=== PATIENT | female | born 1955 | race Caucasian/White ===

== ENCOUNTER 2020-01-26 12:10 | Inpatient (IN) | payer OTHER, SELFPAY ==
--- NOTE | ~2020-01-26 | US_ITS ---
EXAMINATION: US venous doppler [facility] EXAM DATE: 01/27/2020 08:06 INDICATION: Left leg cellulitis. TECHNIQUE: Multiple grayscale, color flow and Doppler images of the left lower extremity deep venous system were obtained and reviewed. Comparison is made to prior examination from 05/07/2019. FINDINGS: The left common femoral, femoral and profunda veins demonstrate normal color flow, respirat ory variation, augmentation and compressibility. Compressibility, color flow confirmed within the le ft popliteal, posterior tibial, peroneal, and greater saphenous veins. IMPRESSION: No left lower extremity deep venous thrombosis. Reviewed, dictated and finalized at location B.
[2020-01-26 12:18] VITALS: BP 141/71; PULSE 63; RESP 18; TEMP 36.6; O2SAT 100
[2020-01-26 13:37] LABS: Basophils Absolute Auto 0.1 K/mm3 (0.0-0.1); Basophils Percent Auto 0.6 % (0.2-1.2); Eosinophils Absolute Auto 0.3 K/mm3 (0-0.3); Eosinophils Percent Auto 3.5 % (0-4.4); Hematocrit 40.8 % (37.0-47.0); Hemoglobin 13.8 g/dL (12.0-15.0); Immature Granulocyte Absolute 0.44 K/mm3 (0.00-0.031); Immature Granulocyte Percent A 5.6 % (0-0.5); Lymphocytes Absolute Auto 1.48 K/mm3 (0.9-3.2); Mean Corpuscular HGB Conc 33.8 g/dl (32-36); Mean Corpuscular Hemoglobin 31.4 pg (26-34); Mean Corpuscular Volume 92.7 fl (80-100); Mean Platelet Volume 8.4 fl (7.4-10.4); Monocytes Absolute Auto 0.7 K/mm3 (0.1-0.6); Monocytes Percent Auto 8.5 % (2.6-8.5); Neutrophils Absolute Auto 4.9 K/mm3 (1.3-6.7); Neutrophils Percent Auto 62.8 % (45.5-73.1); Platelet Count Result 231 k/mm3 (150-375); Red Cell Distribution Width 12.3 % (11.5-14.5); White Blood Count 7.8 K/mm3 (4.5-10.0)
[2020-01-26 13:54] LABS: Alanine Aminotransferase 16 U/L (4-35); Alkaline Phosphatase 83 U/L (38-126); Aspartate Amino Transferase 21 U/L (14-36); Bilirubin,Total 0.4 mg/dL (0.2-1.3); Blood Urea Nitrogen 17 mg/dL (7-17); Calcium 9.1 mg/dL (8.4-10.2); Carbon Dioxide 28 mmol/L (22-30); Chloride 104 mmol/L (98-107); Estimated CRCL calculation 90 ml/min; Estimated Glomerular Filt Rate > 60; Glucose 97 mg/dL (65-105); Potassium 4.4 mmol/L (3.4-5.0); Sodium 138 mmol/L (137-145)
--- NOTE | 2020-01-26 14:52 | ED.SKABFB ---
HPI - Skin/Abscess/Foreign Bdy General Chief complaint: Skin/Abscess/Foreign Body Stated complaint: CELLULITIS Time Seen by Provider: 01/26/20 14:06 Source: patient Mode of arrival: ambulatory Limitations: no limitations History of Present Illness HPI narrative: This is a 64 year old female that presents to the ER for left lower extremity erythema x 1 week. Reports she finished a week of oral antibiotics for this without improvement. Denies fever. Related Data Home Medications Medication Instructions Recorded Confirmed aspirin 01/26/20 01/26/20 atenolol 50 mg PO DAILY 01/26/20 dicloxacillin 01/26/20 01/26/20 nifedipine 30 mg PO DAILY 01/26/20 Allergies Allergy/AdvReac Type Severity Reaction Status Date / Time No Known Allergies Allergy Unknown Verified 01/26/20 12:11 Review of Systems Review of Systems: Narrative: CONSTITUTIONAL: Denies fever SKIN: Reports erythema and warmth All systems reviewed & are unremarkable except as noted in HPI and below PMFSH Past Medical History Medical History (Updated 01/26/20 @ 17:20 by Vanessa Goff PA-C) History of hypertension Surgical History Surgical History (Updated 01/26/20 @ 17:18 by Vanessa Goff PA-C) History of D&C History of lithotripsy Social History Social History Gender identity (if verbalized by the patient): Female Exam Narrative: Exam Narrative: GENERAL: Well-appearing, obese, and in no acute distress. HEAD: Normocephalic, atraumatic. EYES: EOMI. EXTREMITIES: Normal range of motion. Left lower extremity with circumferential erythema from below the knee to the ankle with chronic venous stasis changes. Normal DP pulses. Normal sensation SKIN: Warm, dry, no rash. NEURO: No focal deficits. Alert and oriented x3. PSYCH: Normal mood and affect Course Consultations Consultation #1: Spoke with hospitalist about patient work-up who accepts admission Date: 01/26/20 Time: 17:20 Vital Signs Vital signs: Vital Signs Temperature 97.9 F 01/26/20 12:18 Pulse Rate 63 01/26/20 12:18 Respiratory Rate 18 01/26/20 12:18 Blood Pressure 141/71 H 01/26/20 12:18 Pulse Oximetry 100 01/26/20 12:18 Temperature 97.9 F 01/26/20 12:18 Pulse Rate 62 01/26/20 14:56 Respiratory Rate 18 01/26/20 14:56 Blood Pressure 136/56 L 01/26/20 14:56 Pulse Oximetry 100 01/26/20 14:56 MDM - Skin/Abscess/Foreign Bdy MDM Narrative Medical decision making narrative: Patient presents the emergency department for left lower extremity erythema x1 week. Had finished a week of oral antibiotics by her PCP with little relief. CBC is without leukocytosis. CRP is elevated to 5. Patient given a dose of IV antibiotics in the ED. Due to failure of outpatient therapy will be admitted for further IV antibiotics. Spoke with hospitalist about patient work-up who accepts admission Lab Data Attestation: I reviewed the patient's lab results. Result diagrams: 01/26/20 13:28 01/26/20 13:28 Labs: Lab Results 01/26/20 01/26/20 Range/Units 13:28 13:28 WBC 7.8 (4.5-10.0) K/mm3 RBC 4.40 (4.2-5.4) M/mm3 Hgb 13.8 (12.0-15.0) g/dL Hct 40.8 (37.0-47.0) % MCV 92.7 (80-100) fl MCH 31.4 (26-34) pg MCHC 33.8 (32-36) g/dl RDW 12.3 (11.5-14.5) % Plt Count 231 (150-375) k/mm3 MPV 8.4 (7.4-10.4) fl Immature Gran % (Auto) 5.6 H (0-0.5) % Neut % (Auto) 62.8 (45.5-73.1) % Lymph % (Auto) 19.0 (18.3-44.2) % [place] % (Auto) 8.5 (2.6-8.5) % Eos % (Auto) 3.5 (0-4.4) % Baso % (Auto) 0.6 (0.2-1.2) % Lymph # (Auto) 1.48 (0.9-3.2) K/mm3 [place] # (Auto) 0.7 H (0.1-0.6) K/mm3 Eos # (Auto) 0.3 (0-0.3) K/mm3 Baso # (Auto) 0.1 (0.0-0.1) K/mm3 Abs Immat Gran (auto) 0.44 H (0.00-0.031) K/mm3 Absolute Neuts (auto) 4.9 (1.3-6.7) K/mm3 Absolute Nucleated RBC 0.0 (0.0-0.012) K/mm3 Nucleated RBC % 0.0 (0.0-0.2) % Sodium 138 (137-145) mmol/L Potass
[2020-01-26 14:56] VITALS: BP 136/56; PULSE 62; RESP 18; O2SAT 100
[2020-01-26] MEDS: ONDANSETRON INJ 4 MG/2 ML VIAL IV PUSH (15:10)
[2020-01-26 17:08] VITALS: BP 140/74; PULSE 86; RESP 18; O2SAT 98
[2020-01-26 17:43] LABS: Erythrocyte Sedimentation Rate 116 mm/hr (0-20)
--- NOTE | 2020-01-26 17:44 | ADMGEN ---
This patient, Savanna Arevalo, was admitted to 2 Medical Room 242-. Patient/family oriented to hospital policies and general routines including ID bracelet, bed and alarms, visiting hours, pain management, procedures, bathroom and other care routines, personal items, smoking policy, room service/diet, and visiting hours. Valuables list has been completed. Information on how to activate the Rapid Response Team has been discussed. Patient/Family are encouraged to report perceived risks to care and to ask questions if they do not understand what they are told or what they should do.
[2020-01-26 18:00] LABS: Hemoglobin A1C 5.5 % (<5.7)
--- NOTE | 2020-01-26 18:00 | PM.IMHP ---
H&P: HPI History of Present Illness Chief complaint: Left leg cellulitis. Narrative: Savanna Arevalo is a 64-year-old female with hypertension presented to the emergency department earlier this evening for evaluation of left leg cellulitis. Last Sunday she woke to a red and painful left lower leg and that evening began having chills. She saw Dr. Berumen the following day and was prescribed dicloxacillin. Unfortunately, she has not seen much change in the redness and she continues to have burning pain in that leg. She has been taking Tylenol for discomfort with benefit. She denies fever and further chills. Appetite has been good. No nausea or vomiting. She has no history of venous thromboembolism. No known history of MRSA. Review of Systems Review of Systems: Narrative: Twelve systems were reviewed with pertinent positives and negatives as per HPI. No recent travel. She denies cold and flu symptoms. No cough or shortness of breath. She has chronic, mild left-sided weakness from cerebral palsy. Except as documented, all other systems were reviewed and are negative. ON LICENSE OF [facility] Past Medical History Medical History (Updated 01/26/20 @ 21:23 by Catrina Bustamante PA-C) Cerebral palsy With mild left-sided weakness. Hypertension Hypertriglyceridemia Kidney stones (~03/2018) Legionella pneumonia (~04/2019) Osteoarthritis Venous insufficiency of lower extremity Surgical History Surgical History (Updated 01/26/20 @ 21:19 by Catrina Bustamante PA-C) History of ankle surgery (~195) Achilles tendon lengthening. History of cystoscopy (~03/2018) With ureteral stent and stone extraction. History of dilation and curettage With uterine polypectomy. Status post laser ablation of incompetent vein Family History Family History Mother Breast cancer Sibling Breast cancer Other Hodgkin disease Father Parkinson disease Lymph node cancer Grandparent Leukemia Social History Social History (Updated 01/26/20 @ 21:20 by Catrina Bustamante PA-C) Social History: The patient is and lives with her in [place]. They have no children. 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 She denies alcohol, tobacco, and illicit substance abuse. She designates her as her surrogate decision maker and she wishes to be full code. Gender identity (if verbalized by the patient): Female Spiritual care concerns: No Meds Home Medications and Allergies Home Medications Medication Instructions Recorded Confirmed Type aspirin 81 mg PO QAM 01/26/20 01/26/20 History atenolol 50 mg PO QAM 01/26/20 01/26/20 History nifedipine 30 mg PO QACDINNER 01/26/20 01/26/20 History Allergies Allergy/AdvReac Type Severity Reaction Status Date / Time No Known Allergies Allergy Unknown Verified 01/26/20 12:11 Vital Signs Vital Signs - 24 hr 01/26/20 12:18 01/26/20 14:56 01/26/20 17:08 Temperature 97.9 F Pulse Rate 63 62 86 Respiratory Rate 18 18 18 Blood Pressure 141/71 H 136/56 L 140/74 Pulse Oximetry 100 100 98 01/26/20 18:15 Temperature 97.6 F Pulse Rate 61 Respiratory Rate 18 Blood Pressure 142/62 H Pulse Oximetry 99 Exam Narrative: Exam Narrative: General: Well-developed female sitting up in bed in no distress. She is nontoxic in appearance. Slightly hard of hearing. HEENT: Wearing corrective lenses. Slight dysconjugate gaze. Oral mucosa moist. Neck: Supple. Respiratory: Lungs are clear to auscultation bilaterally. Cardiovascular: Regular rate and rhythm with S1-S2. Gastrointestinal: Abdomen is soft, nontender, and nondistended with positive bowel sounds. Skin: Warm and dry. Mild chronic skin changes of the right lower leg. There is circumferential erythema and thickening of the skin of the left lower leg from the ankle to just below the knee. There is warm and tender to touch. Extremities: No cyanosis or
[2020-01-26 18:15] VITALS: BP 142/62; PULSE 61; RESP 18; TEMP 36.4; O2SAT 99
[2020-01-26 18:54] VITALS: BMI 47.7
[2020-01-26] MEDS: ACETAMINOPHEN 325 MG TABLET 650 MG PO (21:30)
[2020-01-26 22:00] VITALS: BP 110/50; PULSE 64; RESP 20; TEMP 36.4; O2SAT 98
[2020-01-26] MEDS: NIFEdipine 30 MG TAB.ER.24 PO (23:05)
[2020-01-27 06:00] VITALS: BP 119/70; PULSE 60; RESP 20; TEMP 36.2; O2SAT 98
[2020-01-27] MEDS: ACETAMINOPHEN 325 MG TABLET 650 MG PO (06:12)
[2020-01-27 08:45] VITALS: PULSE 68
[2020-01-27] MEDS: ASPIRIN 81 MG CHEWABLE TABLET PO (08:45)
[2020-01-27] MEDS: atenoloL 50 MG TABLET PO (08:45)
[2020-01-27] MEDS: ENOXAPARIN 40 MG/0.4 ML SYRINGE SUB-Q ×2 (08:46→21:22)
[2020-01-27 14:00] VITALS: BP 124/58; PULSE 55; RESP 16; TEMP 36.1; O2SAT 94
--- NOTE | 2020-01-27 14:42 | PCCCNOTE ---
On 01/27/20, the student, Katie Gilmore, provided care and completed [facility] documentation on this patient. I have reviewed the student's documentation and agree with the findings.
--- NOTE | 2020-01-27 15:51 | PM.IMPN ---
Progress Note: A&P Assessment and Plan (1) Cellulitis of left leg: Code(s): L03.116 - Cellulitis of left lower limb Status: Acute Assessment and Plan: The patient presented with LLE edema x1 week and was treated with dicloxacillin with minimal improvement. Plan to continue IV cefazolin. She reports improvement. Blood cultures were obtained in the ED although she did not meet SIRS criteria, has no leuokcytosis, and is afebrile. Blood cultures are pending. Continue analgesics PRN. Continue to monitor. (2) Hypertension: Code(s): I10 - Essential (primary) hypertension Status: Chronic Assessment and Plan: Blood pressures were reviewed and are at target. Plan to continue nifedipine and atenolol. Continue to monitor. (3) Chronic venous insufficiency: Code(s): I87.2 - Venous insufficiency (chronic) (peripheral) Status: Chronic Assessment and Plan: She reports a hx of chronic venous insufficiency and has evidence of stasis dermatitis. Recommend gradient compression of at least 20-30mmHg, leg elevation, proper skin hygiene and hydration, and follow-up with vascular surgery outpatient for venous insufficiency US to r/o underlying venous reflux disease. Venous doppler US was negative for DVT bilaterally. (4) DVT prophylaxis: Code(s): Z29.9 - Encounter for prophylactic measures, unspecified Status: Acute Assessment and Plan: Continue lovenox SQ. Subjective Date/time seen: 01/27/20 15:51 Interval history: Mrs. Arevalo is seen in follow-up for LLE cellulitis. She reports that the swelling, heaviness, and pain are improving. She notes minimal improvement in the erythema so far. She denies subjective fever and chills. She is tolerating PO intake well. She denies nausea and vomiting. She denies chest pain and dyspnea. She reports a hx of chronic venous insufficiency and had a venous procedure in 2009 but cannot recall the details. She reports that she has family has a hx of venous insufficiency as well. She wears compression stockings occasionally but does not believe they are 20-30mmHg. Review of Systems Review of Systems: All systems reviewed & are unremarkable except as noted in HPI and below Exam Narrative: Exam Narrative: General: Very pleasant, morbidly obese, well-developed 64 y.o. female sitting in the chair at the bedside in no acute distress. HEENT: Normocephalic and atraumatic. Conjunctivae and lids normal. EOMI. Mucous membranes moist. Posterior pharynx without erythema or exudate. Neck: Supple without lymphadenopathy or masses. Cardiac: Regular rate and rhythm. S1 and S2 normal. Lungs: Effort normal. Lungs clear to auscultation bilaterally. Breath sounds diminished due to subcutaneous tissue. Abdomen: Obese. Normoactive bowel sounds. Soft, non-tender, and non-distended. Extremities: Trace lower extremity firm and pitting edema greater on the LLE. Chaya sign negative. 2+ DP and PT bilaterally. Neurological: Alert. No focal neurological deficits noted to casual conversation. Speech is clear. Skin: Warm and dry. Chronic venous stasis skin changes with lipodermatosclerosis/hyperpigmentation of the distal [id number] LLE. Varicose veins and venous congestion in the left foot. Circumferential erythema present which extends from the ankle to distal area below the knee. Lines were drawn for demarcation. There is calor to palpation of the area. Psychiatric: Judgment and insight intact. Mood and affect normal. Objective Data Vital Signs Vital Signs: Vital Signs - 24 hr 01/26/20 17:08 01/26/20 18:15 01/26/20 22:00 Temperature 97.6 F 97.6 F Pulse Rate 86 61 64 Respiratory Rate 18 18 20 Blood Pressure 140/74 142/62 H 110/50 L Pulse Oximetry 98 99 98 01/27/20 06:00 01/27/20 08:45 01/27/20 14:00 Temperature 97.2 F L 97.0 F L Pulse Rate 60 68 55 L Respiratory Rate 20 16 Blood Pressure 119/70 124/58 L Pulse Oximetry 98 94
[2020-01-27] MEDS: NIFEdipine 30 MG TAB.ER.24 PO (18:14)
[2020-01-27 22:00] VITALS: BP 144/65; PULSE 59; RESP 20; TEMP 36.1; O2SAT 98
[2020-01-28] MEDS: ACETAMINOPHEN 325 MG TABLET 650 MG PO (04:21)
[2020-01-28 05:34] LABS: Hematocrit 39.5 % (37.0-47.0); Hemoglobin 13.4 g/dL (12.0-15.0); Mean Corpuscular HGB Conc 33.9 g/dl (32-36); Mean Corpuscular Hemoglobin 31.4 pg (26-34); Mean Corpuscular Volume 92.5 fl (80-100); Mean Platelet Volume 8.8 fl (7.4-10.4); Platelet Count Result 218 k/mm3 (150-375); Red Blood Count 4.27 M/mm3 (4.2-5.4); Red Cell Distribution Width 12.2 % (11.5-14.5); White Blood Count 7.1 K/mm3 (4.5-10.0)
[2020-01-28 05:51] LABS: Blood Urea Nitrogen 13 mg/dL (7-17); CRP 3.3 mg/dL (<1.0); Calcium 8.6 mg/dL (8.4-10.2); Carbon Dioxide 27 mmol/L (22-30); Chloride 103 mmol/L (98-107); Estimated CRCL calculation 91 ml/min; Estimated Glomerular Filt Rate > 60; Glucose 104 mg/dL (65-105); Potassium 3.8 mmol/L (3.4-5.0); Sodium 137 mmol/L (137-145)
[2020-01-28 06:00] VITALS: BP 120/88; PULSE 69; RESP 20; TEMP 36.1; O2SAT 96
[2020-01-28] MEDS: ASPIRIN 81 MG CHEWABLE TABLET PO (08:46)
[2020-01-28] MEDS: ENOXAPARIN 40 MG/0.4 ML SYRINGE SUB-Q ×2 (08:47→21:45)
[2020-01-28] MEDS: atenoloL 50 MG TABLET PO (08:47)
--- NOTE | 2020-01-28 08:59 | PM.IMPN ---
Progress Note: A&P Assessment and Plan (1) Cellulitis of left leg: Code(s): L03.116 - Cellulitis of left lower limb Status: Acute Assessment and Plan: The patient presented with LLE edema x1 week and was treated with dicloxacillin with minimal improvement. She is improving with IV cefazolin. Blood cultures were obtained in the ED although she did not meet SIRS criteria, has no leuokcytosis, and is afebrile and reveal NGTD. Continue analgesics PRN. Continue to monitor. (2) Hypertension: Code(s): I10 - Essential (primary) hypertension Status: Chronic Assessment and Plan: Blood pressures were reviewed and are reasonably controlled. She had one reading of 144/65 last night but her blood pressure was 120/88 today. Plan to continue nifedipine and atenolol. Continue to monitor. (3) Chronic venous insufficiency: Code(s): I87.2 - Venous insufficiency (chronic) (peripheral) Status: Chronic Assessment and Plan: She reports a hx of chronic venous insufficiency and has evidence of stasis dermatitis. Recommend gradient compression of at least 20-30mmHg, leg elevation, proper skin hygiene and hydration, and follow-up with vascular surgery outpatient for venous insufficiency US to r/o underlying venous reflux disease. Venous doppler US was negative for DVT bilaterally. (4) DVT prophylaxis: Code(s): Z29.9 - Encounter for prophylactic measures, unspecified Status: Acute Assessment and Plan: Continue lovenox SQ. Subjective Date/time seen: 01/28/20 08:59 Interval history: Mrs. Arevalo is seen in follow-up for LLE cellulitis. She reports improvement in her swelling and erythema today. She requested tylenol for mild LLE discomfort and is not having any pain at this time. She denies subjective fever and chills. She is eating well and has no nausea or vomiting. Her plans to bring in her compression stockings today. She slept well. Review of Systems Review of Systems: All systems reviewed & are unremarkable except as noted in HPI and below Exam Narrative: Exam Narrative: General: Pleasant and cooperative, morbidly obese, and well-developed 64 y.o. female sitting in the chair at the bedside in no acute distress. HEENT: Normocephalic and atraumatic. Conjunctivae and lids normal. EOMI. Mucous membranes moist. Posterior pharynx without erythema or exudate. Neck: Supple without lymphadenopathy or masses. Cardiac: Regular rate and rhythm. S1 and S2 normal. Lungs: Effort normal. Lungs clear to auscultation bilaterally without rales, rhonchi, or wheezes. Abdomen: Obese. Normoactive bowel sounds. Abdomen is soft, non-tender, and non-distended. Extremities: Trace lower extremity edema bilaterally. No calf tenderness. 2+ DP and PT bilaterally. Neurological: Alert. Exam is non-focal. Speech is clear. Skin: Warm and dry. Erythema is improving from prior lines of demarcation at the distal LLE with mild calor to palpation. Chronic venous stasis skin changes with lipodermatosclerosis/hyperpigmentation of the distal [id number] LLE. Varicose veins and venous congestion in the left foot. Scar at site of achilles tendon repair on the medial left ankle. Psychiatric: Judgment and insight intact. Mood pleasant and affect normal. Objective Data Vital Signs Vital Signs: Vital Signs - 24 hr 01/27/20 14:00 01/27/20 22:00 01/28/20 06:00 Temperature 97.0 F L 97 F L 97.0 F L Pulse Rate 55 L 59 L 69 Respiratory Rate 16 20 20 Blood Pressure 124/58 L 144/65 H 120/88 Pulse Oximetry 94 98 96 Intake/Output Intake/Output: Intake & Output 01/25/20 01/26/20 01/27/20 01/28/20 23:59 23:59 23:59 23:59 Intake Total 100 1640 340 Balance 100 1640 340 Meds/Results Medications: Active Medications Generic Name Dose Route Start Last Admin Trade Name Freq PRN Reason Stop Dose Admin Acetaminophen 650 mg 01/26/20 21:09 01/28/20 04:21 Tylenol Tablet
[2020-01-28 14:00] VITALS: BP 124/64; PULSE 61; RESP 16; TEMP 35.9; O2SAT 97
[2020-01-28 16:53] VITALS: BP 119/56; PULSE 60
[2020-01-28] MEDS: NIFEdipine 30 MG TAB.ER.24 PO (16:53)
[2020-01-28 22:00] VITALS: BP 126/50; PULSE 59; RESP 20; TEMP 36.1; O2SAT 100
[2020-01-29 05:16] LABS: CRP 2.9 mg/dL (<1.0)
[2020-01-29 05:59] VITALS: BP 121/64; PULSE 61; RESP 20; TEMP 36.1; O2SAT 98
[2020-01-29] MEDS: ACETAMINOPHEN 325 MG TABLET 650 MG PO (06:28)
[2020-01-29] MEDS: ASPIRIN 81 MG CHEWABLE TABLET PO (07:59)
[2020-01-29] MEDS: ENOXAPARIN 40 MG/0.4 ML SYRINGE SUB-Q ×2 (08:00→20:41)
[2020-01-29] MEDS: atenoloL 50 MG TABLET PO (08:00)
--- NOTE | 2020-01-29 10:23 | PM.IMPN ---
Progress Note: A&P Assessment and Plan (1) Cellulitis of left leg: Code(s): L03.116 - Cellulitis of left lower limb Status: Acute Assessment and Plan: The patient presented with LLE edema x1 week and was treated with dicloxacillin with minimal improvement. She continues to improve with IV cefazolin. Blood cultures were obtained in the ED although she did not meet SIRS criteria, has no leuokcytosis, and is afebrile and reveal NGTD. Continue analgesics PRN. Continue to monitor. Hopeful discharge tomorrow on PO keflex. (2) Hypertension: Code(s): I10 - Essential (primary) hypertension Status: Chronic Assessment and Plan: Blood pressures were reviewed and are well-controlled. Continue nifedipine and atenolol. Continue to monitor. (3) Chronic venous insufficiency: Code(s): I87.2 - Venous insufficiency (chronic) (peripheral) Status: Chronic Assessment and Plan: She reports a hx of chronic venous insufficiency and has evidence of stasis dermatitis. Recommend gradient compression of at least 20-30mmHg, leg elevation, proper skin hygiene and hydration, and follow-up with vascular surgery outpatient for venous insufficiency US to r/o underlying venous reflux disease. Venous doppler US was negative for DVT bilaterally. Weight loss was encouraged. (4) DVT prophylaxis: Code(s): Z29.9 - Encounter for prophylactic measures, unspecified Status: Acute Assessment and Plan: Continue lovenox SQ. Additional Plan Recommend antifungal shampoo for seborrheic dermatitis on scalp. Time Spent With Patient Time with patient: 15 - 25 minutes Subjective Date/time seen: 01/29/20 10:23 Interval history: Mrs. Arevalo is seen in follow-up for LLE cellulitis with her at the bedside. She is doing well and continues to note improvement with less erythema and edema. She has no other complaints. She is wearing her gradient compression stockings from home and she is keeping the legs elevated. She has no complaints of constipation or diarrhea and is eating well. Review of Systems Review of Systems: All systems reviewed & are unremarkable except as noted in HPI and below Exam Narrative: Exam Narrative: General: Morbidly obese, pleasant and cooperative 64 y.o. female sitting in the chair at the bedside with her Matt in no acute distress. HEENT: Normocephalic and atraumatic. Conjunctivae and lids normal. EOMI. Moist mucous membranes. Neck: Supple without lymphadenopathy or masses. Cardiac: Regular rate and rhythm. S1 and S2 normal. Lungs: Effort normal. Lungs clear to auscultation bilaterally without rales, rhonchi, or wheezes. Abdomen: Obese. Normoactive bowel sounds. Abdomen is soft, non-tender, and non-distended. Extremities: Trace lower extremity edema bilaterally. No calf tenderness. 2+ DP and PT bilaterally. Neurological: Alert. Exam is non-focal. Speech is clear. Skin: Warm and dry. Erythema continues to improve from prior lines of demarcation at the distal LLE with mild calor to palpation. Chronic venous stasis skin changes with lipodermatosclerosis/hyperpigmentation of the distal [id number] LLE. Varicose veins and venous congestion in the left foot. Scar at site of achilles tendon repair on the medial left ankle. Erythematous plaques consistent with seborrheic dermatitis on the scalp. Psychiatric: Judgment and insight intact. Mood pleasant and affect normal. Objective Data Vital Signs Vital Signs: Vital Signs - 24 hr 01/28/20 14:00 01/28/20 16:53 01/28/20 22:00 Temperature 96.6 F L 97 F L Pulse Rate 61 60 59 L Respiratory Rate 16 20 Blood Pressure 124/64 119/56 L 126/50 L Pulse Oximetry 97 100 01/29/20 05:59 Temperature 97 F L Pulse Rate 61 Respiratory Rate 20 Blood Pressure 121/64 Pulse Oximetry 98 Intake/Output Intake/Output: Intake & Output 01/26/20 01/27/20 01/28/20 01/29/20 23:59 23:59 23:59 23:59
[2020-01-29 14:45] VITALS: BP 122/66; PULSE 60; RESP 16; TEMP 36.4; O2SAT 100
[2020-01-29] MEDS: NIFEdipine 30 MG TAB.ER.24 PO (16:44)
[2020-01-29 16:45] VITALS: BP 137/86
[2020-01-29 22:00] VITALS: BP 140/57; PULSE 62; RESP 16; TEMP 36.1; O2SAT 96
[2020-01-30 05:19] VITALS: BP 138/59; PULSE 67; RESP 16; TEMP 36; O2SAT 96
[2020-01-30] MEDS: ACETAMINOPHEN 325 MG TABLET 650 MG PO (06:28)
[2020-01-30 08:31] VITALS: PULSE 88
[2020-01-30] MEDS: atenoloL 50 MG TABLET PO (08:31)
[2020-01-30] MEDS: ASPIRIN 81 MG CHEWABLE TABLET PO (08:31)
[2020-01-30] MEDS: ENOXAPARIN 40 MG/0.4 ML SYRINGE SUB-Q (08:31)
[2020-01-30 09:01] LABS: Hematocrit 41.9 % (37.0-47.0); Hemoglobin 14.3 g/dL (12.0-15.0); Mean Corpuscular HGB Conc 34.1 g/dl (32-36); Mean Corpuscular Hemoglobin 31.5 pg (26-34); Mean Corpuscular Volume 92.3 fl (80-100); Mean Platelet Volume 8.4 fl (7.4-10.4); Platelet Count Result 218 k/mm3 (150-375); Red Blood Count 4.54 M/mm3 (4.2-5.4); Red Cell Distribution Width 12.2 % (11.5-14.5); White Blood Count 8.6 K/mm3 (4.5-10.0)
[2020-01-30 09:17] LABS: Blood Urea Nitrogen 14 mg/dL (7-17); Calcium 8.8 mg/dL (8.4-10.2); Carbon Dioxide 26 mmol/L (22-30); Chloride 103 mmol/L (98-107); Estimated CRCL calculation 91 ml/min; Estimated Glomerular Filt Rate > 60; Glucose 136 mg/dL (65-105); Sodium 138 mmol/L (137-145)
[2020-01-30 09:20] LABS: CRP 2.2 mg/dL (<1.0)
--- NOTE | 2020-01-30 11:35 | PM.DS ---
DS: Admitting Diagnosis Admitting Diagnosis Admitting Diagnosis: Cellulitis of left lower limb DS: Discharge Diagnosis Discharge Diagnosis (1) Cellulitis of left leg: Code(s): L03.116 - Cellulitis of left lower limb Status: Acute (2) Hypertension: Qualifiers: Hypertension type: essential hypertension Qualified Code(s): I10 - Essential (primary) hypertension Code(s): I10 - Essential (primary) hypertension Status: Chronic (3) Chronic venous insufficiency: Code(s): I87.2 - Venous insufficiency (chronic) (peripheral) Status: Chronic DS: Summary Hospital Course Reason for hospitalization: Cellulitis Hospital Course: Mrs. Arevalo is a 64 y.o. female with PMH significant for hypertension and venous insufficiency who presented to the emergency department for the evaluation of left lower extremity cellulitis. She reported erythema, swelling, and warmth of the LLE since Sunday01/26/20. She was prescribed dicloxacillin and she took this for 1 week without improvement. Initial workup in the ED revealed no evidence of leukocytosis although immature granulocytes were mildly elevated. ESR was elevated at 116 and CRP was elevated at 5. CMP was otherwise unremarkable. Blood cultures were obtained although the patient did not meet SIRS criteria and revealed NGTD. Venous doppler US was negative for DVT. Her erythema, warmth, pain, and swelling improved with IV cefazolin. She reported a hx of a LLE venous procedure which I suspect was radiofrequency ablation. I discussed that she is at risk for skin ulceration in the future due to her advanced venous stasis skin changes. I encouarged her to follow-up with her vascular surgeon to evaluate for recurrent venous reflux disease. She was advsied to wear 20-30mmHg+ compression stockings, exercise, and elevate the legs. Weight loss was encouraged. Her cellulitis improved significantly and she requested to go home. She was discharged on the morning of 01/30/20 on PO keflex. Status at Discharge Functional status at discharge: independent ambulation Overall status at discharge: patient is back to baseline Time Spent with Patient Time attestation: Total time spent providing and/or coordinating discharge services: 30 minutes Exam Narrative: Exam Narrative: Vitals at presentation: Temp Pulse Resp BP Pulse Ox 97.9 F 63 18 141/71 H 100 01/26/20 12:18 01/26/20 12:18 01/26/20 12:18 01/26/20 12:18 01/26/20 12:18 Vitals at discharge: Temp Pulse Resp BP Pulse Ox 96.8 F L 88 16 138/59 L 96 01/30/20 05:19 01/30/20 08:31 01/30/20 05:19 01/30/20 05:19 01/30/20 05:19 General: Morbidly obese, healthy appearing, pleasant and cooperative 64 y.o. female sitting in the chair at the bedside with her and in no acute distress. HEENT: Normocephalic and atraumatic. Conjunctivae and lids normal. EOMI. Moist mucous membranes. Neck: Supple without lymphadenopathy or masses. Cardiac: Regular rate and rhythm. S1 and S2 normal. Lungs: Effort normal. Lungs clear to auscultation bilaterally. Abdomen: Obese. Normoactive bowel sounds. Abdomen is soft, non-tender, and non-distended. Extremities: No significant lower extremity edema. Neurological: Alert. Exam is non-focal to casual conversation. Speech is clear. Skin: Warm and dry. Minimal erythema today, much improved. Chronic venous stasis skin changes with lipodermatosclerosis/hyperpigmentation of the distal [id number] LLE. Varicose veins and venous congestion in the left foot. Scar at site of achilles tendon repair on the medial left ankle. Erythematous plaques consistent with seborrheic dermatitis on the scalp. Psychiatric: Judgment and insight intact. Mood p
== END 2020-01-30 14:15 | disposition home or self-care (01) | DRG 603 ==
LOC: ANHED 17:00 → ANH2MED 17:12
PROVIDERS: Physician Assistant; Admitting Provider Hospitalist; Emergency Provider Emergency Medicine; PCP Family Medicine; Visit Provider Family Medicine
DX: L03.116 Cellulitis of left lower limb (principal); I87.2 Venous insufficiency (chronic) (peripheral); E78.1 Pure hyperglyceridemia; I10 Essential (primary) hypertension; G80.9 Cerebral palsy, unspecified; L21.9 Seborrheic dermatitis, unspecified; Z87.442 Personal history of urinary calculi
CPT/HCPCS: 36415; 80048; 80053; 83036; 85025; 85027; 85652; 86140; 87040; 93971; 96365; 96366; 96372; 96375; 99285; A9270; G0378; J0690; J1650; J2405

== ENCOUNTER 2020-12-31 12:07 | Outpatient (CLI) | payer OTHER, SELFPAY ==
--- NOTE | ~2020-12-31 | MR_ITS ---
EXAMINATION: MR lumbar spine wo con DATE: 12/31/2020 13:07 INDICATION: Dorsalgia, unspecified. TECHNIQUE: Magnetic resonance imaging (MRI) of the lumbar spine was performed without intravenous con trast. Sequences included sagittal T2-weighted FSE, sagittal T2-weighted FS FSE, sagittal T1-weighted FSE, and axial T2-weighted FSE. COMPARISON: Lumbar spine MRI 10/12/2011 FINDINGS: There is 8 degrees dextrocurvature of thoracolumbar spine. There is 4 mm anterolisthesis of L4 on L5. Vertebral body heights are normal. There is moderately decreased disc height at T11-T12 an d L3-L4 and mildly decreased disc height at L4-L5. The conus medullaris is at L1. The following disc levels are specifically discussed: L1-L2: There is a central protrusion. There is mild bilateral facet joint osteoarthritis. There is no neural foraminal stenosis. There is mild central canal stenosis. L2-L3: The disc is mildly bulging. There is moderate bilateral facet joint osteoarthritis. There is n o neural foraminal stenosis. There is mild central canal stenosis. L3-L4: The disc is bulging and has an annular fissure. There is severe bilateral facet joint osteoart hritis. There is moderate right and mild left neural foraminal stenosis. There is mild central canal stenosis. L4-L5: The disc is bulging. There is severe bilateral facet joint osteoarthritis. There is mild bilat eral neural foraminal stenosis. There is moderate central canal stenosis. L5-S1: The disc does not extend beyond the endplate margin. There is severe right and moderate left f acet joint osteoarthritis. There is mild bilateral neural foraminal stenosis. There is no central can al stenosis. IMPRESSION: 1. Moderate lumbar spondylosis. Reviewed, dictated and finalized at location A.
== END 2020-12-31 12:08 | disposition home or self-care (01) ==
PROVIDERS: PCP Internal Medicine; Visit Provider Nurse Practitioner
DX: M47.896 Other spondylosis, lumbar region (principal)
CPT/HCPCS: 72148

== ENCOUNTER 2021-02-17 10:30 | Outpatient (RCR) | payer OTHER, SELFPAY ==
--- NOTE | 2021-01-21 17:11 | PTOPEVAL ---
Thank you for referring Savanna Arevalo to [facility].? The patient is scheduled to be seen for therapy? 2 x/week for 6 weeks. Please review, sign, date and return this plan of care EVERETT. I agree with and certify that the following plan of care is medically necessary. Referring Physician Date Attending Provider: Phu Reyna, Diagnosis progression of leg weakness Onset chronic Additional Evaluation Detail History of cellulitis and lymphedema. She is being treated at [facility] for lymphedema. Compression pump she uses nightly. She has Dx of CP which she did not know until recently. She had heel cord lengthening as a child. 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 Subjective Information She has progression of Query Text:As Reported By Patient/ weakness with falls over the Family past year. She reports she shuffles her feet. Last fall 11/26/20. States 1 fall in the past 6 months. She is unable to get off the floor due to weakness. 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 She does not perform a walking program or fitness program. She has received multiple shots in her back for the pain . Diagnostic Tests MRI For This Problem Yes: Moderate lumbar spondylosis. Pain Assessment Self Report Pain Assessment Lower Back Reported Pain Level 0 Pain Description Aching Pain Frequency Chronic Greatest Pain Intensity 4 Pain Aggravating Factors Walking,Weight Bearing/ Standing Pain Behaviors Anxious Lower Extremity Range of Motion Ankle/Foot Range of Motion Left Ankle Dorsiflexion With Knee Flexed -18 Active Ankle Eversion Range of Motion - Passive 15 Ankle Inversion Range of Motion - 55 Passive Lower Extremity Muscle Strength Testing Hip Strength Right Hip Flexion Strength 4- Good - Hip Extension Strength 3+ Fair + Hip Abduction Strength 3+ Fair + Hip Strength Comments hip ext and abduction tested standing Left Hip Flexion Strength 3- Fair - Hip E
--- NOTE | 2021-02-17 11:19 | PTOPEVAL ---
Thank you for referring Savanna Arevalo to [facility].? See summary below for Savanna's progress with therapy. She has partially achieved her therapy goals at this time. She demonstrate indep with her home program. Will DC skilled therapy services at this time. Please review, sign, date and return this discharge summary [place]ERETT. I agree with and certify that the following plan of care is medically necessary. Referring Physician Date Attending Provider: Phu Reyna, DO Physical Therapy Discharge Summary Diagnosis progression of leg weakness Onset chronic Additional Evaluation Detail History of cellulitis and lymphedema. She is being treated at [facility] for lymphedema. Compression pump she uses nightly. She has Dx of CP which she did not know until recently. She had heel cord lengthening as a child. 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 Subjective Information She received an injection in Query Text:As Reported By Patient/ her back yesterday with Family improved pain today. She does feel therapy has improved her strength and function. Denies any recent falls. 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 She does performing HEP 1x/day. Pain Assessment Lower Back Reported Pain Level 0 Lower Extremity Muscle Strength Testing Hip Strength Right Hip Flexion Strength 4- Good - Hip Extension Strength 3+ Fair + Hip Abduction Strength 3+ Fair + Hip Strength Comments hip ext and abduction tested standing Left Hip Flexion Strength 3+ Fair + Hip Extension Strength 3+ Fair + Hip Abduction Strength 3 Fair Hip Strength Comments hip ext and abduction tested standing Knee Strength Right Knee Flexion Strength 4+ Good + Knee Extension Strength 5 Normal Knee Strength Comments hamstring tested in seated Left Knee Flexion Strength 4+ Good + Knee Extension Strength 4+ Good + Knee Strength Comments hamstring tested seated Transfer Assessment Floor Transfer Assessment Floor Transfer Destination Mat Sit to Floor Transfer Ability Standby Assistance Floor to Sit Transfer Ability Standby Assistance Floor Transfer Comments stand to kneeling on ground.
== END 2021-04-11 13:05 | disposition home or self-care (01) ==
LOC: ANHPT 10:30
PROVIDERS: PCP Internal Medicine; Visit Provider Internal Medicine
DX: R29.898 Other symptoms and signs involving the musculoskeletal system (principal)
CPT/HCPCS: 97110; 97112; 97163; 97530

== ENCOUNTER 2021-09-11 13:32 | Inpatient (IN) | payer OTHER, SELFPAY ==
--- NOTE | ~2021-09-11 | US_ITS ---
EXAMINATION: US venous doppler [facility] DATE: 09/11/2021 15:50 INDICATION: Left lower limb swelling TECHNIQUE: Monterroso scale images without and with compression and Doppler images of the left lower extrem ity veins were obtained. COMPARISON: 01/27/2020 FINDINGS: The left common femoral vein, profunda femoral vein, femoral vein, popliteal vein, peroneal trunk, posterior tibial veins, and greater saphenous vein are patent. IMPRESSION: 1. Patent left lower extremity veins. No evidence of deep venous thrombosis. Reviewed, dictated and finalized at location F. M [employer]OX [employer]ER
[2021-09-11 13:33] VITALS: BP 149/111; PULSE 72; RESP 20; TEMP 36.7; O2SAT 99
[2021-09-11 13:41] VITALS: PULSE 68; RESP 18; TEMP 37.1; O2SAT 98
[2021-09-11 14:28] LABS: Basophils Absolute Auto 0.1 K/mm3 (0.0-0.1); Basophils Percent Auto 0.7 % (0.2-1.2); Eosinophils Absolute Auto 0.2 K/mm3 (0-0.3); Eosinophils Percent Auto 2.4 % (0-4.4); Hematocrit 40.2 % (37.0-47.0); Hemoglobin 13.4 g/dL (12.0-15.0); Immature Granulocyte Absolute 0.14 K/mm3 (0.00-0.031); Immature Granulocyte Percent A 1.5 % (0-0.5); Lymphocytes Absolute Auto 1.47 K/mm3 (0.9-3.2); Lymphocytes Percent Auto 15.3 % (18.3-44.2); Mean Corpuscular HGB Conc 33.3 g/dl (32-36); Mean Corpuscular Hemoglobin 31.7 pg (26-34); Mean Platelet Volume 8.7 fl (7.4-10.4); Monocytes Absolute Auto 0.7 K/mm3 (0.1-0.6); Monocytes Percent Auto 7.1 % (2.6-8.5); Platelet Count Result 227 k/mm3 (150-375); Red Blood Count 4.23 M/mm3 (4.2-5.4); Red Cell Distribution Width 12.8 % (11.5-14.5); White Blood Count 9.6 K/mm3 (4.5-10.0)
[2021-09-11 14:43] LABS: Anion Gap 7 mmol/L (8-16); Blood Urea Nitrogen 24 mg/dL (7-17); Carbon Dioxide 26 mmol/L (22-30); Chloride 108 mmol/L (98-107); Estimated CRCL calculation 57 ml/min; Estimated Glomerular Filt Rate 55; Glucose 108 mg/dL (65-110); Potassium 3.8 mmol/L (3.4-5.0); Sodium 141 mmol/L (137-145)
[2021-09-11] MEDS: HYDROcodone/acetaminophen (*CRX) 5-325 MG TABLET 2 TAB PO (15:23)
--- NOTE | 2021-09-11 15:28 | PC.NURSE ---
Doppler at bedside for exam.
--- NOTE | 2021-09-11 16:07 | ED.GENADULT ---
HPI - General Adult General Chief complaint: Wound/Laceration Stated complaint: left lower leg cellulitis. Time Seen by Provider: 09/11/21 14:05 Source: patient Mode of arrival: ambulatory Limitations: no limitations History of Present Illness HPI narrative: Patient presents for evaluation of redness, swelling, pain to the left lower extremity for the last week. She indicates she has a history of recurrent cellulitis in that extremity. She states her current symptoms are consistent with those experienced in past with cellulitis. She has required admission for IV abx when she has had similar symptoms historically. No fever, chills, nausea, vomiting. She is not diabetic. She does not smoke. She saw her PCP four day ago and was given a script for keflex which she has been taking as directed. She has not had improvement in her symptoms on that medication. She currently rates her pain as 6/10 in severity without descriptive quality. No personal history of DVT or PE. No additional complaints or concerns. Related Data Home Medications Medication Instructions Recorded Confirmed aspirin 81 mg PO QAM 01/26/20 09/07/21 Allergies Allergy/AdvReac Type Severity Reaction Status Date / Time No Known Allergies Allergy Unknown Verified 09/07/21 07:06 Review of Systems Review of Systems: CONSTITUTIONAL: Denies fever, chills, or sweats. EYES: Denies visual changes, redness, or discharge. ENT: Denies rhinorrhea, congestion, sore throat, or otalgia. CARDIOVASCULAR: Denies chest pain, palpitations, or edema. RESPIRATORY: Denies cough or dyspnea. GASTROINTESTINAL: Denies abdominal pain, nausea, vomiting, or diarrhea. GENITOURINARY: Denies dysuria or hematuria. SKIN: Reports redness to LLE MUSCULOSKELETAL: Reports pain in left lower leg. Denies back pain NEUROLOGIC: Denies headache, numbness, dizziness, or weakness. PSYCHIATRIC: Denies anxiety or depression. [facility] Past Medical History Medical History Cerebral palsy With mild left-sided weakness. Hypertension Hypertriglyceridemia Kidney stones (~03/2018) Legionella pneumonia (~04/2019) Osteoarthritis Venous insufficiency of lower extremity Surgical History Surgical History History of ankle surgery (~1959) Achilles tendon lengthening. History of cystoscopy (~03/2018) With ureteral stent and stone extraction. History of dilation and curettage With uterine polypectomy. Status post laser ablation of incompetent vein Family History Family History Mother Breast cancer Sibling Breast cancer Other Hodgkin disease Father Parkinson disease Lymph node cancer Grandparent Leukemia Social History Social History Social History: The patient is and lives with her in [place]. They have no children. 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 She denies alcohol, tobacco, and illicit substance abuse. She designates her as her surrogate decision maker and she wishes to be full code. Smoking status: Never smoker Second hand tobacco smoke exposure: No Alcohol intake: current Alcohol use details: once in a while, not much Substance use: never Substance use type: does not use Gender identity (if verbalized by the patient): Female Spiritual care concerns: No Exam Narrative: GENERAL: Well-appearing, well-nourished, and in no acute distress. HEAD: Normocephalic, atraumatic. EYES: PERRLA and EOMI. ENT: Nares clear, no rhinorrhea or epistaxis. Mucous membranes moist. Oropharynx without tonsillar hypertrophy exudate or other lesions. Bilateral TMs pearly urrutia nonbulging NECK: Supple. No adenopathy or masses. No carotid bruits or JVD CHEST: Clear to auscultation. No respiratory dist
[2021-09-11 16:51] VITALS: BP 142/78; PULSE 78; RESP 18; O2SAT 98
[2021-09-11 16:52] LABS: SARS-CoV-2 RNA PCR Negative
[2021-09-11 17:26] LABS: Alanine Aminotransferase 20 U/L (4-35); Albumin Level 3.9 g/dL (3.5-5.1); Alkaline Phosphatase 86 U/L (38-126); Aspartate Amino Transferase 24 U/L (14-36); Bilirubin,Total 0.5 mg/dL (0.2-1.3)
[2021-09-11 17:31] VITALS: BP 132/78; PULSE 72; RESP 18; O2SAT 98
[2021-09-11 17:32] LABS: Prothrombin Time 12.8 Seconds (11.1-14.7)
[2021-09-11 17:33] LABS: Partial Thromboplastin Time 50.3 SECONDS (22.3-36.8)
[2021-09-11 17:55] VITALS: BP 131/48; PULSE 64; RESP 18; TEMP 36.7; O2SAT 96
[2021-09-11 18:02] VITALS: BMI 49.9
--- NOTE | 2021-09-11 18:07 | PC.NURSE ---
This patient, Savanna Arevalo, was admitted to 3 [facility] Surg Room 302-01. Patient/family oriented to hospital policies and general routines including ID bracelet, bed and alarms, visiting hours, pain management, procedures, bathroom and other care routines, personal items, smoking policy, room service/diet, and visiting hours.Report received from Emily BALBUENA. Information on how to activate the Rapid Response Team has been discussed. Patient/Family are encouraged to report perceived risks to care and to ask questions if they do not understand what they are told or what they should do.
[2021-09-11 21:44] VITALS: BP 107/48; PULSE 62; RESP 20; TEMP 36.8; O2SAT 96
--- NOTE | 2021-09-12 01:47 | PM.IMHP ---
H&P: HPI History of Present Illness Date/Time: 09/11/21 2300 this is a 66-year-old female patient who has a history of cerebral palsy. The patient tells me that she had Achilles tendon lengthening as a child due to cerebral palsy. The patient stated that she this is the 3rd time she has had cellulitis to her lower extremity. The patient stated that this past Sunday she went to see her primary care doctor and was prescribed Keflex. The patient has taken her Keflex since that last Sunday. She stated that the redness and tenderness is not getting any better. The patient did have a venous Doppler performed and it was read as a pain left lower extremity vein no evidence of deep vein thrombosis. Blood cultures were obtained. The patient was given [place] in the emergency room. She was started on Ancef. As per cellulitis antibiotic stewardship. The patient is admitted to observation status on the date of service of 09/11/2021. Chief Complaint: Redness to the left lower extremity Review of Systems Review of Systems: All systems reviewed & are unremarkable except as noted in HPI and below Constitutional: Constitutional: Reports as per HPI and Reports no additional constitutional complaints Eyes: Eyes: Reports as per HPI and Reports no additional eye complaints ENT: Reports system reviewed and no additional complaints, except as documented and Reports Normal hearing present Cardiovascular: Cardiovascular: Reports no additional cardiovascular complaints Respiratory: Respiratory: Reports no additional respiratory complaints and Reports no additional respiratory complaints Gastrointestinal: Gastrointestinal: Reports as per HPI and Reports no additional gastrointestinal complaints Musculoskeletal: Musculoskeletal: Reports no additional musculoskeletal complaints Integumentary/Breasts: Skin/Breast: Reports system reviewed and no additional complaints, except as docu and Reports as per HPI Neurologic: Reports system reviewed and no additional complaints, except as documented, Reports as per HPI and Reports Normal hearing present Psychiatric: Psychiatric: Reports no additional psychiatric complaints and Reports as per HPI Endocrine: Endocrine: Reports no additional endocrine complaints Hematologic/Lymphatic: Hematologic/Lymphatic: Reports no additional hematologic/lymphatic complaints Allergic/Immunologic: Allergic/Immunologic: Reports no additional allergic/immunologic complaints [facility] Past Medical History Medical History (Updated 09/12/21 @ 02:04 by Cheryle Moulton NP) Anxiety Cerebral palsy With mild left-sided weakness. Hypertension Hypertriglyceridemia Kidney stones (~03/2018) Legionella pneumonia (~04/2019) Osteoarthritis Venous insufficiency of lower extremity Surgical History Surgical History History of ankle surgery (~1959) Achilles tendon lengthening. History of cystoscopy (~03/2018) With ureteral stent and stone extraction. History of dilation and curettage With uterine polypectomy. Status post laser ablation of incompetent vein Family History Family History Mother Breast cancer Sibling Breast cancer Other Hodgkin disease Father Parkinson disease Lymph node cancer Grandparent Leukemia Social History Social History Social History: The patient is and lives with her in [place]. They have no children. 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 She denies alcohol, tobacco, and illicit substance abuse. She designates her as her surrogate decision maker and she wishes to be full code. Smoking status: Never smoker Second hand tobacco smoke exposure: No Alcohol intake: never Alcohol use details: once in a while, not much Substance use: never Substance use type: does not use Gender
[2021-09-12 05:41] VITALS: BP 110/47; PULSE 72; RESP 18; TEMP 36.6; O2SAT 96
[2021-09-12 06:20] LABS: Basophils Percent Auto 0.6 % (0.2-1.2); Eosinophils Absolute Auto 0.2 K/mm3 (0-0.3); Eosinophils Percent Auto 3.5 % (0-4.4); Hematocrit 36.4 % (37.0-47.0); Hemoglobin 12.4 g/dL (12.0-15.0); Immature Granulocyte Absolute 0.08 K/mm3 (0.00-0.031); Immature Granulocyte Percent A 1.2 % (0-0.5); Lymphocytes Absolute Auto 1.47 K/mm3 (0.9-3.2); Lymphocytes Percent Auto 21.4 % (18.3-44.2); Mean Corpuscular HGB Conc 34.1 g/dl (32-36); Mean Corpuscular Hemoglobin 31.9 pg (26-34); Mean Corpuscular Volume 93.6 fl (80-100); Mean Platelet Volume 8.8 fl (7.4-10.4); Monocytes Absolute Auto 0.6 K/mm3 (0.1-0.6); Monocytes Percent Auto 8.9 % (2.6-8.5); Neutrophils Absolute Auto 4.4 K/mm3 (1.3-6.7); Neutrophils Percent Auto 64.4 % (45.5-73.1); Platelet Count Result 197 k/mm3 (150-375); Red Blood Count 3.89 M/mm3 (4.2-5.4); Red Cell Distribution Width 12.7 % (11.5-14.5); White Blood Count 6.9 K/mm3 (4.5-10.0)
[2021-09-12 06:30] LABS: Anion Gap 6 mmol/L (8-16); Blood Urea Nitrogen 18 mg/dL (7-17); Carbon Dioxide 23 mmol/L (22-30); Chloride 109 mmol/L (98-107); Estimated CRCL calculation 88 ml/min; Estimated Glomerular Filt Rate > 60; Glucose 98 mg/dL (65-110); Potassium 3.9 mmol/L (3.4-5.0); Sodium 138 mmol/L (137-145)
[2021-09-12] MEDS: HYDROcodone/acetaminophen (*CRX) 5-325 MG TABLET 1 TAB PO (09:23)
[2021-09-12] MEDS: ASPIRIN 81 MG CHEWABLE TABLET PO (09:23)
[2021-09-12] MEDS: OXYBUTYNIN CHLORIDE 5 MG TABLET PO (09:23)
[2021-09-12] MEDS: ENOXAPARIN 40 MG/0.4 ML SYRINGE SUB-Q (09:24)
[2021-09-12 09:25] VITALS: PULSE 76
[2021-09-12] MEDS: atenoloL 50 MG TABLET PO (09:25)
[2021-09-12 14:00] VITALS: BP 105/42; PULSE 56; RESP 20; TEMP 36.8; O2SAT 98
--- NOTE | 2021-09-12 17:26 | PM.IMPN ---
Progress Note: A&P Assessment and Plan (1) Cellulitis of left leg: Code(s): L03.116 - Cellulitis of left lower limb Status: Acute Assessment and Plan: Blood cultures are pending. Continue with Ancef as per antibiotic stewardship. 09/12/2021 Interval history: Patient failed outpatient oral antibiotics treatment presented emergency depart with cellulitis of right lower extremity, patient is being treated with Ancef, will continue to monitor, will have a PT OT evaluate the patient and further recommendation to follow (2) Hypertension: Qualifiers: Hypertension type: essential hypertension Qualified Code(s): I10 - Essential (primary) hypertension Code(s): I10 - Essential (primary) hypertension Status: Chronic Assessment and Plan: Continue with nifedipine if she takes at home and atenolol. (3) Anxiety: Code(s): F41.9 - Anxiety disorder, unspecified Status: Chronic Assessment and Plan: Continue with p.r.n. Apresoline. Subjective Date/time seen: 09/12/21 17:26 this is a 66-year-old female patient who has a history of cerebral palsy. The patient tells me that she had Achilles tendon lengthening as a child due to cerebral palsy. The patient stated that she this is the 3rd time she has had cellulitis to her lower extremity. The patient stated that this past Sunday she went to see her primary care doctor and was prescribed Keflex. The patient has taken her Keflex since that last Sunday. She stated that the redness and tenderness is not getting any better. The patient did have a venous Doppler performed and it was read as a pain left lower extremity vein no evidence of deep vein thrombosis. Blood cultures were obtained. The patient was given [place] in the emergency room. She was started on Ancef. As per cellulitis antibiotic stewardship. The patient is admitted to observation status on the date of service of 09/11/2021. 09/12/2021 Interval history: Patient failed outpatient oral antibiotics treatment presented emergency depart with cellulitis of right lower extremity, patient is being treated with Ancef, will continue to monitor, will have a PT OT evaluate the patient and further recommendation to follow Review of Systems Review of Systems: All systems reviewed & are unremarkable except as noted in HPI and below Exam Narrative: Patient is comfortable, NAD HEENT: eyes are clear and none icteric LUNGS: normal respiratory effort ABD: distended Lower extremities: right lower extremity erythema and edema SKIN: nonjaundiced Neuro: grossly intact. Objective Data Vital Signs Vital Signs: Vital Signs - 24 hr 09/11/21 17:31 09/11/21 17:55 09/11/21 21:44 Temperature 98.0 F 98.3 F Pulse Rate 72 64 62 Respiratory Rate 18 18 20 Blood Pressure 132/78 131/48 L 107/48 L Pulse Oximetry 98 96 96 09/12/21 05:41 09/12/21 09:25 09/12/21 14:00 Temperature 97.9 F 98.3 F Pulse Rate 72 76 56 L Respiratory Rate 18 20 Blood Pressure 110/47 L 105/42 L Pulse Oximetry 96 98 Intake/Output Intake/Output: Intake & Output 09/09/21 09/10/21 09/11/21 09/12/21 23:59 23:59 23:59 23:59 Intake Total 50 1230 Balance 50 1230 Meds/Results Medications: Active Medications Generic Name Dose Route Start Last Admin Trade Name Freq PRN Reason Stop Dose Admin Hydrocodone Bitart/Acetaminophen 1 tab 09/11/21 16:05 09/12/21 09:23 Hydrocodone/Acetaminophen (*Crx) 5-325 Mg Tablet PO 1 tab Q4H PRN Administration Pain Rated 4-6 Hydrocodone Bitart/Acetaminophen 2 tab 09/11/21 16:05 Hydrocodone/Acetaminophen (*Crx) 5-325 Mg Tablet PO Q4H PRN Pain Rated 7-10 Alprazolam 0.25 mg 09/12/21 01:54 Alprazolam (*Crx) 0.25 Mg Tablet PO TID PRN anxiety Aspirin 81 mg 09/12/21 08:00 09/12/21 09:23 Aspirin 81 Mg Chewable Tablet PO 81 mg DAILY@0800 CORBY Administration Atenolol 50 mg 09/12/21 09:00 09/12/21 09:
[2021-09-12] MEDS: NIFEdipine 30 MG TAB.ER.24 PO (17:50)
[2021-09-12 21:38] VITALS: BP 115/66; PULSE 68; RESP 20; TEMP 36.7; O2SAT 94
[2021-09-13 05:47] VITALS: BP 130/52; PULSE 63; RESP 20; TEMP 36.6; O2SAT 95
[2021-09-13 08:23] VITALS: PULSE 68
[2021-09-13] MEDS: ASPIRIN 81 MG CHEWABLE TABLET PO (08:23)
[2021-09-13] MEDS: atenoloL 50 MG TABLET PO (08:23)
[2021-09-13] MEDS: OXYBUTYNIN CHLORIDE 5 MG TABLET PO (08:24)
[2021-09-13] MEDS: ENOXAPARIN 40 MG/0.4 ML SYRINGE SUB-Q (08:24)
--- NOTE | 2021-09-13 11:57 | PM.IMPN ---
Progress Note: A&P Assessment and Plan (1) Cellulitis of left leg: Code(s): L03.116 - Cellulitis of left lower limb Status: Acute Assessment and Plan: 09/12/2021 Interval history: Patient failed outpatient oral antibiotics treatment presented emergency depart with cellulitis of right lower extremity, patient is being treated with Ancef, will continue to monitor, will have a PT OT evaluate the patient and further recommendation to follow. 09/13/2021: Pt started on iv cefazolin doing better, wcc are better, BC positive in one bottle. OK to Dc tomorrow. (2) Hypertension: Qualifiers: Hypertension type: essential hypertension Qualified Code(s): I10 - Essential (primary) hypertension Code(s): I10 - Essential (primary) hypertension Status: Chronic Assessment and Plan: Continue with nifedipine if she takes at home and atenolol. (3) Anxiety: Code(s): F41.9 - Anxiety disorder, unspecified Status: Chronic Assessment and Plan: Continue with p.r.n. Apresoline. Subjective Date/time seen: 09/13/21 11:57 Interval history: 6-year-old female patient who has a history of cerebral palsy. The patient tells me that she had Achilles tendon lengthening as a child due to cerebral palsy. The patient stated that she this is the 3rd time she has had cellulitis to her lower extremity. The patient stated that this past Sunday she went to see her primary care doctor and was prescribed Keflex. Pt started on iv cefazolin doing better,Wcc are better, BC positive in one bottle. OK to Dc tomorrow. Review of Systems Review of Systems: All systems reviewed & are unremarkable except as noted in HPI and below Exam Narrative: Patient is comfortable HEENT: eyes are clear and none icteric LUNGS: normal respiratory effort ABDO; Soft non tender Lower extremities: left leg with erythema more localised and smaller patch Objective Data Vital Signs Vital Signs: Vital Signs - 24 hr 09/12/21 14:00 09/12/21 21:38 09/13/21 05:47 Temperature 36.8 C 36.7 C 36.6 C Pulse Rate 56 L 68 63 Respiratory Rate 20 20 20 Blood Pressure 105/42 L 115/66 130/52 L Pulse Oximetry 98 94 95 09/13/21 08:23 Temperature Pulse Rate 68 Respiratory Rate Blood Pressure Pulse Oximetry Intake/Output Intake/Output: Intake & Output 09/10/21 09/11/21 09/12/21 09/13/21 23:59 23:59 23:59 23:59 Intake Total 50 1520 700 Balance 50 1520 700 Meds/Results Medications: Active Medications Generic Name Dose Route Start Last Admin Trade Name Freq PRN Reason Stop Dose Admin Hydrocodone Bitart/Acetaminophen 1 tab 09/11/21 16:05 09/12/21 09:23 Hydrocodone/Acetaminophen (*Crx) 5-325 Mg Tablet PO 1 tab Q4H PRN Administration Pain Rated 4-6 Hydrocodone Bitart/Acetaminophen 2 tab 09/11/21 16:05 Hydrocodone/Acetaminophen (*Crx) 5-325 Mg Tablet PO Q4H PRN Pain Rated 7-10 Alprazolam 0.25 mg 09/12/21 01:54 Alprazolam (*Crx) 0.25 Mg Tablet PO TID PRN anxiety Aspirin 81 mg 09/12/21 08:00 09/13/21 08:23 Aspirin 81 Mg Chewable Tablet PO 81 mg DAILY@0800 CORBY Administration Atenolol 50 mg 09/12/21 09:00 09/13/21 08:23 Atenolol 50 Mg Tablet PO 50 mg QAM CORBY Administration Enoxaparin Sodium 40 mg 09/12/21 09:00 09/13/21 08:24 Enoxaparin 40 Mg/0.4 Ml Syringe SUB-Q 40 mg DAILY CORBY Administration Cefazolin Sodium 1 gm in 50 mls @ 100 mls/hr 09/11/21 19:00 09/13/21 11:01 Ancef 1 Gm/D5w 50 Ml Pm IVPB 100 mls/hr Q8H CORBY Administration Nifedipine 30 mg 09/12/21 17:00 09/12/21 17:50 Nifedipine 30 Mg Tab.Er.24 PO 30 mg 1700 CORBY Administration Ondansetron HCl 4 mg 09/11/21 16:05 Ondansetron Inj 4 Mg/2 Ml Vial IV PUSH Q4H PRN Nausea Oxybutynin Chloride 5 mg 09/12/21 09:00 09/13/21 08:24 Oxybutynin Chloride 5 Mg Tablet PO 5 mg DAILY CORBY Administration Radiology Results:
[2021-09-13 14:00] VITALS: PULSE 57; RESP 18; TEMP 36.2; O2SAT 97
[2021-09-13] MEDS: NIFEdipine 30 MG TAB.ER.24 PO (16:52)
[2021-09-13 22:00] VITALS: BP 131/57; PULSE 57; RESP 20; TEMP 36.1; O2SAT 94
[2021-09-13] MEDS: HYDROcodone/acetaminophen (*CRX) 5-325 MG TABLET 1 TAB PO (23:36)
[2021-09-14] VITALS: O2SAT 93
[2021-09-14 05:32] VITALS: BP 126/49; PULSE 58; RESP 18; TEMP 36.2; O2SAT 96
--- NOTE | 2021-09-14 08:29 | PM.DS ---
DS: Admitting Diagnosis Discharge Date 09/14/2021 Admitting Diagnosis Redness to the left lower extremity DS: Discharge Diagnosis Discharge Diagnosis (1) Cellulitis of left leg: Code(s): L03.116 - Cellulitis of left lower limb Status: Acute Assessment and Plan: 09/12/2021 Interval history: Patient failed outpatient oral antibiotics treatment presented emergency depart with cellulitis of right lower extremity, patient is being treated with Ancef, will continue to monitor, will have a PT OT evaluate the patient and further recommendation to follow. 09/13/2021: Pt started on iv cefazolin doing better, wcc are better, BC positive in one bottle possible contaminate. 09/14/21: ok to dc pt with oral abx and follow up with PCP (2) Hypertension: Qualifiers: Hypertension type: essential hypertension Qualified Code(s): I10 - Essential (primary) hypertension Code(s): I10 - Essential (primary) hypertension Status: Chronic Assessment and Plan: Continue with nifedipine if she takes at home and atenolol. (3) Anxiety: Code(s): F41.9 - Anxiety disorder, unspecified Status: Chronic Assessment and Plan: Continue with p.r.n. Apresoline. DS: Summary Hospital Course Hospital Course: 66-year-old female patient who has a history of cerebral palsy. The patient tells me that she had Achilles tendon lengthening as a child due to cerebral palsy. The patient stated that she this is the 3rd time she has had cellulitis to her lower extremity. The patient stated that this past Sunday she went to see her primary care doctor and was prescribed Keflex. Pt started on iv cefazolin doing better,Wcc are better, BC positive in one bottle. OK to Dc tomorrow. Time Spent with Patient Time attestation: Total time spent providing and/or coordinating discharge services:45 minutes on day of discharge Exam Narrative: Patient is comfortable HEENT: eyes are clear and none icteric LUNGS: normal respiratory effort ABDO; Soft non tender Lower extremities: left leg with erythema more localised and smaller patch DS: Data Data Completed and Pending Labs on day of discharge: Preliminary micro results at discharge 09/11/21 16:59 Blood Culture - Preliminary Blood 09/11/21 16:59 Blood Culture - Preliminary Blood Discharge Plan Discharge Attending physician on discharge: Lily Sparks Discharging Clinician: Lily Sparks Anticipated Discharge Date/Time: 09/14/21 08:28 Patient Disposition: Home, Self-Care Activity: as tolerated Diet: heart healthy Patient Instructions: Antibiotic Form, Cellulitis (GEN) Stand Alone Forms: General Discharge Information Follow-up/Referrals: Phu Reyna DO [Primary Care Provider] - (in 2 weeks time ) Discharge Medications: Continued alprazolam 0.25 mg tablet 0.25 mg PO DAILY PRN (Reason: anxiety) Qty: 30 RF: 0 atenolol 50 mg tablet 50 mg PO QAM Qty: 90 RF: 1 cephalexin 500 mg tablet 500 mg PO Q8H Qty: 30 RF: 0 ibuprofen [Motrin] 600 mg Tablet 600 mg PO DAILY RF: 0 nifedipine 30 mg tablet extended release 30 mg PO 1700 RF: 0 aspirin 81 mg Tablet,Chewable 81 mg PO QAM RF: 0 oxybutynin chloride 5 mg tablet 5 mg PO DAILY Qty: 90 RF: 1 Date of admission: 09/13/21 09:41 Primary Care Provider: Phu Reyna Admitting Provider: Baljinder Rojas M.A. Attending physician on admission: Baljinder Rojas M.A. Condition: Stable
[2021-09-14 08:39] VITALS: BP 125/57; PULSE 67; RESP 18; TEMP 36.7; O2SAT 98
[2021-09-14 08:46] VITALS: PULSE 67
[2021-09-14] MEDS: OXYBUTYNIN CHLORIDE 5 MG TABLET PO (08:46)
[2021-09-14] MEDS: atenoloL 50 MG TABLET PO (08:46)
[2021-09-14] MEDS: ENOXAPARIN 40 MG/0.4 ML SYRINGE SUB-Q (08:46)
[2021-09-14] MEDS: ASPIRIN 81 MG CHEWABLE TABLET PO (08:46)
[2021-09-14 13:43] VITALS: BP 118/60; PULSE 62; RESP 17; TEMP 36.1; O2SAT 94
--- NOTE | 2021-09-14 14:33 | PC.NURSE ---
On 09/14/21, the student, Erika Costello, provided care and completed [facility] documentation on this patient. I have reviewed the student's documentation and agree with the findings.
== END 2021-09-14 15:55 | disposition home or self-care (01) | DRG 603 ==
LOC: ANHED 16:21 → ANH3MEDSUR 17:27
PROVIDERS: Admitting Provider Internal Medicine; Emergency Provider Nurse Practitioner; PCP Internal Medicine; Visit Provider Family Medicine
DX: L03.116 Cellulitis of left lower limb (principal); G80.9 Cerebral palsy, unspecified; Z20.822 Contact with and (suspected) exposure to COVID-19; F41.9 Anxiety disorder, unspecified; I10 Essential (primary) hypertension; I87.2 Venous insufficiency (chronic) (peripheral); E78.1 Pure hyperglyceridemia; M19.90 Unspecified osteoarthritis, unspecified site; Z87.442 Personal history of urinary calculi; Z79.82 Long term (current) use of aspirin
CPT/HCPCS: 36415; 80048; 80076; 85025; 85610; 85730; 87040; 87077; 93971; 96365; 96366; 96372; 99285; A9270; C9803; G0378; J0690; J1650; U0003; U0005

== ENCOUNTER 2021-09-29 16:20 | Observation (INO) | payer OTHER, SELFPAY ==
[2021-09-29] VITALS (25 sets, daily range): BP systolic 111–142; BP diastolic 69–107; PULSE 61–68; RESP 16–18; TEMP 36–36.5; O2SAT 90–99; BMI 48.0
--- NOTE | ~2021-09-29 | CT_ITS ---
EXAMINATION: CT abdomen pelvis w con DATE: 09/29/2021 18:18 INDICATION: Upper abdominal pain. History of lithotripsy. TECHNIQUE: Computed tomography (CT) of the abdomen and pelvis was performed with 100 cc Omnipaque 350 intravenous contrast. The dose-length product was 1586.32 mGy-cm. Automated exposure control and ite rative reconstruction technique were employed. COMPARISON: CT dated 03/31/2018. FINDINGS: Bibasilar dependent atelectasis. Heart size normal. There are multiple liver cysts. Gallbla dder is present. The spleen, pancreas, adrenal glands and right kidney are unremarkable. There is pro ximal left ureteral stone measuring 6 mm with moderate hydronephrosis. There is nonobstructing left r enal stone measuring 3 mm in the lower pole of the left kidney. There is delayed left nephrogram, con sistent with obstruction. Nonobstructive bowel gas pattern. Small fat-containing umbilical hernia. No abnormal pelvic masses or fluid collections. No significant vascular abnormality. No lymphadenopathy . There is a punctate lower pole right renal stone which is nonobstructing. IMPRESSION: 1. Obstructing proximal left ureteral stone at the L2-3 level with moderate hydronephrosis. 2: Bilateral nephrolithiasis. Reviewed, dictated and finalized at location A. NE ENGINEERING CONSULTANT IMPRESSION: 1. Obstructing proximal left ureteral stone at the L2-3 level with moderate hyd ronephrosis. 2: Bilateral nephrolithiasis.
--- NOTE | ~2021-09-29 | XR_ITS ---
EXAMINATION: XR retrograde pyelo w/stent LT DATE: 09/30/2021 13:02 INDICATION: Left ureteral stone. TECHNIQUE: 4 intraoperative fluoroscopic views of the abdomen and pelvis were obtained. I was not pre sent. Fluoroscopy exposure time was 16 seconds. COMPARISON: CT abdomen and pelvis 09/29/2021 FINDINGS: The left-sided retrograde pyelogram demonstrates mild hydronephrosis. The final images demo nstrate a left internal ureteral stent in expected position. IMPRESSION: 1. Mild left hydronephrosis. 2. Left internal ureteral stent in expected position. Reviewed, dictated and finalized at location A. NEERING AIDE
--- NOTE | ~2021-09-29 | XR_ITS ---
XR abdomen/kub 1V 09/29/2021 20:49 Indication: Left ureteral stone Procedure: KUB Comparison: CT dated 09/29/2021 Findings: Bowel gas pattern is nonobstructive. There is left hydronephrosis with abrupt termination o f the ureter proximally, consistent with obstructing stone. There is nondilated right renal collectin g system and ureter partially visualized. Bladder is unremarkable. No acute osseous abnormality. Lung bases unremarkable. Impression: 1: Left hydronephrosis, consistent with known obstructing proximal left ureteral stone seen on CT exa mination. Reviewed, dictated and finalized at location A. PRODUCTION GENERAL MANAGER Impression: 1: Left hydronephrosis, consistent with known obstructing proximal left uretera l stone seen on CT examination.
--- NOTE | 2021-09-29 16:40 | ECG_ITS ---
Measurements Intervals [place] Rate: 56 P: 47 GA: 152 QRS: 27 QRSD: 93 T: 22 QT: 407 QTc: 395 Interpretive Statements SINUS BRADYCARDIA OTHERWISE NORMAL EKG NO PREVIOUS ECG AVAILABLE FOR COMPARISON Electronically Signed On 09-30-2021 10:22:05 [employer] by Devendra Ramos M.D.
--- NOTE | 2021-09-29 16:41 | ED.ABDPAIN ---
HPI - Abdominal Pain General Chief Complaint: Abdominal Pain Stated Complaint: Kidney stone ? Time Seen by Provider: 09/29/21 16:31 Source: patient and RN notes reviewed Mode of arrival: ambulatory Limitations: no limitations History of Present Illness HPI narrative: This is a 66 year old female with history of hypertension who presents for evaluation of upper abdominal pain. Patient developed pain on sunday and she had associated nausea and vomiting. She has continued to have intermittent pain with intermittent nausea. she denies any alleviating or exacerbating factors. She denies diarrhea but states she has not had a bowel movement since Sunday. She takes ibuprofen daily for her daily aches and pains . She rates her pain 9/10. She denies similar pain in the past. She was told by PCP to come to ER for evaluation. Location: epigastric, LUQ and RUQ Radiation: none Migration to: no migration Relieving factors: nothing Related Data Home Medications Medication Instructions Recorded Confirmed aspirin 81 mg PO QAM 01/26/20 09/19/21 ibuprofen 600 mg PO DAILY 09/11/21 09/19/21 nifedipine 30 mg PO 1700 09/11/21 09/19/21 Allergies Allergy/AdvReac Type Severity Reaction Status Date / Time No Known Allergies Allergy Unknown Verified 09/19/21 13:57 Review of Systems Review of Systems: All systems reviewed & are unremarkable except as noted in HPI and below PMFSH Past Medical History Medical History Abdominal wall cellulitis Anxiety Cerebral palsy With mild left-sided weakness. COVID-19 Hypertension Hypertriglyceridemia Kidney stones (~03/2018) Legionella pneumonia (~04/2019) Osteoarthritis Venous insufficiency of lower extremity Surgical History Surgical History History of ankle surgery (~195) Achilles tendon lengthening. History of cystoscopy (~03/2018) With ureteral stent and stone extraction. History of dilation and curettage With uterine polypectomy. Status post laser ablation of incompetent vein Family History Family History Mother Breast cancer Sibling Breast cancer Other Hodgkin disease Father Parkinson disease Lymph node cancer Grandparent Leukemia Social History Social History Social History: The patient is and lives with her in [place]. They have no children. 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 She denies alcohol, tobacco, and illicit substance abuse. She designates her as her surrogate decision maker and she wishes to be full code. Smoking status: Never smoker Second hand tobacco smoke exposure: No Alcohol intake: never Alcohol use details: once in a while, not much Substance use: never Substance use type: does not use Gender identity (if verbalized by the patient): Female Spiritual care concerns: No Exam Const: General: no acute distress and alert Orientation/consciousness: patient oriented x3 Eyes: EOM: EOMs intact bilaterally Chest: Chest palpation & inspection: normal inspection of the chest Resp: Effort & Inspection: normal respiratory effort and no retractions Auscultation: clear to auscultation bilaterally Cardio: Rate: regular rate Rhythm: regular rhythm Heart sounds: no murmurs GI: GI Palp: Yes Soft to palpation, Yes Tenderness to palpation present (GI) (RUQ, epigastric, LUQ), No Guarding due to palpation present (GI) and No Rigid due to palpation Auscultation: normal bowel sounds Skin: General skin exam: normal color Rashes: no rashes Neuro: General: patient oriented x3, moves all extremities and CN's II-XI intact bilaterally Psych: Mental Status: mental status grossly normal Affect: normal affect Course Reevaluation(s) Reevaluation #1: I discussed wi
[2021-09-29 17:18] LABS: Basophils Absolute Auto 0.1 K/mm3 (0.0-0.1); Basophils Percent Auto 0.4 % (0.2-1.2); Eosinophils Absolute Auto 0.2 K/mm3 (0-0.3); Eosinophils Percent Auto 1.8 % (0-4.4); Hematocrit 43.1 % (37.0-47.0); Hemoglobin 14.4 g/dL (12.0-15.0); Immature Granulocyte Absolute 0.04 K/mm3 (0.00-0.031); Immature Granulocyte Percent A 0.3 % (0-0.5); Lymphocytes Absolute Auto 1.51 K/mm3 (0.9-3.2); Lymphocytes Percent Auto 12.2 % (18.3-44.2); Mean Corpuscular HGB Conc 33.4 g/dl (32-36); Mean Corpuscular Hemoglobin 31.6 pg (26-34); Mean Corpuscular Volume 94.5 fl (80-100); Mean Platelet Volume 9.1 fl (7.4-10.4); Monocytes Absolute Auto 1.1 K/mm3 (0.1-0.6); Monocytes Percent Auto 8.6 % (2.6-8.5); Neutrophils Absolute Auto 9.5 K/mm3 (1.3-6.7); Neutrophils Percent Auto 76.7 % (45.5-73.1); Platelet Count Result 193 k/mm3 (150-375); Red Blood Count 4.56 M/mm3 (4.2-5.4); Red Cell Distribution Width 12.9 % (11.5-14.5); White Blood Count 12.4 K/mm3 (4.5-10.0)
[2021-09-29] MEDS: ONDANSETRON INJ 4 MG/2 ML VIAL IV PUSH ×2 (17:19→22:25)
[2021-09-29] MEDS: MORPHINE SULFATE (*CRX) 4 MG/ML INJ IV PUSH (17:19)
[2021-09-29] MEDS: PANTOPRAZOLE SODIUM IV 40 MG VIAL IV PUSH (17:19)
[2021-09-29 17:28] LABS: Alanine Aminotransferase 14 U/L (4-35); Albumin Level 4.3 g/dL (3.5-5.1); Alkaline Phosphatase 91 U/L (38-126); Anion Gap 8 mmol/L (8-16); Aspartate Amino Transferase 24 U/L (14-36); Bilirubin,Total 0.8 mg/dL (0.2-1.3); Blood Urea Nitrogen 21 mg/dL (7-17); Calcium 8.7 mg/dL (8.4-10.2); Carbon Dioxide 27 mmol/L (22-30); Chloride 106 mmol/L (98-107); Estimated CRCL calculation 49 ml/min; Estimated Glomerular Filt Rate 50; Glucose 110 mg/dL (65-110); Lipase 55 U/L (23-300); Potassium 4.3 mmol/L (3.4-5.0); Sodium 141 mmol/L (137-145)
[2021-09-29] MEDS: SODIUM CHLORIDE 0.9% IV 1,000 ML 999 ML IV CONT (17:48)
[2021-09-29] MEDS: HYDROmorphone HCL INJ (*CRX) 1 MG/ML SYR 0.5 MG IV PUSH ×2 (19:03→22:16)
[2021-09-29 19:22] LABS: Add Urine Microscopic? YES; Appearance Urine Clear (Clear); Bilirubin Urine Negative (Negative); Blood Urine 1+ (Negative); Color Urine Yellow (Yellow); Glucose Urine UA Negative (Negative); Ketones Urine Negative (Negative); Leukocyte Esterase Ur Trace LEU/UL (Negative); Nitrate Urine Negative (Negative); Protein Urine Negative (Negative); RBC Urine 0-2 /hpf (0-2); Squamous Epithelial Cell Urine Occasional /hpf (Few); Urobilinogen Urine Negative mg/dL (<2.0)
[2021-09-29 19:32] LABS: Specific Grav Ur 1.033 (1.001-1.035)
--- NOTE | 2021-09-29 20:30 | PM.IMHP ---
H&P: HPI History of Present Illness Date/Time: 09/29/21 20:30 Chief Complaint: Right flank pain. Narrative: This is a 66-year-old female with past medical history significant for obesity, hypertension, generalized anxiety, cerebral palsy, hypertriglyceridemia, kidney stones, osteoarthritis, peripheral venous insufficiency. Patient presents today to the emergency room due to nausea and vomiting of day duration with right-sided flank pain as well the head this has been ongoing for the last 3 days or so she finally decided to present to the emergency room because she continued to feel unwell, patient has not been able to eat either. Denies any fevers, any rigors, any chills, any pain or burning with urination. Preliminary workup was significant for CT of abdomen and pelvis which showed ureteral stone and hydronephrosis. Patient is been admitted for further evaluation, management and treatment. Review of Systems Review of Systems: Nausea, vomiting ,right flank pain. Constitutional: Constitutional: Denies chills, Denies fatigue, Denies fever(s), Denies malaise, Denies night sweats and Denies weakness Eyes: Eyes: Denies change in vision ENT: Denies dysphagia, Denies nasal congestion, Denies nasal discharge, Denies nasal obstruction and Denies odynophagia Cardiovascular: Cardiovascular: Denies pedal edema, Denies claudication, Denies leg edema, Denies lightheadedness, Denies radiating jaw, neck or arm pain, Denies palpitations, Denies dyspnea, Denies dyspnea on exertion and Denies orthopnea Respiratory: Respiratory: Denies cough, Denies excessive phlegm production and Denies dyspnea Gastrointestinal: Gastrointestinal: Denies dyspepsia, Denies heartburn, Reports nausea and Reports vomiting Genitourinary: Genitourinary: Denies dysuria and Reports flank pain Musculoskeletal: Musculoskeletal: Denies arthralgias and Denies joint swelling Integumentary/Breasts: Skin/Breast: Denies rash Neurologic: Denies focal weakness and Denies Sensory deficit (Neuro) Psychiatric: Psychiatric: Reports no additional psychiatric complaints and Reports as per HPI Endocrine: Endocrine: Denies cold intolerance, Denies heat intolerance, Denies polyphagia, Denies polydipsia, Denies polyuria and Denies palpitations Hematologic/Lymphatic: Hematologic/Lymphatic: Reports no additional hematologic/lymphatic complaints and Reports as per HPI Allergic/Immunologic: Allergic/Immunologic: Reports no additional allergic/immunologic complaints and Reports as per [facility] Past Medical History Medical History Abdominal wall cellulitis Anxiety Cerebral palsy With mild left-sided weakness. COVID-19 Hypertension Hypertriglyceridemia Kidney stones (~03/2018) Legionella pneumonia (~04/2019) Osteoarthritis Venous insufficiency of lower extremity Surgical History Surgical History History of ankle surgery (~195) Achilles tendon lengthening. History of cystoscopy (~03/2018) With ureteral stent and stone extraction. History of dilation and curettage With uterine polypectomy. Status post laser ablation of incompetent vein Family History Family History Mother Breast cancer Sibling Breast cancer Other Hodgkin disease Father Parkinson disease Lymph node cancer Grandparent Leukemia Social History Social History Social History: The patient is and lives with her in [place]. They have no children. 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 She denies alcohol, tobacco, and illicit substance abuse. She designates her as her surrogate decision maker and she wishes to be full code. Smoking status: Never smoker Second hand tobacco smoke exposure: No Alcohol intake: never Alcohol use details: once
--- NOTE | 2021-09-29 21:45 | ADMGEN ---
This patient, Savanna Arevalo, was admitted to 3 [facility] Surg Room 300-01. Patient/family oriented to hospital policies and general routines including ID bracelet, bed and alarms, visiting hours, pain management, procedures, bathroom and other care routines, personal items, smoking policy, room service/diet, and visiting hours. Information on how to activate the Rapid Response Team has been discussed. Patient/Family are encouraged to report perceived risks to care and to ask questions if they do not understand what they are told or what they should do.
[2021-09-29] MEDS: SODIUM CHLORIDE 0.9% IV 1,000 ML 125 ML IV CONT (22:09)
--- NOTE | 2021-09-29 23:38 | PC.NURSE ---
Dr sawyer paged at 1951 returned call at 2019 for consult EN
--- NOTE | 2021-09-29 23:39 | PC.NURSE ---
Dr ware paged for admission 2030
[2021-09-30] VITALS (18 sets, daily range): BP systolic 96–177; BP diastolic 47–105; PULSE 54–78; RESP 13–20; TEMP 36.1–36.5; O2SAT 92–100; BMI 48.0
[2021-09-30] MEDS: HYDROmorphone HCL INJ (*CRX) 1 MG/ML SYR 0.5 MG IV PUSH ×3 (01:30→09:08)
[2021-09-30] MEDS: ONDANSETRON INJ 4 MG/2 ML VIAL IV PUSH ×3 (01:30→09:07)
[2021-09-30 05:42] LABS: Basophils Percent Auto 0.4 % (0.2-1.2); Eosinophils Absolute Auto 0.2 K/mm3 (0-0.3); Eosinophils Percent Auto 1.7 % (0-4.4); Hematocrit 40.8 % (37.0-47.0); Hemoglobin 13.6 g/dL (12.0-15.0); Immature Granulocyte Absolute 0.06 K/mm3 (0.00-0.031); Immature Granulocyte Percent A 0.6 % (0-0.5); Lymphocytes Percent Auto 17.4 % (18.3-44.2); Mean Corpuscular HGB Conc 33.3 g/dl (32-36); Mean Corpuscular Hemoglobin 31.8 pg (26-34); Mean Corpuscular Volume 95.3 fl (80-100); Mean Platelet Volume 9.6 fl (7.4-10.4); Monocytes Absolute Auto 1.1 K/mm3 (0.1-0.6); Monocytes Percent Auto 11.3 % (2.6-8.5); Neutrophils Absolute Auto 6.7 K/mm3 (1.3-6.7); Neutrophils Percent Auto 68.6 % (45.5-73.1); Platelet Count Result 157 k/mm3 (150-375); Red Blood Count 4.28 M/mm3 (4.2-5.4); White Blood Count 9.8 K/mm3 (4.5-10.0)
[2021-09-30 06:02] LABS: Alanine Aminotransferase 12 U/L (4-35); Albumin Level 3.7 g/dL (3.5-5.1); Alkaline Phosphatase 79 U/L (38-126); Anion Gap 6 mmol/L (8-16); Aspartate Amino Transferase 17 U/L (14-36); Bilirubin,Total 0.5 mg/dL (0.2-1.3); Blood Urea Nitrogen 16 mg/dL (7-17); Calcium 8.1 mg/dL (8.4-10.2); Carbon Dioxide 27 mmol/L (22-30); Chloride 108 mmol/L (98-107); Estimated CRCL calculation 68 ml/min; Estimated Glomerular Filt Rate > 60; Glucose 103 mg/dL (65-110); Potassium 4.5 mmol/L (3.4-5.0); Sodium 141 mmol/L (137-145)
[2021-09-30] MEDS: SODIUM CHLORIDE 0.9% IV 1,000 ML 125 ML IV CONT (06:04)
--- NOTE | 2021-09-30 06:38 | WPDURCON ---
Assessment and Plan Assessment and plan (1) Calculus of proximal left ureter: Code(s): N20.1 - Calculus of ureter Status: Acute Assessment and Plan: 66-year-old female with obstructing left ureteral stone approximately 1cm in size. She is on aspirin and nonsteroidal anti-inflammatories. -plan cystoscopy and left ureteral stent insertion today. She understands the risks of procedure including but limited to infection, bleeding, pain, injury to surrounding structures. She understands the risk of anesthetic. She understands she will need definitive stone management at a later date. She understands, has time to ask questions and agrees to proceed with procedure today. Urology Consult Note HPI Date Seen: 09/30/21 Requesting Physician: Ashwini Lake PA-C Primary Care Provider: Phu Reyna DO Consult Narrative Narrative: Savanna Arevalo is a 66 year old female who presented the ER with 5 days of abdominal pain nausea and vomiting. She had worsening last night presented to the emergency room. She denies fevers or chills. Patient does states she has a history nephrolithiasis is having endoscopic management in 2018. Review of Systems Review of Systems: All systems reviewed & are unremarkable except as noted in HPI and below PMFSH Past Medical History Medical History Abdominal wall cellulitis Anxiety Cerebral palsy With mild left-sided weakness. COVID-19 Hypertension Hypertriglyceridemia Kidney stones (~03/2018) Legionella pneumonia (~04/2019) Osteoarthritis Venous insufficiency of lower extremity Surgical History Surgical History History of ankle surgery (~1959) Achilles tendon lengthening. History of cystoscopy (~03/2018) With ureteral stent and stone extraction. History of dilation and curettage With uterine polypectomy. Status post laser ablation of incompetent vein Family History Family History Mother Breast cancer Sibling Breast cancer Other Hodgkin disease Father Parkinson disease Lymph node cancer Grandparent Leukemia Social History Social History Social History: The patient is and lives with her in [place]. They have no children. 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 She denies alcohol, tobacco, and illicit substance abuse. She designates her as her surrogate decision maker and she wishes to be full code. Smoking status: Never smoker Second hand tobacco smoke exposure: No Alcohol intake: never Alcohol use details: once in a while, not much Substance use: never Substance use type: does not use Gender identity (if verbalized by the patient): Female Spiritual care concerns: No Meds Home Medications and Allergies Home Medications Medication Instructions Recorded Confirmed Type aspirin [[place] Aspirin] 81 mg PO QAM 01/26/20 09/29/21 History oxybutynin chloride 5 mg tablet 5 mg PO DAILY #90 tablet 07/14/21 09/29/21 Rx cephalexin 500 mg tablet 500 mg PO Q8H #30 tablet 09/07/21 09/29/21 Rx ibuprofen [IBU] 600 mg PO DAILY 09/11/21 09/29/21 History nifedipine [Adalat CC] 30 mg PO 1700 09/11/21 09/29/21 History atenolol [Tenormin] 50 mg PO QAM 09/29/21 09/29/21 History Allergies Allergy/AdvReac Type Severity Reaction Status Date / Time No Known Allergies Allergy Unknown Verified 09/19/21 13:57 Vital Signs Vital Signs - 24 hr 09/29/21 16:23 09/29/21 16:27 09/29/21 16:28 Temperature 36.5 C Pulse Rate 68 Respiratory Rate 16 Blood Pressure 111/96 H 111/96 H Pulse Oximetry 99 97 99 09/29/21 17:33 09/29/21 17:45 09/29/21 17:46 Temperature Pulse Rate Respiratory Rate Blood Pressure 138/78 Pulse Oximetry 91 96 92 09/29/21 18:17 09/29/21 1
--- NOTE | 2021-09-30 06:42 | WPDHPUPDATE1 ---
History and Physical Update Update Date/Time: 09/30/21 06:42 History and Physical has been reviewed, including an updated exam of the patient. There are NO changes in the patient's condition. Risks, benefits, and alternatives have been discussed and questions answered. Patient agrees to proceed with procedure.
--- NOTE | 2021-09-30 09:16 | PM.IMPN ---
Progress Note: A&P Assessment and Plan (1) Calculus of proximal left ureter: Code(s): N20.1 - Calculus of ureter Status: Acute Assessment and Plan: -1cm obstructing stone -urology consult -plan is for cystoscopy and left ureteral stent insertion today with Dr. Thomas -management per urology -continue IVF as she is still NPO for procedure today (2) Chronic venous insufficiency: Code(s): I87.2 - Venous insufficiency (chronic) (peripheral) Status: Chronic Assessment and Plan: -Encouraged use of compression stockings (3) Hypertriglyceridemia: Code(s): E78.1 - Pure hyperglyceridemia Status: Acute Assessment and Plan: -Follow-up in outpatient setting (4) Hypertension: Qualifiers: Hypertension type: essential hypertension Qualified Code(s): I10 - Essential (primary) hypertension Code(s): I10 - Essential (primary) hypertension Status: Chronic Assessment and Plan: -stable -will restart home meds when no longer NPO -continue monitoring (5) BMI 45.0-49.9, adult: Code(s): Z68.42 - Body mass index [BMI] 45.0-49.9, adult Status: Acute Assessment and Plan: -Lifestyle and diet modifications (6) Cerebral palsy: Qualifiers: Cerebral palsy type: unspecified type Qualified Code(s): G80.9 - Cerebral palsy, unspecified Code(s): G80.9 - Cerebral palsy, unspecified Status: Acute Assessment and Plan: -Unchanged Subjective Date/time seen: 09/30/21 09:16 Interval history: This is a 66-year-old female with past medical history significant for obesity, hypertension, generalized anxiety, cerebral palsy, hypertriglyceridemia, kidney stones, osteoarthritis, peripheral venous insufficiency, admitted for nephrolithiasis and hydronephrosis. Pt is going for cystoscopy with left ureteral stent insertion today with Dr. Thomas. Today she states she continues to have nausea and emesis which is mostly yellow phlegm. She continues to have left sided abdominal pain. No CP/sob. She denies back pain and reports her pain is localized to her abdomen. Review of Systems Review of Systems: All systems reviewed & are unremarkable except as noted in HPI and below Exam Narrative: General: mild distress, non toxic appearing Eyes: PERRL, no scleral icterus HEENT: NCAT, external ears normal, dry mucous membranes Respiratory: No respiratory distress, Lungs CTA bilaterally, no wheezing Cardiovascular: RRR, no murmur Abdominal: Soft, non distended, moderate LUQ and LLQ ttp Musculoskeletal: Moves all 4 extremities Neurological: A/Ox3, speech normal, no facial asymmetry Skin: Warm, dry Psychiatric: Normal affect, normal mood Objective Data Vital Signs Vital Signs: Vital Signs - 24 hr 09/29/21 16:23 09/29/21 16:27 09/29/21 16:28 Temperature 97.7 F Pulse Rate 68 Respiratory Rate 16 Blood Pressure 111/96 H 111/96 H Pulse Oximetry 99 97 99 09/29/21 17:33 09/29/21 17:45 09/29/21 17:46 Temperature Pulse Rate Respiratory Rate Blood Pressure 138/78 Pulse Oximetry 91 96 92 09/29/21 18:17 09/29/21 18:18 09/29/21 18:32 Temperature Pulse Rate Respiratory Rate Blood Pressure 141/107 H Pulse Oximetry 99 99 93 09/29/21 18:45 09/29/21 18:46 09/29/21 19:06 Temperature Pulse Rate Respiratory Rate Blood Pressure 133/72 Pulse Oximetry 96 96 98 09/29/21 19:15 09/29/21 19:16 09/29/21 19:30 Temperature Pulse Rate Respiratory Rate Blood Pressure 126/69 Pulse Oximetry 90 90 92 09/29/21 19:31 09/29/21 19:45 09/29/21 19:46 Temperature Pulse Rate Respiratory Rate Blood Pressure 131/83 141/80 H Pulse Oximetry 92 94 93 09/29/21 20:00 09/29/21 20:01 09/29/21 20:16 Temperature Pulse Rate Respiratory Rate Blood Pressure 142/76 H 139/79 Pulse Oximetry 95 99
--- NOTE | 2021-09-30 11:47 | WPDHPUPDATE1 ---
History and Physical Update Update Date/Time: 09/30/21 11:47 History and Physical has been reviewed, including an updated exam of the patient. There are NO changes in the patient's condition. Risks, benefits, and alternatives have been discussed and questions answered. Patient agrees to proceed with procedure. Proceed with cystoscopy, left retrograde pyelogram, left stent placement, possible ureteroscopy with laser.
--- NOTE | 2021-09-30 12:12 | WPDANESEPPF ---
Anes - Initial Pre Proc Eval Procedure: Operation Date: 09/30/21 12:00 Proposed Procedures p Cystoscopy,Left Stent - Adriana Thomas MD Date/Time: 09/30/21 12:12 Surgeon: Ashwini Lake PA-C Pre Op Diagnosis: Left Proximal Ureteral Stone,Obstructive Uropathy Patient Data Age: 66 Gender: F Height: 1.6 m Weight: 123 kg Last Vital Signs Temp 97 F L 09/30/21 06:00 Pulse 65 09/30/21 06:00 Resp 16 09/30/21 06:00 BP 124/62 09/30/21 06:00 Pulse Ox 93 09/30/21 08:00 Allergies Allergy/AdvReac Type Severity Reaction Status Date / Time No Known Allergies Allergy Unknown Verified 09/30/21 11:16 Home Medications Medication Instructions Recorded Confirmed Type aspirin [St Marco Aspirin] 81 mg PO QAM 01/26/20 09/29/21 History oxybutynin chloride 5 mg tablet 5 mg PO DAILY #90 tablet 07/14/21 09/29/21 Rx cephalexin 500 mg tablet 500 mg PO Q8H #30 tablet 09/07/21 09/29/21 Rx ibuprofen [IBU] 600 mg PO DAILY 09/11/21 09/29/21 History nifedipine [Adalat CC] 30 mg PO 1700 09/11/21 09/29/21 History atenolol [Tenormin] 50 mg PO QAM 09/29/21 09/29/21 History Laboratory Tests 09/29/21 09/29/21 09/29/21 17:13 17:13 19:06 WBC 12.4 K/mm3 H K/mm3 (4.5-10.0) RBC 4.56 M/mm3 M/mm3 (4.2-5.4) Hgb 14.4 g/dL g/dL (12.0-15.0) Hct 43.1 % % (37.0-47.0) MCV 94.5 fl fl (80-100) MCH 31.6 pg pg (26-34) MCHC 33.4 g/dl g/dl (32-36) RDW 12.9 % % (11.5-14.5) Plt Count 193 k/mm3 k/mm3 (150-375) MPV 9.1 fl fl (7.4-10.4) Immature Gran % (Auto) 0.3 % % (0-0.5) Neut % (Auto) 76.7 % H % (45.5-73.1) Lymph % (Auto) 12.2 % L % (18.3-44.2) [place] % (Auto) 8.6 % H % (2.6-8.5) Eos % (Auto) 1.8 % % (0-4.4) Baso % (Auto) 0.4 % % (0.2-1.2) Lymph # (Auto) 1.51 K/mm3 K/mm3 (0.9-3.2) [place] # (Auto) 1.1 K/mm3 H K/mm3 (0.1-0.6) Eos # (Auto) 0.2 K/mm3 K/mm3 (0-0.3) Baso # (Auto) 0.1 K/mm3 K/mm3 (0.0-0.1) Abs Immat Gran (auto) 0.04 K/mm3 H K/mm3 (0.00-0.031) Absolute Neuts (auto) 9.5 K/mm3 H K/mm3 (1.3-6.7) Absolute Nucleated RBC 0.0 K/mm3 K/mm3 (0.0-0.012) Nucleated RBC % 0.0 % % (0.0-0.2) Sodium 141 mmol/L mmol/L (137-145) Potassium 4.3 mmol/L mmol/L (3.4-5.0) Chloride 106 mmol/L mmol/L (98-107) Carbon Dioxide 27 mmol/L mmol/L (22-30) Anion Gap 8 mmol/L mmol/L (8-16) BUN 21 mg/dL H mg/dL (7-17) Creatinine 1.10 mg/dL H mg/dL (0.7-1.0) Estim Creat Clear Calc 49 ml/min ml/min Estimated GFR 50 L (59 - ) Glucose 110 mg/dL mg/dL (65-110) Calcium 8.7 mg/dL mg/dL (8.4-10.2) Total Bilirubin 0.8 mg/dL mg/dL (0.2-1.3) AST 24 U/L U/L (14-36) ALT 14 U/L U/L (4-35) Alkaline Phosphatase 91 U/L U/L (38-126) Total Protein 8.0 g/dL g/dL (6.3-8.2) Albumin 4.3 g/dL g/dL (3.5-5.1) Lipase 55 U/L U/L (23-300) Urine Color Yellow (Yellow) Urine Appearance Clear (Clear) Urine pH 6.0 (5.0-9.0) Ur Specific [place] 1.033 (1.001-1.035) Urine Protein Negative mg/dL mg/dL (Negative) Urine Glucose (UA) Negative mg/dL mg/dL (Negative) Urine Ketones Negative mg/dL mg/dL (Negative) Ur Blood (Man) 1+ H (Negative) Urine Nitrate Negative (Negative) Urine Bilirubin Negative (Negative) Urine Urobilinogen Negative mg/dL mg/dL (<2.0) Leukocyte Esterase Rfl Trace ARNAUD/UL H ARNAUD/UL (Negative) Urine RBC 0-2 /hpf /hpf (0-2) Urine WBC 4-6 /hpf H /hpf Ur Squamous Epith Cells Occasional /hpf /hpf (Few) 09/30/21
[2021-09-30] MEDS: ceFAZolin 3 GM/D5W 100 ML 100 ML IVPB (12:20)
--- NOTE | 2021-09-30 13:05 | W.PM.PROC2 ---
Procedure Note - Detailed Date of Procedure 09/30/21 Pre-op Diagnosis Left Proximal Ureteral Stone,Obstructive Uropathy Post-op Diagnosis Same Procedure Performed cystoscopy, left rpg, left ureteroscopy with holmium laser, stone extraction , stent placement. Surgeon Sebastian Canela MD Anesthesia General Description of Procedure Patient is taken to the operative suite and correctly identified. Once anesthesia was obtained she was placed in dorsal lithotomy position and prepped and draped usual sterile fashion. Twenty-two Georgian scope was inserted into the bladder. There is no tumors noted. Left orifice was scanned with a guidewire. A ureteral access sheath was then placed in a mini flexible scope was inserted. The stone was lodged. It would have been difficult to get a stent past the stone. At this point we used a 273 micron laser fiber to fragment the stone multiple pieces. Fragments were retrieved and sent for analysis. Reinspection revealed no residual stones. Pyelogram was then performed to confirm placement of the stent. 4.8 Georgian contour stent was then placed with the proximal end coiled in the renal pelvis and the distal in the bladder. Bladder was drained. 2% viscous lidocaine was inserted urethra patient is taken recovery stable condition. From urologic standpoint she can be discharged home with pain meds and antibiotic. She can follow up in 7-10 days for a office visit with stent room Urine Output 200 Drains Yes Packing No Pathology Yes Complications No immediate complications Condition Stable Disposition PACU
[2021-09-30] MEDS: LACTATED RINGERS 1,000 ML 30 ML IV CONT (13:07)
[2021-09-30] MEDS: fentaNYL CITRATE INJ (*CRX) 100 MCG/2 ML VIAL 25 MCG IV PUSH (14:57)
[2021-10-01 03:56] VITALS: BP 142/58; PULSE 59; RESP 20; TEMP 36.4; O2SAT 96
[2021-10-01 05:46] LABS: Basophils Percent Auto 0.3 % (0.2-1.2); Eosinophils Percent Auto 0.1 % (0-4.4); Hematocrit 39.1 % (37.0-47.0); Hemoglobin 12.9 g/dL (12.0-15.0); Immature Granulocyte Absolute 0.06 K/mm3 (0.00-0.031); Immature Granulocyte Percent A 0.7 % (0-0.5); Lymphocytes Percent Auto 13.1 % (18.3-44.2); Mean Corpuscular Hemoglobin 31.5 pg (26-34); Mean Corpuscular Volume 95.4 fl (80-100); Mean Platelet Volume 9.5 fl (7.4-10.4); Monocytes Absolute Auto 0.8 K/mm3 (0.1-0.6); Monocytes Percent Auto 8.4 % (2.6-8.5); Neutrophils Absolute Auto 7.1 K/mm3 (1.3-6.7); Neutrophils Percent Auto 77.4 % (45.5-73.1); Platelet Count Result 159 k/mm3 (150-375); Red Cell Distribution Width 12.6 % (11.5-14.5); White Blood Count 9.2 K/mm3 (4.5-10.0)
[2021-10-01 05:54] LABS: Anion Gap 6 mmol/L (8-16); Blood Urea Nitrogen 16 mg/dL (7-17); Carbon Dioxide 23 mmol/L (22-30); Chloride 108 mmol/L (98-107); Estimated CRCL calculation 68 ml/min; Estimated Glomerular Filt Rate > 60; Glucose 121 mg/dL (65-110); Potassium 4.1 mmol/L (3.4-5.0); Sodium 137 mmol/L (137-145)
[2021-10-01 08:00] VITALS: PULSE 59; RESP 20; O2SAT 96
[2021-10-01 09:44] VITALS: PULSE 69; O2SAT 96
--- NOTE | 2021-10-01 10:53 | PM.DS ---
DS: Admitting Diagnosis Discharge Date 10/01/21 Admitting Diagnosis nephrolithiasis DS: Discharge Diagnosis Discharge Diagnosis (1) Calculus of proximal left ureter: Code(s): N20.1 - Calculus of ureter Status: Acute Assessment and Plan: -1cm obstructing stone -urology consult placed -s/p cystoscopy and left ureteral stent insertion 09/30/21 -she is doing well, tolerating PO, pain and nausea resolved, vitals stable, labs unremarkable -per urology stable for discharge with pain medication, antibiotics. Will follow up in their office in 7-10 days for stent removal. (2) Chronic venous insufficiency: Code(s): I87.2 - Venous insufficiency (chronic) (peripheral) Status: Chronic Assessment and Plan: -Encouraged use of compression stockings (3) Hypertriglyceridemia: Code(s): E78.1 - Pure hyperglyceridemia Status: Acute Assessment and Plan: -Follow-up in outpatient setting (4) Hypertension: Qualifiers: Hypertension type: essential hypertension Qualified Code(s): I10 - Essential (primary) hypertension Code(s): I10 - Essential (primary) hypertension Status: Chronic Assessment and Plan: -stable -restart home meds on discharge now that she is not NPO (5) BMI 45.0-49.9, adult: Code(s): Z68.42 - Body mass index [BMI] 45.0-49.9, adult Status: Acute Assessment and Plan: -Lifestyle and diet modifications (6) Cerebral palsy: Qualifiers: Cerebral palsy type: unspecified type Qualified Code(s): G80.9 - Cerebral palsy, unspecified Code(s): G80.9 - Cerebral palsy, unspecified Status: Acute Assessment and Plan: -Unchanged DS: Summary Hospital Course Reason for hospitalization: This is a 66-year-old female with past medical history significant for obesity, hypertension, generalized anxiety, cerebral palsy, hypertriglyceridemia, kidney stones, osteoarthritis, peripheral venous insufficiency, admitted for nephrolithiasis and hydronephrosis. Please see HPI for further details. Hospital Course: Please see above for details of hospital course. Status at Discharge Cognitive/behavioral status at discharge: stable Functional status at discharge: independent ambulation Overall status at discharge: patient is progressing back to baseline Time Spent with Patient Time attestation: Total time spent providing and/or coordinating discharge services: 32 Time spent: Greater than 30 minutes Exam Narrative: General: NAD, non toxic appearing Eyes: PERRL, no scleral icterus HEENT: NCAT, external ears normal, moist mucous membranes Respiratory: No respiratory distress, Lungs CTA bilaterally, no wheezing Cardiovascular: RRR, no murmur Abdominal: Soft, non distended, non tender, no rebound or guarding Musculoskeletal: Moves all 4 extremities Neurological: A/Ox3, speech normal, no facial asymmetry Skin: Warm, dry Psychiatric: Normal affect, normal mood DS: Data Data Completed and Pending Completed studies during hospitalization: Pending at discharge 09/30/21 12:51 Surgical [PTH] Routine Labs on day of discharge: Labs from last 24 hours 10/01/21 10/01/21 05:12 05:12 WBC 9.2 RBC 4.10 L Hgb 12.9 Hct 39.1 MCV 95.4 MCH 31.5 MCHC 33.0 RDW 12.6 Plt Count 159 MPV 9.5 Immature Gran % (Auto) 0.7 H Neut % (Auto) 77.4 H Lymph % (Auto) 13.1 L [place] % (Auto) 8.4 Eos % (Auto) 0.1 Baso % (Auto) 0.3 Lymph # (Auto) 1.20 [place] # (Auto) 0.8 H Eos # (Auto) 0.0 Baso # (Auto) 0.0 Abs Immat Gran (auto) 0.06 H Absolute Neuts (auto) 7.1 H Absolute Nucleated RBC 0.0 Nucleated RBC % 0.0 Sodium 137 Potassium 4.1 Chloride 108 H Carbon Dioxide 23 Anion Gap 6 L BUN 16 Creatinine 0.90 Estim Creat Clear Calc 68 Estimated GFR > 60 Glucose 121 H Calcium 8.0 L Discharge Plan
--- NOTE | 2021-10-01 11:51 | PC.NURSE ---
Pt discharging awaiting ride from home, all questions and concerned answered prior to discharging all belongings given to pt prior to discharging.
--- NOTE | 2021-10-01 11:58 | WPDUROPN2 ---
Progress Note: A&P Assessment and Plan (1) Calculus of proximal left ureter: Code(s): N20.1 - Calculus of ureter Status: Acute (2) Left nephrolithiasis: Code(s): N20.0 - Calculus of kidney Status: Acute Assessment and Plan: POD#1 s/p URS -doing well, ok to dc home and f/u with [facility] in 7-10 days for stent removal I emphasized that the stent is temporary and can cause supervisor intermediates damage if she fails to followup Subjective Subjective Date/Time Seen: 10/01/21 11:58 Feels well, wants to go home. NAOE. No complaints Review of Systems Review of Systems: All systems reviewed & are unremarkable except as noted in HPI and below Constitutional: Constitutional: Denies chills and Denies fever(s) Cardiovascular: Cardiovascular: Denies dyspnea Respiratory: Respiratory: Denies pain on inspiration and Denies dyspnea on exertion Gastrointestinal: Gastrointestinal: Reports no additional gastrointestinal complaints Genitourinary: Genitourinary: Reports no additional female genitourinary complaints and Reports as per HPI Musculoskeletal: Musculoskeletal: Reports no additional musculoskeletal complaints Integumentary/Breasts: Skin/Breast: Denies change in pigmentation Hematologic/Lymphatic: Hematologic/Lymphatic: Reports no additional hematologic/lymphatic complaints Allergic/Immunologic: Allergic/Immunologic: Reports no additional allergic/immunologic complaints Exam Const: General: comfortable, no acute distress, well developed, alert, awake and Physically active HENMT: Head: normal to inspection, normocephalic and atraumatic Ears: hearing grossly normal bilaterally Mouth: Yes Normal oral and palatal mucosa present Eyes: Sclera: sclerae normal Neck: Neck: normal visual inspection Resp: Effort & Inspection: normal respiratory effort, able to speak in complete sentences, not labored and no respiratory distress GI: Inspection: normal to inspection : General: No CVA tenderness and Yes no CVA tenderness Extrem: General: normal to inspection Psych: Appearance: grossly normal Objective Data Vital Signs Vital Signs: Vital Signs - 24 hr 09/30/21 13:07 09/30/21 13:20 09/30/21 13:35 Temperature 36.2 C L Pulse Rate 59 L 57 L 58 L Respiratory Rate 13 13 13 Blood Pressure 96/47 L 106/57 L 151/67 H Pulse Oximetry 100 99 100 09/30/21 13:50 09/30/21 14:05 09/30/21 14:20 Temperature Pulse Rate 58 L 54 L 58 L Respiratory Rate 13 13 16 Blood Pressure 141/78 H 135/95 H 128/87 Pulse Oximetry 97 95 96 09/30/21 14:35 09/30/21 14:50 09/30/21 15:01 Temperature Pulse Rate 58 L 60 58 L Respiratory Rate 18 16 16 Blood Pressure 142/99 H 162/102 H 177/87 H Pulse Oximetry 99 95 97 09/30/21 15:15 09/30/21 15:30 09/30/21 16:00 Temperature 36.2 C L 36.2 C L 36.2 C L Pulse Rate 56 L 64 66 Respiratory Rate 20 18 20 Blood Pressure 138/82 152/70 H 154/82 H Pulse Oximetry 94 92 97 09/30/21 17:00 09/30/21 19:47 09/30/21 20:33 Temperature 36.4 C 36.5 C Pulse Rate 78 70 Respiratory Rate 18 20 Blood Pressure 149/105 H 137/59 L Pulse Oximetry 99 96 93 09/30/21 23:53 10/01/21 03:56 10/01/21 08:00 Temperature 36.3 C L 36.4 C L Pulse Rate 62 59 L 59 L Respiratory Rate 20 20 20 Blood Pressure 132/64 142/58 H Pulse Oximetry 96 96 96 10/01/21 09:44 Temperature Pulse Rate 69 Respiratory Rate Blood Pressure Pulse Oximetry 96 Intake/Output Intake/Output: Intake & Output 09/28/21 09/29/21 09/30/21 10/01/21 23:59 23:59 23:59 23:59 Intake Total 1000 1440 740 Output Total 400 1600 Balance 1000 1040 -860 Meds/Results Medications: Active Medications Generic Name Dose Route Start Last Admin Trade Name Freq PRN Reason Stop Dose Admin Hydromorphone HCl 0.5 mg 09/29/21 20:31 09/30/21 09:08 Hydromorphone Hcl Inj (*Crx) 1 Mg/Ml Syr IV PUSH 0.5 mg Q4H PRN Administration Pain Rated 7-10 Sodium Chloride 1,000 mls @ 125 mls/hr
[2021-10-01] MEDS: SODIUM CHLORIDE 0.9% IV 1,000 ML 125 ML IV CONT (12:06)
== END 2021-10-01 15:25 | disposition home or self-care (01) ==
LOC: ANHED 20:41 → ANH3MEDSUR 20:52
PROVIDERS: Physician Assistant; Urology; Admitting Provider Internal Medicine; Emergency Provider General Practice; PCP Internal Medicine; Visit Provider Internal Medicine
PROC: (CPT 52352; principal; 2021-09-30 12:00)
DX: N13.2 Hydronephrosis with renal and ureteral calculous obstruction (principal); R10.10 Upper abdominal pain, unspecified; G80.9 Cerebral palsy, unspecified; I10 Essential (primary) hypertension; E78.1 Pure hyperglyceridemia; I87.2 Venous insufficiency (chronic) (peripheral); F41.9 Anxiety disorder, unspecified; M19.90 Unspecified osteoarthritis, unspecified site
CPT/HCPCS: 52356; 36415; 74018; 74177; 74420; 80048; 80053; 81001; 82365; 83690; 85025; 87077; 87086; 87147; 87181; 87186; 88300; 93005; 96361; 96374; 96375; 96376; 99285; A9270; C1769; C1894; C2617; C9113; G0378; J0690; J1100; J1170; J2250; J2270; J2405; J2704; J3010; J7030; J7120; Q9966; Q9967

== ENCOUNTER 2022-02-25 10:12 | Observation (INO) | payer OTHER, SELFPAY ==
--- NOTE | ~2022-02-25 | US_ITS ---
EXAMINATION: US venous doppler [facility] DATE: 02/25/2022 12:47 INDICATION: Left lower limb swelling, pain, warmth and erythema TECHNIQUE: Grayscale ultrasound images without and with compression and Doppler ultrasound images of the left lower extremity veins were obtained. COMPARISON: 09/11/2021. FINDINGS: The visualized portions of left common femoral vein, profunda (deep) femoral vein, femoral vein, popl iteal vein, gastrocnemius vein and greater saphenous vein outflow are patent. The left posterior tibi al and peroneal veins at the proximal to mid calf are unable to be visualized. Venous flow identified on color Doppler at the left posterior tibial veins at the distal calf. IMPRESSION: 1. No deep venous thrombosis in the left lower limb. The posterior tibial and peroneal veins at the proximal to mid calf are unable to be visualized. Reviewed, dictated and finalized at location A.
[2022-02-25 10:21] VITALS: BP 113/56; PULSE 55; RESP 16; TEMP 36; O2SAT 99
[2022-02-25 10:28] VITALS: BP 109/55; PULSE 56; TEMP 36.4; O2SAT 97
[2022-02-25 11:03] LABS: Basophils Absolute Auto 0.1 K/mm3 (0.0-0.1); Basophils Percent Auto 0.5 % (0.2-1.2); Eosinophils Absolute Auto 0.2 K/mm3 (0-0.3); Eosinophils Percent Auto 1.8 % (0-4.4); Hematocrit 38.7 % (37.0-47.0); Hemoglobin 12.6 g/dL (12.0-15.0); Immature Granulocyte Absolute 0.11 K/mm3 (0.00-0.031); Lymphocytes Absolute Auto 1.89 K/mm3 (0.9-3.2); Lymphocytes Percent Auto 16.5 % (18.3-44.2); Mean Corpuscular HGB Conc 32.6 g/dl (32-36); Mean Corpuscular Hemoglobin 31.2 pg (26-34); Mean Corpuscular Volume 95.8 fl (80-100); Mean Platelet Volume 9.3 fl (7.4-10.4); Monocytes Absolute Auto 0.9 K/mm3 (0.1-0.6); Monocytes Percent Auto 7.6 % (2.6-8.5); Neutrophils Absolute Auto 8.3 K/mm3 (1.3-6.7); Neutrophils Percent Auto 72.6 % (45.5-73.1); Platelet Count Result 203 k/mm3 (150-375); Red Blood Count 4.04 M/mm3 (4.2-5.4); White Blood Count 11.5 K/mm3 (4.5-10.0)
[2022-02-25 11:10] LABS: Lactic Acid Reflex 1.5 mmol/L (0.7-2.0)
[2022-02-25 11:12] LABS: Alanine Aminotransferase 15 U/L (6-35); Albumin Level 3.8 g/dL (3.5-5.1); Alkaline Phosphatase 74 U/L (38-126); Anion Gap 9 mmol/L (8-16); Aspartate Amino Transferase 20 U/L (14-36); Bilirubin,Total 0.5 mg/dL (0.2-1.3); Blood Urea Nitrogen 24 mg/dL (7-17); Calcium 8.7 mg/dL (8.4-10.2); Carbon Dioxide 27 mmol/L (22-30); Chloride 104 mmol/L (98-107); Estimated CRCL calculation 62 ml/min; Estimated Glomerular Filt Rate 55; Glucose 127 mg/dL (65-110); INR 1.1; Prothrombin Time 13.6 Seconds (11.1-14.7); Sodium 140 mmol/L (137-145)
[2022-02-25 11:37] LABS: Atypical Lymphocytes Present; Platelet Estimate Adequate (Adequate)
--- NOTE | 2022-02-25 11:45 | ED.GENADULT ---
HPI - General Adult General Chief complaint: Skin/Abscess/Foreign Body Stated complaint: L LEG ?CELLULITIS Time Seen by Provider: 02/25/22 10:23 Source: RN notes reviewed History of Present Illness HPI narrative: Patient presents emergency room from home for left leg cellulitis. Patient states she began noticed redness of her leg 2 days ago. The left leg is been warm to the touch per the patient states she has a history of cellulitis in that leg and has had to be admitted before in the past she denies any fevers or chills chest pain shortness of breath or any other symptoms she denies any open wound she denies any known injury. Related Data Home Medications Medication Instructions Recorded Confirmed aspirin 81 mg chewable tablet (St 81 mg PO QAM 01/26/20 01/20/22 Marco Aspirin) ibuprofen 600 mg tablet (IBU) 600 mg PO DAILY 09/11/21 01/20/22 nifedipine 30 mg tablet,extended 30 mg PO 1700 09/11/21 09/29/21 release (Adalat CC) atenolol 50 mg tablet (Tenormin) 50 mg PO QAM 09/29/21 01/20/22 Allergies Allergy/AdvReac Type Severity Reaction Status Date / Time No Known Allergies Allergy Unknown Verified 01/20/22 09:08 Review of Systems Review of Systems: Gen.: Denies fevers or chills ENT: Denies congestion Respiratory: Denies shortness of breath or cough CV: Denies chest pain or palpitations GI: Denies abdominal pain nausea, emesis or diarrhea Musculoskeletal: Denies back pain or muscle pain Neuro: Denies numbness, tingling, weakness or focal weakness Skin: See HPI Except as documented, all other systems reviewed and negative [facility] Past Medical History Medical History Abdominal wall cellulitis Anxiety Cerebral palsy With mild left-sided weakness. COVID-19 Hypertension Hypertriglyceridemia Kidney stones (~03/2018) Legionella pneumonia (~04/2019) Osteoarthritis Venous insufficiency of lower extremity Surgical History Surgical History History of ankle surgery (~195) Achilles tendon lengthening. History of cystoscopy (~03/2018) With ureteral stent and stone extraction. History of dilation and curettage With uterine polypectomy. Status post laser ablation of incompetent vein Family History Family History Mother Breast cancer Sibling Breast cancer Other Hodgkin disease Father Parkinson disease Lymph node cancer Grandparent Leukemia Social History Social History Social History: The patient is and lives with her in [place]. They have no children. 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 She denies alcohol, tobacco, and illicit substance abuse. She designates her as her surrogate decision maker and she wishes to be full code. Smoking status: Never smoker Second hand tobacco smoke exposure: No Alcohol intake: never Alcohol use details: once in a while, not much Substance use: never Substance use type: does not use Gender identity (if verbalized by the patient): Female Spiritual care concerns: No Exam Narrative: APPEARANCE: No acute distress, nontoxic, resting in bed EYES: EOMI HEENT: Normocephalic, atraumatic, OMM RESPIRATORY: No respiratory distress Clear to auscultation bilaterally with no rhonchi wheezing or rales. CARDIOVASCULAR: Regular rate and rhythm without murmurs rubs or gallops. ABDOMINAL: Soft, nontender, nondistended, no rebound or guarding MUSCULOSKELETAl: Moves all extremities. No clubbing, cyanosis or edema. Bilateral dorsalis pedis pulse 2+ palp, bilateral lower extremities neuro vas intact no tenderness left knee or ankle full range of motion NEURO: Awake and alert. Following commands, speech normal, no focal deficits SKIN:: Warm, dry. Circumferential erythema from just proximal to the left ankle
--- NOTE | 2022-02-25 12:25 | PC.NURSE ---
Patient in ultrasound.
--- NOTE | 2022-02-25 14:02 | PC.NURSE ---
Patient care report called to ESHA Palmer. All questions answered at this time.
--- NOTE | 2022-02-25 14:15 | PM.IMHP ---
H&P: HPI History of Present Illness Date/Time: 02/25/22 14:15 <Catrina Bustamante PA-C - Last Filed: 02/25/22 20:37> Chief Complaint: Redness of the left lower leg. <Catrina Bustamante PA-C - Last Filed: 02/25/22 20:37> Narrative: This is a 66-year-old female with history of cellulitis, lymphedema, and hypertension who presented to the emergency department from home for evaluation of redness of her left lower leg. She first noticed redness on the left anterior brady a couple of days ago and it continues to spread in size and is also a bit tender to touch. The symptoms are similar to when she has had cellulitis in the past and she came in today for evaluation. She has been been on her feet a lot over the last several months as she has been cleaning out her house and her mother's house in anticipation of an upcoming move. She does not think that she sustained any bites or injury to the leg however she does have a shallow ulcer with serous drainage. She denies fever, chills, sweats, nausea, and vomiting. No history of MRSA. <Catrina Bustamante PA-C - Last Filed: 02/25/22 20:37> Review of Systems Review of Systems: Twelve systems were reviewed. No sinus congestion or sore throat. She has a mild, dry cough. No sick contacts or COVID exposure. She denies chest pain shortness of breath. She has a lymphedema machine at home that she supposed to do an hour night however she has been so busy recently that she admits that she does not always have time. Except as documented, all other systems were reviewed and are negative. <Catrina Bustamante PA-C - Last Filed: 02/25/22 20:37> [facility] Past Medical History Medical History: Medical History Anxiety Cellulitis Cerebral palsy With mild left-sided weakness. COVID-19 (08/2021) Hypertension Hypertriglyceridemia Kidney stones (03/2018) Legionella pneumonia (04/2019) Lymphedema Osteoarthritis Venous insufficiency of lower extremity <FRANDY Abbott Last Filed: 02/25/22 20:37> Surgical History Surgical History: Surgical History History of ankle surgery (1959) Achilles tendon lengthening. History of cystoscopy (03/2018) With ureteral stent and stone extraction. History of dilation and curettage With uterine polypectomy. Status post laser ablation of incompetent vein <Catrina Bustamante PA-C - Last Filed: 02/25/22 20:37> Family History Family History: Family History Mother Breast cancer Sibling Breast cancer Other Hodgkin disease Father Parkinson disease Lymph node cancer Grandparent Leukemia <Catrina Bustamante PA-C - Last Filed: 02/25/22 20:37> Social History Social History: Social History Social History: The patient is and lives with her in [place]. They have no children. 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 She denies alcohol, tobacco, and illicit substance abuse. She designates her , Jae Arevalo, as her surrogate decision maker and she wishes to be a full code. Smoking status: Never smoker Spiritual care concerns: No <Catrina Bustamante PA-C - Last Filed: 02/25/22 20:37> Meds Home Medications and Allergies Home medications: Home Medications Medication Instructions Recorded Confirmed Type aspirin 81 mg chewable tablet (St 81 mg PO QAM 01/26/20 03/02/22 History Marco Aspirin) nifedipine 30 mg tablet,extended 30 mg PO 1700 09/11/21 03/02/22 History release (Adalat CC) atenolol 50 mg tablet (Tenormin) 50 mg PO QAM 09/29/21 03/02/22 History oxybutynin chloride 5 mg tablet 5 mg PO DAILY #90 tabs 01/17/22 03/02/22 Rx cephalexin 500 mg capsule 500 mg PO Q8H #15 caps 03/02/22 03/02/22 Rx mupirocin 2 % topical ointment 1 applic t
[2022-02-25 14:23] VITALS: BP 122/74; PULSE 54; RESP 16; TEMP 36.1; O2SAT 99
[2022-02-25] MEDS: NIFEdipine 30 MG TAB.ER.24 PO (21:07)
[2022-02-25 22:00] VITALS: BP 133/50; PULSE 60; RESP 18; TEMP 36.5; O2SAT 97
[2022-02-26 06:00] VITALS: BP 134/82; PULSE 64; RESP 20; TEMP 36.6; O2SAT 97
[2022-02-26 06:17] LABS: Hematocrit 37.8 % (37.0-47.0); Hemoglobin 12.6 g/dL (12.0-15.0); Mean Corpuscular HGB Conc 33.3 g/dl (32-36); Mean Corpuscular Hemoglobin 31.7 pg (26-34); Mean Corpuscular Volume 95.2 fl (80-100); Mean Platelet Volume 9.1 fl (7.4-10.4); Platelet Count Result 195 k/mm3 (150-375); Red Blood Count 3.97 M/mm3 (4.2-5.4); Red Cell Distribution Width 12.8 % (11.5-14.5); White Blood Count 7.3 K/mm3 (4.5-10.0)
[2022-02-26 06:29] LABS: Chloride 106 mmol/L (98-107)
[2022-02-26 06:41] LABS: Anion Gap 7 mmol/L (8-16); Blood Urea Nitrogen 18 mg/dL (7-17); Calcium 8.1 mg/dL (8.4-10.2); Carbon Dioxide 29 mmol/L (22-30); Estimated CRCL calculation 87 ml/min; Estimated Glomerular Filt Rate > 60; Glucose 112 mg/dL (65-110); Magnesium 2.1 mg/dL (1.6-2.3); Potassium 3.9 mmol/L (3.4-5.0); Sodium 142 mmol/L (137-145)
[2022-02-26 08:48] VITALS: PULSE 67
[2022-02-26] MEDS: ENOXAPARIN 40 MG/0.4 ML SYRINGE SUB-Q (08:48)
[2022-02-26] MEDS: atenoloL 50 MG TABLET PO (08:48)
[2022-02-26] MEDS: OXYBUTYNIN CHLORIDE 5 MG TABLET PO (08:48)
[2022-02-26] MEDS: ASPIRIN 81 MG CHEWABLE TABLET PO (08:48)
[2022-02-26 08:59] VITALS: O2SAT 96
--- NOTE | 2022-02-26 13:16 | PM.IMPN ---
Progress Note: A&P Assessment and Plan (1) Cellulitis of left leg: Code(s): L03.116 - Cellulitis of left lower limb Status: Acute Assessment and Plan: Patient presents with left lower extremity erythema and edema consistent with cellulitis. No fevers. White count mildly elevated at 11 K. cefazolin started. Currently day 2. Left lower extremity venous Doppler was negative for DVT. Blood cultures no growth today. Repeat white count is normal now. Encourage patient to continue to elevate left lower extremity. IF Blood cultures remain negative tomorrow (Day 2), will plan discharge home with Keflex. (2) Hypertension: Qualifiers: Hypertension type: essential hypertension Qualified Code(s): I10 - Essential (primary) hypertension Code(s): I10 - Essential (primary) hypertension Status: Chronic Assessment and Plan: Patient's blood pressure was reviewed on 02/26 Blood pressure remains well controlled. Will continue current medications. Plan DVT prophylaxis: Lovenox Code status: Full Diet: Regular Subjective Date/time seen: 02/26/22 13:16 Interval history: 66yo female with HTN here for left leg erythema and found to have cellulitis. Assuming care. Chart reviewed. Edema and erythema improved today. Her pain is still 5/10 however. Exam Narrative: AF 97.8 134/82 67 20 96% ra Gen - NARD Chest - CTA bilaterally, nml RR CV - RRR S1/S2 Abd - Soft, NT/ND, Positive BS Ext -fading erythematous patch note the left lower extremity mostly involving the left brady. Skin is warm to touch. Two small abrasions noted left lower anterior brady. Neuro - Alert and oriented. Nonfocal exam. Psych - Nml mood and affect Skin - Warm and dry Objective Data Vital Signs Vital Signs: Vital Signs - 24 hr 02/25/22 14:20 02/25/22 14:23 02/25/22 22:00 Temperature 97.0 F L 97.7 F Pulse Rate 54 L 60 Respiratory Rate 16 18 Blood Pressure 122/74 133/50 L Pulse Oximetry 99 97 Oxygen Delivery Room Air 02/25/22 20:00 02/26/22 06:00 02/26/22 08:48 Temperature 97.8 F Pulse Rate 64 67 Respiratory Rate 20 Blood Pressure 134/82 Pulse Oximetry 97 Oxygen Delivery Room Air 02/26/22 08:59 02/26/22 08:00 Temperature Pulse Rate Respiratory Rate Blood Pressure Pulse Oximetry 96 Oxygen Delivery Room Air Room Air Intake/Output Intake/Output: Intake & Output 02/23/22 02/24/22 02/25/22 02/26/22 23:59 23:59 23:59 23:59 Intake Total 740 340 Output Total 200 Balance 540 340 Meds/Results Medications: Active Medications Generic Name Dose Route Start Last Admin Trade Name Hal PRN Reason Stop Dose Admin Aspirin 81 mg 02/26/22 09:00 02/26/22 08:48 Aspirin 81 Mg Chewable Tablet PO 81 mg QAM CORBY Administration Atenolol 50 mg 02/26/22 09:00 02/26/22 08:48 Atenolol 50 Mg Tablet PO 50 mg QAM CORBY Administration Enoxaparin Sodium 40 mg 02/26/22 09:00 02/26/22 08:48 Enoxaparin 40 Mg/0.4 Ml Syringe SUB-Q 40 mg DAILY CORBY Administration Cefazolin Sodium 1 gm in 50 mls @ 100 mls/hr 02/25/22 22:00 02/26/22 06:04 Ancef 1 Gm/D5w 50 Ml Pm IVPB Infused Q8H CORBY Infusion Nifedipine 30 mg 02/25/22 20:40 02/25/22 21:07 Nifedipine 30 Mg Tab.Er.24 PO 30 mg 1700 CORBY Administration Oxybutynin Chloride 5 mg 02/26/22 09:00 02/26/22 08:48 Oxybutynin Chloride 5 Mg Tablet PO 5 mg DAILY CORBY Administration Radiology Results: ITS Impressions Venous Doppler Study 02/25/22 13:00 IMPRESSION: 1. No deep venous thrombosis in the left lower limb. The posterior tibial and peroneal veins at the proximal to mid calf are unable to be visualized. Labs Labs: Laboratory Results - last 24 hr 02/26/22 02/26/22 05:57 05:58 WBC 7.3 RBC 3.97 L Hgb 12.6 Hct 37.8 MCV 95.2 MCH 31.7 MCHC 33.3 RDW 12.8 Plt Count 195 MPV 9.1 Sodium 142 Potas
[2022-02-26 14:00] VITALS: BP 118/62; PULSE 53; RESP 18; TEMP 36.6; O2SAT 94
[2022-02-26] MEDS: NIFEdipine 30 MG TAB.ER.24 PO (16:49)
[2022-02-26 22:00] VITALS: BP 122/62; PULSE 70; RESP 20; TEMP 36.8; O2SAT 98
[2022-02-27 06:00] VITALS: BP 128/78; PULSE 64; RESP 16; TEMP 36.9; O2SAT 98
[2022-02-27 08:38] VITALS: PULSE 64
[2022-02-27] MEDS: OXYBUTYNIN CHLORIDE 5 MG TABLET PO (08:38)
[2022-02-27] MEDS: ASPIRIN 81 MG CHEWABLE TABLET PO (08:38)
[2022-02-27] MEDS: ENOXAPARIN 40 MG/0.4 ML SYRINGE SUB-Q (08:38)
[2022-02-27] MEDS: atenoloL 50 MG TABLET PO (08:38)
[2022-02-27 14:00] VITALS: BP 136/67; PULSE 60; RESP 18; TEMP 36.1; O2SAT 96
--- NOTE | 2022-02-27 15:53 | PM.DS ---
DS: Admitting Diagnosis Discharge Date 02/27/22 Admitting Diagnosis Leg pain DS: Discharge Diagnosis Discharge Diagnosis (1) Cellulitis of left leg: Code(s): L03.116 - Cellulitis of left lower limb Status: Acute (2) Hypertension: Qualifiers: Hypertension type: essential hypertension Qualified Code(s): I10 - Essential (primary) hypertension Code(s): I10 - Essential (primary) hypertension Status: Chronic DS: Summary Hospital Course Reason for hospitalization: 66yo female with HTN here for left leg erythema and found to have cellulitis. Please see H&P for details Hospital Course: Patient presents with left lower extremity erythema and edema consistent with cellulitis.? No fevers.? White count mildly elevated at 11 K. Cefazolin started.? Left lower extremity venous Doppler was negative for DVT.? Blood cultures no growth today.? Repeat white count is normal now.? Encouraged patient to elevate left lower extremity.? Patient had clinical improvement. Blood pressure remained stable. She was able to be discharged home on 02/27/22 Status at Discharge Cognitive/behavioral status at discharge: Stable Time Spent with Patient Time attestation: Total time spent providing and/or coordinating discharge services: 32 minutes Time spent: Greater than 30 minutes Specific discharge activities: Education Exam Narrative: AF 97.0 136/67 60 18 96% ra Gen - NARD Chest - CTA bilaterally, nml RR CV - RRR S1/S2 Abd - Soft, NT/ND, Positive BS Ext -fading erythematous patch note the left lower extremity mostly involving the left brady. Two small dry abrasions noted left lower anterior brady Psych - Nml mood and affect Skin - As above. Warm and dry DS: Data Data Completed and Pending Labs on day of discharge: Preliminary micro results at discharge 02/25/22 10:53 Blood Culture - Preliminary Blood 02/25/22 10:53 Blood Culture - Preliminary Blood Discharge Plan Discharge Attending physician on discharge: Hermann Landeros Discharging Clinician: Hermann Landeros Anticipated Discharge Date/Time: 02/27/22 15:58 Patient Disposition: Home, Self-Care Activity: as tolerated Diet: heart healthy Discharge Instructions: Please avoid large gathering, wear face coverings in public and practice social distance. Please complete your antibiotic course even if you are starting to feel well. Take precautions to avoid falls. Rise slowly from a lying or sitting position. Pause before standing or walking. Please leave the left lower leg wounds ope to air. Okay to resume compression hose once the wounds are dry and crusted. Contact your doctor or call 911 and come to the Emergency Room if you have fevers or other worrisome symptoms. Follow-up with your doctor in 1-2 weeks. Please call for appointment. Thank you for using [facility] for your mihir care needs. Patient Instructions: Antibiotic Form, Aspirin (By mouth), Cellulitis (GEN) Stand Alone Forms: General Discharge Information Follow-up/Referrals: Phu Reyna DO [Primary Care Provider] - Call for Appointment Discharge Medications: New cephalexin 500 mg capsule 500 mg PO Q8H Qty: 14 0RF Continued nifedipine [Adalat CC] 30 mg tablet extended release 30 mg PO 1700 aspirin [[place] Aspirin] 81 mg Tablet,Chewable 81 mg PO QAM atenolol [Tenormin] 50 mg tablet 50 mg PO QAM oxybutynin chloride 5 mg tablet 5 mg PO DAILY Qty: 90 1RF Discontinued ibuprofen [IBU] 600 mg Tablet 600 mg PO DAILY Date of admission: 02/25/22 13:22 Primary Care Provider: Phu Reyna Admitting Provider: Marianne Steiner Attending physician on admission: Vipin Zafar Condition: Stable Quality VTE Prophylaxis VTE prophylaxis: pharmacologic ordered
[2022-02-27] MEDS: NIFEdipine 30 MG TAB.ER.24 PO (17:36)
== END 2022-02-27 18:03 | disposition home or self-care (01) ==
LOC: ANHED 13:25 → ANH3MEDSUR 13:30
PROVIDERS: Physician Assistant; Admitting Provider Family Medicine; Emergency Provider Emergency Medicine; PCP Internal Medicine; Visit Provider Internal Medicine
DX: L03.116 Cellulitis of left lower limb (principal); I10 Essential (primary) hypertension; F41.9 Anxiety disorder, unspecified; E78.1 Pure hyperglyceridemia; I87.2 Venous insufficiency (chronic) (peripheral); M79.662 Pain in left lower leg; Z98.890 Other specified postprocedural states; Z87.442 Personal history of urinary calculi; Z79.1 Long term (current) use of non-steroidal anti-inflammatories (NSAID); Z79.82 Long term (current) use of aspirin; Z79.899 Other long term (current) drug therapy
CPT/HCPCS: 36415; 80048; 80053; 83605; 83735; 85025; 85027; 85610; 85730; 87040; 93971; 96365; 96372; 99285; A9270; G0378; J0690; J1650

== ENCOUNTER 2023-01-14 12:01 | Emergency (ER) | payer OTHER, SELFPAY ==
--- NOTE | ~2023-01-14 | US_ITS ---
EXAMINATION:US venous doppler LE LT INDICATION:Leg redness and swelling TECHNIQUE: Multiple grayscale, color flow and Doppler images of the left lower extremity deep venous systems were obtained and reviewed. COMPARISON:02/25/2022 FINDINGS: The common femoral, superficial femoral and popliteal veins demonstrate normal respiratory variation, augmentation and compressibility. Color flow is also seen within the peroneal, greater sa phenous and profunda veins. The posterior tibial vein is not visualized due to edema. IMPRESSION: 1: No lower extremity deep venous thrombosis. Reviewed, dictated and finalized at location A.
[2023-01-14 12:15] VITALS: BP 139/50; PULSE 64; RESP 20; TEMP 36.6; O2SAT 98
[2023-01-14 12:29] LABS: Basophils Absolute Auto 0.1 K/mm3 (0.0-0.1); Basophils Percent Auto 0.9 % (0.2-1.2); Eosinophils Absolute Auto 0.8 K/mm3 (0-0.3); Eosinophils Percent Auto 9.2 % (0-4.4); Hematocrit 42.3 % (37.0-47.0); Hemoglobin 13.9 g/dL (12.0-15.0); Immature Granulocyte Absolute 0.06 K/mm3 (0.00-0.031); Immature Granulocyte Percent A 0.7 % (0-0.5); Lymphocytes Absolute Auto 1.67 K/mm3 (0.9-3.2); Lymphocytes Percent Auto 19.2 % (18.3-44.2); Mean Corpuscular HGB Conc 32.9 g/dl (32-36); Mean Corpuscular Hemoglobin 31.7 pg (26-34); Mean Corpuscular Volume 96.6 fl (80-100); Monocytes Absolute Auto 0.6 K/mm3 (0.1-0.6); Monocytes Percent Auto 6.4 % (2.6-8.5); Neutrophils Absolute Auto 5.6 K/mm3 (1.3-6.7); Neutrophils Percent Auto 63.6 % (45.5-73.1); Platelet Count Result 191 k/mm3 (150-375); Red Blood Count 4.38 M/mm3 (4.2-5.4); Red Cell Distribution Width 12.8 % (11.5-14.5); White Blood Count 8.7 K/mm3 (4.5-10.0)
[2023-01-14 12:52] LABS: Alanine Aminotransferase 21 U/L (6-35); Albumin Level 4.1 g/dL (3.5-5.1); Alkaline Phosphatase 80 U/L (38-126); Anion Gap 5 mmol/L (8-16); Aspartate Amino Transferase 22 U/L (14-36); Bilirubin,Total 0.4 mg/dL (0.2-1.3); Blood Urea Nitrogen 31 mg/dL (7-17); Calcium 8.6 mg/dL (8.4-10.2); Carbon Dioxide 26 mmol/L (22-30); Chloride 110 mmol/L (98-107); Estimated CRCL calculation 69 ml/min; Estimated Glomerular Filt Rate > 60; Glucose 106 mg/dL (65-110); Potassium 3.9 mmol/L (3.4-5.0); Sodium 141 mmol/L (137-145)
--- NOTE | 2023-01-14 14:54 | ED.EXTPRO ---
HPI - Extremity Problem General Chief complaint: Extremity Problem,Nontraumatic Stated complaint: Left leg cellulitis Time Seen by Provider: 01/14/23 14:44 History of Present Illness HPI Narrative: Patient is a 67-year-old female with a history of lymphadenopathy here for evaluation of left lower extremity erythema, swelling, and pain. She states that she has had some blistering sores develop over the past several days that have opened up and drained yellow clear material. She has had some redness and pain develop since then. She has a history of cellulitis in the limb and states it feels similar. She denies any shortness of breath, fevers or chills, nausea or vomiting. Related Data Home Medications Medication Instructions Recorded Confirmed aspirin 81 mg chewable tablet (St 81 mg PO QAM 01/26/20 07/26/22 Marco Aspirin) loratadine 10 mg tablet (Allergy 10 mg PO DAILY PRN 11/28/22 Relief (loratadine)) Allergies Allergy/AdvReac Type Severity Reaction Status Date / Time No Known Allergies Allergy Unknown Verified 11/28/22 09:46 Review of Systems Review of Systems: Gen: Denies fevers or chills Eyes: Denies eye pain or visual change ENT: Denies congestion Respiratory: Denies shortness of breath or cough CV: Denies chest pain or palpitations GI: Denies abdominal pain nausea, emesis or diarrhea : denies burning, urgency, frequency or hematuria Musculoskeletal: Reports redness and swelling of the left limb Neuro: Denies numbness, tingling, weakness or focal weakness Skin: Denies rash Except as documented, all other systems reviewed and negative [facility] Past Medical History Medical History Anxiety Cellulitis Cerebral palsy With mild left-sided weakness. COVID-19 (08/2021) H/O fall Hypertension Hypertriglyceridemia Kidney stones (03/2018) Legionella pneumonia (04/2019) Lymphedema Osteoarthritis Venous insufficiency of lower extremity Surgical History Surgical History History of ankle surgery (1959) Achilles tendon lengthening. History of cystoscopy (03/2018) With ureteral stent and stone extraction. History of dilation and curettage With uterine polypectomy. Status post laser ablation of incompetent vein Family History Family History Mother Breast cancer Sibling Breast cancer Other Hodgkin disease Father Parkinson disease Lymph node cancer Grandparent Leukemia Social History Social History Social History: The patient is and lives with her in [place]. They have no children. 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 She denies alcohol, tobacco, and illicit substance abuse. She designates her , Jae Arevalo, as her surrogate decision maker and she wishes to be a full code. Smoking status: Never smoker Lack of Transportation: No Lack of Food: Never True Current Housing: I Have Housing Concerned About Future Housing: No Difficulty Paying Gas/Electric Bills: No Difficulty Paying for Meds: No Currently Unemployed: Decline to Answer Education: Associate Degree Difficulty w/ Childcare or Family Care: No Spiritual care concerns: No Exam Narrative: APPEARANCE: Chronically ill-appearing Head: Normocephalic and atraumatic. EYES: PERRLA/EOMI, conjunctivae clear NOSE: No nasal drainage EARS: External ear normal in appearance THROAT: Oropharynx is clear. Mucous membranes are moist. NECK: Supple. No adenopathy, no masses. RESPIRATORY: Airway patent, respirations nonlabored. Clear to auscultation bilaterally, no rales, rhonchi, wheezing. CARDIOVASCULAR: 2+ DP and PT pulses bilaterally. Regular rate and rhythm without murmurs, rubs, or gallops. ABDOMINAL: Normoactive bowel sounds. Soft, no
[2023-01-14 15:16] LABS: Lactic Acid Reflex 1.8 mmol/L (0.7-2.0)
[2023-01-14 15:25] LABS: CRP 1.4 mg/dL (<1.0)
[2023-01-14 16:07] LABS: Erythrocyte Sedimentation Rate 16 mm/hr (0-20)
[2023-01-14] MEDS: ceFAZolin 1 GM/NS 50 ML 1 GM/50 ML BAG IVPB (16:14)
[2023-01-14 17:08] VITALS: BP 153/78; PULSE 76; RESP 19; O2SAT 95
== END 2023-01-14 17:09 | disposition home or self-care (01) ==
PROVIDERS: Emergency Medicine; Emergency Provider Physician Assistant; PCP Family Medicine
DX: L03.116 Cellulitis of left lower limb (principal); M79.89 Other specified soft tissue disorders; F41.9 Anxiety disorder, unspecified; I10 Essential (primary) hypertension; E78.5 Hyperlipidemia, unspecified; Z87.442 Personal history of urinary calculi; M19.90 Unspecified osteoarthritis, unspecified site
CPT/HCPCS: 36415; 80053; 83605; 85025; 85652; 86140; 93971; 96365; 99284; J0690

== ENCOUNTER 2023-01-20 09:24 | Outpatient (CLI) | payer OTHER, SELFPAY ==
--- NOTE | ~2023-01-20 | DEXA_ITS ---
Bone Density Report Name: CYNDI GRAYSON Age: 67 Sex: Female Ethnicity: White Date of : 1955 Indication: postmenopausal; screening for osteoporosis; height loss; Referring Provider: CHRISTINA OROURKE Study: Bone densitometry was performed. Exam Date: January 20, 2023 Accession number: [id number] Bone Density: Region BMD T-score Z-score Classification AP Spine(L1-L4) 1.280 2.1 4.1 Normal Femoral Neck (Left) 0.517 -3.0 -1.3 Osteoporosis Total Hip (Left) 0.791 -1.2 0.2 Osteopenia Femoral Neck (Right) 0.723 -1.1 0.6 Osteopenia Total Hip (Right) 0.809 -1.1 0.3 Osteopenia Total Hip Mean 0.800 -1.2 0.3 Osteopenia World Health Organization criteria for BMD impression classify patients as: Normal (T-score at or above -1.0), Osteopenia (T-score between -1.0 and -2.5), or Osteoporosis (T-score at or below -2.5). 10-year Fracture Risk: FRAX not reported because: Some T-score for Spine Total or Hip Total or Femoral Neck at or below -2.5 Clinical Information Provided by Patient: Patient maximum height was 65.5 Menopause Age: 49 No regular weight bearing exercise Onset of menses at age 11 Number of children 0 Impression: The patient has osteoporosis, based on the Left Femoral Neck T-score. Discussion: INCREASED RISK OF FRACTURE. BONE DENSITY IS UNDESIRABLY LOW AT ONE OR MORE SKELETAL SITES, CONSISTENT WITH POSTMENOPAUSAL OSTEOPOROSIS. This patient's lowest T-score meets the World Health Organization's (WHO) criteria for osteoporosis at one or more sites (T-score -2.5 or below). In untreated patients, the risk of osteoporotic fracture increases approximately two-fold for each 1.0 SD decrease in T-score. Low bone density is not the only risk factor for fracture; also consider factors such as patient's age, frailty or poor health, risk of falling, risk of injury, previous osteoporotic fracture, family history of osteoporosis, cigarette smoking, low body weight, etc. Not everyone with low bone mineral density has osteoporosis; osteomalacia and other metabolic bone disorders should also be considered. Patients who have osteoporosis should be evaluated for specific diseases and conditions (secondary causes) that may cause or contribute to bone loss. The [place] [employer] Clinical Endocrinologists (AACE) and National Osteoporosis Foundation (NOF) recommend pharmacologic intervention for all postmenopausal women whose T-score is in this range. The patient should follow a healthful lifestyle (good nutrition with adequate calcium and vitamin D, and appropriate weight-bearing exercise). Follow-Up: Consider a repeat BMD and Vertebral Fracture Assessment (VFA) exam in 2 years or sooner if medically necessary, to reassess this patient's status. Reported by: SABINA on 01/20/2023 10:03:00 AM.
== END 2023-01-20 09:25 | disposition home or self-care (01) ==
LOC: ANHIMG 09:25
PROVIDERS: PCP Family Medicine; Visit Provider Family Medicine
DX: Z78.0 Asymptomatic menopausal state (principal); M81.0 Age-related osteoporosis without current pathological fracture; M85.852 Other specified disorders of bone density and structure, left thigh; M85.851 Other specified disorders of bone density and structure, right thigh
CPT/HCPCS: 77080

== ENCOUNTER 2023-06-25 10:58 | Emergency (ER) | payer OTHER, SELFPAY ==
[2023-06-25] VITALS (22 sets, daily range): BP systolic 110–130; BP diastolic 52–74; PULSE 51–61; RESP 14–20; TEMP 36.4; O2SAT 95–100
--- NOTE | ~2023-06-25 | CT_ITS ---
EXAMINATION: CT brain wo con DATE: 06/25/2023 14:14 INDICATION: Head injury. TECHNIQUE: Computed tomography (CT) of the head was performed without intravenous contrast. The dose- length product was 605.33 mGy-cm. Automated exposure control and iterative reconstruction technique w ere employed. COMPARISON: None FINDINGS: There is chronic right parietal lobe and right lacunar infarctions with encephalomalacia. N o ventriculomegaly or midline shift. Basilar cisterns are patent. No acute infarction, hemorrhage, ma ss or mass effect. There is mucosal thickening of the left maxillary sinus. Mastoids are pneumatized. No depressed skull fractures. IMPRESSION: 1. No acute intracranial abnormality. 2: Chronic right parietal lobe and lacunar infarctions. Reviewed, dictated and finalized at location B. [employer]
--- NOTE | ~2023-06-25 | CT_ITS ---
EXAMINATION: CT facial & cervical spine wo DATE: 06/25/2023 14:14 INDICATION: Face and neck injury TECHNIQUE: Computed tomography (CT) of the maxillofacial region and cervical spine was performed with out intravenous contrast. The dose-length product was 628.30 mGy-cm. Automated exposure control and i terative reconstruction technique were employed. COMPARISON: None FINDINGS: MAXILLOFACIAL CT: There is soft tissue opacification of the left maxillary sinus with small air-fluid levels. No defini tive fracture is identified. There is bowing of the left maxillary sinus medial wall centrally, likel y chronic. No nasal fracture. Zygomatic arches are within normal limits. CERVICAL SPINE CT: Straightening of cervical lordosis. There is degenerative disc disease with endplate degenerative ranulfo nge at C3-4, C5-6 and C6-7. Craniovertebral junction is normal. Odontoid process is normal. Lung apic es are normal. No significant paraspinal soft tissue abnormality. IMPRESSION: 1. No acute abnormality of the facial bones or cervical spine. Reviewed, dictated and finalized at location B. 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
--- NOTE | 2023-06-25 13:56 | ED.GENADULT ---
HPI - General Adult General Chief complaint: Fall Stated complaint: fall on sunday Time Seen by Provider: 06/25/23 13:24 History of Present Illness HPI narrative: 68-year-old female history of lower extremity lymphedema and a weak left knee presents to the emergency department after having a ground level fall. Patient states that when her left knee gave out she fell and struck the cabinet with her face and left arm. Patient denies any loss of consciousness. Patient has been on Bactrim for lower extremity cellulitis. patient with cellulitis was improving but wanted to be re-evaluated Related Data Home Medications Medication Instructions Recorded Confirmed aspirin 81 mg chewable tablet (St 81 mg PO QAM 01/26/20 06/18/23 Marco Aspirin) ibuprofen 200 mg tablet 200 mg PO Q6H PRN 01/17/23 06/18/23 Allergies Allergy/AdvReac Type Severity Reaction Status Date / Time No Known Allergies Allergy Unknown Verified 06/25/23 11:17 Review of Systems Review of Systems: All systems reviewed & are unremarkable except as noted in HPI and below PMFSH Past Medical History Medical History Anxiety Cellulitis Cerebral palsy With mild left-sided weakness. COVID-19 (08/2021) H/O fall Hypertension Hypertriglyceridemia Kidney stones (03/2018) Legionella pneumonia (04/2019) Lymphedema Osteoarthritis Venous insufficiency of lower extremity Surgical History Surgical History History of ankle surgery (1959) Achilles tendon lengthening. History of cystoscopy (03/2018) With ureteral stent and stone extraction. History of dilation and curettage With uterine polypectomy. Status post laser ablation of incompetent vein Family History Family History Mother Breast cancer Sibling Breast cancer Other Hodgkin disease Father Parkinson disease Lymph node cancer Grandparent Leukemia Social History Social History Social History: The patient is and lives with her in [place]. They have no children. 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 She denies alcohol, tobacco, and illicit substance abuse. She designates her , Jae Arevalo, as her surrogate decision maker and she wishes to be a full code. Smoking status: Never smoker Alcohol intake: never Alcohol use details: social Substance use: never Lack of Transportation: No Lack of Food: Never True Current Housing: I Have Housing Concerned About Future Housing: No Difficulty Paying Gas/Electric Bills: No Difficulty Paying for Meds: No Education: Associate Degree Spiritual care concerns: No Exam Narrative: APPEARANCE: Well appearing, no pain, no distress, well-nourished. HEAD: normocephalic, atraumatic. EYES: PERRLA/EOMI, conjunctivae clear. NOSE: Normal no drainage EARS:TMS clear with good light reflex. THROAT: Pharynx clear, no exudate. NECK: Supple. No adenopathy, no masses. RESPIRATORY: Airway patent, respirations nonlabored. Clear to auscultation bilaterally, no rales, rhonchi, wheezing. CARDIOVASCULAR: Regular rate and rhythm without murmurs rubs or gallops. ABDOMINAL: Soft, nontender, nondistended, normal bowel sounds MUSCULOSKELETAL: Moves all extremities. Strength/ROM intact, No edema, No calf tenderness. NEURO: Alert. Cranial nerves II through XII intact. Good gait. Good coordination SKIN: chronic venous stasis changes with some underlying erythema concerning for cellulitis Course Course Emergency Course: 68-year-old female presents to the emergency department for evaluation after having a ground level fall. Patients head neck and facial CT were negative. Patient was afebrile with a leukocytosis of 10.1 with a normal hemoglobin. CMP similar to her baseline. Patient
[2023-06-25] MEDS: ceFAZolin 1 GM/NS 50 ML 1 GM/50 ML BAG IVPB (14:21)
[2023-06-25 14:35] LABS: Basophils Absolute Auto 0.1 K/mm3 (0.0-0.1); Basophils Percent Auto 0.8 % (0.2-1.2); Eosinophils Absolute Auto 0.6 K/mm3 (0-0.3); Eosinophils Percent Auto 6.1 % (0-4.4); Hematocrit 41.7 % (37.0-47.0); Hemoglobin 13.5 g/dL (12.0-15.0); Immature Granulocyte Absolute 0.05 K/mm3 (0.00-0.031); Immature Granulocyte Percent A 0.5 % (0-0.5); Lymphocytes Absolute Auto 2.04 K/mm3 (0.9-3.2); Lymphocytes Percent Auto 20.1 % (18.3-44.2); Mean Corpuscular HGB Conc 32.4 g/dl (32-36); Mean Corpuscular Hemoglobin 31.5 pg (26-34); Mean Corpuscular Volume 97.4 fl (80-100); Mean Platelet Volume 9.6 fl (7.4-10.4); Monocytes Absolute Auto 0.7 K/mm3 (0.1-0.6); Monocytes Percent Auto 7.2 % (2.6-8.5); Neutrophils Absolute Auto 6.6 K/mm3 (1.3-6.7); Neutrophils Percent Auto 65.3 % (45.5-73.1); Platelet Count Result 240 k/mm3 (150-375); Red Blood Count 4.28 M/mm3 (4.2-5.4); White Blood Count 10.1 K/mm3 (4.5-10.0)
[2023-06-25 14:46] LABS: Alanine Aminotransferase 22 U/L (6-35); Albumin Level 4.2 g/dL (3.5-5.1); Alkaline Phosphatase 94 U/L (38-126); Anion Gap 12 mmol/L (8-16); Aspartate Amino Transferase 23 U/L (14-36); Bilirubin,Total 0.5 mg/dL (0.2-1.3); Blood Urea Nitrogen 22 mg/dL (7-17); Carbon Dioxide 22 mmol/L (22-30); Chloride 105 mmol/L (98-107); Estimated CRCL calculation 63 ml/min; Estimated Glomerular Filt Rate 55; Glucose 97 mg/dL (65-110); Potassium 4.4 mmol/L (3.4-5.0); Sodium 139 mmol/L (137-145)
[2023-06-25 14:53] LABS: Prothrombin Time 14.1 Seconds (11.1-14.7)
[2023-06-25 14:54] LABS: Partial Thromboplastin Time 51.6 SECONDS (22.3-36.8)
== END 2023-06-25 16:32 | disposition home or self-care (01) ==
PROVIDERS: Emergency Provider Emergency Medicine; PCP Family Medicine
DX: S00.83XA Contusion of other part of head, initial encounter (principal); L03.116 Cellulitis of left lower limb; L03.115 Cellulitis of right lower limb; I89.0 Lymphedema, not elsewhere classified; G80.9 Cerebral palsy, unspecified; I10 Essential (primary) hypertension; I87.2 Venous insufficiency (chronic) (peripheral); E78.1 Pure hyperglyceridemia; Z87.01 Personal history of pneumonia (recurrent); Z87.442 Personal history of urinary calculi; Z86.16 Personal history of COVID-19; Z79.82 Long term (current) use of aspirin; W01.198A Fall on same level from slipping, tripping and stumbling with subsequent striking against other object, initial encounter
CPT/HCPCS: 36415; 70450; 70486; 72125; 80053; 85025; 85610; 85730; 96365; 99284; J0690

== ENCOUNTER 2023-07-16 13:28 | Inpatient (IN) | payer OTHER, SELFPAY ==
--- NOTE | ~2023-07-16 | XR_ITS ---
XR chest 1V portable 07/16/2023 18:04 Indication: Wheezing. Lower extremity edema. Procedure: AP portable chest Comparison: Comparison to multiple prior studies sequentially, with oldest reviewed study dated 04/30. Findings: Cardiomegaly with interstitial edema. No pleural effusion or pneumothorax. No acute osseous abnormality. Impression: 1: Cardiomegaly with interstitial edema. Reviewed, dictated and finalized at location A. E STACKER HAND Impression: 1: Cardiomegaly with interstitial edema.
--- NOTE | ~2023-07-16 | US_ITS ---
EXAMINATION:US venous doppler LE BI INDICATION:Leg swelling and erythema TECHNIQUE: Multiple grayscale, color flow and Doppler images of the right and left lower extremity de ep venous systems were obtained and reviewed. COMPARISON:No prior studies for comparison. FINDINGS: The common femoral, superficial femoral and popliteal veins demonstrate normal respiratory variation, augmentation and compressibility. Color flow is also seen within the posterior tibial, pe roneal, greater saphenous and profunda veins. IMPRESSION: 1: No lower extremity deep venous thrombosis. Reviewed, dictated and finalized at location A. TURBINE TECHNICIAN
[2023-07-16 13:53] VITALS: BP 148/85; PULSE 67; RESP 18; TEMP 36.9; O2SAT 98
[2023-07-16 14:11] LABS: Basophils Absolute Auto 0.1 K/mm3 (0.0-0.1); Basophils Percent Auto 0.8 % (0.2-1.2); Eosinophils Absolute Auto 1.3 K/mm3 (0-0.3); Hematocrit 40.9 % (37.0-47.0); Hemoglobin 13.1 g/dL (12.0-15.0); Immature Granulocyte Absolute 0.06 K/mm3 (0.00-0.031); Immature Granulocyte Percent A 0.6 % (0-0.5); Lymphocytes Absolute Auto 1.71 K/mm3 (0.9-3.2); Lymphocytes Percent Auto 16.8 % (18.3-44.2); Mean Corpuscular Hemoglobin 31.2 pg (26-34); Mean Corpuscular Volume 97.4 fl (80-100); Monocytes Absolute Auto 0.8 K/mm3 (0.1-0.6); Monocytes Percent Auto 7.4 % (2.6-8.5); Neutrophils Absolute Auto 6.3 K/mm3 (1.3-6.7); Neutrophils Percent Auto 61.4 % (45.5-73.1); Platelet Count Result 232 k/mm3 (150-375); Red Cell Distribution Width 13.1 % (11.5-14.5); White Blood Count 10.2 K/mm3 (4.5-10.0)
[2023-07-16 14:24] LABS: Alanine Aminotransferase 18 U/L (6-35); Albumin Level 4.1 g/dL (3.5-5.1); Alkaline Phosphatase 98 U/L (38-126); Anion Gap 8 mmol/L (8-16); Aspartate Amino Transferase 24 U/L (14-36); Bilirubin,Total 0.4 mg/dL (0.2-1.3); Blood Urea Nitrogen 23 mg/dL (7-17); CRP 1.9 mg/dL (<1.0); Calcium 8.9 mg/dL (8.4-10.2); Carbon Dioxide 24 mmol/L (22-30); Chloride 110 mmol/L (98-107); Estimated CRCL calculation 88 ml/min; Estimated Glomerular Filt Rate > 60; Glucose 106 mg/dL (65-110); Potassium 4.1 mmol/L (3.4-5.0); Sodium 142 mmol/L (137-145)
--- NOTE | 2023-07-16 15:43 | ED.EXTPRO ---
HPI - Extremity Problem General Chief complaint: Extremity Problem,Nontraumatic Stated complaint: bilateral leg pain Time Seen by Provider: 07/16/23 17:31 Source: patient and old records reviewed Mode of arrival: ambulatory Limitations: no limitations History of Present Illness HPI Narrative: Patient is a 68 y/o female who presents to the ED with c/o cellulitis to her lower extremities. Patient reports she has been dealing with cellulitis of her lower extremities intermittently since 2015. She has been on numerous antibiotics for this and intermittently admitted for IV abx. Patient reports the cellulitis returned late May. She was seen in the ED on 06/25 after a fall and Rx'd keflex at that time for her cellulitis. She denied improvement of cellulitis. States ongoing pain, itching, redness, drainage, weeping. She is supposed to wear compression stockings but has not been doing so. Patient is trying to get in to be seen at wound care clinic at [facility]. Denies fevers. Related Data Home Medications Medication Instructions Recorded Confirmed aspirin 81 mg chewable tablet 81 mg PO QAM 01/26/20 07/16/23 ibuprofen 200 mg tablet 800 mg PO DAILY Pain 01/17/23 07/17/23 hydroxyzine HCl 25 mg tablet See Rx Instructions .Route 07/16/23 07/16/23 .COMPLEX PRN Itching mupirocin 2 % topical ointment 1 applic topical TID PRN Itching 07/17/23 07/18/23 Allergies Allergy/AdvReac Type Severity Reaction Status Date / Time No Known Allergies Allergy Unknown Verified 07/17/23 09:20 [facility] Past Medical History Medical History (Updated 07/17/23 @ 17:36 by Loi Larson APRN) Anxiety Cellulitis Cerebral palsy With mild left-sided weakness. COVID-19 (08/2021) H/O fall Hypertension Hypertriglyceridemia Kidney stones (03/2018) Legionella pneumonia (04/2019) Lymphedema Lymphedema Osteoarthritis Venous insufficiency of lower extremity Surgical History Surgical History History of ankle surgery (1959) Achilles tendon lengthening. History of cystoscopy (03/2018) With ureteral stent and stone extraction. History of dilation and curettage With uterine polypectomy. Status post laser ablation of incompetent vein Family History Family History (Updated 07/17/23 @ 09:58 by Cecille Fleming RN) Mother Breast cancer Sibling Breast cancer Other Hodgkin disease Father Parkinson disease Lymph node cancer Grandparent Leukemia Sibling Brain cancer Social History Social History Social History: The patient is and lives with her in [place]. They have no children. 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 She denies alcohol, tobacco, and illicit substance abuse. She designates her , Jae Arevalo, as her surrogate decision maker and she wishes to be a full code. Smoking status: Never smoker Alcohol intake: never Alcohol use details: social Substance use: never Do You Feel Safe in your Home?: Yes Lack of Transportation: No Lack of Food: Never True Current Housing: I Have Housing Concerned About Future Housing: No Difficulty Paying Gas/Electric Bills: No Difficulty Paying for Meds: No Currently Unemployed: No Education: Associate Degree Difficulty w/ Childcare or Family Care: No Spiritual care concerns: No Course Vital Signs Vital signs: Vital Signs Temperature 98.4 F 07/16/23 13:53 Pulse Rate 67 07/16/23 13:53 Respiratory Rate 18 07/16/23 13:53 Blood Pressure 148/85 H 07/16/23 13:53 Pulse Oximetry 98 07/16/23 13:53 Oxygen Delivery Room Air 07/16/23 13:53 Temperature 97.7 F 07/19/23 05:24 Pulse Rate 72 07/19/23 08:40 Respiratory Rate 18 07/19/23 05:24 Blood Pressure 120/53 L 07/19/23 05:24 Pulse Oximetry 96 07/19/23 05:24 Oxygen Delivery Room Air 07/18/23 08:00 MDM - Extremity (Nontraumatic) MDM Narrative Medical decision making narrative: MSE by TAMMI in triage. Lab Data 07/19/23 04:24 07/19/23 04:24 Labs: Lab Results 07/16/23 07/16/23 07/16/23 Range/Units 14:04 19:59 20:11 WBC 10.2 H (4.5-10.0) K/mm3 RBC 4.20 (4.2-5.4) M/mm3 Hgb 13.1 (12.0-15.0) g/dL Hct 40.9 (37.0-47.0) % MCV 97.4 (80-100) fl MCH 31.2 (26-34) pg MCHC 32.0 (32-36) g/dl RDW 13.1 (11.5-14.5) % Plt Count 232 (150-375) k/mm3 MPV 9.0 (7.4-10.4) fl Immature Gran % (Auto) 0.6 H (0-0.5) % Neut % (Auto) 61.4 (45.5-73.1) % Lymph % (Auto) 16.8 L (18.3-44.2) % [place] % (Auto) 7.4 (2.6-8.5) % Eos % (Auto) 13.0 H (0-4.4) % Baso % (Auto) 0.8 (0.2-1.2) % Lymph # (Auto) 1.71 (0.9-3.2) K/mm3 [place] # (Auto) 0.8 H (0.1-0.6) K/mm3 Eos # (Auto) 1.3 H (0-0.3) K/mm3 Baso # (Auto) 0.1 (0.0-0.1) K/mm3 Abs Immat Gran (auto) 0.06 H (0.00-0.031) K/mm3 Absolute Neuts (auto) 6.3 (1.3-6.7) K/mm3 Absolute Nucleated RBC 0.0 (0.0-0.012) K/mm3 Nucleated RBC % 0.0 (0.0-0.2) % Sodium 142 (137-145) mmol/L Potassium 4.1 (3.4-5.0) mmol/L Chloride 110 H (98-107) mmol/L Carbon Dioxide 24 (22-30) mmol/L Anion Gap 8 (8-16) mmol/L BUN 23 H (7-17) mg/dL Creatinine 0.70 (0.7-1.0) mg/dL Estim Creat Clear Calc 88 ml/min Estimated GFR > 60 (59 - ) Glucose 106 (65-110) mg/dL Lactic Acid 0.8 (0.7-2.0) mmol/L Calcium 8.9 (8.4-10.2) mg/dL Phosphorus (2.5-4.5) mg/dL Magnesium (1.6-2.3) mg/dL Total Bilirubin 0.4 (0.2-1.3) mg/dL AST 24 (14-36) U/L ALT 18 (6-35) U/L Alkaline Phosphatase 98 (38-126) U/L Troponin I < 0.012 (0.000-0.034) ng/mL C-Reactive Protein 1.9 H (<1.0) mg/dL NT-Pro-B Natriuret Pep 512 H (19.9-100) pg/mL Total Protein 8.0 (6.3-8.2) g/dL Albumin 4.1 (3.5-5.1) g/dL Vancomycin Trough (10.0-20.0) ug/mL 07/17/23 07/18/23 Range/Units 07:35 06:46 WBC 8.4 (4.5-10.0) K/mm3 RBC 4.09 L (4.2-5.4) M/mm3 Hgb 12.8 (12.0-15.0) g/dL Hct 40.2 (37.0-47.0) % MCV 98.3 (80-100) fl MCH 31.3 (26-34) pg MCHC 31.8 L (32-36) g/dl RDW 13.1 (11.5-14.5) % Plt Count 205 (150-375) k/mm3 MPV 9.3 (7.4-10.4) fl Immature Gran % (Auto) 0.7 H (0-0.5) % Neut % (Auto) 59.4 (45.5-73.1) % Lymph % (Auto) 19.3 (18.3-44.2) % [place] % (Auto) 7.4 (2.6-8.5) % Eos % (Auto) 12.5 H (0-4.4) % Baso % (Auto) 0.7 (0.2-1.2) % Lymph # (Auto) 1.61 (0.9-3.2) K/mm3 [place] # (Auto) 0.6 (0.1-0.6) K/mm3 Eos # (Auto) 1.0 H (0-0.3) K/mm3 Baso # (Auto) 0.1 (0.0-0.1) K/mm3 Abs Immat Gran (auto) 0.06 H (0.00-0.031) K/mm3 Absolute Neuts (auto) 5.0 (1.3-6.7) K/mm3 Absolute Nucleated RBC 0.0 (0.0-0.012) K/mm3 Nucleated RBC % 0.0 (0.0-0.2) % Sodium 137 (137-145) mmol/L Potassium 4.0 (3.4-5.0) mmol/L Chloride 103 (98-107) mmol/L Carbon Dioxide 30 (22-30) mmol/L Anion Gap 4 L (8-16) mmol/L BUN 16 (7-17) mg/dL Creatinine 0.70 0.70 (0.7-1.0) mg/dL Estim Creat Clear Calc 88 88 ml/min Estimated GFR > 60 > 60 (59 - ) Glucose 103 (65-110) mg/dL Lactic Acid (0.7-2.0) mmol/L Calcium 8.5 (8.4-10.2) mg/dL Phosphorus 3.3 (2.5-4.5) mg/dL Magnesium 2.0 (1.6-2.3) mg/dL Total Bilirubin (0.2-1.3) mg/dL AST (14-36) U/L ALT (6-35) U/L Alkaline Phosphatase (38-126) U/L Troponin I (0.000-0.034) ng/mL C-Reactive Protein (<1.0) mg/dL NT-Pro-B Natriuret Pep (19.9-100) pg/mL Total Protein (6.3-8.2) g/dL Albumin 3.7 (3.5-5.1) g/dL Vancomycin Trough 15.1 (10.0-20.0) ug/mL Discharge Plan Discharge Clinical Impression: Bilateral lower leg cellulitis, Cardiomegaly Pulmonary edema Qualifiers: Chronicity: acute Qualified Code(s): J81.0 - Acute pulmonary edema Patient Disposition: Still a Patient Condition: Stable
[2023-07-16 15:46] VITALS: BP 156/89; PULSE 66; RESP 20; TEMP 36.5; O2SAT 99
[2023-07-16 17:08] LABS: NT Pro B Type Natriuretic Pept 512 pg/mL (19.9-100)
--- NOTE | 2023-07-16 17:56 | ED.EXTPRO ---
HPI - Extremity Problem General Chief complaint: Extremity Problem,Nontraumatic Stated complaint: bilateral leg pain Time Seen by Provider: 07/16/23 17:31 Source: patient and old records reviewed Mode of arrival: ambulatory Limitations: no limitations History of Present Illness HPI Narrative: 68-year-old female with history of lymphedema, dermatitis, lower extremity edema, chronic venous insufficiency reports for evaluation for cellulitis to bilateral lower extremities since May. Patient states she has been battling intermittent cellulitis of her lower extremity since 2015. She has been admitted on multiple occasions for IV antibiotics with reported improvement in her symptoms. The patient was started on Bactrim by her PCP in May when her cellulitis started to flare again and then was seen in our emergency department on 06/25/2023 for a ground level fall. She was started on Keflex at that time in addition to her Bactrim for the cellulitis. Patient states she had mild improvement of these antibiotics, however immediately after she stops it, the cellulitis worsened. She reports redness, warmth, pain and drainage to her legs, left greater than right. She denies fever, nausea, vomiting or diarrhea, cough or congestion, fever, abdominal pain, urinary complaints. She is requesting to be admitted for IV antibiotics. Related Data Home Medications Medication Instructions Recorded Confirmed aspirin 81 mg chewable tablet (St 81 mg PO QAM 01/26/20 07/16/23 Marco Aspirin) ibuprofen 200 mg tablet 600 mg PO Q6H PRN Pain 01/17/23 07/16/23 hydroxyzine HCl 25 mg tablet See Rx Instructions .Route 07/16/23 07/16/23 .COMPLEX PRN Itching Allergies Allergy/AdvReac Type Severity Reaction Status Date / Time No Known Allergies Allergy Unknown Verified 06/29/23 10:41 Review of Systems Review of Systems: CONSTITUTIONAL: Denies fever, chills, or sweats. EYES: Denies visual changes, redness, or discharge. ENT: Denies rhinorrhea, congestion, sore throat, or otalgia. CARDIOVASCULAR: Denies chest pain, palpitations, or edema. RESPIRATORY: Denies cough or dyspnea. GASTROINTESTINAL: Denies abdominal pain, nausea, vomiting, or diarrhea. GENITOURINARY: Denies dysuria or hematuria. SKIN: See HPI MUSCULOSKELETAL: Denies back pain, joint pain, or myalgia. NEUROLOGIC: Denies headache, numbness, or weakness. PSYCHIATRIC: Denies anxiety or depression. [facility] Past Medical History Medical History (Updated 07/16/23 @ 22:39 by Gertrude Coffman MD) Anxiety Cellulitis Cerebral palsy With mild left-sided weakness. COVID-19 (08/2021) H/O fall Hypertension Hypertriglyceridemia Kidney stones (03/2018) Legionella pneumonia (04/2019) Lymphedema Lymphedema Osteoarthritis Venous insufficiency of lower extremity Surgical History Surgical History History of ankle surgery (1959) Achilles tendon lengthening. History of cystoscopy (03/2018) With ureteral stent and stone extraction. History of dilation and curettage With uterine polypectomy. Status post laser ablation of incompetent vein Family History Family History Mother Breast cancer Sibling Breast cancer Other Hodgkin disease Father Parkinson disease Lymph node cancer Grandparent Leukemia Social History Social History Social History: The patient is and lives with her in [place]. They have no children. 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 She denies alcohol, tobacco, and illicit substance abuse. She designates her , Jae Arevalo, as her surrogate decision maker and she wishes to be a full code. Smoking status: Never smoker Alcohol intake: never Alcohol use details: social Substance use: never Lack of Transportation: No Lack of Food: Never True Current Housing: I Have Housing Concerned About Future Housing: No Difficulty Paying Gas/Electric Bills: No Difficulty Paying for Meds: No Education: Associate Degree Spiritual care concerns: No Exam Narrative: GENERAL: Well-appearing, well-nourished, and in no acute distress. HEAD: Normocephalic, atraumatic. EYES: PERRLA and EOMI. ENT: Nares clear, no rhinorrhea or epistaxis. Mucous membranes moist. NECK: Supple. CHEST: Wheezing throughout lung [place] (No reported history of asthma or COPD. She is not a smoker.) HEART: Regular rate and rhythm. No murmur heard. Normal peripheral pulses. ABDOMEN: Soft, nontender, nondistended, normal active bowel sounds. EXTREMITIES: Bilateral lower extremity edema with warmth and blanching erythema to bilateral lower extremities, L>R. There is weeping to the left lower extremity. No large open wounds, however there are superficial excoriations throughout lower extremities. No crepitus. DP pulses 2+. Patient moving both extremities spontaneously. SKIN: See extremity exam NEURO: No focal deficits. Alert and oriented x3 Course Vital Signs Vital signs: Vital Signs Temperature 98.4 F 07/16/23 13:53 Pulse Rate 67 07/16/23 13:53 Respiratory Rate 18 07/16/23 13:53 Blood Pressure 148/85 H 07/16/23 13:53 Pulse Oximetry 98 07/16/23 13:53 Oxygen Delivery Room Air 07/16/23 13:53 Temperature 97.7 F 07/16/23 15:46 Pulse Rate 59 L 07/17/23 01:36 Respiratory Rate 15 07/17/23 01:36 Blood Pressure 112/72 07/17/23 01:36 Pulse Oximetry 96 07/17/23 01:36 Oxygen Delivery Room Air 07/16/23 13:53 MDM - Extremity (Nontraumatic) MDM Narrative Medical decision making narrative: 68-year-old female with a history of recurrent cellulitis to lower extremities reports for evaluation for cellulitis and requesting admission for IV antibiotics. See HPI for further history. Vitals significant for elevated blood pressure of 148/85, otherwise unremarkable. She is afebrile. Exam is significant for the above. Lab significant for mild leukocytosis of 10.2. Chemistries are largely unremarkable. Her CRP is 1.9 and BNP is 512 which is normal when age adjusted. She denies history of heart failure and states her legs are normally this large in secondary to lymphedema. Bilateral lower extremity ultrasound shows no DVT. CXR obtained given edema and wheezing on exam which shows cardiomegaly with interstitial edema. Denies dyspnea, she is satting 98% on room air. EKG shows sinus bradycardia with a rate of 54 be p.m.. Original EKG showing concerns for ST depression, however I disagree. Repeat EKG obtained which again shows no ischemic changes. She is not having chest pain. Patient was trialed on Bactrim and Keflex a couple weeks ago a small amount of improvement, however cellulitis has since worsened again. I do think she would benefit from IV antibiotics and an echo for further evaluation of new onset heart failure. Vancomycin started in the ED and Tylenol provided for pain. A dose of Lasix was also provided. Case discussed with hospitalist, Dr. Coffman, who agrees with the plan for admission. Lab Data 07/16/23 14:04 07/16/23 14:04 Labs: Lab Results 07/16/23 07/16/23 07/16/23 Range/Units 14:04 19:59 20:11 WBC 10.2 H (4.5-10.0) K/mm3 RBC 4.20 (4.2-5.4) M/mm3 Hgb 13.1 (12.0-15.0) g/dL Hct 40.9 (37.0-47.0) % MCV 97.4 (80-100) fl MCH 31.2 (26-34) pg MCHC 32.0 (32-36) g/dl RDW 13.1 (11.5-14.5) % Plt Count 232 (150-375) k/mm3 MPV 9.0 (7.4-10.4) fl Immature Gran % (Auto) 0.6 H (0-0.5) % Neut % (Auto) 61.4 (45.5-73.1) % Lymph % (Auto) 16.8 L (18.3-44.2) % [place] % (Auto) 7.4 (2.6-8.5) % Eos % (Auto) 13.0 H (0-4.4) % Baso % (Auto) 0.8 (0.2-1.2) % Lymph # (Auto) 1.71 (0.9-3.2) K/mm3 [place] # (Auto) 0.8 H (0.1-0.6) K/mm3 Eos # (Auto) 1.3 H (0-0.3) K/mm3 Baso # (Auto) 0.1 (0.0-0.1) K/mm3 Abs Immat Gran (auto) 0.06 H (0.00-0.031) K/mm3 Absolute Neuts (auto) 6.3 (1.3-6.7) K/mm3 Absolute Nucleated RBC 0.0 (0.0-0.012) K/mm3 Nucleated RBC % 0.0 (0.0-0.2) % Sodium 142 (137-145) mmol/L Potassium 4.1 (3.4-5.0) mmol/L Chloride 110 H (98-107) mmol/L Carbon Dioxide 24 (22-30) mmol/L Anion Gap 8 (8-16) mmol/L BUN 23 H (7-17) mg/dL Creatinine 0.70 (0.7-1.0) mg/dL Estim Creat Clear Calc 88 ml/min Estimated GFR > 60 (59 - ) Glucose 106 (65-110) mg/dL Lactic Acid 0.8 (0.7-2.0) mmol/L Calcium 8.9 (8.4-10.2) mg/dL Total Bilirubin 0.4 (0.2-1.3) mg/dL AST 24 (14-36) U/L ALT 18 (6-35) U/L Alkaline Phosphatase 98 (38-126) U/L Troponin I < 0.012 (0.000-0.034) ng/mL C-Reactive Protein 1.9 H (<1.0) mg/dL NT-Pro-B Natriuret Pep 512 H (19.9-100) pg/mL Total Protein 8.0 (6.3-8.2) g/dL Albumin 4.1 (3.5-5.1) g/dL Discharge Plan Discharge Clinical Impression: Bilateral lower leg cellulitis, Cardiomegaly Pulmonary edema Qualifiers: Chronicity: acute Qualified Code(s): J81.0 - Acute pulmonary edema Patient Disposition: Still a Patient
[2023-07-16] MEDS: ACETAMINOPHEN 500 MG TABLET 1000 MG PO (18:03)
--- NOTE | 2023-07-16 18:31 | ECG_ITS ---
Measurements Intervals [place] Rate: 51 P: 38 [place]: 154 QRS: 19 QRSD: 90 T: 26 QT: 435 QTc: 404 Interpretive Statements SINUS BRADYCARDIA NONSPECIFIC T WAVE ABNORMALITY COMPARED TO ECG 09/29/2021 17:07:33 NO SIGNIFICANT CHANGES Electronically Signed On 07-17-2023 13:27:46 MOLD MECHANIC by Keaton Salgado M.D.
--- NOTE | 2023-07-16 20:03 | ECG_ITS ---
Measurements Intervals [place] Rate: 54 P: 65 [place]: 146 QRS: 30 QRSD: 94 T: 4 QT: 456 QTc: 435 Interpretive Statements SINUS BRADYCARDIA COMPARED TO ECG 07/16/2023 19:21:40 NO SIGNIFICANT CHANGES Electronically Signed On 07-17-2023 13:29:06 MAJOR ACCOUNT MANAGER by Keaton Salgado M.D.
[2023-07-16] MEDS: VANCOMYCIN 1,500 MG/NS 500 ML 1,500 MG/500 ML BAG 250 MG IVPB (20:04)
[2023-07-16 20:19] LABS: Lactic Acid Reflex 0.8 mmol/L (0.7-2.0)
[2023-07-16 20:26] VITALS: BP 137/68; PULSE 59; RESP 17; O2SAT 97
[2023-07-16 20:41] LABS: Troponin I < 0.012 ng/mL (0.000-0.034)
[2023-07-16] MEDS: FUROSEMIDE INJ 40 MG/4 ML VIAL IV PUSH (21:17)
--- NOTE | 2023-07-16 22:17 | PM.IMHP ---
H&P: HPI History of Present Illness Date/Time: 07/16/23 22:17 Chief Complaint: BILATERAL LOWER EXTREMITY REDNESS Narrative: THIS IS A 68-YEAR-OLD FEMALE WITH PAST MEDICAL HISTORY SIGNIFICANT FOR MORBID OBESITY, HYPERTENSION, CHRONIC BILATERAL LOWER EXTREMITY LYMPHEDEMA, HYPERTENSION. PATIENT PRESENTS TO THE EMERGENCY ROOM DUE TO BILATERAL LOWER EXTREMITY WORSENING SWELLING REDNESS AND TENDERNESS HAD BEEN SEEING AT THE EMERGENCY ROOM AND SENT HOME ON ANTIBIOTICS FOR PRESUMED CELLULITIS. HOWEVER PATIENT RETURNS TO EMERGENCY ROOM STATING THAT IS HAS PROGRESSIVELY GOTTEN WORSE. PATIENT DENIES ANY NAUSEA VOMITING DIARRHEA ABDOMINAL PAIN, NIGHT SWEATS, FEVERS, RIGORS, CHILLS EXAMINATION:US venous doppler LE BI INDICATION:Leg swelling and erythema TECHNIQUE: Multiple grayscale, color flow and Doppler images of the right and left lower extremity deep venous systems were obtained and reviewed. COMPARISON:No prior studies for comparison. FINDINGS: The common femoral, superficial femoral and popliteal veins demonstrate normal respiratory variation, augmentation and compressibility.? Color flow is also seen within the posterior tibial, peroneal, greater saphenous and profunda veins. IMPRESSION: 1:? No lower extremity deep venous thrombosis. XR chest 1V portable 07/16/2023 18:04 Indication: Wheezing. Lower extremity edema. Procedure: AP portable chest Comparison: Comparison to multiple prior studies sequentially, with oldest reviewed study dated? 05/20/2019. Findings: Cardiomegaly with interstitial edema. No pleural effusion or pneumothorax. No acute osseous abnormality. Impression: 1: Cardiomegaly with interstitial edema. Review of Systems Review of Systems: Bilateral lower extremity redness, swelling Constitutional: Constitutional: Denies chills, Denies fatigue, Denies fever(s) and Denies malaise Eyes: Eyes: Denies change in vision ENT: Denies dysphagia and Denies odynophagia Cardiovascular: Cardiovascular: Denies chest pain, Denies radiating jaw, neck or arm pain and Denies palpitations Respiratory: Respiratory: Denies cough and Denies dyspnea Gastrointestinal: Gastrointestinal: Denies abdominal pain, Denies dyspepsia, Denies heartburn, Denies diarrhea, Denies nausea and Denies vomiting Genitourinary: Genitourinary: Denies dysuria Musculoskeletal: Musculoskeletal: Reports other (Bilateral lower extremity redness, swelling, tenderness) Integumentary/Breasts: Skin/Breast: Reports swelling, Reports erythema, Reports skin pain, Reports skin swelling and Reports sores Neurologic: Denies focal weakness and Denies Sensory deficit (Neuro) Psychiatric: Psychiatric: Reports no additional psychiatric complaints and Reports as per HPI Endocrine: Endocrine: Denies cold intolerance, Denies fatigue, Denies flushing, Denies heat intolerance, Denies polyphagia, Denies polydipsia and Denies palpitations Hematologic/Lymphatic: Hematologic/Lymphatic: Reports no additional hematologic/lymphatic complaints and Reports as per HPI Allergic/Immunologic: Allergic/Immunologic: Reports no additional allergic/immunologic complaints and Reports as per HPI PMFSH Past Medical History Medical History (Updated 07/16/23 @ 22:39 by Gertrude Coffman MD) Anxiety Cellulitis Cerebral palsy With mild left-sided weakness. COVID-19 (08/2021) H/O fall Hypertension Hypertriglyceridemia Kidney stones (03/2018) Legionella pneumonia (04/2019) Lymphedema Lymphedema Osteoarthritis Venous insufficiency of lower extremity Surgical History Surgical History History of ankle surgery (1958) Achilles tendon lengthening. History of cystoscopy (03/2018) With ureteral stent and stone extraction. History of dilation and curettage With uterine polypectomy. Status post laser ablation of incompetent vein Family History Family History Mother Breast cancer Sibling Breast cancer Other Hodgkin disease Father Parkinson disease Lymph node cancer Grandparent Leukemia Social History Social History Social History: The patient is and lives with her in [place]. They have no children. 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 She denies alcohol, tobacco, and illicit substance abuse. She designates her , Jae Arevalo, as her surrogate decision maker and she wishes to be a full code. Smoking status: Never smoker Alcohol intake: never Alcohol use details: social Substance use: never Lack of Transportation: No Lack of Food: Never True Current Housing: I Have Housing Concerned About Future Housing: No Difficulty Paying Gas/Electric Bills: No Difficulty Paying for Meds: No Education: Associate Degree Spiritual care concerns: No Meds Home Medications and Allergies Home Medications Medication Instructions Recorded Confirmed Type aspirin 81 mg chewable tablet (St 81 mg PO QAM 01/26/20 07/16/23 History Marco Aspirin) ibuprofen 200 mg tablet 600 mg PO Q6H PRN Pain 01/17/23 07/16/23 History mupirocin 2 % topical ointment 1 applic topical TID #22 grams 01/18/23 06/29/23 Rx alendronate 70 mg tablet 70 mg PO WEEKLY #14 tabs 01/24/23 07/16/23 Rx ketoconazole 2 % shampoo 1 applic topical 3XW #120 mL 03/06/23 06/29/23 Rx atenolol 50 mg tablet (Tenormin) 50 mg PO QAM #90 tabs 03/23/23 07/16/23 Rx nifedipine 30 mg tablet,extended 30 mg PO 1700 #90 tabs 03/23/23 07/16/23 Rx release oxybutynin chloride 5 mg tablet 5 mg PO DAILY #90 tabs 07/12/23 07/16/23 Rx hydroxyzine HCl 25 mg tablet See Rx Instructions .Route 07/16/23 07/16/23 History .COMPLEX PRN Itching Allergies Allergy/AdvReac Type Severity Reaction Status Date / Time No Known Allergies Allergy Unknown Verified 06/29/23 10:41 Vital Signs Vital Signs - 24 hr 07/16/23 13:53 07/16/23 15:46 07/16/23 20:26 Temperature 98.4 F 97.7 F Pulse Rate 67 66 59 L Respiratory Rate 18 20 17 Blood Pressure 148/85 H 156/89 H 137/68 Pulse Oximetry 98 99 97 Oxygen Delivery Room Air Exam Narrative: Patient is laying in a stretcher Const: General: comfortable, no acute distress, well developed, alert, awake, ill appearing chronically and obese Nutritional Appearance: obese morbidly obese Orientation/consciousness: patient oriented x3 HENMT: Head: normal to inspection, normocephalic and atraumatic Ears: hearing grossly normal bilaterally Face/Nose/Sinus: normal facial exam Face and sinus: normal facial exam Eyes: General: appearance normal, both eyes and all related structures Pupils: Equal, round and reactive pupils present EOM: EOMs intact bilaterally Neck: Neck: full ROM, no lymphadenopathy and no JVD Thyroid: thyroid normal Lymphatic: no lymphadenopathy noted Resp: Effort & Inspection: normal respiratory effort and able to speak in complete sentences Auscultation: clear to auscultation bilaterally Cardio: Jugular venous distension: no JVD Rate: regular rate Rhythm: regular rhythm Heart sounds: S1 normal heart sound present and S2 normal heart sound present GI: Inspection: Pannus present and obesity GI Palp: Yes Soft to palpation and Yes No hepatosplenomegaly present : General: Yes deferred Skin: Rashes: rashes noted swelling bilateral anterior lower leg color other (Red) Neuro: General: patient oriented x3 and CN's II-XI intact bilaterally Cranial nerves: Yes CN's II-XII intact bilaterally and Yes Equal, round and reactive pupils present Cognition (Neuro): normal cognition Speech: normal speech Gait exam (Neuro): Normal gait present Motor exam (neuro): 5/5 motor strength present throughout Extrem: Other: Bilateral lower extremity redness, swelling, excoriations, blisters H&P: Results Labs Labs: Short CBC 07/16/23 Range/Units 14:04 WBC 10.2 H (4.5-10.0) K/mm3 Hgb 13.1 (12.0-15.0) g/dL Hct 40.9 (37.0-47.0) % Plt Count 232 (150-375) k/mm3 BMP 07/16/23 14:04 Sodium 142 Potassium 4.1 Chloride 110 H Carbon Dioxide 24 BUN 23 H Creatinine 0.70 Glucose 106 Calcium 8.9 Cardiac Enzymes 07/16/23 Range/Units 20:11 Troponin I < 0.012 (0.000-0.034) ng/mL Liver Function 07/16/23 Range/Units 14:04 Total Bilirubin 0.4 (0.2-1.3) mg/dL AST 24 (14-36) U/L ALT 18 (6-35) U/L Alkaline Phosphatase 98 (38-126) U/L Albumin 4.1 (3.5-5.1) g/dL Assessment and Plan Assessment and plan (1) Cellulitis, leg: Code(s): L03.119 - Cellulitis of unspecified part of limb Status: Acute Assessment and Plan: Admit to [facility] Started on antibiotics Cultures in progress (2) Morbid obesity: Code(s): E66.01 - Morbid (severe) obesity due to excess calories Status: Acute Assessment and Plan: Calorie restricted diet (3) Pulmonary edema: Qualifiers: Chronicity: acute Qualified Code(s): J81.0 - Acute pulmonary edema Code(s): J81.1 - Chronic pulmonary edema Status: Acute Assessment and Plan: Gentle diuresis (4) Lymphedema: Code(s): I89.0 - Lymphedema, not elsewhere classified Status: Acute Assessment and Plan: Wound care consult
[2023-07-16 22:56] VITALS: BP 135/58; PULSE 65; RESP 16; O2SAT 96
[2023-07-17] VITALS (17 sets, daily range): BP systolic 112–168; BP diastolic 62–119; PULSE 55–82; RESP 15–20; TEMP 36.3–36.8; O2SAT 96–100
--- NOTE | 2023-07-17 | ECHO_ITS ---
Patient Info Name: Savanna Arevalo Age: 68 years : 1955 Gender: Female Ht: 63 in Wt: 295 lbs BSA: 2.53 m2 HR: 81 bpm BP: 139 / 119 mmHg Technical Quality: Fair Exam Date: 07/17/2023 11:48 AM Exam Location: Echo Lab Patient Status: Emergency Admit Date: 07/16/2023 Staff Ordering Physician: Loi Larson APRN Attending Provider: Gertrude Coffman MD Referring Physician: Neo DOMINIQUE; Exam Type: CA echo dop color flow w con Study Info Indications J81.0 - Acute pulmonary edema I51.7 - Cardiomegaly Complete two-dimensional, color flow and Doppler transthoracic echocardiogram is performed with contrast to opacify the left ventricle and to improve the deliniation of the left ventricle endocardial borders. Contrast/Agitated Saline Contrast/Ag. Saline: Definity Amount: 1.00 ml Existing IV Access: Yes IV Access Condition: patent with no signs of infiltration Summary 1. Definity contrast administered improved wall motion interpretation. 2. Left ventricular chamber dimension is normal. 3. Left ventricular systolic function is normal, estimated at 60-65%. 4. The left ventricular diastolic function is grade I diastolic dysfunction. 5. E/e' 10 is mildly elevated. 6. Left atrial chamber dimension is mildly enlarged. 7. There is mild mitral valve regurgitation. Left Ventricle E/e' 10 is mildly elevated. Definity contrast administered improved wall motion interpretation. Left ventricular chamber dimension is normal. Left ventricular systolic function is normal, estimated at 60-65%. The left ventricular diastolic function is grade I diastolic dysfunction. Right Ventricle Right ventricular systolic function is normal and with normal TAPSE 1.9 cm.. Right ventricular chamber dimension is normal. Left Atria Left atrial chamber dimension is mildly enlarged. Right Atria Right atrial chamber dimension is normal. Aortic Valve The aortic valve is trileaflet. There is no aortic valve stenosis. There is no aortic valve regurgitation. Pulmonic Valve There is no pulmonic regurgitation. Mitral Valve There is no mitral valve stenosis. There is mild mitral valve regurgitation. Tricuspid Valve There is no tricuspid valve regurgitation. Pericardium/Pleural There is no pericardial effusion. Inferior Vena Cava Normal inferior vena cava with >50% collapse upon inspiration consistent with normal right atrial pressure, 5 mmHg. Aorta The aortic root size at the sinus of Valsalva is normal. Left Ventricular Outflow Tract Name Value Normal LVOT 2D LVOT Diameter 2.00 cm LVOT Doppler LVOT Peak Gradient 6 mmHg LVOT Mean Gradient 3 mmHg LVOT VTI 29.92 cm LVOT VTI/AV VTI Ratio 0.72 LVOT Stroke Volume 93.85 ml LVOT CO 5.48 l/min LVOT CI 2.17 L/min/m2 Pulmonic Valve Name Value Normal PV Doppler PV Peak Gradient 2 mmHg Mitral Valve Name Value Normal MV Doppler MV Peak Gradient 3 mmHg MV Mean Gradient 1 mmHg MV Decel [place] 413.40 cm/s2 MV PHT 0 s MV Area (PHT) 4.03 cm2 4.00-5.00 MV Area (Cont Eq VTI) 2.58 cm2 MV Diastolic Function MV E Peak Velocity 77.89 cm/s MV A Peak Velocity 90.78 cm/s MV E/A 0.86 MV Decel Time 0 s MV Annular TDI MV E/e' (Septal) 12.60 <=8.00 MV E/e' (Lateral) 9.73 <=8.00 MV E/e' (Average) 11.17 Tricuspid Valve Name Value Normal Estimated PAP/RSVP RA Pressure 5 mmHg <=5 Aortic Valve Name Value Normal AV Doppler AV Peak Velocity 163.81 cm/s AV Peak Gradient 11 mmHg AV Mean Gradient 5 mmHg AV VTI 41.51 cm AV Area (Cont Eq VTI) 2.26 cm2 >=3.00 AV Area (Cont Eq Giancarlo) 2.41 cm2 AV Regurgitation 2D LVOT Area 3.14 cm2 Ventricles Name Value Normal LV Dimensions 2D/MM IVS Diastolic Thickness (2D) 1.05 cm 0.60-1.00 LVID Diastole (2D) 5.62 cm 3.80-5.20 LVIW Diastolic Thickness (2D) 1.00 cm 0.60-0.90 LVID Systole (2D) 3.71 cm 2.20-3.50 LVOT Diameter 2.00 cm LV Mass (2D Cubed) 228.27 g 67.00-162.00 LV Mass Index (2D Cubed) 0.01 g/cm2 0.00-0.01 Relative Wall Thickness (2D) 0.36 LV Fractional Shortening/Ejection Fraction 2D/MM LV Fractional Shortening (2D) 34 % 27-45 LV EF (2D Teicholz) 62 % 54-74 LV Diastolic Volume (4C MOD) 95.89 ml LV EF (4C MOD) 65 % LV Diastolic Volume (2C MOD) 49.50 ml LV EF (2C MOD) 78 % LV Diastolic Volume (BP MOD) 70.98 ml 46.00-106.00 LV Diastolic Volume Index (BP MOD) 0.03 l/m2 0.03-0.06 LV Systolic Volume (BP MOD) 19.09 ml 14.00-42.00 LV Systolic Volume Index (BP MOD) 0.01 l/m2 0.01-0.02 LV EF (BP MOD) 73 % 54-74 LV Diastolic Length (4C) 8.53 cm LV Systolic Length (4C) 6.31 cm LV Stroke Volume (4C MOD) 62.67 ml Atria Name Value Normal LA Dimensions LA Volume (4C A-L) 84.76 ml LA Volume (BP A-L) 73.16 ml RA Dimensions RA Area (4C) 18.06 cm2 <=18.00 Report Signatures
[2023-07-17 07:55] LABS: Estimated CRCL calculation 88 ml/min; Estimated Glomerular Filt Rate > 60
[2023-07-17] MEDS: VANCOMYCIN 1,500 MG/NS 500 ML 1,500 MG/500 ML BAG 250 MG IVPB ×2 (08:03→20:27)
[2023-07-17] MEDS: ASPIRIN 81 MG CHEWABLE TABLET PO (09:51)
[2023-07-17] MEDS: atenoloL 50 MG TABLET PO (09:51)
[2023-07-17] MEDS: ENOXAPARIN 40 MG/0.4 ML SYRINGE SUB-Q ×2 (09:51→20:28)
[2023-07-17] MEDS: oxyBUTYnin CHLORIDE 5 MG TABLET PO (09:51)
[2023-07-17] MEDS: FUROSEMIDE INJ 40 MG/4 ML VIAL IV PUSH (09:52)
[2023-07-17] MEDS: PERFLUTREN LIPID MICROSPHERES 1.5 ML VIAL DILUTED TO 10 ML TOTAL VOLUME IV PUSH (12:15)
--- NOTE | 2023-07-17 12:45 | PM.IMPN ---
Progress Note: A&P Assessment and Plan (1) Cellulitis, leg: Qualifiers: Laterality: left Qualified Code(s): L03.116 - Cellulitis of left lower limb Code(s): L03.119 - Cellulitis of unspecified part of limb Status: Acute Assessment and Plan: Admit to med tele Started on antibiotics Cultures in progress (2) Morbid obesity: Code(s): E66.01 - Morbid (severe) obesity due to excess calories Status: Acute Assessment and Plan: Calorie restricted diet (3) Pulmonary edema: Qualifiers: Chronicity: acute Qualified Code(s): J81.0 - Acute pulmonary edema Code(s): J81.1 - Chronic pulmonary edema Status: Acute Assessment and Plan: Gentle diuresis (4) Lymphedema: Code(s): I89.0 - Lymphedema, not elsewhere classified Status: Acute Assessment and Plan: Wound care consult Plan Continue IV antibiotics for now, consider possibility of vasculitis as this is recurrent. If no response to IV antibiotics and a couple days will initiate steroid treatment. Time Spent With Patient Time with patient: 25 - 35 minutes Subjective Date/time seen: 07/17/23 12:45 Interval history: 07/16 H&P: THIS IS A 68-YEAR-OLD FEMALE WITH PAST MEDICAL HISTORY SIGNIFICANT FOR MORBID OBESITY, HYPERTENSION, CHRONIC BILATERAL LOWER EXTREMITY LYMPHEDEMA, HYPERTENSION.? PATIENT PRESENTS TO THE EMERGENCY ROOM DUE TO BILATERAL LOWER EXTREMITY WORSENING SWELLING REDNESS AND TENDERNESS HAD BEEN SEEING AT THE EMERGENCY ROOM AND SENT HOME ON ANTIBIOTICS FOR PRESUMED CELLULITIS.? HOWEVER PATIENT RETURNS TO EMERGENCY ROOM STATING THAT IS HAS PROGRESSIVELY GOTTEN WORSE.? PATIENT DENIES ANY NAUSEA VOMITING DIARRHEA ABDOMINAL PAIN, NIGHT SWEATS, FEVERS, RIGORS, CHILLS 07/17: Patient reports left leg more swollen and erythematous with weeping and serous drainage whereas right leg is mostly erythematous anterior aspect with satellite lesions reminiscent of folliculitis. Patient denies difficulty breathing. Chest x-ray in the emergency department showed cardiomegaly with some pulmonary edema. She has received IV Lasix. Echocardiogram completed showing grade 1 diastolic dysfunction but good EF. 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 She does have a history chronic hypertension but does not know of history heart failure. Venous Dopplers were negative for DVT. Patient is on vancomycin. Patient reports recurrent history of cellulitis since 2016 never had to be discharged on IV antibiotics before. Blood cultures are pending. Review of Systems Review of Systems: Bilateral lower extremity redness, swelling Exam Narrative: GENERAL: Well-appearing, well-nourished, and in no acute distress. Obese. HEAD: Normocephalic, atraumatic. ENT:? Mucous membranes moist. CHEST: Clear to auscultation.? No respiratory distress. HEART: Mildly bradycardic rate and regular rhythm. ? Normal peripheral pulses. ABDOMEN: Soft, nontender, nondistended. EXTREMITIES: Normal range of motion. Bilateral lower extremity swelling with erythema worse on the left. Left erythema is circumferential mostly blanchable mostly confluent was some central dark purple discoloration several areas with evidence of recent serous drainage and break in the skin. Right lower extremity erythema is mostly anterior with satellite lesions reminiscent of folliculitis. SKIN: Warm dry normal color. See extremities above NEURO: Alert and oriented x3. PSYCH: Normal mood and affect Objective Data Vital Signs Vital Signs: Vital Signs - 24 hr 07/16/23 13:53 07/16/23 15:46 07/16/23 20:26 Temperature 36.9 C 36.5 C Pulse Rate 67 66 59 L Respiratory Rate 18 20 17 Blood Pressure 148/85 H 156/89 H 137/68 Pulse Oximetry 98 99 97 Oxygen Delivery Room Air 07/16/23 22:56 07/17/23 01:36 07/17/23 05:28 Temperature Pulse Rate 65 59 L 63 Respiratory Rate 16 15 15 Blood Pressure 135/58 L 112/72 156/81 H Pulse Oximetry 96 96 96 Oxygen Delivery 07/17/23 06:39 07/17/23 07:18 07/17/23 09:51 Temperature 36.6 C Pulse Rate 70 81 70 Respiratory Rate 15 16 Blood Pressure 168/75 H 145/91 H Pulse Oximetry 96 100 Oxygen Delivery 07/17/23 08:30 07/17/23 10:43 07/17/23 09:30 Temperature 36.6 C Pulse Rate 68 82 69 Respiratory Rate 16 17 16 Blood Pressure 146/68 H 137/119 H 142/70 H Pulse Oximetry 100 100 98 Oxygen Delivery 07/17/23 10:30 Temperature Pulse Rate 70 Respiratory Rate 18 Blood Pressure 152/72 H Pulse Oximetry 98 Oxygen Delivery Intake/Output Intake/Output: Intake & Output 07/14/23 07/15/23 07/16/23 07/17/23 23:59 23:59 23:59 23:59 Intake Total 500 500 Balance 500 500 Meds/Results Medications: Active Medications Generic Name Dose Route Start Last Admin Trade Name Freq PRN Reason Stop Dose Admin Acetaminophen 650 mg 07/16/23 21:01 Acetaminophen 650 Mg Suppository RECTAL Q6H PRN Mild Pain (1-3) or Fever Aspirin 81 mg 07/17/23 09:00 07/17/23 09:51 Aspirin 81 Mg Chewable Tablet PO 81 mg QAM CORBY Administration Atenolol 50 mg 07/17/23 09:00 07/17/23 09:51 Atenolol 50 Mg Tablet PO 50 mg QAM CORBY Administration Enoxaparin Sodium 40 mg 07/17/23 09:00 07/17/23 09:51 Enoxaparin 40 Mg/0.4 Ml Syringe SUB-Q 40 mg Q12HR CORBY Administration Furosemide 40 mg 07/17/23 09:00 07/17/23 09:52 Furosemide Inj 40 Mg/4 Ml Vial IV PUSH 40 mg DAILY CORBY Administration Hydroxyzine HCl 25 mg 07/17/23 08:12 Hydroxyzine Hcl 25 Mg Tablet PO QID PRN Itching Vancomycin HCl 1,500 mg in 500 mls @ 250 mls/hr 07/17/23 08:00 07/17/23 10:39 Vancomycin 1,500 Mg/Ns 500 Ml IVPB Infused Q12H CORBY Infusion Ibuprofen 600 mg 07/17/23 08:12 Ibuprofen 600 Mg Tablet PO Q6H PRN Pain 1-3 Nifedipine 30 mg 07/17/23 17:00 Nifedipine 30 Mg Tab.Er.24 PO 1700 CORBY Oxybutynin Chloride 5 mg 07/17/23 09:00 07/17/23 09:51 Oxybutynin Chloride 5 Mg Tablet PO 5 mg DAILY CORBY Administration Perflutren Lipid Microsphere 0 ml 07/17/23 08:14 Perflutren Lipid Microspheres 1.5 Ml Vial Diluted To 10 Ml Total Volume IV PUSH 07/20/23 08:14 ONCE PRN adequate visualization Protocol Radiology Results: ITS Impressions Venous Doppler Study 07/16/23 17:09 IMPRESSION: 1: No lower extremity deep venous thrombosis. Chest X-Ray 07/16/23 18:13 Impression: 1: Cardiomegaly with interstitial edema. Labs Labs: Laboratory Results - last 24 hr 07/16/23 07/16/23 07/16/23 14:04 19:59 20:11 WBC 10.2 H RBC 4.20 Hgb 13.1 Hct 40.9 MCV 97.4 MCH 31.2 MCHC 32.0 RDW 13.1 Plt Count 232 MPV 9.0 Immature Gran % (Auto) 0.6 H Neut % (Auto) 61.4 Lymph % (Auto) 16.8 L Bulloch % (Auto) 7.4 Eos % (Auto) 13.0 H Baso % (Auto) 0.8 Lymph # (Auto) 1.71 [place] # (Auto) 0.8 H Eos # (Auto) 1.3 H Baso # (Auto) 0.1 Abs Immat Gran (auto) 0.06 H Absolute Neuts (auto) 6.3 Absolute Nucleated RBC 0.0 Nucleated RBC % 0.0 Sodium 142 Potassium 4.1 Chloride 110 H Carbon Dioxide 24 Anion Gap 8 BUN 23 H Creatinine 0.70 Estim Creat Clear Calc 88 Estimated GFR > 60 Glucose 106 Lactic Acid 0.8 Calcium 8.9 Total Bilirubin 0.4 AST 24 ALT 18 Alkaline Phosphatase 98 Troponin I < 0.012 C-Reactive Protein 1.9 H NT-Pro-B Natriuret Pep 512 H Total Protein 8.0 Albumin 4.1 07/17/23 07:35 WBC RBC Hgb Hct MCV MCH MCHC RDW Plt Count MPV Immature Gran % (Auto) Neut % (Auto) Lymph % (Auto) [place] % (Auto) Eos % (Auto) Baso % (Auto) Lymph # (Auto) [place] # (Auto) Eos # (Auto) Baso # (Auto) Abs Immat Gran (auto) Absolute Neuts (auto) Absolute Nucleated RBC Nucleated RBC % Sodium Potassium Chloride Carbon Dioxide Anion Gap BUN Creatinine 0.70 Estim Creat Clear Calc 88 Estimated GFR > 60 Glucose Lactic Acid Calcium Total Bilirubin AST ALT Alkaline Phosphatase Troponin I C-Reactive Protein NT-Pro-B Natriuret Pep Total Protein Albumin Pulse Oximetry SpO2 results: 96-100% on room air Attestation: I personally reviewed and interpreted this pulse oximetry as follows: Interpretation: No need for supplemental oxygenation at this time Quality VTE Prophylaxis VTE prophylaxis: pharmacologic ordered
--- NOTE | 2023-07-17 13:40 | ADMGEN ---
This patient, Savanna Arevalo, was admitted to Medical Room 248-. Patient/family oriented to hospital policies and general routines including ID bracelet, bed and alarms, visiting hours, pain management, procedures, bathroom and other care routines, personal items, smoking policy, room service/diet, and visiting hours. Information on how to activate the Rapid Response Team has been discussed. Patient/Family are encouraged to report perceived risks to care and to ask questions if they do not understand what they are told or what they should do.
[2023-07-17] MEDS: BETAMETHASONE/CLOTRIMAZOLE CR 15 GM TUBE 1 APPLIC TOPICAL ×2 (14:14→20:28)
[2023-07-17] MEDS: NIFEdipine 30 MG TAB.ER.24 PO (17:24)
[2023-07-18] VITALS (10 sets, daily range): BP systolic 117–152; BP diastolic 58–74; PULSE 51–69; RESP 18–19; TEMP 36.3–36.6; O2SAT 95–100
[2023-07-18 07:04] LABS: Albumin Level 3.7 g/dL (3.5-5.1); Anion Gap 4 mmol/L (8-16); Blood Urea Nitrogen 16 mg/dL (7-17); Calcium 8.5 mg/dL (8.4-10.2); Carbon Dioxide 30 mmol/L (22-30); Chloride 103 mmol/L (98-107); Estimated CRCL calculation 88 ml/min; Estimated Glomerular Filt Rate > 60; Glucose 103 mg/dL (65-110); Phosphorus 3.3 mg/dL (2.5-4.5); Sodium 137 mmol/L (137-145)
[2023-07-18 07:06] LABS: Basophils Absolute Auto 0.1 K/mm3 (0.0-0.1); Basophils Percent Auto 0.7 % (0.2-1.2); Eosinophils Percent Auto 12.5 % (0-4.4); Hematocrit 40.2 % (37.0-47.0); Hemoglobin 12.8 g/dL (12.0-15.0); Immature Granulocyte Absolute 0.06 K/mm3 (0.00-0.031); Immature Granulocyte Percent A 0.7 % (0-0.5); Lymphocytes Absolute Auto 1.61 K/mm3 (0.9-3.2); Lymphocytes Percent Auto 19.3 % (18.3-44.2); Mean Corpuscular HGB Conc 31.8 g/dl (32-36); Mean Corpuscular Hemoglobin 31.3 pg (26-34); Mean Corpuscular Volume 98.3 fl (80-100); Mean Platelet Volume 9.3 fl (7.4-10.4); Monocytes Absolute Auto 0.6 K/mm3 (0.1-0.6); Monocytes Percent Auto 7.4 % (2.6-8.5); Neutrophils Percent Auto 59.4 % (45.5-73.1); Platelet Count Result 205 k/mm3 (150-375); Red Blood Count 4.09 M/mm3 (4.2-5.4); Red Cell Distribution Width 13.1 % (11.5-14.5); White Blood Count 8.4 K/mm3 (4.5-10.0)
[2023-07-18 07:37] LABS: Vancomycin Trough 15.1 ug/mL (10.0-20.0)
--- NOTE | 2023-07-18 09:50 | PM.IMPN ---
Progress Note: A&P Assessment and Plan (1) Cellulitis, leg: Qualifiers: Laterality: left Qualified Code(s): L03.116 - Cellulitis of left lower limb Code(s): L03.119 - Cellulitis of unspecified part of limb Status: Acute Assessment and Plan: Admit to med tele Started on antibiotics Cultures in progress (2) Pulmonary edema: Qualifiers: Chronicity: acute Qualified Code(s): J81.0 - Acute pulmonary edema Code(s): J81.1 - Chronic pulmonary edema Status: Acute Assessment and Plan: Gentle diuresis (3) Lymphedema: Code(s): I89.0 - Lymphedema, not elsewhere classified Status: Acute Assessment and Plan: Wound care consult (4) Morbid obesity: Code(s): E66.01 - Morbid (severe) obesity due to excess calories Status: Acute Assessment and Plan: Heart healthy diet Plan Continue IV antibiotics for now, consider possibility of vasculitis as this is recurrent. Will add oral steroids and reassess. Time Spent With Patient Time with patient: 25 - 35 minutes Subjective Date/time seen: 07/18/23 09:50 Interval history: 07/16 H&P: THIS IS A 68-YEAR-OLD FEMALE WITH PAST MEDICAL HISTORY SIGNIFICANT FOR MORBID OBESITY, HYPERTENSION, CHRONIC BILATERAL LOWER EXTREMITY LYMPHEDEMA, HYPERTENSION.? PATIENT PRESENTS TO THE EMERGENCY ROOM DUE TO BILATERAL LOWER EXTREMITY WORSENING SWELLING REDNESS AND TENDERNESS HAD BEEN SEEING AT THE EMERGENCY ROOM AND SENT HOME ON ANTIBIOTICS FOR PRESUMED CELLULITIS.? HOWEVER PATIENT RETURNS TO EMERGENCY ROOM STATING THAT IS HAS PROGRESSIVELY GOTTEN WORSE.? PATIENT DENIES ANY NAUSEA VOMITING DIARRHEA ABDOMINAL PAIN, NIGHT SWEATS, FEVERS, RIGORS, CHILLS 07/17: Patient reports left leg more swollen and erythematous with weeping and serous drainage whereas right leg is mostly erythematous anterior aspect with satellite lesions reminiscent of folliculitis. Patient denies difficulty breathing. Chest x-ray in the emergency department showed cardiomegaly with some pulmonary edema. She has received IV Lasix. Echocardiogram completed showing grade 1 diastolic dysfunction but good EF. 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 She does have a history chronic hypertension but does not know of history heart failure. Venous Dopplers were negative for DVT. Patient is on vancomycin. Patient reports recurrent history of cellulitis since 2016 never had to be discharged on IV antibiotics before. Blood cultures are pending. 07/18: Patient reports she is feeling some improvement in her legs. She is using Pure Wick instead of ambulating to the restroom, I have encouraged her and informed nursing staff that she needs to ambulate more often. No fever or chills. Review of Systems Review of Systems: Bilateral lower extremity redness, swelling All systems reviewed & are unremarkable except as noted in HPI and below Exam Narrative: GENERAL: Well-appearing, well-nourished, and in no acute distress. Obese. HEAD: Normocephalic, atraumatic. ENT:? Mucous membranes moist. CHEST: Clear to auscultation.? No respiratory distress. HEART: Mildly bradycardic rate and regular rhythm. ? Normal peripheral pulses. ABDOMEN: Soft, nontender, nondistended. EXTREMITIES: Normal range of motion. Bilateral lower extremity swelling with erythema worse on the left. Left erythema is circumferential mostly blanchable mostly confluent was some central dark purple discoloration several areas with evidence of recent serous drainage and break in the skin. Right lower extremity erythema is mostly anterior with satellite lesions, less blanchable today. SKIN: Warm dry normal color. See extremities above NEURO: Alert and oriented x3. PSYCH: Normal mood and affect Objective Data Vital Signs Vital Signs: Vital Signs - 24 hr 07/17/23 09:51 07/17/23 10:43 07/17/23 10:30 Temperature Pulse Rate 70 82 70 Respiratory Rate 17 18 Blood Pressure 137/119 H 152/72 H Pulse Oximetry 100 98 Oxygen Delivery 07/17/23 11:30 07/17/23 12:30 07/17/23 13:30 Temperature 36.8 C 36.6 C 36.6 C Pulse Rate 70 78 68 Respiratory Rate 18 18 18 Blood Pressure 148/70 H 144/68 H 144/68 H Pulse Oximetry 98 97 97 Oxygen Delivery 07/17/23 14:00 07/17/23 13:52 07/17/23 16:00 Temperature 36.3 C L Pulse Rate 55 L 59 L 55 L Respiratory Rate 20 Blood Pressure 142/71 H Pulse Oximetry 100 Oxygen Delivery 07/17/23 19:54 07/17/23 20:34 07/18/23 00:00 Temperature 36.8 C Pulse Rate 55 L 56 L 64 Respiratory Rate 20 18 Blood Pressure 136/62 Pulse Oximetry 100 98 Oxygen Delivery Room Air 07/18/23 05:20 07/18/23 04:00 Temperature 36.3 C L Pulse Rate 66 64 Respiratory Rate 18 Blood Pressure 117/58 L Pulse Oximetry 95 Oxygen Delivery Intake/Output Intake/Output: Intake & Output 07/15/23 07/16/23 07/17/23 07/18/23 23:59 23:59 23:59 23:59 Intake Total 500 1440 440 Balance 500 1440 440 Meds/Results Medications: Active Medications Generic Name Dose Route Start Last Admin Trade Name Freq PRN Reason Stop Dose Admin Acetaminophen 650 mg 07/16/23 21:01 Acetaminophen 650 Mg Suppository RECTAL Q6H PRN Mild Pain (1-3) or Fever Aspirin 81 mg 07/17/23 09:00 07/17/23 09:51 Aspirin 81 Mg Chewable Tablet PO 81 mg QAM [facility] Administration Atenolol 50 mg 07/17/23 09:00 07/17/23 09:51 Atenolol 50 Mg Tablet PO 50 mg QAM [facility] Administration Clotrimazole 1 applic 07/17/23 14:00 07/17/23 20:28 Betamethasone/Clotrimazole Cr 15 Gm Tube TOPICAL 1 applic Q12HR [facility] Administration Enoxaparin Sodium 40 mg 07/17/23 09:00 07/17/23 20:28 Enoxaparin 40 Mg/0.4 Ml Syringe SUB-Q 40 mg Q12HR [facility] Administration Furosemide 40 mg 07/17/23 09:00 07/17/23 09:52 Furosemide Inj 40 Mg/4 Ml Vial IV PUSH 40 mg DAILY [facility] Administration Hydroxyzine HCl 25 mg 07/17/23 08:12 Hydroxyzine Hcl 25 Mg Tablet PO QID PRN Itching Vancomycin HCl 1,250 mg in 250 mls @ 166.667 mls/hr 07/18/23 09:00 Vancomycin 1,250 Mg/Ns 250 Ml IVPB Q12H [facility] Ibuprofen 600 mg 07/17/23 08:12 Ibuprofen 600 Mg Tablet PO Q6H PRN Pain 1-3 Nifedipine 30 mg 07/17/23 17:00 07/17/23 17:24 Nifedipine 30 Mg Tab.Er.24 PO 30 mg 1700 [facility] Administration Oxybutynin Chloride 5 mg 07/17/23 09:00 07/17/23 09:51 Oxybutynin Chloride 5 Mg Tablet PO 5 mg DAILY [facility] Administration Radiology Results: ITS Impressions Venous Doppler Study 07/16/23 17:09 IMPRESSION: 1: No lower extremity deep venous thrombosis. Chest X-Ray 07/16/23 18:13 Impression: 1: Cardiomegaly with interstitial edema. Labs Labs: Laboratory Results - last 24 hr 07/18/23 06:46 WBC 8.4 RBC 4.09 L Hgb 12.8 Hct 40.2 MCV 98.3 MCH 31.3 MCHC 31.8 L RDW 13.1 Plt Count 205 MPV 9.3 Immature Gran % (Auto) 0.7 H Neut % (Auto) 59.4 Lymph % (Auto) 19.3 [place] % (Auto) 7.4 Eos % (Auto) 12.5 H Baso % (Auto) 0.7 Lymph # (Auto) 1.61 [place] # (Auto) 0.6 Eos # (Auto) 1.0 H Baso # (Auto) 0.1 Abs Immat Gran (auto) 0.06 H Absolute Neuts (auto) 5.0 Absolute Nucleated RBC 0.0 Nucleated RBC % 0.0 Sodium 137 Potassium 4.0 Chloride 103 Carbon Dioxide 30 Anion Gap 4 L BUN 16 Creatinine 0.70 Estim Creat Clear Calc 88 Estimated GFR > 60 Glucose 103 Calcium 8.5 Phosphorus 3.3 Magnesium 2.0 Albumin 3.7 Vancomycin Trough 15.1 Pulse Oximetry SpO2 results: 95-98% on room air Attestation: I personally reviewed and interpreted this pulse oximetry as follows: Interpretation: No need for supplemental oxygenation at this time Quality VTE Prophylaxis VTE prophylaxis: pharmacologic ordered
[2023-07-18] MEDS: VANCOMYCIN 1,250 MG/NS 250 ML 1,250 MG/250 ML BAG 166.67 MG IVPB (09:59)
[2023-07-18] MEDS: oxyBUTYnin CHLORIDE 5 MG TABLET PO (09:59)
[2023-07-18] MEDS: FUROSEMIDE INJ 40 MG/4 ML VIAL IV PUSH (09:59)
[2023-07-18] MEDS: atenoloL 50 MG TABLET PO (09:59)
[2023-07-18] MEDS: BETAMETHASONE/CLOTRIMAZOLE CR 15 GM TUBE 1 APPLIC TOPICAL ×2 (10:00→20:52)
[2023-07-18] MEDS: ENOXAPARIN 40 MG/0.4 ML SYRINGE SUB-Q ×2 (10:00→20:53)
[2023-07-18] MEDS: ASPIRIN 81 MG CHEWABLE TABLET PO (10:00)
[2023-07-18] MEDS: predniSONE 20 MG TABLET 60 MG PO (12:51)
[2023-07-18] MEDS: NIFEdipine 30 MG TAB.ER.24 PO (17:52)
[2023-07-18] MEDS: VANCOMYCIN 1,250 MG/NS 250 ML 1,250 MG/250 ML BAG 166 MG IVPB (20:53)
[2023-07-19] VITALS (10 sets, daily range): BP systolic 120–144; BP diastolic 53–58; PULSE 55–78; RESP 17–20; TEMP 36.4–36.8; O2SAT 95–96; BMI 51.4
[2023-07-19 04:53] LABS: Basophils Percent Auto 0.4 % (0.2-1.2); Hematocrit 40.5 % (37.0-47.0); Hemoglobin 13.2 g/dL (12.0-15.0); Immature Granulocyte Absolute 0.11 K/mm3 (0.00-0.031); Immature Granulocyte Percent A 1.2 % (0-0.5); Lymphocytes Absolute Auto 1.12 K/mm3 (0.9-3.2); Lymphocytes Percent Auto 12.3 % (18.3-44.2); Mean Corpuscular HGB Conc 32.6 g/dl (32-36); Mean Corpuscular Volume 95.1 fl (80-100); Mean Platelet Volume 9.2 fl (7.4-10.4); Monocytes Absolute Auto 0.5 K/mm3 (0.1-0.6); Monocytes Percent Auto 5.5 % (2.6-8.5); Neutrophils Absolute Auto 7.3 K/mm3 (1.3-6.7); Neutrophils Percent Auto 80.6 % (45.5-73.1); Platelet Count Result 256 k/mm3 (150-375); Red Blood Count 4.26 M/mm3 (4.2-5.4); Red Cell Distribution Width 12.6 % (11.5-14.5); White Blood Count 9.1 K/mm3 (4.5-10.0)
[2023-07-19 05:09] LABS: Albumin Level 3.7 g/dL (3.5-5.1); Anion Gap 4 mmol/L (8-16); Blood Urea Nitrogen 20 mg/dL (7-17); Calcium 9.1 mg/dL (8.4-10.2); Carbon Dioxide 30 mmol/L (22-30); Chloride 101 mmol/L (98-107); Estimated CRCL calculation 78 ml/min; Estimated Glomerular Filt Rate > 60; Glucose 133 mg/dL (65-110); Magnesium 2.1 mg/dL (1.6-2.3); Phosphorus 4.2 mg/dL (2.5-4.5); Potassium 4.5 mmol/L (3.4-5.0); Sodium 135 mmol/L (137-145)
[2023-07-19] MEDS: ALENDRONATE SODIUM 70 MG TABLET PO (05:59)
[2023-07-19] MEDS: oxyBUTYnin CHLORIDE 5 MG TABLET PO (08:39)
[2023-07-19] MEDS: ASPIRIN 81 MG CHEWABLE TABLET PO (08:39)
[2023-07-19] MEDS: predniSONE 20 MG TABLET 60 MG PO (08:40)
[2023-07-19] MEDS: atenoloL 50 MG TABLET PO (08:40)
[2023-07-19] MEDS: ENOXAPARIN 40 MG/0.4 ML SYRINGE SUB-Q ×2 (08:41→21:49)
[2023-07-19] MEDS: FUROSEMIDE INJ 40 MG/4 ML VIAL IV PUSH (08:44)
[2023-07-19] MEDS: BETAMETHASONE/CLOTRIMAZOLE CR 15 GM TUBE 1 APPLIC TOPICAL ×2 (08:45→21:50)
[2023-07-19] MEDS: VANCOMYCIN 1,250 MG/NS 250 ML 1,250 MG/250 ML BAG 250 MG IVPB (08:46)
--- NOTE | 2023-07-19 12:12 | PM.IMPN ---
Progress Note: A&P Assessment and Plan (1) Cellulitis, leg: Qualifiers: Laterality: left Qualified Code(s): L03.116 - Cellulitis of left lower limb Code(s): L03.119 - Cellulitis of unspecified part of limb Status: Acute Assessment and Plan: Continue IV antibiotics with transition to orals tomorrow. Patient improving each day. (2) Pulmonary edema: Qualifiers: Chronicity: acute Qualified Code(s): J81.0 - Acute pulmonary edema Code(s): J81.1 - Chronic pulmonary edema Status: Acute Assessment and Plan: Stop Lasix (3) Lymphedema: Code(s): I89.0 - Lymphedema, not elsewhere classified Status: Acute Assessment and Plan: Wound care consult (4) Morbid obesity: Code(s): E66.01 - Morbid (severe) obesity due to excess calories Status: Acute Assessment and Plan: Heart healthy diet Plan Steroids and vanc helping, transition tomorrow to orals and discharge tomorrow. Time Spent With Patient Time with patient: 15 - 25 minutes Subjective Date/time seen: 07/19/23 12:12 Interval history: 07/16 H&P: THIS IS A 68-YEAR-OLD FEMALE WITH PAST MEDICAL HISTORY SIGNIFICANT FOR MORBID OBESITY, HYPERTENSION, CHRONIC BILATERAL LOWER EXTREMITY LYMPHEDEMA, HYPERTENSION.? PATIENT PRESENTS TO THE EMERGENCY ROOM DUE TO BILATERAL LOWER EXTREMITY WORSENING SWELLING REDNESS AND TENDERNESS HAD BEEN SEEING AT THE EMERGENCY ROOM AND SENT HOME ON ANTIBIOTICS FOR PRESUMED CELLULITIS.? HOWEVER PATIENT RETURNS TO EMERGENCY ROOM STATING THAT IS HAS PROGRESSIVELY GOTTEN WORSE.? PATIENT DENIES ANY NAUSEA VOMITING DIARRHEA ABDOMINAL PAIN, NIGHT SWEATS, FEVERS, RIGORS, CHILLS 07/17: Patient reports left leg more swollen and erythematous with weeping and serous drainage whereas right leg is mostly erythematous anterior aspect with satellite lesions reminiscent of folliculitis. Patient denies difficulty breathing. Chest x-ray in the emergency department showed cardiomegaly with some pulmonary edema. She has received IV Lasix. Echocardiogram completed showing grade 1 diastolic dysfunction but good EF. 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 She does have a history chronic hypertension but does not know of history heart failure. Venous Dopplers were negative for DVT. Patient is on vancomycin. Patient reports recurrent history of cellulitis since 2016 never had to be discharged on IV antibiotics before. Blood cultures are pending. 07/18: Patient reports she is feeling some improvement in her legs. She is using Pure Wick instead of ambulating to the restroom, I have encouraged her and informed nursing staff that she needs to ambulate more often. No fever or chills. 07/19: Patient states that swelling is improving in her legs and that she does not take furosemide at home. Echo was reassuring with only grade 1 diastolic dysfunction. Will stop furosemide. Continue vancomycin today and transition to oral antibiotics tomorrow with plan to discharge home tomorrow. Patient still attempting to get into [facility] for follow up. Review of Systems Review of Systems: All systems reviewed & are unremarkable except as noted in HPI and below Exam Narrative: GENERAL: Well-appearing, well-nourished, and in no acute distress. Obese. HEAD: Normocephalic, atraumatic. ENT:? Mucous membranes moist. CHEST: Clear to auscultation.? No respiratory distress. HEART: Mildly bradycardic rate and regular rhythm. ? Normal peripheral pulses. ABDOMEN: Soft, nontender, nondistended. EXTREMITIES: Normal range of motion. 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 Left leg has crusted scales present, no active drainage. Improved swelling and improved appearance of infection. SKIN: Warm dry normal color. See extremities above NEURO: Alert and oriented x3. PSYCH: Normal mood and affect Objective Data Vital Signs Vital Signs: Vital Signs - 24 hr 07/18/23 14:00 07/18/23 16:00 07/18/23 21:25 Temperature 36.6 C 36.6 C Pulse Rate 51 L 55 L 66 Respiratory Rate 18 19 Blood Pressure 131/60 152/74 H Pulse Oximetry 98 100 Oxygen Delivery 07/18/23 20:00 07/19/23 00:00 07/19/23 04:00 Temperature Pulse Rate 56 L 69 78 Respiratory Rate Blood Pressure Pulse Oximetry Oxygen Delivery 07/19/23 05:24 07/19/23 08:40 07/19/23 08:03 Temperature 36.5 C Pulse Rate 75 72 73 Respiratory Rate 18 Blood Pressure 120/53 L Pulse Oximetry 96 Oxygen Delivery 07/19/23 08:45 07/19/23 11:14 Temperature Pulse Rate 72 Respiratory Rate 18 Blood Pressure Pulse Oximetry 96 Oxygen Delivery Room Air Room Air Intake/Output Intake/Output: Intake & Output 07/16/23 07/17/23 07/18/23 07/19/23 23:59 23:59 23:59 23:59 Intake Total 500 1440 1720 640 Output Total 2600 500 Balance 500 1440 -880 140 Meds/Results Medications: Active Medications Generic Name Dose Route Start Last Admin Trade Name Freq PRN Reason Stop Dose Admin Acetaminophen 650 mg 07/16/23 21:01 Acetaminophen 650 Mg Suppository RECTAL Q6H PRN Mild Pain (1-3) or Fever Alendronate Sodium 70 mg 07/19/23 06:30 07/19/23 05:59 Alendronate Sodium 70 Mg Tablet PO 70 mg We@0630 [facility] Administration Aspirin 81 mg 07/17/23 09:00 07/19/23 08:39 Aspirin 81 Mg Chewable Tablet PO 81 mg QAM [facility] Administration Atenolol 50 mg 07/17/23 09:00 07/19/23 08:40 Atenolol 50 Mg Tablet PO 50 mg QAM [facility] Administration Clotrimazole 1 applic 07/17/23 14:00 07/19/23 08:45 Betamethasone/Clotrimazole Cr 15 Gm Tube TOPICAL 1 applic Q12HR [facility] Administration Enoxaparin Sodium 40 mg 07/17/23 09:00 07/19/23 08:41 Enoxaparin 40 Mg/0.4 Ml Syringe SUB-Q 40 mg Q12HR [facility] Administration Hydroxyzine HCl 25 mg 07/17/23 08:12 Hydroxyzine Hcl 25 Mg Tablet PO QID PRN Itching Vancomycin HCl 1,250 mg in 250 mls @ 166.667 mls/hr 07/18/23 09:00 07/19/23 09:45 Vancomycin 1,250 Mg/Ns 250 Ml IVPB Infused Q12H [facility] Infusion Ibuprofen 600 mg 07/17/23 08:12 Ibuprofen 600 Mg Tablet PO Q6H PRN Pain 1-3 Nifedipine 30 mg 07/17/23 17:00 07/18/23 17:52 Nifedipine 30 Mg Tab.Er.24 PO 30 mg 1700 [facility] Administration Oxybutynin Chloride 5 mg 07/17/23 09:00 07/19/23 08:39 Oxybutynin Chloride 5 Mg Tablet PO 5 mg DAILY [facility] Administration Prednisone 60 mg 07/19/23 08:00 07/19/23 08:40 Prednisone 20 Mg Tablet PO 60 mg DAILY@0800 [facility] Administration Radiology Results: ITS Impressions Venous Doppler Study 07/16/23 17:09 IMPRESSION: 1: No lower extremity deep venous thrombosis. Chest X-Ray 07/16/23 18:13 Impression: 1: Cardiomegaly with interstitial edema. Labs Labs: Laboratory Results - last 24 hr 07/19/23 04:24 WBC 9.1 RBC 4.26 Hgb 13.2 Hct 40.5 MCV 95.1 MCH 31.0 MCHC 32.6 RDW 12.6 Plt Count 256 MPV 9.2 Immature Gran % (Auto) 1.2 H Neut % (Auto) 80.6 H Lymph % (Auto) 12.3 L [place] % (Auto) 5.5 Eos % (Auto) 0.0 Baso % (Auto) 0.4 Lymph # (Auto) 1.12 [place] # (Auto) 0.5 Eos # (Auto) 0.0 Baso # (Auto) 0.0 Abs Immat Gran (auto) 0.11 H Absolute Neuts (auto) 7.3 H Absolute Nucleated RBC 0.0 Nucleated RBC % 0.0 Sodium 135 L Potassium 4.5 Chloride 101 Carbon Dioxide 30 Anion Gap 4 L BUN 20 H Creatinine 0.80 Estim Creat Clear Calc 78 Estimated GFR > 60 Glucose 133 H Calcium 9.1 Phosphorus 4.2 Magnesium 2.1 Albumin 3.7 Quality VTE Prophylaxis VTE prophylaxis: pharmacologic ordered
[2023-07-19] MEDS: NIFEdipine 30 MG TAB.ER.24 PO (16:35)
[2023-07-19] MEDS: VANCOMYCIN 1,250 MG/NS 250 ML 1,250 MG/250 ML BAG 166 MG IVPB (21:48)
[2023-07-20 03:04] VITALS: BP 128/57; PULSE 60; RESP 20; TEMP 35.9; O2SAT 96
[2023-07-20 06:05] LABS: Basophils Absolute Auto 0.1 K/mm3 (0.0-0.1); Basophils Percent Auto 0.5 % (0.2-1.2); Eosinophils Absolute Auto 0.1 K/mm3 (0-0.3); Hematocrit 41.8 % (37.0-47.0); Hemoglobin 13.4 g/dL (12.0-15.0); Immature Granulocyte Absolute 0.19 K/mm3 (0.00-0.031); Immature Granulocyte Percent A 1.5 % (0-0.5); Lymphocytes Absolute Auto 2.15 K/mm3 (0.9-3.2); Lymphocytes Percent Auto 17.3 % (18.3-44.2); Mean Corpuscular HGB Conc 32.1 g/dl (32-36); Mean Corpuscular Hemoglobin 30.9 pg (26-34); Mean Corpuscular Volume 96.5 fl (80-100); Mean Platelet Volume 9.2 fl (7.4-10.4); Monocytes Percent Auto 8.1 % (2.6-8.5); Neutrophils Absolute Auto 8.9 K/mm3 (1.3-6.7); Neutrophils Percent Auto 71.6 % (45.5-73.1); Platelet Count Result 243 k/mm3 (150-375); Red Blood Count 4.33 M/mm3 (4.2-5.4); Red Cell Distribution Width 12.7 % (11.5-14.5); White Blood Count 12.5 K/mm3 (4.5-10.0)
[2023-07-20 06:18] LABS: Albumin Level 3.8 g/dL (3.5-5.1); Anion Gap 3 mmol/L (8-16); Blood Urea Nitrogen 24 mg/dL (7-17); Calcium 8.9 mg/dL (8.4-10.2); Carbon Dioxide 32 mmol/L (22-30); Chloride 103 mmol/L (98-107); Estimated CRCL calculation 77 ml/min; Estimated Glomerular Filt Rate > 60; Glucose 101 mg/dL (65-110); Magnesium 2.1 mg/dL (1.6-2.3); Phosphorus 3.3 mg/dL (2.5-4.5); Potassium 3.9 mmol/L (3.4-5.0); Sodium 138 mmol/L (137-145)
--- NOTE | 2023-07-20 08:51 | P.DS_ITS ---
DS: Admitting Diagnosis Discharge Date 07/20/2023 Admitting Diagnosis cellulitis bilateral legs, morbid obesity, pulmonary edema, lymphedema DS: Discharge Diagnosis Discharge Diagnosis (1) Cellulitis, leg: Qualifiers: Laterality: left Qualified Code(s): L03.116 - Cellulitis of left lower limb Code(s): L03.119 - Cellulitis of unspecified part of limb Status: Acute Assessment and Plan: bilateral legs, worse on the left (2) Pulmonary edema: Qualifiers: Chronicity: acute Qualified Code(s): J81.0 - Acute pulmonary edema Code(s): J81.1 - Chronic pulmonary edema Status: Acute (3) Lymphedema: Code(s): I89.0 - Lymphedema, not elsewhere classified Status: Chronic (4) Morbid obesity: Code(s): E66.01 - Morbid (severe) obesity due to excess calories Status: Acute DS: Summary Hospital Course Reason for hospitalization: bilateral lower extremity cellulitis Hospital Course: 07/16 H&P:??THIS IS A 68-YEAR-OLD FEMALE WITH PAST MEDICAL HISTORY SIGNIFICANT FOR MORBID OBESITY, HYPERTENSION, CHRONIC BILATERAL LOWER EXTREMITY LYMPHEDEMA, HYPERTENSION.? PATIENT PRESENTS TO THE EMERGENCY ROOM DUE TO BILATERAL LOWER EXTREMITY WORSENING SWELLING REDNESS AND TENDERNESS HAD BEEN SEEING AT THE EMERGENCY ROOM AND SENT HOME ON ANTIBIOTICS FOR PRESUMED CELLULITIS.? HOWEVER PATIENT RETURNS TO EMERGENCY ROOM STATING THAT IS HAS PROGRESSIVELY GOTTEN WORSE.? PATIENT DENIES ANY NAUSEA VOMITING DIARRHEA ABDOMINAL PAIN, NIGHT SWEATS, FEVERS, RIGORS, CHILLS 07/17:? Patient reports left leg more swollen and erythematous with weeping and serous drainage whereas right leg is mostly erythematous anterior aspect with satellite lesions reminiscent of folliculitis.? Patient denies difficulty breathing.? Chest x-ray in the emergency department showed cardiomegaly with some pulmonary edema.? She has received IV Lasix.? Echocardiogram completed showing grade 1 diastolic dysfunction but good EF.? 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 She does have a history chronic hypertension but does not know of history heart failure.? Venous Dopplers were negative for DVT.? Patient is on vancomycin.? Patient reports recurrent history of cellulitis since 2016 never had to be discharged on IV antibiotics before.? Blood cultures are pending. 07/18:? Patient reports she is feeling some improvement in her legs.? She is using Pure Wick instead of ambulating to the restroom, I have encouraged her and informed nursing staff that she needs to ambulate more often.? No fever or chills. 07/19:? Patient states that swelling is improving in her legs and that she does not take furosemide at home.? Echo was reassuring with only grade 1 diastolic dysfunction.? Will stop furosemide.? Continue vancomycin today and transition to oral antibiotics tomorrow with plan to discharge home tomorrow.? Patient still attempting to get into [facility] for follow up. 07/20: swelling has greatly improved and erythema is nearly resolved. Patient has been on steroids for a couple days as there is high likelihood that there is an underlying vasculitis present given the bilateral involvement with satellite lesions. White blood cell count has been higher today but patient has no fever or other signs of worsening infection in fact appearance is that infection is vastly improved. Believe the Elevation of white blood cell count is possibly due to steroid. Status at Discharge Cognitive/behavioral status at discharge: awake alert oriented and pleasant Functional status at discharge: independent ambulation Overall status at discharge: patient is back to baseline Time Spent with Patient Time attestation: Total time spent providing and/or coordinating discharge services: 35 minutes Time spent: Greater than 30 minutes Exam Narrative: GENERAL: Well-appearing, well-nourished, and in no acute distress. Obese. HEAD: Normocephalic, atraumatic. ENT:? Mucous membranes moist. CHEST: Clear to auscultation.? No respiratory distress. HEART: Mildly bradycardic rate and regular rhythm. ? Normal peripheral pulses. ABDOMEN: Soft, nontender, nondistended. EXTREMITIES: Normal range of motion. 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 Left leg has crusted scales present, no active drainage. SKIN: Warm dry normal color. See extremities above NEURO: Alert and oriented x3. PSYCH: Normal mood and affect DS: Data Data Completed and Pending Completed studies during hospitalization: chest x-ray, venous Doppler lower extremity ultrasound Labs on day of discharge: Labs from last 24 hours 07/20/23 07/19/23 05:54 20:35 WBC 12.5 H RBC 4.33 Hgb 13.4 Hct 41.8 MCV 96.5 MCH 30.9 MCHC 32.1 RDW 12.7 Plt Count 243 MPV 9.2 Immature Gran % (Auto) 1.5 H Neut % (Auto) 71.6 Lymph % (Auto) 17.3 L [place] % (Auto) 8.1 Eos % (Auto) 1.0 Baso % (Auto) 0.5 Lymph # (Auto) 2.15 [place] # (Auto) 1.0 H Eos # (Auto) 0.1 Baso # (Auto) 0.1 Abs Immat Gran (auto) 0.19 H Absolute Neuts (auto) 8.9 H Absolute Nucleated RBC 0.0 Nucleated RBC % 0.0 Sodium 138 Potassium 3.9 Chloride 103 Carbon Dioxide 32 H Anion Gap 3 L BUN 24 H Creatinine 0.80 Estim Creat Clear Calc 77 Estimated GFR > 60 Glucose 101 Calcium 8.9 Phosphorus 3.3 Magnesium 2.1 Albumin 3.8 Vancomycin Trough 15.0 Preliminary micro results at discharge 07/16/23 20:11 Blood Culture - Preliminary Blood 07/16/23 20:11 Blood Culture - Preliminary Blood Discharge Plan Discharge Consulting providers: Gillian Sidhu Discharging Clinician: Loi Larson Anticipated Discharge Date/Time: 07/20/23 09:45 Patient Disposition: Home, Self-Care Activity: may shower and unlimited Diet: heart healthy Patient Instructions: Antibiotic Form, Heart Failure (DC), Cellulitis (GEN) Stand Alone Forms: General Discharge Information Follow-up/Referrals: Jordon Torres MD [Primary Care Provider] - Call for Appointment (Hospital follow up in 1-3 weeks if possible) Discharge Medications: New prednisone 20 mg Tablet 60 mg PO DAILY@0800 Qty: 6 0RF cefdinir 300 mg Capsule 300 mg PO Q12HR Qty: 12 0RF doxycycline hyclate 100 mg Tablet 100 mg PO Q12HR Qty: 12 0RF clotrimazole-betamethasone 1-0.05 % lotion 1 applic topical BID 28 Days Qty: 30 2RF Continued ketoconazole 2 % shampoo 1 applic topical 3XW Qty: 120 0RF Rx Instructions: apply to scalp/rash ibuprofen 200 mg tablet 800 mg PO DAILY hydroxyzine HCl 25 mg tablet See Rx Instructions .ROUTE .COMPLEX PRN (Reason: Itching) Rx Instructions: TAKE 1 TABLET BY MOUTH FOUR TIMES DAILY NEEDED FOR ITCHING mupirocin 2 % ointment 1 applic topical TID PRN (Reason: Itching) aspirin 81 mg Tablet,Chewable 81 mg PO QAM alendronate 70 mg tablet 70 mg PO WEEKLY Qty: 14 1RF atenolol [Tenormin] 50 mg tablet 50 mg PO QAM Qty: 90 1RF nifedipine 30 mg tablet extended release 30 mg PO 1700 Qty: 90 1RF oxybutynin chloride 5 mg tablet 5 mg PO DAILY Qty: 90 1RF Date of admission: 07/18/23 14:06 Primary Care Provider: Jordon Torres Admitting Provider: Gertrude Coffman V. Attending physician on admission: Gertrude Coffman V. Condition: Stable Quality VTE Prophylaxis VTE prophylaxis: pharmacologic ordered [facility] Dis[facility] Hospital Discharge: 90551 Hosp D/C >30 Min
[2023-07-20 08:58] VITALS: PULSE 65
[2023-07-20] MEDS: predniSONE 20 MG TABLET 60 MG PO (08:58)
[2023-07-20] MEDS: ASPIRIN 81 MG CHEWABLE TABLET PO (08:58)
[2023-07-20] MEDS: atenoloL 50 MG TABLET PO (08:58)
[2023-07-20] MEDS: ENOXAPARIN 40 MG/0.4 ML SYRINGE SUB-Q (08:58)
[2023-07-20] MEDS: DOXYCYCLINE HYCLATE 100 MG TABLET PO (08:58)
[2023-07-20] MEDS: CEFDINIR 300 MG CAPSULE PO (08:58)
[2023-07-20] MEDS: oxyBUTYnin CHLORIDE 5 MG TABLET PO (08:59)
--- NOTE | 2023-08-07 11:23 | IVDEFINITY ---
Prior to administration of IV Definity the patient was educated on the risks and benefits of the imaging enhancing agent including potential adverse side effects. The patient verbalized understanding. Allergies were verified. No exclusion criteria were identified and at least one of the following inclusion criteria were met: 1) physician request, 2) patient technically difficult to image (per the [place] [employer] guidelines of two or more segments not discernable within the apical view), or 3) questionable left ventricular function. ?
== END 2023-07-20 11:53 | disposition home or self-care (01) | DRG 603 ==
LOC: ANHED 20:59 → ANH3MEDSUR 21:50 → ANH2MED 07-17 13:18
PROVIDERS: Emergency Medicine; Physician Assistant; Admitting Provider Internal Medicine; Emergency Provider Physician Assistant; PCP Family Medicine; Visit Provider Nurse Practitioner
DX: L03.116 Cellulitis of left lower limb (principal); Z68.43 Body mass index [BMI] 50.0-59.9, adult; I50.30 Unspecified diastolic (congestive) heart failure; I11.0 Hypertensive heart disease with heart failure; L03.115 Cellulitis of right lower limb; I89.0 Lymphedema, not elsewhere classified; E66.01 Morbid (severe) obesity due to excess calories; G80.9 Cerebral palsy, unspecified; M19.90 Unspecified osteoarthritis, unspecified site; I87.2 Venous insufficiency (chronic) (peripheral); F41.9 Anxiety disorder, unspecified; Z86.16 Personal history of COVID-19; Z87.442 Personal history of urinary calculi; Z79.82 Long term (current) use of aspirin
CPT/HCPCS: 36415; 71045; 80053; 80069; 80202; 82565; 83605; 83735; 83880; 84484; 85025; 86140; 87040; 93005; 93970; 96365; 96366; 96372; 96375; 96376; 97110; 97161; 97165; 97530; 97535; 99285; A9270; C8929; G0378; J1650; J1940; J3370; J7512; Q9957

== ENCOUNTER 2023-12-12 17:00 | Inpatient (IN) | payer OTHER, SELFPAY ==
--- NOTE | ~2023-12-12 | XR_ITS ---
Portable chest x-ray Comparison: 07/16/2023 Clinical History: Cellulitis Findings: There is mild central congestive change. No consolidation or pleural effusion. Cardiomedi astinal silhouette is stable. Bones and soft tissues are unremarkable. Impression: Mild central congestive changes. Reviewed, dictated and finalized at [facility]. Impression: Mild central congestive changes.
[2023-12-12 17:12] VITALS: BP 148/89; PULSE 70; RESP 18; TEMP 36.4; O2SAT 99
--- NOTE | 2023-12-12 18:05 | ED.SKABFB ---
HPI - Skin/Abscess/Foreign Bdy General Chief complaint: Skin/Abscess/Foreign Body <FRANDY Almeida Last Filed: 12/12/23 20:54> Stated complaint: Celluitis Left Leg <FRANDY Almeida Last Filed: 12/12/23 20:54> Time Seen by Provider: 12/12/23 17:42 <FRANDY Almeida Last Filed: 12/12/23 20:54> Source: patient <FRANDY Almeida Last Filed: 12/12/23 20:54> Mode of arrival: ambulatory <FRANDY Almeida Filed: 12/12/23 20:54> Limitations: no limitations <FRANDY Almeida Filed: 12/12/23 20:54> History of Present Illness HPI narrative: Patient is a 68-year-old female, with PMH of lymphedema, chronic venous insufficiency, chronic L sided weakness, who presents the ED with report of cellulitis to her left lower leg. Patient reports history of chronic recurrent cellulitis to her lower extremities since 2016. States she typically requires IV antibiotics to fully treat the cellulitis. States her left leg began having increased pain, swelling, weeping/drainage from multiple small sites since Sunday. Was seen at a wound care clinic in [facility] today and was told she need to be on antibiotics. She refused oral antibiotics and came here. Denies fevers. Denies history of blood clots or diabetes. <FRANDY Almeida Last Filed: 12/12/23 20:54> Related Data Home medications: Home Medications Medication Instructions Recorded Confirmed aspirin 81 mg chewable tablet 81 mg PO QAM 01/26/20 07/16/23 hydroxyzine HCl 25 mg tablet See Rx Instructions .Route 07/16/23 07/16/23 .COMPLEX PRN Itching mupirocin 2 % topical ointment 1 applic topical TID PRN Itching 07/17/23 07/18/23 ibuprofen 200 mg tablet 800 mg PO TID Pain 10/16/23 <FRANDY Almeida Last Filed: 12/12/23 20:54> Allergies/Adverse reactions: Allergies Allergy/AdvReac Type Severity Reaction Status Date / Time No Known Allergies Allergy Unknown Verified 12/12/23 17:17 <Gillian Sidhu PA-C - Last Filed: 12/12/23 20:54> Review of Systems Review of Systems: CONSTITUTIONAL: Denies fever, chills, or sweats. CARDIOVASCULAR: Denies chest pain, palpitations, or edema. RESPIRATORY: Denies cough or dyspnea. MUSCULOSKELETAL: See HPI. <Gillian Sidhu PA-C - Last Filed: 12/12/23 20:54> All systems reviewed & are unremarkable except as noted in HPI and below <Gillian Sidhu PA-C - Last Filed: 12/12/23 20:54> PMFSH Past Medical History Medical History: Medical History Anxiety Cellulitis Cerebral palsy With mild left-sided weakness. COVID-19 (08/2021) H/O fall Hypertension Hypertriglyceridemia Kidney stones (03/2018) Legionella pneumonia (04/2019) Lymphedema Lymphedema Osteoarthritis Venous insufficiency of lower extremity <FRANDY Almeida Last Filed: 12/12/23 20:54> Surgical History Surgical History: Surgical History History of ankle surgery (1959) Achilles tendon lengthening. History of cystoscopy (03/2018) With ureteral stent and stone extraction. History of dilation and curettage With uterine polypectomy. Status post laser ablation of incompetent vein <Gillian Sidhu PA-C - Last Filed: 12/12/23 20:54> Family History Family History: Family History Mother Breast cancer Sibling Breast cancer Other Hodgkin disease Father Parkinson disease Lymph node cancer Grandparent Leukemia Sibling Brain cancer <FRANDY Almeida Last Filed: 12/12/23 20:54> Social History Social History: Social History Social History: The patient is and lives with her in [place]. They have no c
[2023-12-12 19:15] LABS: Basophils Absolute Auto 0.1 K/mm3 (0.0-0.1); Eosinophils Absolute Auto 1.3 K/mm3 (0-0.3); Eosinophils Percent Auto 12.2 % (0-4.4); Hematocrit 42.4 % (37.0-47.0); Immature Granulocyte Absolute 0.06 K/mm3 (0.00-0.031); Immature Granulocyte Percent A 0.6 % (0-0.5); Lymphocytes Absolute Auto 1.85 K/mm3 (0.9-3.2); Mean Corpuscular Hemoglobin 31.6 pg (26-34); Mean Corpuscular Volume 95.7 fl (80-100); Mean Platelet Volume 9.6 fl (7.4-10.4); Monocytes Absolute Auto 0.9 K/mm3 (0.1-0.6); Monocytes Percent Auto 8.8 % (2.6-8.5); Neutrophils Absolute Auto 6.1 K/mm3 (1.3-6.7); Neutrophils Percent Auto 59.4 % (45.5-73.1); Platelet Count Result 247 k/mm3 (150-375); Red Blood Count 4.43 M/mm3 (4.2-5.4); Red Cell Distribution Width 12.9 % (11.5-14.5); White Blood Count 10.3 K/mm3 (4.5-10.0)
[2023-12-12 19:29] LABS: Lactic Acid Reflex 1.2 mmol/L (0.7-2.0)
[2023-12-12 19:31] LABS: Alanine Aminotransferase 19 U/L (6-35); Albumin Level 4.2 g/dL (3.5-5.1); Alkaline Phosphatase 100 U/L (38-126); Anion Gap 7 mmol/L (4-12); Aspartate Amino Transferase 21 U/L (14-36); Bilirubin,Total 0.5 mg/dL (0.2-1.3); Blood Urea Nitrogen 29 mg/dL (7-17); CRP 3.8 mg/dL (<1.0); Calcium 8.9 mg/dL (8.4-10.2); Carbon Dioxide 25 mmol/L (22-30); Chloride 107 mmol/L (98-107); Estimated CRCL calculation 68 ml/min; Estimated Glomerular Filt Rate > 60; Glucose 112 mg/dL (65-110); Potassium 4.4 mmol/L (3.4-5.0); Sodium 139 mmol/L (137-145)
[2023-12-12 19:37] LABS: NT Pro B Type Natriuretic Pept 137 pg/mL (19.9-100)
[2023-12-12 19:49] LABS: Erythrocyte Sedimentation Rate 24 mm/hr (0-20)
[2023-12-12 20:45] VITALS: BP 139/62; PULSE 78; RESP 15; O2SAT 97
[2023-12-12 21:15] LABS: Hemoglobin A1C 5.3 % (<5.7)
[2023-12-12 21:20] VITALS: BP 148/66; PULSE 74; RESP 20; TEMP 36.4; O2SAT 98
--- NOTE | 2023-12-12 21:26 | ADMGEN ---
This patient, Savanna Arevalo, was admitted to Medical Room 340-01. Patient/family oriented to hospital policies and general routines including ID bracelet, bed and alarms, visiting hours, pain management, procedures, bathroom and other care routines, personal items, smoking policy, room service/diet, and visiting hours. Information on how to activate the Rapid Response Team has been discussed. Patient/Family are encouraged to report perceived risks to care and to ask questions if they do not understand what they are told or what they should do.
[2023-12-12] MEDS: VANCOMYCIN 1,500 MG/NS 500 ML 1,500 MG/500 ML BAG 250 MG IVPB (22:08)
--- NOTE | 2023-12-12 23:55 | PM.IMHP ---
H&P: HPI History of Present Illness Date/Time: 12/12/23 23:55 Chief Complaint: RIGHT LOWER EXTREMITY CELLULITIS Narrative: THIS IS A 68-YEAR-OLD FEMALE WITH PAST MEDICAL HISTORY SIGNIFICANT FOR MORBID OBESITY, OSTEOPOROSIS, HYPERTENSION, RECURRENT RIGHT LOWER EXTREMITY CELLULITIS, CEREBRAL PALSY, CHRONIC LYMPHEDEMA, VENOUS IS SUFFICIENT. PATIENT PRESENTS TODAY TO THE EMERGENCY ROOM DUE TO RIGHT LOWER EXTREMITY REDNESS, TENDERNESS, SWELLING, DRAINAGE. PATIENT DENIES ANY FEVERS, RIGORS, CHILLS, NAUSEA, VOMITING. PRELIMINARY WORKUP HAS BEEN ESSENTIALLY NONREVEALING. PATIENT HAS BEEN ADMITTED FOR FURTHER EVALUATION MANAGEMENT AND TREATMENT. Review of Systems Review of Systems: RIGHT LOWER EXTREMITY REDNESS SWELLING TENDERNESS DRAINAGE Constitutional: Constitutional: Denies chills, Denies fever(s), Denies malaise, Denies night sweats, Denies poor appetite and Denies weakness Eyes: Eyes: Denies change in vision ENT: Denies dysphagia, Denies vertigo, Denies dizziness and Denies odynophagia Cardiovascular: Cardiovascular: Denies chest pain, Denies radiating jaw, neck or arm pain and Denies palpitations Respiratory: Respiratory: Denies cough and Denies dyspnea Gastrointestinal: Gastrointestinal: Denies abdominal pain, Denies diarrhea, Denies nausea and Denies vomiting Genitourinary: Genitourinary: Denies dysuria Musculoskeletal: Musculoskeletal: Reports other ( RIGHT LOWER EXTREMITY SWELLING TENDERNESS) Integumentary/Breasts: Skin/Breast: Reports swelling, Reports erythema ( LEFT LOWER EXTREMITY), Reports skin pain and Reports skin swelling Neurologic: Denies focal weakness and Denies Sensory deficit (Neuro) Psychiatric: Psychiatric: Reports no additional psychiatric complaints and Reports as per HPI Endocrine: Endocrine: Denies cold intolerance, Denies heat intolerance, Denies polyphagia, Denies polydipsia, Denies polyuria and Denies palpitations Hematologic/Lymphatic: Hematologic/Lymphatic: Reports no additional hematologic/lymphatic complaints and Reports as per HPI Allergic/Immunologic: Allergic/Immunologic: Reports no additional allergic/immunologic complaints and Reports as per HPI [facility] Past Medical History Medical History Anxiety Cellulitis Cerebral palsy With mild left-sided weakness. COVID-19 (08/2021) H/O fall Hypertension Hypertriglyceridemia Kidney stones (03/2018) Legionella pneumonia (04/2019) Lymphedema Lymphedema Osteoarthritis Venous insufficiency of lower extremity Surgical History Surgical History History of ankle surgery (1959) Achilles tendon lengthening. History of cystoscopy (03/2018) With ureteral stent and stone extraction. History of dilation and curettage With uterine polypectomy. Status post laser ablation of incompetent vein Family History Family History Mother Breast cancer Sibling Breast cancer Other Hodgkin disease Father Parkinson disease Lymph node cancer Grandparent Leukemia Sibling Brain cancer Social History Social History Social History: The patient is and lives with her in [place]. They have no children. 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 She denies alcohol, tobacco, and illicit substance abuse. She designates her , Jae Arevalo, as her surrogate decision maker and she wishes to be a full code. Smoking status: Never smoker Alcohol intake: current Alcohol use details: social Substance use: never Substance use type: does not use Do You Feel Safe in your Home?: Yes Lack of Transportation: No Lack of Food: Never True Current Housing: I Have Housing Concerned About Future Housing: No Difficulty Paying Gas/Electric Bills: No Difficulty P
[2023-12-13 04:39] VITALS: BP 136/57; PULSE 72; RESP 20; TEMP 36.1; O2SAT 99
[2023-12-13 06:28] LABS: Estimated CRCL calculation 87 ml/min; Estimated Glomerular Filt Rate > 60
--- NOTE | 2023-12-13 08:01 | PM.IMPN ---
Progress Note: A&P Assessment and Plan (1) Cellulitis of left lower extremity: Code(s): L03.116 - Cellulitis of left lower limb Status: Acute (2) Hypertension: Qualifiers: Hypertension type: essential hypertension Qualified Code(s): I10 - Essential (primary) hypertension Code(s): I10 - Essential (primary) hypertension Status: Chronic (3) Cerebral palsy: Qualifiers: Cerebral palsy type: unspecified type Qualified Code(s): G80.9 - Cerebral palsy, unspecified Code(s): G80.9 - Cerebral palsy, unspecified Status: Acute (4) Chronic venous insufficiency: Code(s): I87.2 - Venous insufficiency (chronic) (peripheral) Status: Chronic (5) Lymphedema: Code(s): I89.0 - Lymphedema, not elsewhere classified Status: Chronic (6) Morbid obesity: Code(s): E66.01 - Morbid (severe) obesity due to excess calories Status: Acute Plan Cellulitis of RLE Acute on chronic Follows O/P at the wound clinic Blood cultures pending Wound culture pending IV Vancomycin transition to PO monitor renal function WBC 10.3 Monitor IV hydration. Monitor vital signs and oxygen saturation. Monitor for sepsis Recommended duration of antibiotic therapy for 7-10 days. Obesity encourage increased on physical activity and lifestyle modifications Stress monitoring and eating disorder evaluation. encourage outpatient weight loss clinic BMI . Diet exercise counseling done. consult to dietitian HTN Resumed home medications BP per unit protocol HX Anxiety: Resumed home medications HX Cerebral Palsy HX OA: home medication Code status: Full code per patient DVT prophylaxis: Lovenox Stress ulcer prophylaxis: Protonix 40 daily PT/OT notes: Disposition: patient admitted to the medical unit with RLE cellulitis her IV antibiotics patient reports failure to p.o. antibiotic but does follow at the outpatient wound clinic. Cultures are pending continue with IV antibiotic and deescalate pending cultures. PT/OT for any further discharge recommendations pending. Time Spent With Patient Time with patient: 15 - 25 minutes Subjective Date/time seen: 12/13/23 08:01 Interval history: Admission: Medical Record THIS IS A 68-YEAR-OLD FEMALE WITH PAST MEDICAL HISTORY SIGNIFICANT FOR MORBID OBESITY, OSTEOPOROSIS, HYPERTENSION, RECURRENT RIGHT LOWER EXTREMITY CELLULITIS, CEREBRAL PALSY, CHRONIC LYMPHEDEMA, VENOUS IS SUFFICIENT.? PATIENT PRESENTS TODAY TO THE EMERGENCY ROOM DUE TO RIGHT LOWER EXTREMITY REDNESS, TENDERNESS, SWELLING, DRAINAGE.? PATIENT DENIES ANY FEVERS, RIGORS, CHILLS, NAUSEA, VOMITING.? PRELIMINARY WORKUP HAS BEEN ESSENTIALLY NONREVEALING.? PATIENT HAS BEEN ADMITTED FOR FURTHER EVALUATION MANAGEMENT AND TREATMENT. 12/12: Patient up in chair continues with erythema, tenderness, and mild drainage to LLE. Normal WBC, afebrile, blood cultures NGTD and wound culture pending Review of Systems Review of Systems: RIGHT LOWER EXTREMITY REDNESS SWELLING TENDERNESS DRAINAGE All systems reviewed & are unremarkable except as noted in HPI and below Exam Narrative: PATIENT IS LAYING IN BED Const: General: comfortable, no acute distress, well developed, alert, awake and obese Nutritional Appearance: obese morbidly obese Orientation/consciousness: patient oriented x3 HENMT: Head: normal to inspection, normocephalic and atraumatic Ears: hearing grossly normal bilaterally Face/Nose/Sinus: normal facial exam Face and sinus: normal facial exam Eyes: General: appearance normal, both eyes and all related structures Pupils: Equal, round and reactive pupils present EOM: EOMs intact bilaterally Neck: Neck: full ROM, no lymphadenopathy and no JVD Thyroid: thyroid normal Lymphatic: no lymphadenopathy noted Resp: Effort & Inspection: normal respiratory effort and able to speak in complete senten
[2023-12-13 08:31] LABS: Hematocrit 39.6 % (37.0-47.0); Hemoglobin 12.8 g/dL (12.0-15.0); Mean Corpuscular HGB Conc 32.3 g/dl (32-36); Mean Corpuscular Hemoglobin 31.1 pg (26-34); Mean Corpuscular Volume 96.4 fl (80-100); Mean Platelet Volume 9.9 fl (7.4-10.4); Platelet Count Result 236 k/mm3 (150-375); Red Blood Count 4.11 M/mm3 (4.2-5.4); White Blood Count 9.7 K/mm3 (4.5-10.0)
[2023-12-13 08:47] LABS: Alanine Aminotransferase 17 U/L (6-35); Albumin Level 3.4 g/dL (3.5-5.1); Alkaline Phosphatase 75 U/L (38-126); Anion Gap 4 mmol/L (4-12); Aspartate Amino Transferase 35 U/L (14-36); Bilirubin,Total 0.6 mg/dL (0.2-1.3); Blood Urea Nitrogen 22 mg/dL (7-17); Calcium 8.7 mg/dL (8.4-10.2); Carbon Dioxide 25 mmol/L (22-30); Chloride 110 mmol/L (98-107); Estimated CRCL calculation 87 ml/min; Estimated Glomerular Filt Rate > 60; Glucose 95 mg/dL (65-110); Potassium 4.1 mmol/L (3.4-5.0); Sodium 139 mmol/L (137-145)
[2023-12-13] MEDS: PANTOPRAZOLE 40 MG TABLET PO (08:50)
[2023-12-13] MEDS: ENOXAPARIN 40 MG/0.4 ML SYRINGE SUB-Q (08:51)
[2023-12-13 08:52] VITALS: PULSE 66
[2023-12-13] MEDS: atenoloL 25 MG TABLET PO (08:52)
[2023-12-13] MEDS: oxyBUTYnin CHLORIDE 5 MG TABLET PO (08:52)
[2023-12-13] MEDS: ASPIRIN 81 MG CHEWABLE TABLET PO (08:52)
[2023-12-13 14:00] VITALS: BP 126/50; PULSE 62; RESP 16; TEMP 36.4; O2SAT 100
[2023-12-13] MEDS: VANCOMYCIN 1,500 MG/NS 500 ML 1,500 MG/500 ML BAG 250 MG IVPB (16:22)
[2023-12-13] MEDS: NIFEdipine 30 MG TAB.ER.24 PO (17:18)
[2023-12-13 20:21] VITALS: BP 145/71; PULSE 61; RESP 18; TEMP 36.2; O2SAT 98
[2023-12-14 05:09] VITALS: BP 155/74; PULSE 69; RESP 18; TEMP 36.3; O2SAT 98
[2023-12-14 06:13] LABS: Hematocrit 39.2 % (37.0-47.0); Hemoglobin 12.9 g/dL (12.0-15.0); Mean Corpuscular HGB Conc 32.9 g/dl (32-36); Mean Corpuscular Hemoglobin 30.9 pg (26-34); Mean Platelet Volume 9.3 fl (7.4-10.4); Platelet Count Result 225 k/mm3 (150-375); Red Blood Count 4.17 M/mm3 (4.2-5.4); Red Cell Distribution Width 12.8 % (11.5-14.5); White Blood Count 7.8 K/mm3 (4.5-10.0)
[2023-12-14 06:30] LABS: Alanine Aminotransferase 14 U/L (6-35); Albumin Level 3.6 g/dL (3.5-5.1); Alkaline Phosphatase 69 U/L (38-126); Anion Gap 3 mmol/L (4-12); Aspartate Amino Transferase 16 U/L (14-36); Bilirubin,Total 0.6 mg/dL (0.2-1.3); Blood Urea Nitrogen 16 mg/dL (7-17); Calcium 8.7 mg/dL (8.4-10.2); Carbon Dioxide 28 mmol/L (22-30); Chloride 108 mmol/L (98-107); Estimated CRCL calculation 77 ml/min; Estimated Glomerular Filt Rate > 60; Glucose 95 mg/dL (65-110); Potassium 3.8 mmol/L (3.4-5.0); Sodium 139 mmol/L (137-145)
[2023-12-14 08:04] VITALS: PULSE 70
[2023-12-14] MEDS: PANTOPRAZOLE 40 MG TABLET PO (08:04)
[2023-12-14] MEDS: atenoloL 25 MG TABLET PO (08:04)
[2023-12-14] MEDS: ENOXAPARIN 40 MG/0.4 ML SYRINGE SUB-Q (08:04)
[2023-12-14] MEDS: ASPIRIN 81 MG CHEWABLE TABLET PO (08:04)
[2023-12-14] MEDS: oxyBUTYnin CHLORIDE 5 MG TABLET PO (08:04)
[2023-12-14] MEDS: VANCOMYCIN 1,500 MG/NS 500 ML 1,500 MG/500 ML BAG 250 MG IVPB (09:09)
--- NOTE | 2023-12-14 09:09 | PM.IMPN ---
Progress Note: A&P Assessment and Plan (1) Cellulitis of left lower extremity: Code(s): L03.116 - Cellulitis of left lower limb Status: Acute (2) Hypertension: Qualifiers: Hypertension type: essential hypertension Qualified Code(s): I10 - Essential (primary) hypertension Code(s): I10 - Essential (primary) hypertension Status: Chronic (3) Cerebral palsy: Qualifiers: Cerebral palsy type: unspecified type Qualified Code(s): G80.9 - Cerebral palsy, unspecified Code(s): G80.9 - Cerebral palsy, unspecified Status: Acute (4) Chronic venous insufficiency: Code(s): I87.2 - Venous insufficiency (chronic) (peripheral) Status: Chronic (5) Lymphedema: Code(s): I89.0 - Lymphedema, not elsewhere classified Status: Chronic (6) Morbid obesity: Code(s): E66.01 - Morbid (severe) obesity due to excess calories Status: Acute Plan Cellulitis of RLE Acute on chronic Follows O/P at the wound clinic Blood cultures NGTD Wound culture Staph Aureus IV Vancomycin transition to PO monitor renal function WBC 10.3 Monitor IV hydration. Monitor vital signs and oxygen saturation. Monitor for sepsis Recommended duration of antibiotic therapy for 7-10 days. Obesity encourage increased on physical activity and lifestyle modifications Stress monitoring and eating disorder evaluation. encourage outpatient weight loss clinic BMI . Diet exercise counseling done. consult to dietitian HTN Resumed home medications BP per unit protocol HX Anxiety: Resumed home medications HX Cerebral Palsy HX OA: home medication Code status: Full code per patient DVT prophylaxis: Lovenox Stress ulcer prophylaxis: Protonix 40 daily PT/OT notes: Disposition: patient admitted to the medical unit with RLE cellulitis her IV antibiotics patient reports failure to p.o. antibiotic but does follow at the outpatient wound clinic. Cultures are pending continue with IV antibiotic and deescalate pending cultures. PT/OT for any further discharge recommendations pending. Time Spent With Patient Time with patient: 15 - 25 minutes Subjective Date/time seen: 12/14/23 09:09 Interval history: Admission: Medical Record THIS IS A 68-YEAR-OLD FEMALE WITH PAST MEDICAL HISTORY SIGNIFICANT FOR MORBID OBESITY, OSTEOPOROSIS, HYPERTENSION, RECURRENT RIGHT LOWER EXTREMITY CELLULITIS, CEREBRAL PALSY, CHRONIC LYMPHEDEMA, VENOUS IS SUFFICIENT.? PATIENT PRESENTS TODAY TO THE EMERGENCY ROOM DUE TO RIGHT LOWER EXTREMITY REDNESS, TENDERNESS, SWELLING, DRAINAGE.? PATIENT DENIES ANY FEVERS, RIGORS, CHILLS, NAUSEA, VOMITING.? PRELIMINARY WORKUP HAS BEEN ESSENTIALLY NONREVEALING.? PATIENT HAS BEEN ADMITTED FOR FURTHER EVALUATION MANAGEMENT AND TREATMENT. 12/12: Patient up in chair continues with erythema, tenderness, and mild drainage to LLE. Normal WBC, afebrile, blood cultures NGTD and wound culture pending. 12/13: Patient wound culture with preliminary staph aureus, blood cultures with NGTD, normal wbc and afebrile. Stall with scant drainage and mild erythema wth mild pain to LLE. Review of Systems Review of Systems: All systems reviewed & are unremarkable except as noted in HPI and below Exam Narrative: PATIENT IS LAYING IN BED Const: General: comfortable, no acute distress, well developed, alert, awake and obese Nutritional Appearance: obese morbidly obese Orientation/consciousness: patient oriented x3 HENMT: Head: normal to inspection, normocephalic and atraumatic Ears: hearing grossly normal bilaterally Face/Nose/Sinus: normal facial exam Face and sinus: normal facial exam Eyes: General: appearance normal, both eyes and all related structures Pupils: Equal, round and reactive pupils present EOM: EOMs intact bilaterally Neck: Neck: full ROM, no lymphadenopathy and no JVD Thyroid: thyroid normal Lymphati
[2023-12-14 14:00] VITALS: BP 118/58; PULSE 51; RESP 24; TEMP 36.1; O2SAT 97
[2023-12-14] MEDS: NIFEdipine 30 MG TAB.ER.24 PO (16:25)
[2023-12-14 20:00] VITALS: PULSE 51; RESP 24; O2SAT 97
[2023-12-14 22:17] VITALS: BP 141/75; PULSE 54; RESP 20; TEMP 35.9; O2SAT 98
[2023-12-15 03:22] LABS: Mean Corpuscular HGB Conc 33.3 g/dl (32-36); Mean Corpuscular Volume 93.1 fl (80-100); Mean Platelet Volume 8.8 fl (7.4-10.4); Platelet Count Result 199 k/mm3 (150-375); Red Blood Count 4.19 M/mm3 (4.2-5.4); Red Cell Distribution Width 12.6 % (11.5-14.5); White Blood Count 8.8 K/mm3 (4.5-10.0)
[2023-12-15 03:32] LABS: Alanine Aminotransferase 14 U/L (6-35); Albumin Level 3.6 g/dL (3.5-5.1); Alkaline Phosphatase 74 U/L (38-126); Anion Gap 1 mmol/L (4-12); Aspartate Amino Transferase 16 U/L (14-36); Bilirubin,Total 0.5 mg/dL (0.2-1.3); Blood Urea Nitrogen 18 mg/dL (7-17); Calcium 8.8 mg/dL (8.4-10.2); Carbon Dioxide 29 mmol/L (22-30); Chloride 107 mmol/L (98-107); Estimated CRCL calculation 87 ml/min; Estimated Glomerular Filt Rate > 60; Glucose 96 mg/dL (65-110); Sodium 137 mmol/L (137-145)
[2023-12-15 03:43] LABS: Vancomycin Trough 10.8 ug/mL (10.0-20.0)
[2023-12-15] MEDS: VANCOMYCIN 1,500 MG/NS 500 ML 1,500 MG/500 ML BAG 125 MG IVPB ×2 (04:31→21:05)
[2023-12-15 06:00] VITALS: BP 125/60; PULSE 64; RESP 20; TEMP 36.1; O2SAT 98
[2023-12-15 09:10] VITALS: PULSE 68; O2SAT 68
[2023-12-15] MEDS: atenoloL 25 MG TABLET PO (09:10)
[2023-12-15] MEDS: ENOXAPARIN 40 MG/0.4 ML SYRINGE SUB-Q (09:10)
[2023-12-15] MEDS: ASPIRIN 81 MG CHEWABLE TABLET PO (09:10)
[2023-12-15] MEDS: PANTOPRAZOLE 40 MG TABLET PO (09:10)
[2023-12-15] MEDS: oxyBUTYnin CHLORIDE 5 MG TABLET PO (09:11)
--- NOTE | 2023-12-15 09:40 | PM.IMPN ---
Progress Note: A&P Assessment and Plan (1) Cellulitis of left lower extremity: Code(s): L03.116 - Cellulitis of left lower limb Status: Acute (2) Hypertension: Qualifiers: Hypertension type: essential hypertension Qualified Code(s): I10 - Essential (primary) hypertension Code(s): I10 - Essential (primary) hypertension Status: Chronic (3) Cerebral palsy: Qualifiers: Cerebral palsy type: unspecified type Qualified Code(s): G80.9 - Cerebral palsy, unspecified Code(s): G80.9 - Cerebral palsy, unspecified Status: Acute (4) Chronic venous insufficiency: Code(s): I87.2 - Venous insufficiency (chronic) (peripheral) Status: Chronic (5) Lymphedema: Code(s): I89.0 - Lymphedema, not elsewhere classified Status: Chronic (6) Morbid obesity: Code(s): E66.01 - Morbid (severe) obesity due to excess calories Status: Acute Plan Cellulitis of RLE Acute on chronic Follows O/P at the wound clinic Blood cultures NGTD Wound culture Staph Aureus pending sensitivities IV Vancomycin transition to PO monitor renal function WBC 10.3 Monitor IV hydration. Monitor vital signs and oxygen saturation. Monitor for sepsis Recommended duration of antibiotic therapy for 7-10 days. Obesity encourage increased on physical activity and lifestyle modifications Stress monitoring and eating disorder evaluation. encourage outpatient weight loss clinic BMI . Diet exercise counseling done. consult to dietitian HTN Resumed home medications BP per unit protocol HX Anxiety: Resumed home medications HX Cerebral Palsy HX OA: home medication Code status: Full code per patient DVT prophylaxis: Lovenox Stress ulcer prophylaxis: Protonix 40 daily PT/OT notes: Disposition: patient admitted to the medical unit with RLE cellulitis her IV antibiotics patient reports failure to p.o. antibiotic but does follow at the outpatient wound clinic. With staff midwife/apprenticeship director with pending sensitivities will continue with IV vancomycin until I can deescalate to p.o. antibiotics. Time Spent With Patient Time with patient: 15 - 25 minutes Subjective Date/time seen: 12/15/23 09:40 Interval history: Admission: Medical Record THIS IS A 68-YEAR-OLD FEMALE WITH PAST MEDICAL HISTORY SIGNIFICANT FOR MORBID OBESITY, OSTEOPOROSIS, HYPERTENSION, RECURRENT RIGHT LOWER EXTREMITY CELLULITIS, CEREBRAL PALSY, CHRONIC LYMPHEDEMA, VENOUS IS SUFFICIENT.? PATIENT PRESENTS TODAY TO THE EMERGENCY ROOM DUE TO RIGHT LOWER EXTREMITY REDNESS, TENDERNESS, SWELLING, DRAINAGE.? PATIENT DENIES ANY FEVERS, RIGORS, CHILLS, NAUSEA, VOMITING.? PRELIMINARY WORKUP HAS BEEN ESSENTIALLY NONREVEALING.? PATIENT HAS BEEN ADMITTED FOR FURTHER EVALUATION MANAGEMENT AND TREATMENT. 12/12: Patient up in chair continues with erythema, tenderness, and mild drainage to LLE. Normal WBC, afebrile, blood cultures NGTD and wound culture pending. 12/13: Patient wound culture with preliminary staph aureus, blood cultures with NGTD, normal wbc and afebrile. Stall with scant drainage and mild erythema wth mild pain to LLE. 12/14: Patient with no complaints is mild pain to left lower extremity re-dressed today still with erythema and scant drainage. Will continue with IV vancomycin pending sensitivity report for Staph aureus. Blood cultures NGTD, remained afebrile and normal WBC. Review of Systems Review of Systems: RIGHT LOWER EXTREMITY REDNESS SWELLING TENDERNESS DRAINAGE All systems reviewed & are unremarkable except as noted in HPI and below Exam Narrative: PATIENT IS LAYING IN BED Objective Data Vital Signs Vital Signs: Vital Signs - 24 hr 12/14/23 14:00 12/14/23 20:00 12/14/23 22:17 Temperature 96.9 F L 96.6 F L Pulse Rate 51 L 51 L 54 L Respiratory Rate 24 H 24 H 20 Blood Pressure 118/58 L 141/75 H Pulse Oximetry 97 97
[2023-12-15 14:00] VITALS: BP 116/55; PULSE 53; RESP 18; TEMP 36.2; O2SAT 100
[2023-12-15] MEDS: NIFEdipine 30 MG TAB.ER.24 PO (18:05)
[2023-12-15 20:00] VITALS: PULSE 52; RESP 20; O2SAT 100
[2023-12-15 20:02] VITALS: BP 139/63; PULSE 52; RESP 20; TEMP 36.4; O2SAT 100
[2023-12-16 04:19] VITALS: BP 124/52; PULSE 76; RESP 18; TEMP 36.8; O2SAT 96
[2023-12-16 06:05] LABS: Hematocrit 38.3 % (37.0-47.0); Hemoglobin 12.6 g/dL (12.0-15.0); Mean Corpuscular HGB Conc 32.9 g/dl (32-36); Mean Corpuscular Hemoglobin 30.9 pg (26-34); Mean Corpuscular Volume 93.9 fl (80-100); Mean Platelet Volume 9.3 fl (7.4-10.4); Platelet Count Result 220 k/mm3 (150-375); Red Blood Count 4.08 M/mm3 (4.2-5.4); Red Cell Distribution Width 12.4 % (11.5-14.5); White Blood Count 8.8 K/mm3 (4.5-10.0)
[2023-12-16 06:33] LABS: Alanine Aminotransferase 15 U/L (6-35); Albumin Level 3.6 g/dL (3.5-5.1); Alkaline Phosphatase 76 U/L (38-126); Anion Gap 4 mmol/L (4-12); Aspartate Amino Transferase 18 U/L (14-36); Bilirubin,Total 0.6 mg/dL (0.2-1.3); Blood Urea Nitrogen 16 mg/dL (7-17); Calcium 8.5 mg/dL (8.4-10.2); Carbon Dioxide 24 mmol/L (22-30); Chloride 109 mmol/L (98-107); Estimated CRCL calculation 87 ml/min; Estimated Glomerular Filt Rate > 60; Glucose 91 mg/dL (65-110); Potassium 3.7 mmol/L (3.4-5.0); Sodium 137 mmol/L (137-145)
[2023-12-16] MEDS: ENOXAPARIN 40 MG/0.4 ML SYRINGE SUB-Q (09:23)
[2023-12-16] MEDS: ASPIRIN 81 MG CHEWABLE TABLET PO (09:23)
[2023-12-16 09:24] VITALS: PULSE 71
[2023-12-16] MEDS: PANTOPRAZOLE 40 MG TABLET PO (09:24)
[2023-12-16] MEDS: oxyBUTYnin CHLORIDE 5 MG TABLET PO (09:24)
[2023-12-16] MEDS: atenoloL 25 MG TABLET PO (09:24)
[2023-12-16 09:25] VITALS: PULSE 71
--- NOTE | 2023-12-16 11:17 | PM.DS ---
DS: Admitting Diagnosis Discharge Date 12/16/2023 Admitting Diagnosis Cellulitis LLE DS: Discharge Diagnosis Discharge Diagnosis (1) Cellulitis of left lower extremity: Code(s): L03.116 - Cellulitis of left lower limb Status: Acute (2) Hypertension: Qualifiers: Hypertension type: essential hypertension Qualified Code(s): I10 - Essential (primary) hypertension Code(s): I10 - Essential (primary) hypertension Status: Chronic (3) Cerebral palsy: Qualifiers: Cerebral palsy type: unspecified type Qualified Code(s): G80.9 - Cerebral palsy, unspecified Code(s): G80.9 - Cerebral palsy, unspecified Status: Acute (4) Chronic venous insufficiency: Code(s): I87.2 - Venous insufficiency (chronic) (peripheral) Status: Chronic (5) Lymphedema: Code(s): I89.0 - Lymphedema, not elsewhere classified Status: Chronic (6) Morbid obesity: Code(s): E66.01 - Morbid (severe) obesity due to excess calories Status: Acute Plan Cellulitis of LLE Acute on chronic Follows O/P at the wound clinic Blood cultures NGTD Wound culture Staph Aureus pending sensitivities IV Vancomycin transition to PO monitor renal function WBC 10.3 Monitor IV hydration. Monitor vital signs and oxygen saturation. Monitor for sepsis Recommended duration of antibiotic therapy for 7-10 days. Obesity encourage increased on physical activity and lifestyle modifications Stress monitoring and eating disorder evaluation. encourage outpatient weight loss clinic BMI . Diet exercise counseling done. consult to dietitian HTN Resumed home medications BP per unit protocol HX Anxiety: Resumed home medications HX Cerebral Palsy HX OA: home medication Disposition: Patient discharged home with oral antibiotic therapy has scheduled follow-up at the wound clinic DS: Summary Hospital Course Reason for hospitalization: Cellulitis LLE Hospital Course: Admission: Medical Record THIS IS A 68-YEAR-OLD FEMALE WITH PAST MEDICAL HISTORY SIGNIFICANT FOR MORBID OBESITY, OSTEOPOROSIS, HYPERTENSION, RECURRENT RIGHT LOWER EXTREMITY CELLULITIS, CEREBRAL PALSY, CHRONIC LYMPHEDEMA, VENOUS IS SUFFICIENT.? PATIENT PRESENTS TODAY TO THE EMERGENCY ROOM DUE TO RIGHT LOWER EXTREMITY REDNESS, TENDERNESS, SWELLING, DRAINAGE.? PATIENT DENIES ANY FEVERS, RIGORS, CHILLS, NAUSEA, VOMITING.? PRELIMINARY WORKUP HAS BEEN ESSENTIALLY NONREVEALING.? PATIENT HAS BEEN ADMITTED FOR FURTHER EVALUATION MANAGEMENT AND TREATMENT. 12/12: Patient up in chair continues with erythema, tenderness, and mild drainage to LLE.? Normal WBC, afebrile, blood cultures NGTD and wound culture pending. 12/13: Patient wound culture with preliminary staph aureus, blood cultures with NGTD, normal wbc and afebrile.? Stall with scant drainage and mild erythema wth mild pain to LLE. 12/14: Patient with no complaints is mild pain to left lower extremity re-dressed today still with erythema and scant drainage.? Will continue with IV vancomycin pending sensitivity report for Staph aureus.? Blood cultures NGTD, remained afebrile and normal WBC. 12/15: Discharged Patient doing well today, labs unremarkable, vitals stable, wound culture with Staph aureus with sensitivity to clindamycin was discharged home on p.o. clindamycin and is scheduled to follow-up in the Wound Clinic in December. Patient discharged home Status at Discharge Functional status at discharge: independent ambulation Time Spent with Patient Time attestation: Total time spent providing and/or coordinating discharge services: Time spent: Less than 30 minutes Exam Narrative: PATIENT IS LAYING IN BED Const: General: comfortable, no acute distress, well developed, alert, awake and obese Nutritional Appearance: obese morbidly obese Orientation/consciousness: patient oriented x3 HENMT: Head: normal to inspection, normoc
== END 2023-12-16 12:18 | disposition home or self-care (01) | DRG 603 ==
LOC: ANHED 20:54 → ANH3MED 21:06
PROVIDERS: Admitting Provider Internal Medicine; Emergency Provider Physician Assistant; PCP Family Medicine; Visit Provider Nurse Practitioner Family
DX: L03.116 Cellulitis of left lower limb (principal); Z68.43 Body mass index [BMI] 50.0-59.9, adult; B95.61 Methicillin susceptible Staphylococcus aureus infection as the cause of diseases classified elsewhere; I10 Essential (primary) hypertension; G80.9 Cerebral palsy, unspecified; I87.2 Venous insufficiency (chronic) (peripheral); E66.01 Morbid (severe) obesity due to excess calories; I89.0 Lymphedema, not elsewhere classified; M81.0 Age-related osteoporosis without current pathological fracture; Z79.82 Long term (current) use of aspirin; Z86.16 Personal history of COVID-19; Z87.442 Personal history of urinary calculi
CPT/HCPCS: 36415; 71045; 80053; 80202; 82565; 83036; 83605; 83880; 85025; 85027; 85652; 86140; 87040; 87070; 87147; 87181; 87205; 97161; 97165; 99285; A9270; G0378; J1650; J3370

== ENCOUNTER 2024-01-02 13:49 | Emergency (ER) | payer OTHER, SELFPAY ==
--- NOTE | ~2024-01-02 | XR_ITS ---
EXAMINATION: 1. XR foot LT min 3V 2. XR toe 5th LT min 2V DATE: 01/02/2024 14:29 INDICATION: Left foot fifth digit pain. TECHNIQUE: 4 views of left foot and 4 views of left fifth toe were obtained. COMPARISON: None. FINDINGS: LEFT FIFTH TOE: There is a nondisplaced transverse fracture of base of fifth proximal phalanx with ca llus formation. Joint spaces are normal. LEFT FOOT: Again seen is a healing fracture of base of fifth proximal phalanx. There is mild osteoart hritis of first metatarsophalangeal joint. There are enthesophytes at the posterior and plantar aspec ts of calcaneal tuberosity. There is heterotopic ossification in the area of the Achilles tendon. IMPRESSION: 1. Healing fracture of fifth proximal phalanx. Reviewed, dictated and finalized at location A. IMPRESSION: 1. Healing fracture of fifth proximal phalanx.
[2024-01-02 13:58] VITALS: BP 152/78; PULSE 76; RESP 16; TEMP 36.6; O2SAT 100
--- NOTE | 2024-01-02 15:28 | ED.GENADULT ---
HPI - General Adult General Chief complaint: Extremity Problem,Nontraumatic Stated complaint: LLE problem Time Seen by Provider: 01/02/24 13:51 History of Present Illness HPI narrative: Patient is a 68-year-old female who presents ER with left 5th digit pain. It hurts whenever she puts on her compression stockings and her shoes. Worse with bearing weight. No numbness or tingling. No known trauma. Related Data Home Medications Medication Instructions Recorded Confirmed aspirin 81 mg chewable tablet 81 mg PO QAM 01/26/20 12/18/23 hydroxyzine HCl 25 mg tablet 25 mg PO PRN PRN Itching 07/16/23 12/18/23 ibuprofen 200 mg tablet 600 mg PO DAILY Pain 10/16/23 12/18/23 triamcinolone acetonide 0.1 % topical 12/18/23 12/18/23 topical ointment Allergies Allergy/AdvReac Type Severity Reaction Status Date / Time No Known Allergies Allergy Unknown Verified 01/02/24 14:03 Review of Systems Constitutional: Constitutional: Reports no additional constitutional complaints Cardiovascular: Cardiovascular: Reports no additional cardiovascular complaints Respiratory: Respiratory: Reports no additional respiratory complaints Musculoskeletal: Musculoskeletal: Denies back pain, Reports arthralgias and Denies joint swelling Integumentary/Breasts: Skin/Breast: Reports system reviewed and no additional complaints, except as docu PMFSH Past Medical History Medical History Anxiety Cellulitis Cerebral palsy With mild left-sided weakness. COVID-19 (08/2021) H/O fall Hypertension Hypertriglyceridemia Kidney stones (03/2018) Legionella pneumonia (04/2019) Lymphedema Lymphedema Osteoarthritis Venous insufficiency of lower extremity Surgical History Surgical History History of ankle surgery (1959) Achilles tendon lengthening. History of cystoscopy (03/2018) With ureteral stent and stone extraction. History of dilation and curettage With uterine polypectomy. Status post laser ablation of incompetent vein Family History Family History Mother Breast cancer Sibling Breast cancer Other Hodgkin disease Father Parkinson disease Lymph node cancer Grandparent Leukemia Sibling Brain cancer Social History Social History Social History: The patient is and lives with her in [place]. They have no children. 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 She denies alcohol, tobacco, and illicit substance abuse. She designates her , Jae Arevalo, as her surrogate decision maker and she wishes to be a full code. Smoking status: Never smoker Alcohol intake: current Alcohol use details: social Substance use: never Substance use type: does not use Do You Feel Safe in your Home?: Yes Lack of Transportation: No Lack of Food: Never True Current Housing: I Have Housing Concerned About Future Housing: No Difficulty Paying Gas/Electric Bills: No Difficulty Paying for Meds: No Currently Unemployed: No Education: Associate Degree Difficulty w/ Childcare or Family Care: No Spiritual care concerns: No Exam Narrative: GENERAL: Well-appearing, well-nourished, and in no acute distress. HEAD: Normocephalic, atraumatic. ENT: Mucous membranes moist. EXTREMITIES: Normal range of motion. No edema. Tender palpation base left 5th digit of the foot. No deformity SKIN: Warm, dry, no rash. NEURO: Alert and oriented x3. PSYCH: Normal mood and affect. Course Course Emergency Course: toe fracture. Educated on treatment plan. Discharged with postop shoe. Patient ambulated without issue in the ER. Vital Signs Vital signs: Vital Signs Temperature 97.8 F 01/02/24 13:58 Pulse Rate 76 01/02/24 13:58 Respirator
== END 2024-01-02 15:53 | disposition home or self-care (01) ==
PROVIDERS: Emergency Provider Emergency Medicine; PCP Family Medicine
DX: S92.512A Displaced fracture of proximal phalanx of left lesser toe(s), initial encounter for closed fracture (principal); T14.90XA Injury, unspecified, initial encounter; J45.909 Unspecified asthma, uncomplicated; I10 Essential (primary) hypertension
CPT/HCPCS: 73630; 73660; 99284

== ENCOUNTER 2024-01-19 11:40 | Emergency (ER) | payer OTHER, SELFPAY ==
[2024-01-19 12:06] VITALS: BP 113/60; PULSE 68; RESP 18; TEMP 36.6; O2SAT 99
--- NOTE | 2024-01-19 12:19 | ED.FEMALEGU ---
HPI - Female Genitourinary General Chief complaint: Urogenital-Female Stated complaint: possible UTI Time Seen by Provider: 01/19/24 12:04 Source: patient Mode of arrival: ambulatory Limitations: no limitations History of Present Illness HPI Narrative: Patient presents with concern for a possible urinary tract infection. She has had urinary tract infections previously but denies any issues/ complications/ antibiotic resistant organisms to her knowledge. She denies any dysuria or hematuria but she has been having urgency and was incontinent of urine this morning when she stood up out of bed. No nausea, vomiting, back pain, flank pain. she does have a subjective fever. She has previously had a see a urologist before for kidney stones. She denies any abdominal pain. Related Data Home Medications Medication Instructions Recorded Confirmed aspirin 81 mg chewable tablet 81 mg PO QAM 01/26/20 12/18/23 hydroxyzine HCl 25 mg tablet 25 mg PO PRN PRN Itching 07/16/23 12/18/23 ibuprofen 200 mg tablet 600 mg PO DAILY Pain 10/16/23 12/18/23 triamcinolone acetonide 0.1 % topical 12/18/23 12/18/23 topical ointment Allergies Allergy/AdvReac Type Severity Reaction Status Date / Time No Known Allergies Allergy Unknown Verified 01/02/24 14:03 [facility] Past Medical History Medical History (Updated 01/20/24 @ 20:40 by Layla Fam MD) Anxiety Cellulitis Cerebral palsy With mild left-sided weakness. COVID-19 (08/2021) H/O fall History of UTI Hypertension Hypertriglyceridemia Kidney stones (03/2018) Legionella pneumonia (04/2019) Lymphedema Lymphedema Osteoarthritis Venous insufficiency of lower extremity Surgical History Surgical History History of ankle surgery (1959) Achilles tendon lengthening. History of cystoscopy (03/2018) With ureteral stent and stone extraction. History of dilation and curettage With uterine polypectomy. Status post laser ablation of incompetent vein Family History Family History Mother Breast cancer Sibling Breast cancer Other Hodgkin disease Father Parkinson disease Lymph node cancer Grandparent Leukemia Sibling Brain cancer Social History Social History Social History: The patient is and lives with her in [place]. They have no children. 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 She denies alcohol, tobacco, and illicit substance abuse. She designates her , Jae Arevalo, as her surrogate decision maker and she wishes to be a full code. Smoking status: Never smoker Alcohol intake: current Alcohol use details: social Substance use: never Substance use type: does not use Do You Feel Safe in your Home?: Yes Lack of Transportation: No Lack of Food: Never True Current Housing: I Have Housing Concerned About Future Housing: No Difficulty Paying Gas/Electric Bills: No Difficulty Paying for Meds: No Currently Unemployed: No Education: Associate Degree Difficulty w/ Childcare or Family Care: No Spiritual care concerns: No Exam Narrative: GENERAL: Well-appearing, well-nourished, and in no acute distress. Cheeks flushed. HEAD: Normocephalic, atraumatic. EYES: Non injected, non icteric ENT: Nares clear, no rhinorrhea or epistaxis. NECK: Supple. CHEST: Speaking in full sentences. No respiratory distress. HEART: Regular rate and rhythm. ABDOMEN: Soft, nondistended. no tenderness palpation including no suprapubic tenderness. : No CVA tenderness bilaterally EXTREMITIES: Normal range of motion. Venous stasis bilateral lower extremities SKIN: Warm, dry, no rash. NEURO: No focal deficits. Alert and oriented x3. PSYCH: Normal mood and affect. Course Vital Signs Vital signs: Vital Signs Tempera
[2024-01-19 14:06] LABS: Appearance Urine Turbid (Clear); Bacteria Urine 3+ /hpf; Bilirubin Urine 1+ (Negative); Blood Urine 3+ (Negative); Color Urine Dark Yellow (Yellow); Glucose Urine UA Negative (Negative); Ketones Urine Trace mg/dL (Negative); Leukocyte Esterase Ur 3+ LEU/UL (Negative); Need Manual Microscopic Reviewed; Nitrate Urine Negative (Negative); Non Pathogenic Casts >20; Protein Urine 2+ mg/dL (Negative); RBC Urine >100 /hpf (0-2); Specific Grav Ur 1.017 (1.001-1.035); Squamous Epithelial Cell Urine Occasional /hpf (Few); WBC Urine >100 /hpf (0-3)
[2024-01-19 14:07] LABS: Add Urine Microscopic? YES
[2024-01-19 14:16] VITALS: BP 119/73; PULSE 66; RESP 18; O2SAT 100
[2024-01-19] MEDS: NITROFURANTOIN MONOHYD MACROCR 100 MG CAP PO (14:26)
[2024-01-19 14:47] VITALS: BP 130/75; PULSE 78; RESP 19; TEMP 36.6; O2SAT 97
== END 2024-01-19 14:48 | disposition home or self-care (01) ==
PROVIDERS: Emergency Provider Student in an Organized Health Care Education/Training Program; PCP Family Medicine
DX: N39.0 Urinary tract infection, site not specified (principal); R32 Unspecified urinary incontinence; G80.9 Cerebral palsy, unspecified; I10 Essential (primary) hypertension; I87.2 Venous insufficiency (chronic) (peripheral); E78.1 Pure hyperglyceridemia; M19.90 Unspecified osteoarthritis, unspecified site; Z87.442 Personal history of urinary calculi; Z87.01 Personal history of pneumonia (recurrent); Z86.16 Personal history of COVID-19; Z79.82 Long term (current) use of aspirin
CPT/HCPCS: 81001; 87077; 87086; 87088; 87186; 99283; A9270

== ENCOUNTER 2024-03-09 13:06 | Observation (INO) | payer OTHER, SELFPAY ==
--- NOTE | ~2024-03-09 | XR_ITS ---
EXAMINATION: XR foot LT min 3V DATE: 03/09/2024 16:47 INDICATION: Left fifth toe pain. TECHNIQUE: 4 views of left foot were obtained. COMPARISON: Left foot radiographs 01/02/2024 FINDINGS: Bone alignment is normal. Again seen is a healing transverse fracture of base of fifth prox imal phalanx with callus formation. There is mild osteoarthritis of some of the interphalangeal joint s. There are enthesophytes at the posterior and plantar aspects of calcaneal tuberosity. There is het erotopic ossification of Achilles tendon. IMPRESSION: 1. Healing transverse fracture of base of fifth proximal phalanx again seen. 2. Mild polyarticular osteoarthritis. Reviewed, dictated and finalized at location E.
[2024-03-09 13:10] VITALS: BP 143/93; PULSE 72; RESP 16; TEMP 36.7; O2SAT 97
--- NOTE | 2024-03-09 16:04 | ED.SKABFB ---
HPI - Skin/Abscess/Foreign Bdy General Chief complaint: Skin/Abscess/Foreign Body <Aileen Thomason PA-C - Last Filed: 03/10/24 01:58> Stated complaint: cellulitis, night time incontinence <Aileen Thomason PA-C - Last Filed: 03/10/24 01:58> Time Seen by Provider: 03/09/24 16:06 <Aileen Thomason PA-C - Last Filed: 03/10/24 01:58> Focused HPI: 68 y/o F with a history of lymphedema presents to the emergency department with concerns for cellulitis to her left lower extremity for 1 week. Patient reports redness, tenderness and warmth as well as weeping. She is admitted the hospital in November for cellulitis to this extremity and is concerned is recurring again. She is also reporting pain to her left 5th digit. Denies injury trauma. She states she was told november that she had fractured her left toe and has been hurting since. She has been having difficulty wearing compression stockings secondary to the toe pain. She is also reporting nocturnal urinary incontinence since November of 2023. She denies dysuria or hematuria, abdominal pain, shortness of breath or fever. GENERAL: Well-appearing, well-nourished, and in no acute distress. HEAD: Normocephalic, atraumatic. CHEST: Clear to auscultation. ?No respiratory distress. EXTREMITY: LLE With lymphedema, erythema, mild warmth, weeping. Tenderness to the left toe. HEART: Regular rate and rhythm.? NEURO: ?Alert and oriented x3. Patient screened in triage and initial orders placed.? ?Additional care and disposition to be based upon?diagnostic testing and treatment. <Aileen Thomason PA-C - Last Filed: 03/10/24 01:58> History of Present Illness HPI narrative: 68 y/o F with a history of lymphedema presents to the emergency department with concerns for cellulitis to her left lower extremity for 1 week. Patient reports redness, tenderness and warmth as well as weeping. She is admitted the hospital in November for cellulitis to this extremity and is concerned is recurring again. She is also reporting pain to her left 5th digit. Denies injury trauma. She states she was told november that she had fractured her left toe and has been hurting since. She has been having difficulty wearing compression stockings secondary to the toe pain. She is also reporting nocturnal urinary incontinence since November of 2023. She denies dysuria or hematuria, abdominal pain, dyspnea, fever. <Aileen Thomason PA-C - Last Filed: 03/10/24 01:58> Related Data Home medications: Home Medications Medication Instructions Recorded Confirmed aspirin 81 mg chewable tablet 81 mg PO QAM 01/26/20 03/09/24 hydroxyzine HCl 25 mg tablet 25 mg PO PRN PRN Itching 07/16/23 03/09/24 ibuprofen 200 mg tablet 600 mg PO DAILY Pain 10/16/23 03/09/24 triamcinolone acetonide 0.1 % 0.1 applic topical PRN PRN itchy 12/18/23 03/09/24 topical ointment clotrimazole-betamethasone 1 1 applic topical BID PRN Itching 03/09/24 03/09/24 %-0.05 % topical cream <Aileen Thomason PA-C - Last Filed: 03/10/24 01:58> Allergies/Adverse reactions: Allergies Allergy/AdvReac Type Severity Reaction Status Date / Time No Known Allergies Allergy Unknown Verified 01/23/24 07:18 <Aileen Thomason PA-C - Last Filed: 03/10/24 01:58> Review of Systems Review of Systems: All systems reviewed & are unremarkable except as noted in HPI and below <Aileen Thomason PA-C - Last Filed: 03/10/24 01:58> [facility] Past Medical History Medical History: Medical History Anxiety Cellulitis Cerebral palsy With mild left-sided weakness. COVID-19 (08/2021) H/O fall History of UTI Hypertension Hypertriglyceridemia Kidney stones (03/2018) Legionella pneumonia (04/2019) Lymphedema Lymphedema Osteoarthritis Venous insufficiency of lower extremity <Aileen Thomason PA-C - Last Filed: 03/10/24 01:58> Surgical History Surgical History: Surgical History (Review
[2024-03-09 17:38] VITALS: BP 125/71; PULSE 71; RESP 21; TEMP 37.1; O2SAT 97
[2024-03-09 17:45] VITALS: BP 132/69; PULSE 78; RESP 19; O2SAT 97
[2024-03-09 17:45] LABS: Basophils Absolute Auto 0.1 K/mm3 (0.0-0.1); Basophils Percent Auto 0.6 % (0.2-1.2); Eosinophils Absolute Auto 1.1 K/mm3 (0-0.3); Eosinophils Percent Auto 11.4 % (0-4.4); Hematocrit 36.8 % (37.0-47.0); Hemoglobin 12.2 g/dL (12.0-15.0); Immature Granulocyte Absolute 0.09 K/mm3 (0.00-0.031); Immature Granulocyte Percent A 0.9 % (0-0.5); Lymphocytes Absolute Auto 2.07 K/mm3 (0.9-3.2); Mean Corpuscular HGB Conc 33.2 g/dl (32-36); Mean Corpuscular Hemoglobin 31.6 pg (26-34); Mean Corpuscular Volume 95.3 fl (80-100); Mean Platelet Volume 9.2 fl (7.4-10.4); Monocytes Absolute Auto 0.8 K/mm3 (0.1-0.6); Monocytes Percent Auto 8.1 % (2.6-8.5); Neutrophils Absolute Auto 5.7 K/mm3 (1.3-6.7); Platelet Count Result 243 k/mm3 (150-375); Red Blood Count 3.86 M/mm3 (4.2-5.4); Red Cell Distribution Width 13.5 % (11.5-14.5); White Blood Count 9.9 K/mm3 (4.5-10.0)
--- NOTE | 2024-03-09 17:45 | PC.NURSE ---
patient states they are unable to urinate at this time. educated patient about using call light with any urge
[2024-03-09 17:58] LABS: Alanine Aminotransferase 16 U/L (6-35); Albumin Level 3.8 g/dL (3.5-5.1); Alkaline Phosphatase 91 U/L (38-126); Anion Gap 7 mmol/L (4-12); Aspartate Amino Transferase 19 U/L (14-36); Bilirubin,Total 0.4 mg/dL (0.2-1.3); Blood Urea Nitrogen 32 mg/dL (7-17); Calcium 8.7 mg/dL (8.4-10.2); Carbon Dioxide 28 mmol/L (22-30); Chloride 105 mmol/L (98-107); Estimated Glomerular Filt Rate 41; Glucose 98 mg/dL (65-110); Potassium 4.2 mmol/L (3.4-5.0); Sodium 140 mmol/L (137-145)
[2024-03-09 18:00] LABS: CRP 3.8 mg/dL (<1.0)
[2024-03-09 18:04] LABS: D Dimer 0.74 ug/mL (<0.48)
[2024-03-09 18:11] LABS: Erythrocyte Sedimentation Rate 63 mm/hr (0-20)
[2024-03-09 18:14] LABS: Add Urine Microscopic? YES; Appearance Urine Clear (Clear); Bacteria Urine 4+ /hpf; Bilirubin Urine Negative (Negative); Blood Urine Negative (Negative); Color Urine Yellow (Yellow); Glucose Urine UA Negative (Negative); Ketones Urine Negative (Negative); Leukocyte Esterase Ur 2+ LEU/UL (Negative); Nitrate Urine Positive (Negative); Non Pathogenic Casts 0-2; Protein Urine Trace mg/dL (Negative); RBC Urine 0-2 /hpf (0-2); Specific Grav Ur 1.016 (1.001-1.035); Squamous Epithelial Cell Urine None Seen /hpf (Few); Urobilinogen Urine 0.2 mg/dL (<2.0); WBC Urine >100 /hpf (0-3); pH Urine 5.5 (5.0-9.0)
--- NOTE | 2024-03-09 20:28 | PM.IMHP ---
H&P: HPI History of Present Illness Date/Time: 03/09/24 20:28 Chief Complaint: LLE cellulitis Narrative: EXAMINATION: XR foot LT min 3V DATE: 03/09/2024 16:47 INDICATION: Left fifth toe pain. TECHNIQUE: 4 views of left foot were obtained. COMPARISON: Left foot radiographs 01/02/2024 FINDINGS: Bone alignment is normal. Again seen is a healing transverse fracture of base of fifth proximal phalanx with callus formation. There is mild osteoarthritis of some of the interphalangeal joints. There are enthesophytes at the posterior and plantar aspects of calcaneal tuberosity. There is heterotopic ossification of Achilles tendon. IMPRESSION: 1. Healing transverse fracture of base of fifth proximal phalanx again seen. 2. Mild polyarticular osteoarthritis. Review of Systems Review of Systems: left lower extremity increased drainage PMFSH Past Medical History Medical History Anxiety Cellulitis Cerebral palsy With mild left-sided weakness. COVID-19 (08/2021) H/O fall History of UTI Hypertension Hypertriglyceridemia Kidney stones (03/2018) Legionella pneumonia (04/2019) Lymphedema Lymphedema Osteoarthritis Venous insufficiency of lower extremity Surgical History Surgical History History of ankle surgery (1958) Achilles tendon lengthening. History of cystoscopy (03/2018) With ureteral stent and stone extraction. History of dilation and curettage With uterine polypectomy. Status post laser ablation of incompetent vein Family History Family History Mother Breast cancer Sibling Breast cancer Other Hodgkin disease Father Parkinson disease Lymph node cancer Grandparent Leukemia Sibling Brain cancer Social History Social History Social History: The patient is and lives with her in [place]. They have no children. 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 She denies alcohol, tobacco, and illicit substance abuse. She designates her , Jae Arevalo, as her surrogate decision maker and she wishes to be a full code. Smoking status: Never smoker Second hand tobacco smoke exposure: No Alcohol intake: current Alcohol use details: social Substance use: never Substance use type: does not use Do You Feel Safe in your Home?: Yes Lack of Transportation: No Lack of Food: Never True Current Housing: I Have Housing Concerned About Future Housing: No Difficulty Paying Gas/Electric Bills: No Difficulty Paying for Meds: No Currently Unemployed: No Education: Associate Degree Difficulty w/ Childcare or Family Care: No Spiritual care concerns: No Meds Home Medications and Allergies Home Medications Medication Instructions Recorded Confirmed Type aspirin 81 mg chewable tablet 81 mg PO QAM 01/26/20 03/09/24 History hydroxyzine HCl 25 mg tablet 25 mg PO PRN PRN Itching 07/16/23 03/09/24 History nifedipine 30 mg tablet,extended 30 mg PO 1700 #90 tabs 09/24/23 03/09/24 Rx release ibuprofen 200 mg tablet 600 mg PO DAILY Pain 10/16/23 03/09/24 History atenolol 25 mg tablet 25 mg PO DAILY #90 tabs 12/17/23 03/09/24 Rx oxybutynin chloride 5 mg tablet 5 mg PO DAILY #90 tabs 12/17/23 03/09/24 Rx triamcinolone acetonide 0.1 % 0.1 applic topical PRN PRN itchy 12/18/23 03/09/24 History topical ointment alendronate 70 mg tablet See Rx Instructions .Route 02/11/24 03/09/24 Rx .COMPLEX #12 tabs clotrimazole-betamethasone 1 1 applic topical BID PRN Itching 03/09/24 03/09/24 History %-0.05 % topical cream Allergies Allergy/AdvReac Type Severity Reaction Status Date / Time No Known Allergies Allergy Unknown Verified 01/23/24 07:18 Vital Signs Vital Signs - 24 hr 03/09/24 13:10 03/09/24 17:
[2024-03-09 21:25] VITALS: BP 129/57; PULSE 67; RESP 19; O2SAT 98
--- NOTE | 2024-03-09 21:27 | PC.NURSE ---
myself and ESHA Masters attempted IV insertion multiple times. JUJU Lin attempted ultrasounds IV with no successful attempts. called in house counsel Kaycee who stated to bring them upstairs and they will attempt to get the IV.
[2024-03-09 21:51] LABS: NT Pro B Type Natriuretic Pept 234 pg/mL (19.9-100)
[2024-03-09 22:00] VITALS: BP 129/88; PULSE 65; RESP 18; TEMP 36.3; O2SAT 98; BMI 52.8
--- NOTE | 2024-03-09 22:27 | ADMGEN ---
This patient, Savanna Arevalo, was admitted to [facility] Surg Room 305-02. Patient/family oriented to hospital policies and general routines including ID bracelet, bed and alarms, visiting hours, pain management, procedures, bathroom and other care routines, personal items, smoking policy, room service/diet, and visiting hours. Information on how to activate the Rapid Response Team has been discussed. Patient/Family are encouraged to report perceived risks to care and to ask questions if they do not understand what they are told or what they should do.
[2024-03-10] MEDS: VANCOMYCIN 1,500 MG/NS 500 ML 1,500 MG/500 ML BAG 250 MG IVPB (00:54)
[2024-03-10 05:09] VITALS: BP 154/72; PULSE 77; RESP 20; TEMP 36.4; O2SAT 96
--- NOTE | 2024-03-10 07:41 | PM.IMPN ---
Progress Note: A&P Assessment and Plan (1) UTI (urinary tract infection): Qualifiers: Hematuria presence: without hematuria Urinary tract infection type: acute cystitis Qualified Code(s): N30.00 - Acute cystitis without hematuria Code(s): N39.0 - Urinary tract infection, site not specified Status: Acute Assessment and Plan: Reports urinary frequency and urinary incontinence. During the day she is able to make it to the restroom but at night she has recurrent incontinence particularly upon standing. She wears a depends and this is likely contributing to her frequent UTIs. I discussed with her following up with Urology as an outpatient as well as [facility] to workup her urinary incontinence. She was started on Rocephin Urinary culture pending, blood culture pending (2) Cellulitis of left lower extremity: Code(s): L03.116 - Cellulitis of left lower limb Status: Acute Assessment and Plan: Admit to regular medical floor Patient is started on Rocephin and vancomycin. Stopping vancomycin as her wound does appear acutely infected. There is some warmth appreciated but the drainage is clear. Wound care consulted and recs appreciated---they agree this does not appear infected. (3) Chronic venous insufficiency: Code(s): I87.2 - Venous insufficiency (chronic) (peripheral) Status: Chronic Assessment and Plan: encourage the use of compression stocking vs MEAGAN wraps for venous return. Plan DVT prophylaxis: Lovenox GI prophylaxis: na Glycemic control: na Code Status: full code Disposition: 68 year old female who presents from home with complaints of increased drainage to her left lower leg cellulitis and increased pain. She also reports urinary frequency and incontinence. U/A was concerning for UTI. She was started on antibiotics for UTI and possible cellulitis. Antibiotics have since been tailored to treat UTI. Anticipate discharge tomorrow back to home. Medication reconciliation obtained via the following: Nurse completed on admission The file time of this note does not necessarily represent the time the patient was seen. Subjective Date/time seen: 03/10/24 07:41 Interval history: This is a 66-year-old female with history of cellulitis, lymphedema, and hypertension who presented to the emergency department from home for evaluation of left lower extremity cellulitis for 1 week. Review of the chart shows this is a chronic wound secondary to her chronic lymphedema. She has not been able to wear compression stockings as of late as she has a fractured 5th toe and the stockings cause pain. UA was concerning for infection. She was admitted for IV antibiotics. 03/10: No acute events overnight. Her is present during my exam. They report increased erythema and serous drainage to her left lower leg. The leg does not appear infected to me. There is definitely inflammation and some edema but she has chronic lower extremity swelling from lymphedema. Will continue with antibiotics today for UTI as she has frequency and urinary incontinence. Review of Systems Review of Systems: left lower extremity increased drainage Exam Narrative: General: well appearing, appears stated age. HEENT: normocephalic, atraumatic. Mucous membranes moist. EOMI, PERRLA, bilateral sclera anicteric, no conjunctival injection. Neck supple without JVD, lymphadenopathy, or bruit. Respiratory: clear to auscultation bilaterally. No rales/rhonic/slight expiratory wheezes in upper lobes. Cardiovascular: Regular rate and rhythm, normal S1-S2 upon auscultation. No murmurs, rubs, or clicks. PMI is nondisplaced, capillary refill less than 3 second. Abdomen: Soft, round, no pulsatile masses, nondistended and nontender. No rebound, no guarding. No CVA tenderness, no hepatosplenomegaly. Bowel sounds presen
[2024-03-10 08:27] VITALS: PULSE 76
[2024-03-10] MEDS: oxyBUTYnin CHLORIDE 5 MG TABLET PO (08:27)
[2024-03-10] MEDS: ASPIRIN 81 MG CHEWABLE TABLET PO (08:27)
[2024-03-10] MEDS: atenoloL 25 MG TABLET PO (08:27)
[2024-03-10] MEDS: BETAMETHASONE/CLOTRIMAZOLE CREAM 15 GM TUBE 1 APPLIC TOPICAL (08:29)
[2024-03-10 08:30] LABS: Estimated CRCL calculation 63 ml/min; Estimated Glomerular Filt Rate 55
[2024-03-10 09:25] VITALS: O2SAT 97
[2024-03-10 14:00] VITALS: BP 130/72; PULSE 59; RESP 20; TEMP 35.9; O2SAT 97
[2024-03-10] MEDS: NIFEdipine 30 MG TAB.ER.24 PO (16:47)
[2024-03-10] MEDS: ENOXAPARIN 40 MG/0.4 ML SYRINGE SUB-Q (16:47)
[2024-03-10 21:01] VITALS: BP 130/68; PULSE 59; RESP 16; TEMP 36.4; O2SAT 95
[2024-03-11 06:00] VITALS: BP 145/56; PULSE 68; RESP 21; TEMP 36.1; O2SAT 96
[2024-03-11 07:10] LABS: Basophils Absolute Auto 0.1 K/mm3 (0.0-0.1); Basophils Percent Auto 0.9 % (0.2-1.2); Eosinophils Absolute Auto 0.9 K/mm3 (0-0.3); Eosinophils Percent Auto 10.1 % (0-4.4); Hematocrit 36.6 % (37.0-47.0); Immature Granulocyte Absolute 0.08 K/mm3 (0.00-0.031); Immature Granulocyte Percent A 0.9 % (0-0.5); Lymphocytes Absolute Auto 1.68 K/mm3 (0.9-3.2); Lymphocytes Percent Auto 18.7 % (18.3-44.2); Mean Corpuscular HGB Conc 32.8 g/dl (32-36); Mean Corpuscular Hemoglobin 31.2 pg (26-34); Mean Corpuscular Volume 95.1 fl (80-100); Mean Platelet Volume 9.1 fl (7.4-10.4); Monocytes Absolute Auto 0.8 K/mm3 (0.1-0.6); Monocytes Percent Auto 8.4 % (2.6-8.5); Neutrophils Absolute Auto 5.5 K/mm3 (1.3-6.7); Platelet Count Result 212 k/mm3 (150-375); Red Blood Count 3.85 M/mm3 (4.2-5.4); Red Cell Distribution Width 13.5 % (11.5-14.5)
[2024-03-11 07:28] LABS: Alanine Aminotransferase 14 U/L (6-35); Albumin Level 3.7 g/dL (3.5-5.1); Alkaline Phosphatase 83 U/L (38-126); Anion Gap 8 mmol/L (4-12); Aspartate Amino Transferase 17 U/L (14-36); Bilirubin,Total 0.5 mg/dL (0.2-1.3); Blood Urea Nitrogen 20 mg/dL (7-17); Calcium 8.7 mg/dL (8.4-10.2); Carbon Dioxide 26 mmol/L (22-30); Chloride 106 mmol/L (98-107); Estimated CRCL calculation 70 ml/min; Estimated Glomerular Filt Rate > 60; Glucose 97 mg/dL (65-110); Magnesium 1.9 mg/dL (1.6-2.3); Potassium 3.8 mmol/L (3.4-5.0); Sodium 140 mmol/L (137-145)
[2024-03-11 08:55] VITALS: PULSE 68
[2024-03-11] MEDS: ASPIRIN 81 MG CHEWABLE TABLET PO (08:55)
[2024-03-11] MEDS: ENOXAPARIN 40 MG/0.4 ML SYRINGE SUB-Q (08:55)
[2024-03-11] MEDS: oxyBUTYnin CHLORIDE 5 MG TABLET PO (08:55)
[2024-03-11] MEDS: atenoloL 25 MG TABLET PO (08:55)
--- NOTE | 2024-03-11 13:14 | PM.DS ---
DS: Admitting Diagnosis Discharge Date 03/11 Admitting Diagnosis lower leg swelling DS: Discharge Diagnosis Discharge Diagnosis (1) UTI (urinary tract infection): Qualifiers: Hematuria presence: without hematuria Urinary tract infection type: acute cystitis Qualified Code(s): N30.00 - Acute cystitis without hematuria Code(s): N39.0 - Urinary tract infection, site not specified Status: Acute Assessment and Plan: Reports urinary frequency and urinary incontinence. During the day she is able to make it to the restroom but at night she has recurrent incontinence particularly upon standing. She wears a depends and this is likely contributing to her frequent UTIs. I discussed with her following up with Urology as an outpatient as well as DIRECTOR OF VOCATIONAL GUIDANCE to workup her urinary incontinence. She was started on Rocephin Urinary culture pending, blood culture pending (2) Cellulitis of left lower extremity: Code(s): L03.116 - Cellulitis of left lower limb Status: Acute Assessment and Plan: Admit to regular medical floor Patient is started on Rocephin and vancomycin. Stopping vancomycin as her wound does appear acutely infected. There is some warmth appreciated but the drainage is clear. Wound care consulted and recs appreciated---they agree this does not appear infected. (3) Chronic venous insufficiency: Code(s): I87.2 - Venous insufficiency (chronic) (peripheral) Status: Chronic Assessment and Plan: encourage the use of compression stocking vs MEAGAN wraps for venous return. Plan DVT prophylaxis: Lovenox GI prophylaxis: na Glycemic control: na Code Status: full code Disposition: 68 year old female who presents from home with complaints of increased drainage to her left lower leg cellulitis and increased pain. She also reports urinary frequency and incontinence. U/A was concerning for UTI. She was started on antibiotics for UTI and possible cellulitis. Antibiotics have since been tailored to treat UTI. Anticipate discharge tomorrow back to home. Medication reconciliation obtained via the following: Nurse completed on admission The file time of this note does not necessarily represent the time the patient was seen. DS: Summary Hospital Course Reason for hospitalization: UTI Hospital Course: This is a 66-year-old female with history of cellulitis, lymphedema, and hypertension who presented to the emergency department from home for evaluation of left lower extremity cellulitis for 1 week. Review of the chart shows this is a chronic wound secondary to her chronic lymphedema. She has not been able to wear compression stockings as of late as she has a fractured 5th toe and the stockings cause pain. UA was concerning for infection. She was admitted for IV antibiotics. Wound care saw her in consult and did not feel like her lower extremity wound was infected. I was inclined to agree as the drainage was serous and minimal warmth noted. The patient did also complain of urinary frequency and incontinence. She had a concern for UTI on UA and urine culture grew E coli. I discharged her on Augmentin for a total course of 3 days for simple cystitis. She was instructed to perform her lymphedema treatments and elevate her legs as this is what increased the drainage to her wounds. Overall she did well was stable on discharge. Time Spent with Patient Time attestation: Total time spent providing and/or coordinating discharge services: 65 Exam Narrative: General: well appearing, appears stated age. HEENT: normocephalic, atraumatic. Mucous membranes moist. EOMI, PERRLA, bilateral sclera anicteric, no conjunctival injection. Neck supple without JVD, lymphadenopathy, or bruit. Respiratory: clear to auscultation bilaterally. No rales/rhonic/slight expiratory wheezes in upper lobes. Car
== END 2024-03-11 13:40 | disposition home or self-care (01) ==
LOC: ANHED 19:54 → ANH3MEDSUR 03-10 06:55
PROVIDERS: Admitting Provider Internal Medicine; Emergency Provider Physician Assistant; PCP Family Medicine; Visit Provider Nurse Practitioner Acute Care
DX: L03.116 Cellulitis of left lower limb (principal); N30.00 Acute cystitis without hematuria; I87.2 Venous insufficiency (chronic) (peripheral); F41.9 Anxiety disorder, unspecified; I10 Essential (primary) hypertension; I89.0 Lymphedema, not elsewhere classified; Z68.42 Body mass index [BMI] 45.0-49.9, adult
CPT/HCPCS: 36415; 73630; 80053; 81001; 82565; 83735; 83880; 85025; 85380; 85652; 86140; 87040; 87077; 87086; 87088; 87186; 96365; 96366; 96372; 96376; 99285; A9270; G0378; J0696; J1650; J3370

== ENCOUNTER 2025-01-19 12:45 | Emergency (ER) | payer OTHER, SELFPAY ==
[2025-01-19] VITALS (13 sets, daily range): BP systolic 119–165; BP diastolic 59–88; PULSE 60–88; RESP 16–20; TEMP 36.4–36.8; O2SAT 95–100
--- NOTE | ~2025-01-19 | US_ITS ---
EXAMINATION: US venous doppler [facility] DATE: 01/19/2025 18:27 INDICATION: Pain and swelling and erythema TECHNIQUE: Grayscale ultrasound images without and with compression and Doppler ultrasound images of the bilateral lower extremity veins were obtained. COMPARISON: 07/16/2023. FINDINGS: The visualized portions of right common femoral vein, profunda (deep) femoral vein, femoral vein, pop liteal vein, peroneal veins, posterior tibial veins, and greater saphenous vein outflow are patent. The visualized portions of left common femoral vein, profunda femoral vein, femoral vein, popliteal v ein, peroneal veins, posterior tibial veins, and greater saphenous vein outflow are patent. IMPRESSION: 1. No deep venous thrombosis. Reviewed, dictated and finalized at location A.
--- NOTE | 2025-01-19 15:17 | ED.EXTPRO ---
HPI - Extremity Problem General Chief complaint: Extremity Problem,Nontraumatic <Aileen Thomason PA-C - Last Filed: 01/19/25 15:22> Stated complaint: cellulitis in both legs <Aileen Thomason PA-C - Last Filed: 01/19/25 15:22> Time Seen by Provider: 01/19/25 16:50 <Aileen Thomason PA-C - Last Filed: 01/19/25 15:22> Focused HPI: 69 y/o F with reported recurrent lower extremetity cellulitis an lymphedema presents to the ED for rash or lower extremities for the past 3 weeks. Patient states the rash is itchy and red. Denies any pain in the rash, fever She has been using several topical creams on at home without improvement. She notes an extensive history of recurring cellulitis and states she always needs IV antibiotics for successful treatment. She follows with a wound clinic at [facility], however has not seen them in about a year. She denies any new lotions or creams, denies new detergents. GENERAL: Well-appearing, well-nourished, and in no acute distress. HEAD: Normocephalic, atraumatic. CHEST: Clear to auscultation. ?No respiratory distress. EXT: Bilateral lower extremity beefy erythematous rash with overlying excoriation, blanching erythema, raised borders. Weeping to the left lower extremity, no weeping to the right lower extremity. Significant open wounds. HEART: Regular rate and rhythm.? NEURO: ?Alert and oriented x3. Patient screened in triage and initial orders placed.? ?Additional care and disposition to be based upon?diagnostic testing and treatment. <Aileen Thomason PA-C - Last Filed: 01/19/25 15:22> History of Present Illness HPI Narrative: Agree with the above with the following additions/corrections: Patient currently on Zepbound and has lost 28 lb. She previously seen vascular surgeon Joseph Rene at [facility] but when he was out (permanently verses on leave, unclear) she then changed to Dr Gonzalez. Had previously been going to wound clinic through [facility] but released. No allergies to antibiotics. Her sister please/was a pharmacist who at 1 point had recommended that she had been day fitted for IV antibiotics although this was several years ago when she was having issues with her legs. She has been diagnosed with lymphedema and uses a machine for this. The Velcro had worn out and her helped fix this/trouble shoot it. The last time she required IV antibiotics was July 21 and February 2024. She reports her legs have been red and swollen and draining for 3 weeks. No fevers. Had been on oral antibiotics at home (possibly clinda 300) and reports that symptoms have not been improving. Not on anticoagulation although he is on 81 mg aspirin. No history of MRSA. <Layla Fam MD - Last Filed: 01/21/25 11:54> Related Data Home medications: Home Medications ?Medication ?Instructions ?Recorded ?Confirmed ?Last Taken ?Type aspirin 81 mg chewable tablet 81 mg PO QAM 01/26/20 03/13/24 03/08/24 History ibuprofen 200 mg tablet 600 mg PO DAILY Pain 10/16/23 03/13/24 03/08/24 History triamcinolone acetonide 0.1 % 0.1 applic topical PRN PRN itchy 12/18/23 03/13/24 03/08/24 History topical ointment clotrimazole-betamethasone 1 1 applic topical BID PRN Itching 03/09/24 03/13/24 03/08/24 History %-0.05 % topical cream <Aileen Thomason PA-C - Last Filed: 01/19/25 15:22> Allergies/Adverse reactions: Allergies Allergy/AdvReac Type Severity Reaction Status Date / Time No Known Allergies Allergy Unknown Verified 01/19/25 12:59 <Aileen Thomason PA-C - Last Filed: 01/19/25 15:22> [facility] Past Medical History Medical History: Medical History History of UTI Cellulitis of left lower extremity H/O fall Lymphedema Cellulitis COVID-19 (08/2021) Anxiety Lymphedema Hypertriglyceridemia Venous insufficiency of lower extremity Osteoarthritis Cerebral palsy With mild left-sided weakness. Legionella pneumonia (04/2019) Kidney stones (03/2018) Hypertension Cellulitis <Aileen Thomason PA-C - Last Filed: 01/19/25 15:22> Surgical History Surgical History: Surgical History Status post laser ablation of incompetent vein History of cystoscopy (03/2018) With ureteral stent and stone extraction. History of ankle surgery (1959) Achilles tendon lengthening. History of dilation and curettage With uterine polypectomy. <Aileen Thomason PA-C - Last Filed: 01/19/25 15:22> Family History Family History: Family History Mother Breast cancer Sibling Breast cancer Other Hodgkin disease Father Parkinson disease Lymph node cancer Grandparent Leukemia Sibling Brain cancer <Aileen Thomason PA-C - Last Filed: 01/19/25 15:22> Social History Social History: Social History Social History: The patient is and lives with her in [place]. They have no children. 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 She denies alcohol, tobacco, and illicit substance abuse. She designates her , Jae Arevalo, as her surrogate decision maker and she wishes to be a full code. Smoking status: Never smoker Second hand tobacco smoke exposure: No Alcohol intake: current Alcohol use details: social Substance use: never Substance use type: does not use Do You Feel Safe in your Home?: Yes Lack of Transportation: No Lack of Food: Never True Current Housing: I Have Housing Concerned About Future Housing: No Difficulty Paying Gas/Electric Bills: No Difficulty Paying for Meds: No Currently Unemployed: No Education: Associate Degree Difficulty w/ Childcare or Family Care: No Spiritual care concerns: No <Aileen Thomason PA-C - Last Filed: 01/19/25 15:22> Exam Narrative: GENERAL: Well-appearing, well-nourished, and in no acute distress. HEAD: Normocephalic, atraumatic. EYES: Non injected, non icteric ENT: Nares clear, no rhinorrhea or epistaxis. Gross auditory acuity intact. NECK: Supple. No meningismus. CHEST: Speaking in full sentences. No respiratory distress. HEART: Regular rate and rhythm. . ABDOMEN: Morbid obesity but Soft, nondistended. EXTREMITIES.SKIN: Warm. Edema bilaterally though non pitting. Excoriation. Well-demarcated erythematous regions along bilateral lower extremities particularly along the anterior surface. Very thickened woody skin with nodules particularly appreciated along the left medial aspect of leg although both legs with significant venous stasis and classic medial aspect findings. Erythematous areas are mildly warm though not significantly more so than the surrounding areas. Areas of weeping have seemingly improved between initial examination and current examination. Do not concur with assessment of significant open wounds as indicated in triage assessment as appear stable at this time. NEURO: No focal deficits. Alert and oriented. Answering questions. Following commands. Normal speech without aphasia or dysarthria. PSYCH: Normal mood and affect. <Layla Fam MD - Last Filed: 01/21/25 11:54> Course Vital Signs Vital signs: Vital Signs Temperature 97.5 F L 01/19/25 12:57 Pulse Rate 60 01/19/25 12:57 Respiratory Rate 20 01/19/25 12:57 Blood Pressure 119/84 01/19/25 12:57 Pulse Oximetry 98 01/19/25 12:57 Oxygen Delivery Room Air 01/19/25 12:57 Temperature 97.9 F 01/19/25 16:33 Pulse Rate 86 01/19/25 18:40 Respiratory Rate 16 01/19/25 18:40 Blood Pressure 142/88 H 01/19/25 18:40 Pulse Oximetry 99 01/19/25 18:40 Oxygen Delivery Room Air 01/19/25 12:57 <Aileen Thomason PA-C - Last Filed: 01/19/25 15:22> Vital Signs Temperature 97.5 F L 01/19/25 12:57 Pulse Rate 60 01/19/25 12:57 Respiratory Rate 20 01/19/25 12:57 Blood Pressure 119/84 01/19/25 12:57 Pulse Oximetry 98 01/19/25 12:57 Oxygen Delivery Room Air 01/19/25 12:57 Temperature 97.9 F 01/19/25 16:33 Pulse Rate 86 01/19/25 18:40 Respiratory Rate 16 01/19/25 18:40 Blood Pressure 142/88 H 01/19/25 18:40 Pulse Oximetry 99 01/19/25 18:40 Oxygen Delivery Room Air 01/19/25 12:57 <Layla Fam MD - Last Filed: 01/21/25 11:54> MDM - Extremity (Nontraumatic) MDM Narrative Medical decision making narrative: Patient presents with concern for bilateral lower extremity cellulitis. Her legs are swollen have draining. Currently on clindamycin. In the emergency department they are afebrile with vital signs within normal limits. Patient has no leukocytosis. Mildly elevated ESR and CRP. BNP only mildly elevated but not to a degree to suggest acute heart failure. Patient has some tenderness to palpation and there is some evidence of cobblestoning on the right more so than the left consistent with edema however the areas of erythema are not particularly warm and in general have a very distinct discrete border thus less consistent with a diagnosis of cellulitis. Point of care ultrasound performed which does show some nonspecific cobblestoning reflecting edema in the RLE but not present on the left. This is nonspecific. In general, this appears more to be consistent with venous stasis and in particular venous stasis dermatitis more so than padmini infection. I do not believe patient requires admission for IV antibiotics I believe she would benefit more from we establishing with vascular surgeon. Noted that she could do so through [facility] where she had previously been or 2 contact her primary care physician for referral if she needs a new 1. In addition advise that she reestablish with [facility] wound clinic and/or provided [facility] contact information is the may have additional thoughts and recommendations. She and agree with the plan and verifies understanding. Otherwise stable for discharge. <Layla Fam MD - Last Filed: 01/21/25 11:54> Differential Diagnosis Differential diagnosis: Likely superficial thrombophlebitis, deep vein thrombosis of lower extremity and other (Cellulitis, abscess, venous stasis, lymphedema) <Layla Fam MD - Last Filed: 01/21/25 11:54> Lab Data Attestation: I reviewed the patient's lab results. <Layla Fam MD - Last Filed: 01/21/25 11:54> Result diagrams: 01/19/25 15:49 01/19/25 15:49 <Aileen Thomason PA-C - Last Filed: 01/19/25 15:22> Labs: Lab Results 01/19/25 01/19/25 Range/Units 15:49 18:00 WBC 8.8 (4.5-10.0) K/mm3 RBC 4.35 (4.2-5.4) M/mm3 Hgb 13.2 (12.0-15.0) g/dL Hct 40.2 (37.0-47.0) % MCV 92.4 (80-100) fl MCH 30.3 (26-34) pg MCHC 32.8 (32-36) g/dl RDW 13.1 (11.5-14.5) % Plt Count 217 (150-375) k/mm3 MPV 8.9 (7.4-10.4) fl Immature Gran % (Auto) 0.9 H (0-0.5) % Neut % (Auto) 65.2 (45.5-73.1) % Lymph % (Auto) 19.5 (18.3-44.2) % Randolph % (Auto) 7.4 (2.6-8.5) % Eos % (Auto) 6.4 H (0-4.4) % Baso % (Auto) 0.6 (0.2-1.2) % Lymph # (Auto) 1.71 (0.9-3.2) K/mm3 Randolph # (Auto) 0.7 H (0.1-0.6) K/mm3 Eos # (Auto) 0.6 H (0-0.3) K/mm3 Baso # (Auto) 0.1 (0.0-0.1) K/mm3 Abs Immat Gran (auto) 0.08 H (0.00-0.031) K/mm3 Absolute Neuts (auto) 5.7 (1.3-6.7) K/mm3 Absolute Nucleated RBC 0.000 (0.0-0.012) K/mm3 Nucleated RBC % 0.0 (0.0-0.2) % ESR 22 H (0-20) mm/hr Sodium 141 (137-145) mmol/L Potassium 4.2 (3.4-5.0) mmol/L Chloride 108 H (98-107) mmol/L Carbon Dioxide 25 (22-30) mmol/L Anion Gap 8 (4-12) mmol/L BUN 22 H (7-17) mg/dL Creatinine 0.94 (0.7-1.0) mg/dL Estim Creat Clear Calc 62 ml/min Estimated GFR 59 (59 - ) Glucose 96 (65-110) mg/dL Lactic Acid 0.8 (0.7-2.0) mmol/L Calcium 9.3 (8.4-10.2) mg/dL Total Bilirubin 0.5 (0.2-1.3) mg/dL AST 25 (14-36) U/L ALT 17 (6-35) U/L Alkaline Phosphatase 63 (38-126) U/L C-Reactive Protein 1.8 H (<1.0) mg/dL NT-Pro-B Natriuret Pep 188 H (19.9-100) pg/mL Total Protein 7.4 (6.3-8.2) g/dL Albumin 4.0 (3.5-5.1) g/dL <Aileen Thomason PA-C - Last Filed: 01/19/25 15:22> Lab Results 01/19/25 01/19/25 Range/Units 15:49 18:00 WBC 8.8 (4.5-10.0) K/mm3 RBC 4.35 (4.2-5.4) M/mm3 Hgb 13.2 (12.0-15.0) g/dL Hct 40.2 (37.0-47.0) % MCV 92.4 (80-100) fl MCH 30.3 (26-34) pg MCHC 32.8 (32-36) g/dl RDW 13.1 (11.5-14.5) % Plt Count 217 (150-375) k/mm3 MPV 8.9 (7.4-10.4) fl Immature Gran % (Auto) 0.9 H (0-0.5) % Neut % (Auto) 65.2 (45.5-73.1) % Lymph % (Auto) 19.5 (18.3-44.2) % Randolph % (Auto) 7.4 (2.6-8.5) % Eos % (Auto) 6.4 H (0-4.4) % Baso % (Auto) 0.6 (0.2-1.2) % Lymph # (Auto) 1.71 (0.9-3.2) K/mm3 Randolph # (Auto) 0.7 H (0.1-0.6) K/mm3 Eos # (Auto) 0.6 H (0-0.3) K/mm3 Baso # (Auto) 0.1 (0.0-0.1) K/mm3 Abs Immat Gran (auto) 0.08 H (0.00-0.031) K/mm3 Absolute Neuts (auto) 5.7 (1.3-6.7) K/mm3 Absolute Nucleated RBC 0.000 (0.0-0.012) K/mm3 Nucleated RBC % 0.0 (0.0-0.2) % ESR 22 H (0-20) mm/hr Sodium 141 (137-145) mmol/L Potassium 4.2 (3.4-5.0) mmol/L Chloride 108 H (98-107) mmol/L Carbon Dioxide 25 (22-30) mmol/L Anion Gap 8 (4-12) mmol/L BUN 22 H (7-17) mg/dL Creatinine 0.94 (0.7-1.0) mg/dL Estim Creat Clear Calc 62 ml/min Estimated GFR 59 (59 - ) Glucose 96 (65-110) mg/dL Lactic Acid 0.8 (0.7-2.0) mmol/L Calcium 9.3 (8.4-10.2) mg/dL Total Bilirubin 0.5 (0.2-1.3) mg/dL AST 25 (14-36) U/L ALT 17 (6-35) U/L Alkaline Phosphatase 63 (38-126) U/L C-Reactive Protein 1.8 H (<1.0) mg/dL NT-Pro-B Natriuret Pep 188 H (19.9-100) pg/mL Total Protein 7.4 (6.3-8.2) g/dL Albumin 4.0 (3.5-5.1) g/dL <Layla Fam MD - Last Filed: 01/21/25 11:54> Imaging Data Radiologist's impression: IMPRESSION: 1. No deep venous thrombosis. <Layla Fam MD - Last Filed: 01/21/25 11:54> Discharge Plan Discharge Clinical Impression: Elevated erythrocyte sedimentation rate, CRP elevated, Venous stasis dermatitis of both lower extremities <Aileen Thomason PA-C - Last Filed: 01/19/25 15:22> Patient Disposition: Home <FRANDY Leal Last Filed: 01/19/25 15:22> Condition: Stable <FRANDY Leal Last Filed: 01/19/25 15:22> Instructions: Antibiotic Form, Stasis Dermatitis (DC) <FRANDY Leal Last Filed: 01/19/25 15:22> Additional Instructions: As we discussed, your legs appear to have venous stasis / venous stasis dermatitis. Follow-up with your primary care physician. Recommend seeing vascular surgery and if you can reestablish with either of the vascular surgeons you would previously seen, call to do so verses get a referral from her primary care physician. Also recommend seeing wound care and you can either do through [facility] as you had before or [facility] (below). Acetaminophen/Tylenol (maximum 4000 mg per day) is safe to take with NSAIDs (ibuprofen/Motrin) for pain relief. Return to the emergency department any new, worsening, or unmanaged symptoms. <FRANDY Leal Last Filed: 01/19/25 15:22> Patient Language: Rwandan <Aileen Thomason PA-C - Last Filed: 01/19/25 15:22> Prescriptions: New ibuprofen 600 mg tablet 600 mg PO TID PRN (Reason: pain) Qty: 30 0RF acetaminophen 500 mg capsule 1,000 mg PO Q6H PRN (Reason: pain) Qty: 30 0RF No Action ibuprofen 200 mg tablet 600 mg PO DAILY triamcinolone acetonide 0.1 % ointment 0.1 applic topical PRN PRN (Reason: itchy) (DME) non-adherent bandage 8 X 10 bandage See Rx Instructions .Route Qty: 216 0RF Rx Instructions: change bandage daily furosemide 40 mg tablet 40 mg PO QAM Qty: 30 1RF potassium chloride 20 mEq/15 mL liquid 20 meq PO DAILY Qty: 1200 1RF aspirin 81 mg Tablet,Chewable 81 mg PO QAM clotrimazole-betamethasone 1-0.05 % cream 1 applic topical BID PRN (Reason: Itching) nifedipine 30 mg tablet extended release 24hr See Rx Instructions .ROUTE .COMPLEX Qty: 90 11RF Dose Instruction: TAKE ONE TABLET BY MOUTH EVERY DAY AT 5PM Rx Instructions: TAKE ONE TABLET BY MOUTH EVERY DAY AT 5PM Zepbound 7.5 mg/0.5 mL pen injector 7.5 mg subcut WEEKLY Qty: 2 0RF atenolol 25 mg tablet 25 mg PO DAILY Qty: 90 1RF Zepbound 5 mg/0.5 mL solution 5 mg subcut WEEKLY Qty: 2 2RF oxybutynin chloride 5 mg tablet 5 mg PO BID Qty: 180 1RF hydroxyzine HCl 25 mg tablet See Rx Instructions .ROUTE .COMPLEX Qty: 30 0RF Dose Instruction: TAKE 1 TABLET BY MOUTH FOUR TIMES DAILY NEEDED FOR ITCHING Rx Instructions: TAKE 1 TABLET BY MOUTH FOUR TIMES DAILY NEEDED FOR ITCHING clindamycin HCl 300 mg capsule See Rx Instructions .ROUTE .COMPLEX Qty: 40 1RF Dose Instruction: TAKE 1 CAPSULE BY MOUTH FOUR TIMES DAILY Rx Instructions: TAKE 1 CAPSULE BY MOUTH FOUR TIMES DAILY alendronate 70 mg tablet See Rx Instructions .ROUTE .COMPLEX Qty: 12 0RF Dose Instruction: TAKE 1 TABLET BY MOUTH 1 TIME A WEEK DIRECTED Rx Instructions: TAKE 1 TABLET BY MOUTH 1 TIME A WEEK DIRECTED <Aileen Thomason PA-C - Last Filed: 01/19/25 15:22> Follow-up/Referrals: [facility] [Other] Jordon Torres MD [Primary Care Provider] - <Aileen Thomason PA-C - Last Filed: 01/19/25 15:22> Stand Alone Forms: Work/School Release IP <Aileen Thomason PA-C - Last Filed: 01/19/25 15:22> Time of Disposition: 19:27 <Aileen Thomason PA-C - Last Filed: 01/19/25 15:22> 19:27 <Layla Fam MD - Last Filed: 01/21/25 11:54>
--- NOTE | 2025-01-19 15:23 | PC.NURSE ---
pt called for VS, no answer .
[2025-01-19 15:57] LABS: Basophils Absolute Auto 0.1 K/mm3 (0.0-0.1); Basophils Percent Auto 0.6 % (0.2-1.2); Eosinophils Absolute Auto 0.6 K/mm3 (0-0.3); Eosinophils Percent Auto 6.4 % (0-4.4); Hematocrit 40.2 % (37.0-47.0); Hemoglobin 13.2 g/dL (12.0-15.0); Immature Granulocyte Absolute 0.08 K/mm3 (0.00-0.031); Immature Granulocyte Percent A 0.9 % (0-0.5); Lymphocytes Absolute Auto 1.71 K/mm3 (0.9-3.2); Lymphocytes Percent Auto 19.5 % (18.3-44.2); Mean Corpuscular HGB Conc 32.8 g/dl (32-36); Mean Corpuscular Hemoglobin 30.3 pg (26-34); Mean Corpuscular Volume 92.4 fl (80-100); Mean Platelet Volume 8.9 fl (7.4-10.4); Monocytes Absolute Auto 0.7 K/mm3 (0.1-0.6); Monocytes Percent Auto 7.4 % (2.6-8.5); Neutrophils Absolute Auto 5.7 K/mm3 (1.3-6.7); Neutrophils Percent Auto 65.2 % (45.5-73.1); Platelet Count Result 217 k/mm3 (150-375); Red Blood Count 4.35 M/mm3 (4.2-5.4); Red Cell Distribution Width 13.1 % (11.5-14.5); White Blood Count 8.8 K/mm3 (4.5-10.0)
[2025-01-19 16:19] LABS: Alanine Aminotransferase 17 U/L (6-35); Alkaline Phosphatase 63 U/L (38-126); Anion Gap 8 mmol/L (4-12); Aspartate Amino Transferase 25 U/L (14-36); Bilirubin,Total 0.5 mg/dL (0.2-1.3); Blood Urea Nitrogen 22 mg/dL (7-17); CRP 1.8 mg/dL (<1.0); Calcium 9.3 mg/dL (8.4-10.2); Carbon Dioxide 25 mmol/L (22-30); Chloride 108 mmol/L (98-107); Estimated CRCL calculation 62 ml/min; Estimated Glomerular Filt Rate 59; Glucose 96 mg/dL (65-110); Potassium 4.2 mmol/L (3.4-5.0); Sodium 141 mmol/L (137-145); Total Protein 7.4 g/dL (6.3-8.2)
[2025-01-19 16:34] LABS: Erythrocyte Sedimentation Rate 22 mm/hr (0-20)
[2025-01-19 18:21] LABS: Lactic Acid Reflex 0.8 mmol/L (0.7-2.0)
[2025-01-19 18:31] LABS: NT Pro B Type Natriuretic Pept 188 pg/mL (19.9-100)
[2025-01-19] MEDS: KETOROLAC 15 MG/ML VIAL (*BKC) IV PUSH (20:08)
[2025-01-19] MEDS: HYDROcodone/acetaminophen (*CRX) 5-325 MG TABLET 1 TAB PO (20:08)
== END 2025-01-19 20:19 | disposition home or self-care (01) ==
PROVIDERS: Physician Assistant; Emergency Provider Student in an Organized Health Care Education/Training Program; PCP Family Medicine
DX: I87.8 Other specified disorders of veins (principal); R79.82 Elevated C-reactive protein (CRP); R70.0 Elevated erythrocyte sedimentation rate; I89.0 Lymphedema, not elsewhere classified; M79.89 Other specified soft tissue disorders
CPT/HCPCS: 36415; 80053; 83605; 83880; 85025; 85652; 86140; 87040; 93970; 96374; 99284; A9270; J1885

== ENCOUNTER 2025-02-06 12:34 | Outpatient (CLI) | payer OTHER, SELFPAY ==
--- NOTE | ~2025-02-06 | DEXA_ITS ---
Bone Density Report Name: CYNDI GRAYSON Age: 69 Sex: Female Ethnicity: White Date of : 1955 Indication: osteopenia; monitoring treatment; height loss; Referring Provider: CHRISTINA OROURKE Study: Bone densitometry was performed. Exam Date: February 06, 2025 Accession number: [id number] Bone Density: Region BMD T-score Z-score Classification AP Spine(L1-L4) 1.365 2.9 5.0 Normal Femoral Neck (Left) 0.547 -2.7 -0.9 Osteoporosis Total Hip (Left) 0.859 -0.7 0.9 Normal Femoral Neck (Right) 0.603 -2.2 -0.4 Osteopenia Total Hip (Right) 0.800 -1.2 0.4 Osteopenia Total Hip Mean 0.829 -1.0 0.7 Normal World Health Organization criteria for BMD impression classify patients as: Normal (T-score at or above -1.0), Osteopenia (T-score between -1.0 and -2.5), or Osteoporosis (T-score at or below -2.5). 10-year Fracture Risk: FRAX not reported because: Some T-score for Spine Total or Hip Total or Femoral Neck at or below -2.5 Treated for osteoporosis Previous Exams: Region Exam Age BMD T-score BMD Change BMD Change Date g/cm2 vs Baseline vs Previous AP Spine (L1-L4) 02/06/2025 69 1.365 2.9 0.085 (6.6%)* 0.085 (6.6%)* 01/20/2023 67 1.280 2.1 Total Hip(Left) 02/06/2025 69 0.859 -0.7 0.068 (8.6%)# 0.068 (8.6%)# 01/20/2023 67 0.791 -1.2 Total Hip(Right) 02/06/2025 69 0.800 -1.2 -0.009 (-1.1%) -0.009 (-1.1%) 01/20/2023 67 0.809 -1.1 *Denotes significance at 95% confidence level, LSC for AP Spine = 0.022 g/cm2, LSC for Total Hip = 0.027 g/cm2 # Denotes dissimilar scan types or analysis methods Clinical Information Provided by Patient: Is being treated for osteoporosis Has used the following medications: Fosamax (i.e. alendronate) Patient maximum height was 65.5 Menopause Age: 49 No regular weight bearing exercise Onset of menses at age 11 Number of children 0 Impression: The patient has osteoporosis, based on the Left Femoral Neck T-score. No significant bone loss was observed. Discussion: PATIENT UNDER TREATMENT WITH NO SIGNIFICANT BMD LOSS SINCE LAST EXAM. In an untreated patient, BMD typically declines with age. A lack of decline or gain is usually a sign that treatment is efficacious and fracture risk is reduced. It is important to ask patients whether they are taking their medications and to encourage continued and appropriate compliance with their osteoporosis therapies to reduce fracture risk. It is also important to review their risk factors and encourage appropriate calcium and vitamin D intakes, exercise, fall prevention and other lifestyle measures. Follow-Up: Consider a repeat BMD and Vertebral Fracture Assessment (VFA) exam in 2 years or sooner if medically necessary, to reassess this patient's status. Reported by: MARCLEINO on 02/06/2025 1:19:00 PM. Reviewed, dictated and finalized at location A.
--- OUTSIDE RECORDS SUMMARY | 2025-02-06 12:38 | XMS_ITS | Clinical Summary ---
Author Organization [facility] Address [address] [place] [address] Care Team Providers Care Emergency Room Tech Name Role Phone Cori Smith OT Unavailable [phone] Jordon Torres MD Primary Care Provider [phone] Allergies No known active allergies Medications NIFEdipine (NIFEdipine XL) 30 mg 24 hr tablet Take 1 tablet (30 mg total) by mouth daily Active aspirin 81 mg enteric coated tablet Take 1 tablet (81 mg total) by mouth daily Active ibuprofen 200 mg tab/cap Take by mouth every 6 (six) hours as needed for pain Active alendronate (FOSAMAX) 70 mg tablet Take 1 tablet (70 mg total) by mouth every 7 days 4 Active oxyBUTYnin (DITROPAN) 5 mg tablet Take 1 tablet (5 mg total) by mouth daily Take 2 tabs daily 4 Active atenoloL (TENORMIN) 25 mg tablet Take 1 tablet (25 mg total) by mouth daily 4 Active triamcinolone (KENALOG) 0.1 % ointment Apply topically daily Apply topically daily to areas of itching/dermat itis 454 g 2 4 Active furosemide (LASIX) 40 mg tablet Take 1 tablet (40 mg total) by mouth every morning 4 Active potassium chloride (KAYCIEL) solution 20 mEq/15 mL TAKE 15ML BY MOUTH DAILY 4 Active tirzepatide (ZEPBOUND SUBQ) Inject under the skin Active Active Problems Problem Noted Date Diagnosed Date Lymphedema 06/16/2024 Disorder of vein 01/28/2010 Encounters Date Type Department Care Team Description 01/22/2025 Telephone [facility] [address] [facility] 3rd Floor [address] [place] [address] Mary Hernández MA Insurance Referrals 01/22/2025 Telephone [facility] Vascular Surgery [address] [facility] Medical Office Building [address] [place] [address] Joseph Rene MD from Last 3 Months Medical History Medical History Date Comments History of cerebral palsy History of hypertension Family History Medical History Relation Name Comments Breast cancer Mother Breast cancer Sister Katelyn Relation Name Status Comments Cousin Alive Maternal cousin Alive Mother Nephew Alive Niece Alive Paternal cousin Alive Sister Katelyn Social History Tobacco Use Types Packs/Day Years Used Date Smoking Tobacco: Never Passive Smoke Exposure: Never Smokeless Tobacco: Never Tobacco Cessation:Counseling Given: Not Answered AUDIT-C Answer Date Recorded Q1: How often do you have a drink containing alc ohol? Monthly or less 12/12/2023 Q2: How many drinks containi ng alcohol do you have on a typical day when you are drinking? 1 or 2 12/12/2023 Q3: How often do you have si x or more drinks on one occasion? Never 12/12/2023 Hunger Vital Sign Answer Date Recorded Within the past 12 months, y ou worried that your food would run out before you got the money to buy more. Never true 01/18/20 24 Within the past 12 months, t he food you bought just didn't last and you didn't have money to get more. 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 Gender Identity Not on file Sexual Orientation Not on file Obstetrics History Para Term AB IAB SAB Ectopic Multiple Livin g Live Births 0 0 0 0 0 0 0 0 0 0 0 Last Filed Vital Signs Vital Sign Reading Time Taken Comments Blood Pressure 140/76 06/16/2024 2:47 PM DRUM DYEING MACHINE OPERATOR Pulse 60 06/16/2024 2:47 PM DRUM DYEING MACHINE OPERATOR Temperature 36.4 C (97.6 F) 06/16/2024 2:47 PM DRUM DYEING MACHINE OPERATOR Respiratory Rate - - Oxygen Saturation 95% 06/16/2024 2:47 PM DRUM DYEING MACHINE OPERATOR Inhaled Oxygen Concentration - - Weight 130.3 kg (287 lb 3.2 oz) 06/16/2024 2:47 PM DRUM DYEING MACHINE OPERATOR Height 160 cm (5' 3) 06/16/2024 2:47 PM DRUM DYEING MACHINE OPERATOR Body Mass Index 50.88 06/16/2024 2:47 PM DRUM DYEING MACHINE OPERATOR Plan of Treatment Health Maintenance Due Date Last Done Comments Colon Cancer Screening-Colonoscopy 1955 Depression Screening 1955 Fall Risk Assessment 1955 Hepatitis C Screening 1955 Osteoporosis Screening-Bone Density Scan 1955 DTaP/Tdap/Td Vaccine (1 - Tdap) 1965 Hepatitis B Screening 1972 Zoster Vaccine (1 of 2) 2004 Well Visit 65+ 2019 Pneumococcal vaccine 65+ (2 of 2 - PCV) 05/21/2021 05/21/2020 Influenza Vaccine (#1) 2025 05/11/2020 Breast Cancer Screening-Mammogram 10/01/2025 10/01/2024, 10/01/2023, 09/27/2022, Additional history exists Procedures Procedure Name Priority Date/Time Associated Diagnosis Comments SCREENING MAMMOGRAM BILATERAL W LEIGHTON Schedule Routine, Read Routine (OP Routine) 10/01/2024 8:05 AM DRUM DYEING MACHINE OPERATOR Screening mammogram, encounter for from Last 3 Months or Most Recently Relevant to Health Maintenance Results * Screening Mammogram Bilateral W Leighton (10/01/2024 8:05 AM DRUM DYEING MACHINE OPERATOR) Anatomical Region Laterality Modality Breast Bilateral Mammography Impressions 10/01/2024 9:39 AM DRUM DYEING MACHINE OPERATOR BI-RADS ATLAS category (overall): 1 - Negative There is no mammographic evidence of malignancy. A 1 year screening mammogram is recommended. The patient has been or will be contacted. We recommend annual screening mammography for women at average risk of breast cancer beginning at age 40, based on guidelines of the [place] [employer] (ACR Practice Parameter for the Performance of Screening and Diagnostic Mammography) and [place] [employer]. For women with and elevated risk of breast cancer, please refer to the ACR Practice Parameter for specific screening recommendations. The patient will be entered into a reminder system with a target due date of 1 year for her next screening exam. Narrative 10/01/2024 9:39 AM DRUM DYEING MACHINE OPERATOR Screening Mammogram Bilateral W Leighton: 10/01/24 The study was acquired using full field digital technology and interpreted from soft copy. 2D digital mammographic views, as well as 3D digital tomosynthesis were performed in the CC and MLO projections. This study was resulted using Computer-Aided Detection (CAD). CLINICAL: Screening mammogram, encounter for. No relevant medical history has been documented for this patient. History of breast cancer in Mother, Sister. COMPARISONS: 10/01/2023 Screening Mammogram Bilateral W Leighton 09/27/2022 Screening Mammogram Bilateral W Leighton 09/20/2021 Screening Mammogram Bilateral W Leighton BREAST TISSUE: There are scattered areas of fibroglandular density. FINDINGS: No suspicious masses, suspicious calcifications, or other suspicious findings are seen within either breast. There has been no suspicious change. us Jordon Torres MD IMG MAMMO PROCEDURES Karrie l Result from Last 3 Months or Most Recently Relevant to Health Maintenance Insurance [facility] Member Subscriber Plan / Payer (Ef fective 2018-Present) Name:Savanna Arevalo Relation to Subscriber:Self Name:Savanna Arevalo Payer ID:[id number] (NAIC) Type:MEDICARE RISK OTHER Address: [place] [id number] Care Teams Emergency Room Tech Relationship Specialty Start Date End Date Jordon Torres MD PCP - General Family Practice 08/13/23 Cori Smith OT Occupational Therapist Occupational Therapy 03/14/20
--- OUTSIDE RECORDS SUMMARY | 2025-02-06 12:38 | XMS_ITS | Referral Summary ---
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 Conductor Symphonic Orchestra Name Role Phone Cori Smith OT Unavailable [phone] Jordon Torres MD Primary Care Provider [phone] Encounters Date Type Department Care Team Description 01/22/2025 Telephone [facility] [address] [facility] 3rd Floor [address] [place] [address] Mary Hernández [place] Insurance Referrals 01/22/2025 Telephone [facility] Vascular Surgery [address] [facility] Medical Office Building [address] [place] [address] Joseph Rene MD from Last 3 Months Allergies No known active allergies Medications NIFEdipine [...] Date Lymphedema 06/16/2024 Disorder of vein 01/28/2010 Social History Tobacco Use Types Packs/Day Years [...] on file 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 Gender Identity Not on file Sexual Orientation Not on file Last Filed Vital Signs Vital Sign Reading Time Taken Comments Blood Pressure 140/76 06/16/2024 2:47 PM RADAR REPAIRER Pulse 60 06/16/2024 2:47 PM RADAR REPAIRER Temperature 36.4 C (97.6 F) 06/16/2024 2:47 PM RADAR REPAIRER Respiratory Rate - - Oxygen Saturation 95% 06/16/2024 2:47 PM RADAR REPAIRER Inhaled Oxygen Concentration - - Weight 130.3 kg (287 lb 3.2 oz) 06/16/2024 2:47 PM RADAR REPAIRER Height 160 cm (5' 3) 06/16/2024 2:47 PM RADAR REPAIRER Body Mass Index 50.88 06/16/2024 2:47 PM RADAR REPAIRER Plan of Treatment Not on file Procedures Procedure Name Priority Date/Time Associated Diagnosis Comments SCREENING MAMMOGRAM BILATERAL W LEIGHTON Schedule Routine, Read Routine (OP Routine) 10/01/2024 8:05 AM RADAR REPAIRER Screening mammogram, encounter for from Last 3 Months or Most Recently Relevant to Health Maintenance Results * Screening Mammogram Bilateral W Leighton (10/01/2024 8:05 AM RADAR REPAIRER) Anatomical Region Laterality Modality Breast Bilateral Mammography Impressions 10/01/2024 9:39 AM RADAR REPAIRER BI-RADS ATLAS category (overall): 1 - Negative There is no mammographic evidence of malignancy. A 1 year screening mammogram is recommended. The patient has been or will be contacted. We recommend annual screening mammography for women at average risk of breast cancer beginning at age 40, based on guidelines of the [place] [employer] (ACR Practice Parameter for the Performance of Screening and Diagnostic Mammography) and [place] [employer]. For women with and elevated risk of breast cancer, please refer to the ACR Practice Parameter for specific screening recommendations. The patient will be entered into a reminder system with a target due date of 1 year for her next screening exam. 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
== END 2025-02-06 12:35 | disposition home or self-care (01) ==
LOC: ANHIMG 12:35
PROVIDERS: PCP Family Medicine; Visit Provider Family Medicine
DX: Z78.0 Asymptomatic menopausal state (principal); M81.0 Age-related osteoporosis without current pathological fracture; M85.851 Other specified disorders of bone density and structure, right thigh
CPT/HCPCS: 77080

== ENCOUNTER 2025-04-10 12:00 | Emergency (ER) | payer OTHER, SELFPAY ==
--- NOTE | ~2025-04-10 | XR_ITS ---
XR hip RT 2V w AP pelvis 04/10/2025 13:43 Indication: Right hip pain after fall Procedure: AP pelvis and 2 views right hip Comparison: No prior studies for comparison. Findings: Pelvic rings intact. There is moderate osteoarthritis of the hips. No acute fracture, subluxation or dislocation. No significant soft tissue abnormality. No foreign bodies. Impression: 1: Moderate osteoarthritis of the hips. Reviewed, dictated and finalized at location O. Impression: 1: Moderate osteoarthritis of the hips.
--- NOTE | ~2025-04-10 | XR_ITS ---
XR hand RT min 3V 04/10/2025 14:44 INDICATION: Right hand pain PROCEDURE: 3 views right hand COMPARISON: No prior studies for comparison. FINDINGS: Fracture, dislocation or subluxation is not identified. The soft tissues appear within normal limits. No foreign bodies are identified. IMPRESSION: 1: NO ACUTE BONE OR JOINT ABNORMALITY IDENTIFIED. Reviewed, dictated and finalized at location O.
--- NOTE | ~2025-04-10 | CT_ITS ---
EXAMINATION: CT brain wo con DATE: 04/10/2025 13:26 INDICATION: Head injury TECHNIQUE: Computed tomography (CT) of the head was performed without intravenous contrast. The dose-length product was 605.33 mGy-cm. Automated exposure control and iterative reconstruction technique were employed. 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 No significant mass effect or midline shift. No ventriculomegaly or midline shift. Basilar cisterns are patent. No acute infarction, hemorrhage or mass. There is a right posterior parietal scalp hematoma near the vertex. There is a large mucus retention cyst of the left maxillary sinus. Mastoids are pneumatized. No depressed skull fractures. IMPRESSION: 1. No acute intracranial abnormality. Reviewed, dictated and finalized at location O.
[2025-04-10 12:00] VITALS: BP 158/88; PULSE 63; RESP 18; TEMP 37.2; O2SAT 100
[2025-04-10] MEDS: HYDROcodone/acetaminophen (*CRX) 5-325 MG TABLET 1 TAB PO (13:43)
[2025-04-10 13:44] VITALS: BP 145/68; PULSE 65; RESP 14; O2SAT 100
--- NOTE | 2025-04-10 14:12 | ED.FALL ---
HPI - Fall General Chief Complaint: Fall Stated Complaint: fall Time Seen by Provider: 04/10/25 12:43 History of Present Illness HPI Narrative: Patient is a 6-year-old female who presents ER after a fall. She is going down stairs while holding some goldman when her left leg gave out and she fell. She caught herself with her right hand and landed on her right hip. She has pain in both areas. She also struck the back of her head. She is on a baby aspirin but no other blood thinning agents. No change in vision or hearing. No nausea vomiting. Has pain in the hip with movement on the right side. No shortening of the leg. No numbness or tingling. Related Data Home Medications ?Medication ?Instructions ?Recorded ?Confirmed ?Last Taken ?Type aspirin 81 mg chewable tablet 81 mg PO QAM 01/26/20 01/28/25 03/08/24 History Allergies Allergy/AdvReac Type Severity Reaction Status Date / Time No Known Allergies Allergy Unknown Verified 04/10/25 12:10 Review of Systems Review of Systems: All systems reviewed & are unremarkable except as noted in HPI and below Constitutional: Constitutional: Reports no additional constitutional complaints ENT: Reports system reviewed and no additional complaints, except as documented Cardiovascular: Cardiovascular: Reports no additional cardiovascular complaints Respiratory: Respiratory: Reports no additional respiratory complaints Musculoskeletal: Musculoskeletal: Reports no additional musculoskeletal complaints [facility] Past Medical History Medical History History of UTI Cellulitis of left lower extremity H/O fall Lymphedema Cellulitis COVID-19 (08/2021) Anxiety Lymphedema Hypertriglyceridemia Venous insufficiency of lower extremity Osteoarthritis Cerebral palsy With mild left-sided weakness. Legionella pneumonia (04/2019) Kidney stones (03/2018) Hypertension Cellulitis Surgical History Surgical History Status post laser ablation of incompetent vein History of cystoscopy (03/2018) With ureteral stent and stone extraction. History of ankle surgery (1958) Achilles tendon lengthening. History of dilation and curettage With uterine polypectomy. Family History Family History Mother Breast cancer Sibling Breast cancer Other Hodgkin disease Father Parkinson disease Lymph node cancer Grandparent Leukemia Sibling Brain cancer Social History Social History Social History: The patient is and lives with her in [place]. They have no children. 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 She denies alcohol, tobacco, and illicit substance abuse. She designates her , Jae Arevalo, as her surrogate decision maker and she wishes to be a full code. Smoking status: Never smoker Second hand tobacco smoke exposure: No Alcohol intake: current Alcohol use details: social Substance use: never Substance use type: does not use Do You Feel Safe in your Home?: Yes Lack of Transportation: No Lack of Food: Never True Current Housing: I Have Housing Concerned About Future Housing: No Difficulty Paying Gas/Electric Bills: No Difficulty Paying for Meds: No Currently Unemployed: No Education: Associate Degree Difficulty w/ Childcare or Family Care: No Spiritual care concerns: No Exam Narrative: GENERAL: Well-appearing, well-nourished, and in no acute distress. HEAD: Normocephalic, area of swelling right posterior scalp. ENT: Mucous membranes moist. CHEST: Clear to auscultation. No respiratory distress. HEART: Regular rate and rhythm. Normal peripheral pulses. ABDOMEN: Soft, nontender, nondistended. EXTREMITIES: Normal range of motion. SKIN: Warm, dry, no rash. NEURO: Alert and oriented x3. PSYCH: Normal mood and affect. Course Course Emergency Course: Patient resting comfortably. Informed of results. No acute fracture or bleed. Appropriate for discharge home. Vital Signs Vital signs: Vital Signs Temperature 98.9 F 04/10/25 12:00 Pulse Rate 63 04/10/25 12:00 Respiratory Rate 18 04/10/25 12:00 Blood Pressure 158/88 H 04/10/25 12:00 Pulse Oximetry 100 04/10/25 12:00 Oxygen Delivery Room Air 04/10/25 12:00 Temperature 98.9 F 04/10/25 12:00 Pulse Rate 65 04/10/25 13:44 Respiratory Rate 14 04/10/25 13:44 Blood Pressure 145/68 H 04/10/25 13:44 Pulse Oximetry 100 04/10/25 13:44 Oxygen Delivery Room Air 04/10/25 12:00 MDM - Fall Imaging Data Radiologist's impression: ITS Impressions Head CT 04/10/25 13:40 IMPRESSION: 1. No acute intracranial abnormality. Hip/Pelvis X-Ray 04/10/25 13:44 Impression: 1: Moderate osteoarthritis of the hips. Hand X-Ray 04/10/25 14:46 IMPRESSION: 1: NO ACUTE BONE OR JOINT ABNORMALITY IDENTIFIED. Discharge Plan Discharge Clinical Impression: Acute hip pain, Contusion of hand, Contusion of scalp Patient Disposition: Home Condition: Stable Instructions: Contusion in Adults (ED), Hip Pain (ED) Additional Instructions: Take Tylenol or ibuprofen as needed for pain. Return to the ER if you have fever over 100.4? F, he developed chest pain shortness of breath, you cannot keep down food or water, or you have additional concerns. Patient Language: Surinamese Prescriptions: No Action (DME) non-adherent bandage 8 X 10 bandage See Rx Instructions .Route Qty: 216 0RF Rx Instructions: change bandage daily furosemide 40 mg tablet 40 mg PO QAM Qty: 30 1RF potassium chloride 20 mEq/15 mL liquid 20 meq PO DAILY Qty: 1200 1RF triamcinolone acetonide 0.5 % cream 1 applic topical .COMPLEX Qty: 15 5RF Rx Instructions: apply 1-2 times daily for up to 2 weeks, then apply as needed aspirin 81 mg Tablet,Chewable 81 mg PO QAM nifedipine 30 mg tablet extended release 24hr See Rx Instructions .ROUTE .COMPLEX Qty: 90 11RF Dose Instruction: TAKE ONE TABLET BY MOUTH EVERY DAY AT 5PM Rx Instructions: TAKE ONE TABLET BY MOUTH EVERY DAY AT 5PM oxybutynin chloride 5 mg tablet 5 mg PO BID Qty: 180 1RF hydroxyzine HCl 25 mg tablet See Rx Instructions .ROUTE .COMPLEX Qty: 30 0RF Dose Instruction: TAKE 1 TABLET BY MOUTH FOUR TIMES DAILY NEEDED FOR ITCHING Rx Instructions: TAKE 1 TABLET BY MOUTH FOUR TIMES DAILY NEEDED FOR ITCHING clindamycin HCl 300 mg capsule See Rx Instructions .ROUTE .COMPLEX Qty: 40 1RF Dose Instruction: TAKE 1 CAPSULE BY MOUTH FOUR TIMES DAILY Rx Instructions: TAKE 1 CAPSULE BY MOUTH FOUR TIMES DAILY atenolol 25 mg tablet 25 mg PO DAILY Qty: 90 1RF alendronate 70 mg tablet 70 mg PO WEEKLY Qty: 12 1RF Zepbound 5 mg/0.5 mL solution 5 mg subcut WEEKLY Qty: 2 2RF Follow-up/Referrals: Jordon Torres MD [Primary Care Provider, Family Practice] - 1 Week
== END 2025-04-10 16:02 | disposition home or self-care (01) ==
PROVIDERS: Emergency Provider Emergency Medicine; PCP Family Medicine
DX: S60.221A Contusion of right hand, initial encounter (principal); S00.03XA Contusion of scalp, initial encounter; I10 Essential (primary) hypertension; Z79.82 Long term (current) use of aspirin; W18.30XA Fall on same level, unspecified, initial encounter
CPT/HCPCS: 70450; 73130; 73502; 99284; A9270

== ENCOUNTER 2025-05-24 06:13 | Emergency (ER) | payer OTHER, SELFPAY ==
[2025-05-24 06:17] VITALS: BP 149/69; PULSE 77; RESP 18; TEMP 36.3; O2SAT 99
--- NOTE | 2025-05-24 06:22 | ED_ITS ---
HPI - Wound/Laceration General Chief Complaint: Wound/Laceration Stated Complaint: Fall yesterday, wound to L forearm Time Seen by Provider: 05/24/25 06:21 Source: patient and family Mode of arrival: ambulatory Limitations: no limitations History of Present Illness HPI narrative: This is a 70-year-old female with history of lymphedema, chronic venous insufficiency, hyperlipidemia, cerebral palsy who presents to the ED for a fall. Patient states that she was at [employer] yesterday when she was looking up to grab something she lost her balance on her bad left leg causing her to fall onto her left side. She fell on her left elbow. She did not have not noticed any specific injury at the time but this morning she noticed that she was bleeding from her left elbow prompting her to come to the ED. Denies any pain with range of motion at this time. Denies numbness, tingling. Denies hitting her head. She is not on any blood thinners. Related Data Home Medications ?Medication ?Instructions ?Recorded ?Confirmed ?Last Taken ?Type aspirin 81 mg chewable tablet 81 mg PO QAM 01/26/2003/08/24 History Allergies Allergy/AdvReac Type Severity Reaction Status Date / Time No Known Allergies Allergy Unknown Verified 04/27/25 08:04 Review of Systems Review of Systems: Gen.: Denies fevers or chills Eyes: Denies eye pain or visual change ENT: Denies congestion Respiratory: Denies shortness of breath or cough CV: Denies chest pain or palpitations GI: Denies abdominal pain nausea, emesis or diarrhea denies burning, urgency, frequency or hematuria Musculoskeletal: Denies back pain or muscle pain Neuro: Denies numbness, tingling, weakness or focal weakness Skin: As per HPI Except as documented, all other systems reviewed and negative PMF Past Medical History Medical History History of UTI Cellulitis of left lower extremity H/O fall Lymphedema Cellulitis COVID-19 (08/2021) Anxiety Lymphedema Hypertriglyceridemia Venous insufficiency of lower extremity Osteoarthritis Cerebral palsy With mild left-sided weakness. Legionella pneumonia (04/2019) Kidney stones (03/2018) Hypertension Cellulitis Surgical History Surgical History Status post laser ablation of incompetent vein History of cystoscopy (03/2018) With ureteral stent and stone extraction. History of ankle surgery (1959) Achilles tendon lengthening. History of dilation and curettage With uterine polypectomy. Family History Family History Mother Breast cancer Sibling Breast cancer Other Hodgkin disease Father Parkinson disease Lymph node cancer Grandparent Leukemia Sibling Brain cancer Social History Social History Social History: The patient is and lives with her in [place]. They have no children. 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 She denies alcohol, tobacco, and illicit substance abuse. She designates her , Jae Arevalo, as her surrogate decision maker and she wishes to be a full code. Smoking status: Never smoker Second hand tobacco smoke exposure: No Alcohol intake: current Alcohol use details: social Substance use: never Substance use type: does not use Do You Feel Safe in your Home?: Yes Lack of Transportation: No Lack of Food: Never True Current Housing: I Have Housing Concerned About Future Housing: No Difficulty Paying Gas/Electric Bills: No Difficulty Paying for Meds: No Currently Unemployed: No Education: Associate Degree Difficulty w/ Childcare or Family Care: No Spiritual care concerns: No Exam Narrative: APPEARANCE: No acute distress, nontoxic, resting in bed HEENT: Normocephalic, atraumatic, OMM RESPIRATORY: No respiratory distress CARDIOVASCULAR: Appears well perfused ABDOMINAL: Nondistended MUSCULOSKELETAl: Moves all extremities. No obvious deformities. No tenderness over the left olecranon. No pain with range of motion of the left elbow. NEURO: Awake and alert. SKIN:: Warm, dry. 1.5 cm laceration to the left elbow, bleeding controlled. PSYCHIATRIC: Normal affect/mood, Course Vital Signs Vital signs: Vital Signs Temperature 97.4 F L 05/24/25 06:17 Pulse Rate 77 05/24/25 06:17 Respiratory Rate 18 05/24/25 06:17 Blood Pressure 149/69 H 05/24/25 06:17 Pulse Oximetry 99 05/24/25 06:17 Oxygen Delivery Room Air 05/24/25 06:17 Temperature 97.4 F L 05/24/25 06:17 Pulse Rate 77 10/26/25 06:17 Respiratory Rate 18 05/24/25 06:17 Blood Pressure 149/69 H 05/24/25 06:17 Pulse Oximetry 99 05/24/25 06:17 Oxygen Delivery Room Air 05/24/25 06:17 Procedures Laceration Laceration 1: Date: 05/24/25 Time: 06:35 Site: upper extremity Side (If applicable): left Size (cm): 1.5 Description: linear Depth: simple, single layer Local Anesthetic: lidocaine 1% and with epi Amount of anesthesia used (mL): 4 Pre-repair: wound explored and irrigated ====== Skin Level ====== Skin layer closed with: nylon Size (cm): 4-0 Number of sutures: 6 Technique: simple, interrupted ====== Subcutaneous Layer ====== ====== Muscle Layer ====== ====== Tendon Layer ====== MDM - Wound/Laceration MDM Narrative Medical decision making narrative: 70-year-old female Presenting for fall and laceration. On initial evaluation patient was in no acute distress afebrile, hemodynamic stable. Notable exam findings: 1.5 cm laceration of the left elbow, no bony tenderness, no pain with range of motion. No exposed joint capsule. Laceration was repaired as above. Patient tolerated procedure well. Patient was deemed appropriate for discharge at this time. Patient was advised follow-up with their PCP in the next week for re-evaluation and possible suture removal. Patient was agreeable to this plan. Given strict return precautions. Differential Diagnosis Differential diagnosis: Likely laceration, abrasion and avulsion of skin Medical Records Attestation: I reviewed the patient's medical records. Discharge Plan Discharge Clinical Impression: Laceration Fall Qualifiers: Encounter type: initial encounter Qualified Code(s): W19.XXXA - Unspecified fall, initial encounter Patient Disposition: Home Condition: Stable Instructions: Antibiotic Form, Care For Your Stitches (ED), Laceration (ED) Additional Instructions: Stitches may come in in 7-10 days. Follow up with the PCP or in any ER or urgent care at that time for re-evaluation and possible suture removal. Return to the ED for any new or worsening symptoms. Patient Language: [place] Prescriptions: No Action Zepbound 7.5 mg/0.5 mL solution 7.5 mg subcut WEEKLY Qty: 2 0RF aspirin 81 mg Tablet,Chewable 81 mg PO QAM nifedipine 30 mg tablet extended release 24hr See Rx Instructions .ROUTE .COMPLEX Qty: 90 11RF Dose Instruction: TAKE ONE TABLET BY MOUTH EVERY DAY AT 5PM Rx Instructions: TAKE ONE TABLET BY MOUTH EVERY DAY AT 5PM atenolol 25 mg tablet 25 mg PO DAILY Qty: 90 1RF alendronate 70 mg tablet 70 mg PO WEEKLY Qty: 12 1RF Zepbound 5 mg/0.5 mL solution 5 mg subcut WEEKLY Qty: 2 2RF oxybutynin chloride 5 mg tablet 5 mg PO BID Qty: 180 1RF Gemtesa 75 mg tablet 75 mg PO DAILY Qty: 90 1RF Follow-up/Referrals: Jordon Torres MD [Primary Care Provider, Family Practice]
[2025-05-24] MEDS: TETANUS,DIPHTHERIA,AC PERTUSSIS ADULT (0.5 ML) BOOSTRIX IM (06:30)
== END 2025-05-24 07:07 | disposition home or self-care (01) ==
LOC: ANHED 06:43
PROVIDERS: Emergency Provider Student in an Organized Health Care Education/Training Program; PCP Family Medicine
DX: S51.012A Laceration without foreign body of left elbow, initial encounter (principal); Z87.440 Personal history of urinary (tract) infections; F41.9 Anxiety disorder, unspecified; Z87.442 Personal history of urinary calculi; I10 Essential (primary) hypertension; G80.9 Cerebral palsy, unspecified; M19.90 Unspecified osteoarthritis, unspecified site; W01.0XXA Fall on same level from slipping, tripping and stumbling without subsequent striking against object, initial encounter; Z23 Encounter for immunization
CPT/HCPCS: 12001; 90471; 90715; 99282

== ENCOUNTER 2025-06-04 20:07 | Inpatient (IN) | payer OTHER, SELFPAY ==
[2025-06-04] VITALS (11 sets, daily range): BP systolic 154–166; BP diastolic 70–81; PULSE 68–92; RESP 13–22; TEMP 36.9; O2SAT 94–100
--- NOTE | ~2025-06-04 | CT_ITS ---
CT HEAD NON-CONTRAST Clinical History: ams Comparison: 04/10/2025 Technique: Unenhanced axial images skull base to vertex Coronal, sagittal reformats CT images acquired with automatic exposure control for dose reduction DLP: 984 mGy-cm Findings: Right frontoparietal cystic encephalomalacia. Sulci, ventricles: Unremarkable. No intracerebral hemorrhage. No evidence acute territorial infarct. No mass effect, midline shift. Bony calvarium intact. Visualized paranasal sinuses: Left maxillary retention cyst. Mastoid air cells: Clear. IMPRESSION: 1. No acute intracranial findings. Reviewed, dictated and finalized at location R. MAN
--- NOTE | ~2025-06-04 | XR_ITS ---
EXAMINATION: XR chest 1V portable DATE: 06/05/2025 01:04 INDICATION: Sepsis TECHNIQUE: A single frontal view of the chest was obtained. COMPARISON: December 13, 2023 FINDINGS: Heart size is upper limits normal. No padmini pulmonary edema or large effusion. No pneumothorax or subphrenic free air seen. The bones appear intact. IMPRESSION: 1. No focal acute process. Reviewed, dictated and finalized at location A. CTOR OF EXHIBITS IMPRESSION: 1. No focal acute process.
--- NOTE | ~2025-06-04 | XR_ITS ---
EXAMINATION: XR retrograde pyelo w/stent LT DATE: 06/05/2025 10:33 INDICATION: Cystoscopy and left internal ureteral stent placement. TECHNIQUE: 3 fluoroscopic images of the abdomen and pelvis were obtained procedure performed by Dr. Barahona. Radiologist was not present for the imaging or procedure. The amount of fluoroscopy time used during this procedure was 0.1 minutes. The dose area product was 0.166 mGym^2. COMPARISON: None. FINDINGS: Clothing Consultant images unremarkable. Subsequent image demonstrates cannulation and retrograde contrast injection into the normal-appearing left renal collecting system. Final image demonstrates a left intraureteral stent with distal tip extending into an upper pole calyx of the left kidney. IMPRESSION: 1. Fluoroscopy utilized during left retrograde pyelogram and left internal ureteral stent placement. See procedure note for further detail. Reviewed, dictated and finalized at location A. LY CHAIN PLANNER IMPRESSION: 1. Fluoroscopy utilized during left retrograde pyelogram and left internal uret eral stent placement. See procedure note for further detail.
--- NOTE | ~2025-06-04 | CT_ITS ---
EXAMINATION: CT abdomen pelvis w con DATE: 06/05/2025 01:33 INDICATION: Abdominal pain. Sepsis. TECHNIQUE: Computed tomography (CT) of the abdomen and pelvis was performed with 100 mL Omnipaque 350 intravenous contrast. Automated exposure control and iterative reconstruction technique were employed. The dose-length product was 1679.06 mGy-cm. COMPARISON: CT abdomen pelvis 09/29/2021 FINDINGS: The visualized portions of lung bases demonstrate mild atelectasis. No pleural effusion. The heart size is normal. No pericardial effusion. There are cysts in the liver measuring up to 16 mm. The gallbladder, spleen, pancreas, and adrenal glands are normal. There is cortical thinning of the kidneys. There are cysts in the kidneys measuring up to 8 mm on the left. There is a 6 mm hyperdense mass in right kidney, probably a hemorrhagic cyst that is too small for additional evaluation. There is a 6 mm stone in right kidney. There are 2 mm and 3 mm stones in left kidney. There is a 6 mm stone in proximal left ureter. There is diverticulosis of the colon without evidence of diverticulitis. There are no dilated loops of bowel. The appendix is normal. There are no pathologically enlarged lymph nodes. There is no free intraperitoneal fluid. There is severe thoracic spondylosis and lumbar spondylosis. IMPRESSION: 1. 6 mm stone in proximal left ureter. No hydronephrosis. 2. Nonobstructing bilateral kidney stones. Reviewed, dictated and finalized at location E. MECHANIC
--- NOTE | 2025-06-04 20:11 | ECG_ITS ---
Test Date: 2025-06-04 20:21:37 Measurements Intervals Hughes Rate: 61 P: 73 HI: 143 QRS: 30 QRSD: 118 T: 15 QT: 390 QTc: 394 Interpretive Statements SINUS RHYTHM WITH OCCASIONAL SUPRAVENTRICULAR PREMATURE COMPLEXES MODERATE INTRAVENTRICULAR CONDUCTION DELAY [110+ ms QRS DURATION] NONSPECIFIC T-WAVE ABNORMALITY No previous ECG available for comparison Electronically Signed On 06-04-2025 21:27:21 ELECTRICAL TEST TECHNICIAN by Amanda Esposito M.D.
[2025-06-04 20:50] LABS: Hematocrit 42.3 % (37.0-47.0); Hemoglobin 14.1 g/dL (12.0-15.0); Immature Granulocyte Percent A 1.6 % (0-0.5); Lymphocytes Absolute Auto 1.79 K/mm3 (0.9-3.2); Mean Corpuscular HGB Conc 33.3 g/dl (32-36); Mean Corpuscular Hemoglobin 31.1 pg (26-34); Mean Corpuscular Volume 93.4 fl (80-100); Nucleated Red Blood Cells Absolute Auto 0.000 K/mm3 (0.0-0.012); Nucleated Red Blood Cells Perc 0.0 % (0.0-0.2); Platelet Count Result 233 k/mm3 (150-375); Red Blood Count 4.53 M/mm3 (4.2-5.4); White Blood Count 17.2 K/mm3 (4.5-10.0)
[2025-06-04 21:01] LABS: Alanine Aminotransferase 101 U/L (6-35); Albumin Level 4.1 g/dL (3.5-5.1); Alkaline Phosphatase 118 U/L (38-126); Anion Gap 9 mmol/L (4-12); Aspartate Amino Transferase 168 U/L (14-36); Bilirubin,Total 0.9 mg/dL (0.2-1.3); Blood Urea Nitrogen 34 mg/dL (7-17); Calcium 9.6 mg/dL (8.4-10.2); Carbon Dioxide 23 mmol/L (22-30); Chloride 105 mmol/L (98-107); Estimated CRCL calculation 62 ml/min; Estimated Glomerular Filt Rate > 60; Glucose 103 mg/dL (65-110); INR 2.0; Potassium 4.9 mmol/L (3.4-5.0); Prothrombin Time 22.2 Seconds (11.1-14.7); Sodium 137 mmol/L (137-145); Total Protein 7.0 g/dL (6.3-8.2)
[2025-06-04 21:30] LABS: Add Urine Microscopic? YES; Appearance Urine Cloudy (Clear); Glucose Urine UA Negative (Negative); Leukocyte Esterase Ur 2+ LEU/UL (Negative); Nitrate Urine Positive (Negative); Non Pathogenic Casts 0-2; Specific Grav Ur 1.020 (1.001-1.035)
[2025-06-04 21:34] LABS: Partial Thromboplastin Time > 200.0 Seconds (22.3-36.8)
[2025-06-04 22:35] LABS: INR 1.0; Prothrombin Time 13.0 Seconds (11.1-14.7)
[2025-06-04 22:36] LABS: Partial Thromboplastin Time 36.3 Seconds (22.3-36.8)
[2025-06-05] VITALS (22 sets, daily range): BP systolic 119–155; BP diastolic 51–85; PULSE 52–88; RESP 13–20; TEMP 36.1–36.9; O2SAT 92–100; BMI 46.0
--- OUTSIDE RECORDS SUMMARY | 2025-06-05 00:40 | XMS_ITS | Clinical Summary ---
Author Organization [facility] Address [address] [place] [address] Care Team Providers Care Refined Syrup Operator Name Role Phone Cori Smith OT Unavailable [phone] Jordon Torres MD Primary Care Provider [phone] Allergies No known active allergies Medications NIFEdipine [...] mg total) by mouth daily 4 Active furosemide (LASIX) 40 mg tablet Take 1 tablet (40 mg total) by mouth every morning 4 Active potassium chloride (KAYCIEL) solution 20 mEq/15 mL TAKE 15ML BY MOUTH DAILY 4 Active tirzepatide (ZEPBOUND SUBQ) Inject under the skin Active triamcinolone (KENALOG) 0.1 % creamIndication s:skin rash Apply topically to itching/dermat itis areas on right and left legs 454 g 2 5 Active Active Problems Problem Noted Date Diagnosed Date Lymphedema 06/16/2024 Disorder of vein 01/28/2010 Medical History Medical History Date Comments History [...] the money to buy more. Never true 02/10/20 25 Within the past 12 months, t he food you bought just didn't last and you didn't have money to get more. 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 Gender Identity Not on file Sexual Orientation Not on file Obstetrics History Para Term AB IAB SAB Ectopic Multiple Livin g Live Births 0 0 0 0 0 0 0 0 0 0 0 Last Filed Vital Signs Vital Sign Reading Time Taken Comments Blood Pressure 141/76 02/09/2025 7:45 AM CDT Pulse 53 02/09/2025 7:45 AM CDT Temperature 36.4 C (97.5 F) 02/09/2025 7:45 AM CDT Respiratory Rate - - Oxygen Saturation 97% 02/09/2025 7:45 AM CDT Inhaled Oxygen Concentration - - Weight 130.3 kg (287 lb 3.2 oz) 06/16/2024 2:47 PM SANDSTONE INSPECTOR REPAIRER Height 160 cm (5' 3) 06/16/2024 2:47 PM SANDSTONE INSPECTOR REPAIRER Body Mass Index 50.88 06/16/2024 2:47 PM SANDSTONE INSPECTOR REPAIRER Plan of Treatment Health Maintenance Due Date [...] Read Routine (OP Routine) 10/01/2024 8:05 AM SANDSTONE INSPECTOR REPAIRER Screening mammogram, encounter for from Last 3 Months or Most Recently Relevant to Health Maintenance Results * Screening Mammogram Bilateral W [facility] (10/01/2024 8:05 AM SANDSTONE INSPECTOR REPAIRER) Anatomical Region Laterality Modality Breast Bilateral Mammography Impressions 10/01/2024 9:39 AM SANDSTONE INSPECTOR REPAIRER BI-RADS ATLAS category (overall): 1 - Negative There is no mammographic evidence of malignancy. A 1 year screening mammogram is recommended. The patient has been or will be contacted. We recommend annual screening mammography for women at average risk of breast cancer beginning at age 40, based on guidelines of the [employer] [place] [employer] (ACR Practice Parameter for the Performance of Screening and Diagnostic Mammography) and [place] [employer]. For women with and elevated risk of breast cancer, please refer to the ACR Practice Parameter for specific screening recommendations. The patient will be entered into a reminder system with a target due date of 1 year for her next screening exam. Narrative 10/01/2024 9:39 AM SANDSTONE INSPECTOR REPAIRER Screening Mammogram Bilateral W Leighton: 10/01/24 [...] Relevant to Health Maintenance Insurance [facility] Care Teams Refined Syrup Operator Relationship Specialty Start Date End Date Jordon Torres MD PCP - General Family Practice 08/13/23 Cori Smith OT Occupational Therapist Occupational Therapy 03/14/20
[2025-06-05] MEDS: cefTRIAXone 1 GM in SODIUM CHLORIDE 0.9% IV 50 ML 100 ML IVPB (01:39)
[2025-06-05] MEDS: STAT BOLUS COMMUNICATION ORDER 2500 ML IV CONT (01:40)
[2025-06-05 01:56] LABS: Influenza A QL RT-PCR Negative (Negative); Influenza B QL RT-PCR Negative (Negative); RSV RNA, RT-PCR Negative (Negative); SARS-CoV-2 RNA PCR Negative (Negative)
--- NOTE | 2025-06-05 02:54 | ED.GENADULT ---
HPI - General Adult General Chief complaint: Altered Mental Status Stated complaint: AMS, EMESIS X 1 Time Seen by Provider: 06/05/25 00:20 History of Present Illness HPI narrative: This is a 70-year-old female presenting for altered mental status. Patient was on the toilet trying to have a bowel movement when she became altered. She was repeating the same thing over and over again. She was then brought to the hospital for evaluation. On arrival she was A&O x1. She is complaining of abdominal pain. She denies fevers chills nausea vomiting diarrhea chest pain or difficulty breathing. Related Data Home Medications ?Medication ?Instructions ?Recorded ?Confirmed ?Last Taken ?Type aspirin 81 mg chewable tablet 81 mg PO QAM 01/26/20 06/05/25 03/08/24 History alendronate 70 mg tablet 70 mg PO WEEKLY 06/05/25 06/05/25 Unknown History ibuprofen 600 mg tablet 600 mg PO Q8H PRN pain 06/05/25 06/05/25 Unknown History tirzepatide (weight loss) 7.5 7.5 mg subcut WEEKLY 06/05/25 06/05/25 Unknown History mg/0.5 mL subcutaneous solution (Zepbound) Allergies Allergy/AdvReac Type Severity Reaction Status Date / Time No Known Allergies Allergy Unknown Verified 06/05/25 09:31 ON LICENSE OF [facility] Past Medical History Medical History History of UTI Cellulitis of left lower extremity H/O fall Lymphedema Cellulitis COVID-19 (08/2021) Anxiety Lymphedema Hypertriglyceridemia Venous insufficiency of lower extremity Osteoarthritis Cerebral palsy With mild left-sided weakness. Legionella pneumonia (04/2019) Kidney stones (03/2018) Hypertension Cellulitis Surgical History Surgical History Status post laser ablation of incompetent vein History of cystoscopy (03/2018) With ureteral stent and stone extraction. History of ankle surgery (1958) Achilles tendon lengthening. History of dilation and curettage With uterine polypectomy. Family History Family History Mother Breast cancer Sibling Breast cancer Other Hodgkin disease Father Parkinson disease Lymph node cancer Grandparent Leukemia Sibling Brain cancer Social History Social History Social History: The patient is and lives with her in [place]. They have no children. 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 She denies alcohol, tobacco, and illicit substance abuse. She designates her , Jae Arevalo, as her surrogate decision maker and she wishes to be a full code. Smoking status: Never smoker Second hand tobacco smoke exposure: No Alcohol intake: never Alcohol use details: social Substance use: never Substance use type: does not use Do You Feel Safe in your Home?: Yes Lack of Transportation: No Lack of Food: Never True Current Housing: I Have Housing Concerned About Future Housing: No Difficulty Paying Gas/Electric Bills: No Difficulty Paying for Meds: No Currently Unemployed: No Education: Associate Degree Difficulty w/ Childcare or Family Care: No Spiritual care concerns: No Exam Narrative: APPEARANCE: No apparent distress. A&O x1 Head: atraumatic. EYES: EOMI, NOSE: Atraumatic NECK: Trachea midline RESPIRATORY: No increased rate of breathing clear to auscultation CARDIOVASCULAR: RRR, no peripheral edema ABDOMINAL: Non-distended soft nontender MUSCULOSKELETAl: No obvious deformities NEURO: Alert. Moving 4/4 extremities SKIN:: Chronic appearing venous stasis changes on the left lower extremity without evidence of active infection PSYCHIATRIC: Normal affect Course Vital Signs Vital signs: Vital Signs Temperature 98.4 F 06/04/25 20:12 Pulse Rate 71 06/04/25 20:12 Respiratory Rate 22 H 06/04/25 20:12 Blood Pressure 166/70 H 06/04/25 20:12 Pulse Oximetry 100 06/04/25 20:12 Oxygen Delivery Room Air 06/04/25 20:12 Temperature 97.4 F L 06/06/25 04:00 Pulse Rate 66 06/06/25 04:00 Respiratory Rate 20 06/06/25 04:00 Blood Pressure 111/68 06/06/25 04:00 Pulse Oximetry 97 06/06/25 04:00 Oxygen Delivery Room Air 06/05/25 11:52 Oxygen Flow Rate 8 06/05/25 10:50 Medical Decision Making MDM Narrative Medical decision making narrative: -Course: 70-year-old female presenting with abdominal pain and altered mental status. On arrival she was confused. After fluid resuscitation her mental status improved and she is now A&O x4. Workup was significant for a urinary tract infection. CT abdomen pelvis showed a 6 mm stone in the left proximal ureter with mild hydronephrosis. Urology was consulted for infected/septic stone. -DDX includes but is not limited to: Sepsis dehydration UTI pneumonia intra-abdominal pathology, infected stone Vital Signs Vital Signs: Vital Signs Temperature 98.4 F 06/04/25 20:12 Pulse Rate 71 06/04/25 20:12 Respiratory Rate 22 H 06/04/25 20:12 Blood Pressure 166/70 H 06/04/25 20:12 Pulse Oximetry 100 06/04/25 20:12 Oxygen Delivery Room Air 06/04/25 20:12 Temperature 97.4 F L 06/06/25 04:00 Pulse Rate 66 06/06/25 04:00 Respiratory Rate 20 06/06/25 04:00 Blood Pressure 111/68 06/06/25 04:00 Pulse Oximetry 97 06/06/25 04:00 Oxygen Delivery Room Air 06/05/25 11:52 Oxygen Flow Rate 8 06/05/25 10:50 Lab Data 06/06/25 05:04 06/06/25 05:04 Labs: Lab Results 06/04/25 06/04/25 06/04/25 Range/Units 20:45 21:19 22:14 WBC 17.2 H (4.5-10.0) K/mm3 RBC 4.53 (4.2-5.4) M/mm3 Hgb 14.1 (12.0-15.0) g/dL Hct 42.3 (37.0-47.0) % MCV 93.4 (80-100) fl MCH 31.1 (26-34) pg MCHC 33.3 (32-36) g/dl RDW 13.0 (11.5-14.5) % Plt Count 233 (150-375) k/mm3 MPV 9.2 (7.4-10.4) fl Immature Gran % (Auto) 1.6 H (0-0.5) % Neut % (Auto) 80.1 H (45.5-73.1) % Lymph % (Auto) 10.4 L (18.3-44.2) % [place] % (Auto) 5.7 (2.6-8.5) % Eos % (Auto) 1.7 (0-4.4) % Baso % (Auto) 0.5 (0.2-1.2) % Lymph # (Auto) 1.79 (0.9-3.2) K/mm3 [place] # (Auto) 1.0 H (0.1-0.6) K/mm3 Eos # (Auto) 0.3 (0-0.3) K/mm3 Baso # (Auto) 0.1 (0.0-0.1) K/mm3 Abs Immat Gran (auto) 0.27 H (0.00-0.031) K/mm3 Absolute Neuts (auto) 13.8 H (1.3-6.7) K/mm3 Absolute Nucleated RBC 0.000 (0.0-0.012) K/mm3 Nucleated RBC % 0.0 (0.0-0.2) % PT 22.2 H 13.0 D (11.1-14.7) Seconds INR 2.0 1.0 APTT > 200.0 H* 36.3 (22.3-36.8) Seconds Sodium 137 (137-145) mmol/L Potassium 4.9 (3.4-5.0) mmol/L Chloride 105 (98-107) mmol/L Carbon Dioxide 23 (22-30) mmol/L Anion Gap 9 (4-12) mmol/L BUN 34 H D (7-17) mg/dL Creatinine 0.89 (0.7-1.0) mg/dL Estim Creat Clear Calc 62 ml/min Estimated GFR > 60 (59 - ) Glucose 103 (65-110) mg/dL Lactic Acid (0.7-2.0) mmol/L Calcium 9.6 (8.4-10.2) mg/dL Total Bilirubin 0.9 (0.2-1.3) mg/dL AST 168 H (14-36) U/L ALT 101 H (6-35) U/L Alkaline Phosphatase 118 (38-126) U/L Total Protein 7.0 (6.3-8.2) g/dL Albumin 4.1 (3.5-5.1) g/dL Urine Color Yellow (Yellow) Urine Appearance Cloudy H (Clear) Urine pH 5.5 (5.0-9.0) Ur Specific [place] 1.020 (1.001-1.035) Urine Protein Negative (Negative) mg/dL Urine Glucose (UA) Negative (Negative) mg/dL Urine Ketones 1+ H (Negative) mg/dL Ur Blood (Man) Negative (Negative) Urine Nitrate Positive H (Negative) Urine Bilirubin Negative (Negative) Urine Urobilinogen 0.2 (<2.0) mg/dL Leukocyte Esterase Rfl 2+ H (Negative) ARNAUD/UL Urine RBC 0-2 (0-2) /hpf Urine WBC >100 H (0-3) /hpf Ur Squamous Epith Cells None seen (Few) /hpf Urine Bacteria 4+ H /hpf Urine Casts 0-2 Influenza A (RT-PCR) (Negative) Influenza B (RT-PCR) (Negative) RSV (RT-PCR) (Negative) SARS-CoV-2 RNA (RT-PCR) (Negative) 06/05/25 Range/Units 01:10 WBC (4.5-10.0) K/mm3 RBC (4.2-5.4) M/mm3 Hgb (12.0-15.0) g/dL Hct (37.0-47.0) % MCV (80-100) fl MCH (26-34) pg MCHC (32-36) g/dl RDW (11.5-14.5) % Plt Count (150-375) k/mm3 MPV (7.4-10.4) fl Immature Gran % (Auto) (0-0.5) % Neut % (Auto) (45.5-73.1) % Lymph % (Auto) (18.3-44.2) % [place] % (Auto) (2.6-8.5) % Eos % (Auto) (0-4.4) % Baso % (Auto) (0.2-1.2) % Lymph # (Auto) (0.9-3.2) K/mm3 [place] # (Auto) (0.1-0.6) K/mm3 Eos # (Auto) (0-0.3) K/mm3 Baso # (Auto) (0.0-0.1) K/mm3 Abs Immat Gran (auto) (0.00-0.031) K/mm3 Absolute Neuts (auto) (1.3-6.7) K/mm3 Absolute Nucleated RBC (0.0-0.012) K/mm3 Nucleated RBC % (0.0-0.2) % PT (11.1-14.7) Seconds INR APTT (22.3-36.8) Seconds Sodium (137-145) mmol/L Potassium (3.4-5.0) mmol/L Chloride (98-107) mmol/L Carbon Dioxide (22-30) mmol/L Anion Gap (4-12) mmol/L BUN (7-17) mg/dL Creatinine (0.7-1.0) mg/dL Estim Creat Clear Calc ml/min Estimated GFR (59 - ) Glucose (65-110) mg/dL Lactic Acid 0.8 (0.7-2.0) mmol/L Calcium (8.4-10.2) mg/dL Total Bilirubin (0.2-1.3) mg/dL AST (14-36) U/L ALT (6-35) U/L Alkaline Phosphatase (38-126) U/L Total Protein (6.3-8.2) g/dL Albumin (3.5-5.1) g/dL Urine Color (Yellow) Urine Appearance (Clear) Urine pH (5.0-9.0) Ur Specific [place] (1.001-1.035) Urine Protein (Negative) mg/dL Urine Glucose (UA) (Negative) mg/dL Urine Ketones (Negative) mg/dL Ur Blood (Man) (Negative) Urine Nitrate (Negative) Urine Bilirubin (Negative) Urine Urobilinogen (<2.0) mg/dL Leukocyte Esterase Rfl (Negative) ARNAUD/UL Urine RBC (0-2) /hpf Urine WBC (0-3) /hpf Ur Squamous Epith Cells (Few) /hpf Urine Bacteria /hpf Urine Casts Influenza A (RT-PCR) Negative (Negative) Influenza B (RT-PCR) Negative (Negative) RSV (RT-PCR) Negative (Negative) SARS-CoV-2 RNA (RT-PCR) Negative (Negative) Discharge Plan Discharge Clinical Impression: Altered mental status, Acute UTI, Kidney stone Patient Disposition: Still a Patient Condition: Guarded Prognosis
--- NOTE | 2025-06-05 04:50 | ADMGEN ---
This patient, Savanna Arevalo, was admitted to 2 Medical Room 257-01. Patient/family oriented to hospital policies and general routines including ID bracelet, bed and alarms, visiting hours, pain management, procedures, bathroom and other care routines, personal items, smoking policy, room service/diet, and visiting hours. Information on how to activate the Rapid Response Team has been discussed. Patient/Family are encouraged to report perceived risks to care and to ask questions if they do not understand what they are told or what they should do.
--- NOTE | 2025-06-05 06:18 | WPDURCON ---
Assessment and Plan Assessment and plan (1) Calculus of proximal left ureter: Code(s): N20.1 - Calculus of ureter Status: Acute (2) UTI (urinary tract infection): Qualifiers: Hematuria presence: without hematuria Urinary tract infection type: acute cystitis Qualified Code(s): N30.00 - Acute cystitis without hematuria Code(s): N39.0 - Urinary tract infection, site not specified Status: Acute Assessment and Plan: Cystoscopy with left ureteral stent placement today. Definitive stone management [id number], after adequate treatment for her urinary tract infection Urology Consult Note HPI Date Seen: 06/05/25 Requesting Physician: Álvaro Strong MD Primary Care Provider: Jordon Torres MD Consult Narrative Narrative: Savanna Arevalo is a 70 year old female with a history of recurrent urolithiasis generally managed by Dr. Canela in past. Yesterday she acute mental status changes without significant flank pain, fever or hematuria. Evaluation in the emergency department suggested urinary tract infection imaging shows an obstructing 7 mm left proximal ureteral stone. She has not been febrile since presentation mental status is improved with initiation of broad-spectrum antibiotics. Review of Systems Review of Systems: All systems reviewed & are unremarkable except as noted in HPI and below PMFSH Past Medical History Medical History History of UTI Cellulitis of left lower extremity H/O fall Lymphedema Cellulitis COVID-19 (08/2021) Anxiety Lymphedema Hypertriglyceridemia Venous insufficiency of lower extremity Osteoarthritis Cerebral palsy With mild left-sided weakness. Legionella pneumonia (04/2019) Kidney stones (03/2018) Hypertension Cellulitis Surgical History Surgical History Status post laser ablation of incompetent vein History of cystoscopy (03/2018) With ureteral stent and stone extraction. History of ankle surgery (1959) Achilles tendon lengthening. History of dilation and curettage With uterine polypectomy. Family History Family History Mother Breast cancer Sibling Breast cancer Other Hodgkin disease Father Parkinson disease Lymph node cancer Grandparent Leukemia Sibling Brain cancer Social History Social History Social History: The patient is and lives with her in [place]. They have no children. 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 She denies alcohol, tobacco, and illicit substance abuse. She designates her , Jae Arevalo, as her surrogate decision maker and she wishes to be a full code. Smoking status: Never smoker Second hand tobacco smoke exposure: No Alcohol intake: never Alcohol use details: social Substance use: never Substance use type: does not use Do You Feel Safe in your Home?: Yes Lack of Transportation: No Lack of Food: Never True Current Housing: I Have Housing Concerned About Future Housing: No Difficulty Paying Gas/Electric Bills: No Difficulty Paying for Meds: No Currently Unemployed: No Education: Associate Degree Difficulty w/ Childcare or Family Care: No Spiritual care concerns: No Meds Home Medications and Allergies Home Medications ?Medication ?Instructions ?Recorded ?Confirmed ?Type aspirin 81 mg chewable tablet 81 mg PO QAM 01/26/20 06/05/25 History nifedipine 30 mg tablet,extended See Rx Instructions .Route 03/24/24 06/05/25 Rx release 24 hr .COMPLEX #90 tabs atenolol 25 mg tablet 25 mg PO DAILY #90 tabs 03/02/25 06/05/25 Rx vibegron 75 mg tablet (Gemtesa) 75 mg PO DAILY #90 tabs 05/12/25 06/05/25 Rx methocarbamol 500 mg tablet 500 mg PO QHS PRN muscle spasm #10 05/27/25 06/05/25 Rx tabs alendronate 70 mg tablet 70 mg PO WEEKLY 06/05/25 06/05/25 History ibuprofen 600 mg tablet 600 mg PO Q8H PRN pain 06/05/25 06/05/25 History tirzepatide (weight loss) 7.5 7.5 mg subcut WEEKLY 06/05/25 06/05/25 History mg/0.5 mL subcutaneous solution (Zepbound) Allergies Allergy/AdvReac Type Severity Reaction Status Date / Time No Known Allergies Allergy Unknown Verified 06/05/25 05:04 Vital Signs Vital Signs - 24 hr 06/04/25 20:12 06/04/25 20:24 06/04/25 20:30 Temperature 98.4 F Pulse Rate 71 68 76 Respiratory Rate 22 H 20 16 Blood Pressure 166/70 H Pulse Oximetry 100 100 94 Oxygen Delivery Room Air 06/04/25 20:31 06/04/25 21:21 06/04/25 21:30 Temperature Pulse Rate 76 75 81 Respiratory Rate 13 13 16 Blood Pressure 157/81 H Pulse Oximetry 100 99 Oxygen Delivery 06/04/25 21:31 06/04/25 21:56 06/04/25 23:09 Temperature Pulse Rate 84 76 79 Respiratory Rate 20 15 15 Blood Pressure 160/76 H Pulse Oximetry 94 99 95 Oxygen Delivery 06/04/25 23:15 06/04/25 23:58 06/05/25 03:15 Temperature Pulse Rate 92 77 87 Respiratory Rate 13 16 17 Blood Pressure 154/81 H 148/80 H Pulse Oximetry 97 98 95 Oxygen Delivery 06/05/25 03:44 06/05/25 04:00 06/05/25 05:00 Temperature 97.6 F Pulse Rate 88 88 Respiratory Rate 18 18 Blood Pressure 124/81 147/82 H Pulse Oximetry 99 99 Oxygen Delivery Room Air 06/05/25 05:21 Temperature Pulse Rate 78 Respiratory Rate Blood Pressure Pulse Oximetry Oxygen Delivery Exam Const: General: no acute distress Resp: Effort & Inspection: normal respiratory effort GI: Inspection: non-distended GI Palp: No abdominal tenderness and No Guarding due to palpation present (GI) Auscultation: normal bowel sounds Results Labs 06/04/25 20:45 06/04/25 20:45 Labs: Short CBC 06/04/25 Range/Units 20:45 WBC 17.2 H (4.5-10.0) K/mm3 Hgb 14.1 (12.0-15.0) g/dL Hct 42.3 (37.0-47.0) % Plt Count 233 (150-375) k/mm3 [facility] 06/04/25 20:45 Sodium 137 Potassium 4.9 Chloride 105 Carbon Dioxide 23 BUN 34 H D Creatinine 0.89 Glucose 103 Calcium 9.6 Liver Function 06/04/25 Range/Units 20:45 Total Bilirubin 0.9 (0.2-1.3) mg/dL AST 168 H (14-36) U/L ALT 101 H (6-35) U/L Alkaline Phosphatase 118 (38-126) U/L Albumin 4.1 (3.5-5.1) g/dL Urine 11/06/25 Range/Units 21:19 Urine Color Yellow (Yellow) Urine Appearance Cloudy H (Clear) Urine pH 5.5 (5.0-9.0) Ur Specific [place] 1.020 (1.001-1.035) Urine Protein Negative (Negative) mg/dL Urine Glucose (UA) Negative (Negative) mg/dL
--- NOTE | 2025-06-05 07:19 | PM.IMHP ---
H&P: HPI History of Present Illness Date/Time: 06/05/25 07:19 Chief Complaint: Altered mental status Narrative: 70-year-old female hx urolithiasis,cerebral palsy with left sided weakness, who presented for altered mental status, admitted for treatment of a UTI and obstructing renal stone. Per discussion with patient and her , she had been feeling well the rest of the week. Denied any urinary symptoms, fevers, back pain or other complaints. She had diarrhea yesterday morning, several episodes, but she reports this is not uncommon side she has been taking zepbound. She ate a taco and after that had vomiting. Patient became acutely altered in the bathroom. Repeating the same phrase per notes. In the ER, she was afebrile, VSS WBC 17.2. UA positive. She was found to have an obstructing kidney stone, and was taken to the OR by urology. A left ureteral stent was placed. Planning definitive stone management at a later date 06/[address] no acute findings 06/05 CT Abd/pelvis 1. 6 mm stone in proximal left ureter. No hydronephrosis. 2. Nonobstructing bilateral kidney stones. Review of Systems Review of Systems: Review of systems negative except as noted in HPI Specifically denies fevers or chills, urinary symptoms except as noted. No dysuria PMFSH Past Medical History Medical History History of UTI Cellulitis of left lower extremity H/O fall Lymphedema Cellulitis COVID-19 (08/2021) Anxiety Lymphedema Hypertriglyceridemia Venous insufficiency of lower extremity Osteoarthritis Cerebral palsy With mild left-sided weakness. Legionella pneumonia (04/2019) Kidney stones (03/2018) Hypertension Cellulitis Surgical History Surgical History Status post laser ablation of incompetent vein History of cystoscopy (03/2018) With ureteral stent and stone extraction. History of ankle surgery (1958) Achilles tendon lengthening. History of dilation and curettage With uterine polypectomy. Family History Family History Mother Breast cancer Sibling Breast cancer Other Hodgkin disease Father Parkinson disease Lymph node cancer Grandparent Leukemia Sibling Brain cancer Social History Social History Social History: The patient is and lives with her in [place]. They have no children. 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 She denies alcohol, tobacco, and illicit substance abuse. She designates her , Jae Arevalo, as her surrogate decision maker and she wishes to be a full code. Smoking status: Never smoker Second hand tobacco smoke exposure: No Alcohol intake: never Alcohol use details: social Substance use: never Substance use type: does not use Do You Feel Safe in your Home?: Yes Lack of Transportation: No Lack of Food: Never True Current Housing: I Have Housing Concerned About Future Housing: No Difficulty Paying Gas/Electric Bills: No Difficulty Paying for Meds: No Currently Unemployed: No Education: Associate Degree Difficulty w/ Childcare or Family Care: No Spiritual care concerns: No Meds Home Medications and Allergies Home Medications ?Medication ?Instructions ?Recorded ?Confirmed ?Type aspirin 81 mg chewable tablet 81 mg PO QAM 01/26/20 06/05/25 History nifedipine 30 mg tablet,extended See Rx Instructions .Route 03/24/24 06/05/25 Rx release 24 hr .COMPLEX #90 tabs atenolol 25 mg tablet 25 mg PO DAILY #90 tabs 03/02/25 06/05/25 Rx vibegron 75 mg tablet (Gemtesa) 75 mg PO DAILY #90 tabs 05/12/25 06/05/25 Rx methocarbamol 500 mg tablet 500 mg PO QHS PRN muscle spasm #10 05/27/25 06/05/25 Rx tabs alendronate 70 mg tablet 70 mg PO WEEKLY 06/05/25 06/05/25 History ibuprofen 600 mg tablet 600 mg PO Q8H PRN pain 06/05/25 06/05/25 History tirzepatide (weight loss) 7.5 7.5 mg subcut WEEKLY 06/05/25 06/05/25 History mg/0.5 mL subcutaneous solution (Zepbound) Allergies Allergy/AdvReac Type Severity Reaction Status Date / Time No Known Allergies Allergy Unknown Verified 06/05/25 09:31 Vital Signs Vital Signs - 24 hr 06/04/25 20:12 06/04/25 20:24 06/04/25 20:30 Temperature 98.4 F Pulse Rate 71 68 76 Respiratory Rate 22 H 20 16 Blood Pressure 166/70 H Pulse Oximetry 100 100 94 Oxygen Delivery Room Air 06/04/25 20:31 06/04/25 21:21 06/04/25 21:30 Temperature Pulse Rate 76 75 81 Respiratory Rate 13 13 16 Blood Pressure 157/81 H Pulse Oximetry 100 99 Oxygen Delivery 06/04/25 21:31 06/04/25 21:56 06/04/25 23:09 Temperature Pulse Rate 84 76 79 Respiratory Rate 20 15 15 Blood Pressure 160/76 H Pulse Oximetry 94 99 95 Oxygen Delivery 06/04/25 23:15 06/04/25 23:58 06/05/25 03:15 Temperature Pulse Rate 92 77 87 Respiratory Rate 13 16 17 Blood Pressure 154/81 H 148/80 H Pulse Oximetry 97 98 95 Oxygen Delivery 06/05/25 03:44 06/05/25 04:00 06/05/25 05:00 Temperature 97.6 F Pulse Rate 88 88 Respiratory Rate 18 18 Blood Pressure 124/81 147/82 H Pulse Oximetry 99 99 Oxygen Delivery Room Air 06/05/25 05:21 Temperature Pulse Rate 78 Respiratory Rate Blood Pressure Pulse Oximetry Oxygen Delivery Exam Narrative: General - Awake and alert. No acute distress Eyes - PERRLA, EOM intact ENT - No thrush, No erythema Neck - No noticeable or palpable swelling Lymph Nodes - No lymphadenopathy Cardiovascular - RRR no m/r/g, no JVD Lungs: Clear to auscultation, No wheezing, use of accessory muscles, no crackles or wheezes. Skin - Skin warm and dry, no wounds or rashes Abdomen - Normal bowel sounds, abdomen soft and nontender Extremities - No edema, cyanosis or clubbing Musculoskeletal - 5/5 strength, normal range of motion, no swollen or erythematous joints. Neurological ? Alert and oriented x 3, CN 2-12 grossly intact, except minimal left sided weakness Psych: Normal mood and affect H&P: Results Labs Labs: Short CBC 06/04/25 Range/Units 20:45 WBC 17.2 H (4.5-10.0) K/mm3 Hgb 14.1 (12.0-15.0) g/dL Hct 42.3 (37.0-47.0) % Plt Count 233 (150-375) k/mm3 BMP 06/04/25 20:45 Sodium 137 Potassium 4.9 Chloride 105 Carbon Dioxide 23 BUN 34 H D Creatinine 0.89 Glucose 103 Calcium 9.6 Liver Function 06/04/25 Range/Units 20:45 Total Bilirubin 0.9 (0.2-1.3) mg/dL AST 168 H (14-36) U/L ALT 101 H (6-35) U/L Alkaline Phosphatase 118 (38-126) U/L Albumin 4.1 (3.5-5.1) g/dL Urine 06/04/25 Range/Units 21:19 Urine Color Yellow (Yellow) Urine Appearance Cloudy H (Clear) Urine pH 5.5 (5.0-9.0) Ur Specific [place] 1.020 (1.001-1.035) Urine Protein Negative (Negative) mg/dL Urine Glucose (UA) Negative (Negative) mg/dL Assessment and Plan Assessment and plan (1) UTI (urinary tract infection): Qualifiers: Hematuria presence: without hematuria Urinary tract infection type: acute cystitis Qualified Code(s): N30.00 - Acute cystitis without hematuria Code(s): N39.0 - Urinary tract infection, site not specified Status: Acute Assessment and Plan: Prior cultures 02/2024 with e coli resistant to Zosyn, Bactrim, Augmentin, and Cefazolin. Was sensitive to Ceftriaxone/Cefepime, and quinolones Patient denies urinary symptoms. Has urinary incontinence at baseline --Culture pending --Continuing Ceftriaxone (2) Left ureteral calculus: Code(s): N20.1 - Calculus of ureter Status: Acute Assessment and Plan: Urology consult in the ER, status post cystoscopy with left ureteral stent placement today --follow-up with Urology for definitive management of stone --treatment of UTI (3) Diarrhea: Code(s): R19.7 - Diarrhea, unspecified Status: Acute Assessment and Plan: May be related to zepbound vs other --Hold zepbound for now and monitor (4) Elevated LFTs: Code(s): R79.89 - Other specified abnormal findings of blood chemistry Status: Acute Assessment and Plan: Bilirubin normal, but elevated ALT 101<215, AST 168<191, Alk phos 118<134 No abdominal pain --Repeat LFT's in AM in AM Quality VTE Prophylaxis VTE prophylaxis: pharmacologic ordered Hospitalist MIPS Advance Care Plan I have confirmed that the patient's Advanced Care Plan is present, code status is documented, or surrogate decision maker is listed in patient medical record.: Yes Medication Reconciliation I have utilized all available resources to obtain, update and review the patients current medications (includes all prescriptions, OTC, herbals, cannabis, and nutritional supplements).: Yes
--- NOTE | 2025-06-05 07:54 | PC.NURSE ---
Report call to Perla BALBUENA preop.
[2025-06-05 07:56] LABS: Hematocrit 39.0 % (37.0-47.0); Hemoglobin 13.1 g/dL (12.0-15.0); Immature Granulocyte Percent A 1.2 % (0-0.5); Lymphocytes Absolute Auto 1.75 K/mm3 (0.9-3.2); Mean Corpuscular HGB Conc 33.6 g/dl (32-36); Mean Corpuscular Hemoglobin 31.1 pg (26-34); Mean Corpuscular Volume 92.6 fl (80-100); Nucleated Red Blood Cells Absolute Auto 0.000 K/mm3 (0.0-0.012); Nucleated Red Blood Cells Perc 0.0 % (0.0-0.2); Platelet Count Result 204 k/mm3 (150-375); Red Blood Count 4.21 M/mm3 (4.2-5.4); White Blood Count 10.5 K/mm3 (4.5-10.0)
[2025-06-05 08:22] LABS: Alanine Aminotransferase 215 U/L (6-35); Albumin Level 3.4 g/dL (3.5-5.1); Alkaline Phosphatase 134 U/L (38-126); Anion Gap 5 mmol/L (4-12); Aspartate Amino Transferase 191 U/L (14-36); Bilirubin,Total 0.7 mg/dL (0.2-1.3); Blood Urea Nitrogen 23 mg/dL (7-17); CRP 2.3 mg/dL (<1.0); Calcium 8.6 mg/dL (8.4-10.2); Carbon Dioxide 26 mmol/L (22-30); Chloride 104 mmol/L (98-107); Estimated CRCL calculation 73 ml/min; Estimated Glomerular Filt Rate > 60; Glucose 87 mg/dL (65-110); Magnesium 1.9 mg/dL (1.6-2.3); Potassium 3.8 mmol/L (3.4-5.0); Sodium 135 mmol/L (137-145); Total Protein 6.1 g/dL (6.3-8.2)
[2025-06-05 08:29] LABS: INR 1.0; Prothrombin Time 13.1 Seconds (11.1-14.7)
[2025-06-05 08:30] LABS: Partial Thromboplastin Time 37.6 Seconds (22.3-36.8)
--- NOTE | 2025-06-05 09:01 | PC.NURSE ---
To OR via stretcher.
--- NOTE | 2025-06-05 09:46 | WPDHPUPDATE1 ---
History and Physical Update Update Date/Time: 06/05/25 09:46 History and Physical has been reviewed, including an updated exam of the patient. There are NO changes in the patient's condition. Risks, benefits, and alternatives have been discussed and questions answered. Patient agrees to proceed with procedure.
--- NOTE | 2025-06-05 09:48 | PM.IMHP ---
H&P: HPI History of Present Illness Date/Time: 06/05/25 09:48 Chief Complaint: Left ureteral stone Review of Systems Review of Systems: All systems reviewed & are unremarkable except as noted in HPI and below (HPI) [facility]LY [facility] Past Medical History Medical History History of UTI Cellulitis of left lower extremity H/O fall Lymphedema Cellulitis COVID-19 (08/2021) Anxiety Lymphedema Hypertriglyceridemia Venous insufficiency of lower extremity Osteoarthritis Cerebral palsy With mild left-sided weakness. Legionella pneumonia (04/2019) Kidney stones (03/2018) Hypertension Cellulitis Surgical History Surgical History Status post laser ablation of incompetent vein History of cystoscopy (03/2018) With ureteral stent and stone extraction. History of ankle surgery (1958) Achilles tendon lengthening. History of dilation and curettage With uterine polypectomy. Family History Family History Mother Breast cancer Sibling Breast cancer Other Hodgkin disease Father Parkinson disease Lymph node cancer Grandparent Leukemia Sibling Brain cancer Social History Social History Social History: The patient is and lives with her in [place]. They have no children. 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 She denies alcohol, tobacco, and illicit substance abuse. She designates her , Jae Arevalo, as her surrogate decision maker and she wishes to be a full code. Smoking status: Never smoker Second hand tobacco smoke exposure: No Alcohol intake: never Alcohol use details: social Substance use: never Substance use type: does not use Do You Feel Safe in your Home?: Yes Lack of Transportation: No Lack of Food: Never True Current Housing: I Have Housing Concerned About Future Housing: No Difficulty Paying Gas/Electric Bills: No Difficulty Paying for Meds: No Currently Unemployed: No Education: Associate Degree Difficulty w/ Childcare or Family Care: No Spiritual care concerns: No Meds Home Medications and Allergies Home Medications ?Medication ?Instructions ?Recorded ?Confirmed ?Type aspirin 81 mg chewable tablet 81 mg PO QAM 01/26/20 06/05/25 History nifedipine 30 mg tablet,extended See Rx Instructions .Route 03/24/24 06/05/25 Rx release 24 hr .COMPLEX #90 tabs atenolol 25 mg tablet 25 mg PO DAILY #90 tabs 03/02/25 06/05/25 Rx vibegron 75 mg tablet (Gemtesa) 75 mg PO DAILY #90 tabs 05/12/25 06/05/25 Rx methocarbamol 500 mg tablet 500 mg PO QHS PRN muscle spasm #10 05/27/25 06/05/25 Rx tabs alendronate 70 mg tablet 70 mg PO WEEKLY 06/05/25 06/05/25 History ibuprofen 600 mg tablet 600 mg PO Q8H PRN pain 06/05/25 06/05/25 History tirzepatide (weight loss) 7.5 7.5 mg subcut WEEKLY 06/05/25 06/05/25 History mg/0.5 mL subcutaneous solution (Zepbound) Allergies Allergy/AdvReac Type Severity Reaction Status Date / Time No Known Allergies Allergy Unknown Verified 06/05/25 09:31 Vital Signs Vital Signs - 24 hr 06/04/25 20:12 06/04/25 20:24 06/04/25 20:30 Temperature 36.9 C Pulse Rate 71 68 76 Respiratory Rate 22 H 20 16 Blood Pressure 166/70 H Pulse Oximetry 100 100 94 Oxygen Delivery Room Air 06/04/25 20:31 06/04/25 21:21 06/04/25 21:30 Temperature Pulse Rate 76 75 81 Respiratory Rate 13 13 16 Blood Pressure 157/81 H Pulse Oximetry 100 99 Oxygen Delivery 06/04/25 21:31 06/04/25 21:56 06/04/25 23:09 Temperature Pulse Rate 84 76 79 Respiratory Rate 20 15 15 Blood Pressure 160/76 H Pulse Oximetry 94 99 95 Oxygen Delivery 06/04/25 23:15 06/04/25 23:58 06/05/25 03:15 Temperature Pulse Rate 92 77 87 Respiratory Rate 13 16 17 Blood Pressure 154/81 H 148/80 H Pulse Oximetry 97 98 95 Oxygen Delivery 06/05/25 03:44 06/05/25 04:00 06/05/25 05:00 Temperature 36.4 C Pulse Rate 88 88 Respiratory Rate 18 18 Blood Pressure 124/81 147/82 H Pulse Oximetry 99 99 Oxygen Delivery Room Air 06/05/25 05:21 06/05/25 08:00 06/05/25 08:03 Temperature 36.3 C L Pulse Rate 78 80 77 Respiratory Rate 16 Blood Pressure 124/60 Pulse Oximetry 97 Oxygen Delivery 06/05/25 08:03 06/05/25 08:07 06/05/25 09:15 Temperature 36.9 C Pulse Rate 73 77 67 Respiratory Rate 16 Blood Pressure 131/51 L Pulse Oximetry 97 99 Oxygen Delivery Room Air Room Air Exam Const: General: comfortable and no acute distress HENMT: Face/Nose/Sinus: Normal nares present Eyes: General: appearance normal, both eyes and all related structures Resp: Effort & Inspection: normal respiratory effort Cardio: Rate: regular rate Rhythm: regular rhythm Skin: General skin exam: normal color Neuro: Speech: normal speech Sensory Exam: normal sensation Extrem: General: normal to inspection Psych: Mental Status: mental status grossly normal Affect: normal affect H&P: Results Labs Labs: Short CBC 06/04/25 06/05/25 Range/Units 20:45 07:36 WBC 17.2 H 10.5 H (4.5-10.0) K/mm3 Hgb 14.1 13.1 (12.0-15.0) g/dL Hct 42.3 39.0 (37.0-47.0) % Plt Count 233 204 (150-375) k/mm3 [facility] 06/04/25 06/05/25 20:45 07:36 Sodium 137 135 L Potassium 4.9 3.8 Chloride 105 104 Carbon Dioxide 23 26 BUN 34 H D 23 H D Creatinine 0.89 0.76 Glucose 103 87 Calcium 9.6 8.6 Liver Function 06/04/25 06/05/25 Range/Units 20:45 07:36 Total Bilirubin 0.9 0.7 (0.2-1.3) mg/dL AST 168 H 191 H (14-36) U/L ALT 101 H 215 H (6-35) U/L Alkaline Phosphatase 118 134 H (38-126) U/L Albumin 4.1 3.4 L (3.5-5.1) g/dL Urine 06/04/25 Range/Units 21:19 Urine Color Yellow (Yellow) Urine Appearance Cloudy H (Clear) Urine pH 5.5 (5.0-9.0) Ur Specific [place] 1.020 (1.001-1.035) Urine Protein Negative (Negative) mg/dL Urine Glucose (UA) Negative (Negative) mg/dL Imaging CT scan - abdomen: Radiologist's impression: 6mm Left proximal ureteral stone Assessment and Plan Assessment and plan (1) UTI (urinary tract infection): Qualifiers: Hematuria presence: without hematuria Urinary tract infection type: acute cystitis Qualified Code(s): N30.00 - Acute cystitis without hematuria Code(s): N39.0 - Urinary tract infection, site not specified Status: Acute (2) Left ureteral calculus: Code(s): N20.1 - Calculus of ureter Status: Acute (3) BMI 45.0-49.9, adult: Code(s): Z68.42 - Body mass index [BMI] 45.0-49.9, adult Status: Acute Assessment and Plan: 70 year old female with 6mm left proximal ureteral stone and UTI Plan Plan left ureteral stent placement. Risks, benefits of the procedure were discussed as well as stent symptoms. Plan stent placement followed by definitive stone treatment following an adequate course of culture-specific antibiotics. The patient wishes to proceed. All questions were answered. Quality VTE Prophylaxis VTE prophylaxis: mechanical ordered
--- NOTE | 2025-06-05 09:51 | WPDANESEPPF ---
Anes - Initial Pre Proc Eval Procedure: Operation Date: 06/05/25 10:30 Proposed Procedures p Cystoscopy, Left Stent Placement - Kayli Barahona MD Date/Time: 06/05/25 09:51 Surgeon: Álvaro Strong MD Pre Op Diagnosis: infected stone Patient Data Age: 70 Gender: F Height: 1.6 m Weight: 118 kg Last Vital Signs Temp 98.4 F 06/05/25 09:15 Pulse 67 06/05/25 09:15 Resp 16 06/05/25 08:07 BP 131/51 L 06/05/25 09:15 Pulse Ox 99 06/05/25 09:15 O2 Del Method Room Air 06/05/25 09:15 Allergies Allergy/AdvReac Type Severity Reaction Status Date / Time No Known Allergies Allergy Unknown Verified 06/05/25 09:31 Home Medications ?Medication ?Instructions ?Recorded ?Confirmed ?Type aspirin 81 mg chewable tablet 81 mg PO QAM 01/26/20 06/05/25 History nifedipine 30 mg tablet,extended See Rx Instructions .Route 03/24/24 06/05/25 Rx release 24 hr .COMPLEX #90 tabs atenolol 25 mg tablet 25 mg PO DAILY #90 tabs 03/02/25 06/05/25 Rx vibegron 75 mg tablet (Gemtesa) 75 mg PO DAILY #90 tabs 05/12/25 06/05/25 Rx methocarbamol 500 mg tablet 500 mg PO QHS PRN muscle spasm #10 05/27/25 06/05/25 Rx tabs alendronate 70 mg tablet 70 mg PO WEEKLY 06/05/25 06/05/25 History ibuprofen 600 mg tablet 600 mg PO Q8H PRN pain 06/05/25 06/05/25 History tirzepatide (weight loss) 7.5 7.5 mg subcut WEEKLY 06/05/25 06/05/25 History mg/0.5 mL subcutaneous solution (Zepbound) Laboratory Tests 06/04/25 06/04/25 06/04/25 20:45 21:19 22:14 WBC 17.2 H K/mm3 (4.5-10.0) RBC 4.53 M/mm3 (4.2-5.4) Hgb 14.1 g/dL (12.0-15.0) Hct 42.3 % (37.0-47.0) MCV 93.4 fl (80-100) MCH 31.1 pg (26-34) MCHC 33.3 g/dl (32-36) RDW 13.0 % (11.5-14.5) Plt Count 233 k/mm3 (150-375) MPV 9.2 fl (7.4-10.4) Immature Gran % (Auto) 1.6 H % (0-0.5) Neut % (Auto) 80.1 H % (45.5-73.1) Lymph % (Auto) 10.4 L % (18.3-44.2) [place] % (Auto) 5.7 % (2.6-8.5) Eos % (Auto) 1.7 % (0-4.4) Baso % (Auto) 0.5 % (0.2-1.2) Lymph # (Auto) 1.79 K/mm3 (0.9-3.2) [place] # (Auto) 1.0 H K/mm3 (0.1-0.6) Eos # (Auto) 0.3 K/mm3 (0-0.3) Baso # (Auto) 0.1 K/mm3 (0.0-0.1) Abs Immat Gran (auto) 0.27 H K/mm3 (0.00-0.031) Absolute Neuts (auto) 13.8 H K/mm3 (1.3-6.7) Absolute Nucleated RBC 0.000 K/mm3 (0.0-0.012) Nucleated RBC % 0.0 % (0.0-0.2) ESR PT 22.2 H Seconds 13.0 D Seconds (11.1-14.7) (11.1-14.7) INR 2.0 1.0 APTT > 200.0 H* Seconds 36.3 Seconds (22.3-36.8) (22.3-36.8) Sodium 137 mmol/L (137-145) Potassium 4.9 mmol/L (3.4-5.0) Chloride 105 mmol/L (98-107) Carbon Dioxide 23 mmol/L (22-30) Anion Gap 9 mmol/L (4-12) BUN 34 H D mg/dL (7-17) Creatinine 0.89 mg/dL (0.7-1.0) Estim Creat Clear Calc 62 ml/min Estimated GFR > 60 (59 - ) Glucose 103 mg/dL (65-110) Lactic Acid Calcium 9.6 mg/dL (8.4-10.2) Phosphorus Magnesium Total Bilirubin 0.9 mg/dL (0.2-1.3) AST 168 H U/L (14-36) ALT 101 H U/L (6-35) Alkaline Phosphatase 118 U/L (38-126) C-Reactive Protein Total Protein 7.0 g/dL (6.3-8.2) Albumin 4.1 g/dL (3.5-5.1) Procalcitonin Urine Color Yellow (Yellow) Urine Appearance Cloudy H (Clear) Urine pH 5.5 (5.0-9.0) Ur Specific [place] 1.020 (1.001-1.035) Urine Protein Negative mg/dL (Negative) Urine Glucose (UA) Negative mg/dL (Negative) Urine Ketones 1+ H mg/dL (Negative) Ur Blood (Man) Negative (Negative) Urine Nitrate Positive H (Negative) Urine Bilirubin Negative (Negative) Urine Urobilinogen 0.2 mg/dL (<2.0) Leukocyte Esterase Rfl 2+ H ARNAUD/UL (Negative) Urine RBC 0-2 /hpf (0-2) Urine WBC >100 H /hpf (0-3) Ur Squamous Epith Cells None seen /hpf (Few) Urine Bacteria 4+ H /hpf Urine Casts 0-2 Influenza A (RT-PCR) Influenza B (RT-PCR) RSV (RT-PCR) SARS-CoV-2 RNA (RT-PCR) 06/05/25 06/05/25 01:10 07:36 WBC 10.5 H K/mm3 (4.5-10.0) RBC 4.21 M/mm3 (4.2-5.4) Hgb 13.1 g/dL (12.0-15.0) Hct 39.0 % (37.0-47.0) MCV 92.6 fl (80-100) MCH 31.1 pg (26-34) MCHC 33.6 g/dl (32-36) RDW 13.2 % (11.5-14.5) Plt Count 204 k/mm3 (150-375) MPV 8.9 fl (7.4-10.4) Immature Gran % (Auto) 1.2 H % (0-0.5) Neut % (Auto) 71.5 % (45.5-73.1) Lymph % (Auto) 16.7 L % (18.3-44.2) [place] % (Auto) 7.4 % (2.6-8.5) Eos % (Auto) 2.7 % (0-4.4) Baso % (Auto) 0.5 % (0.2-1.2) Lymph # (Auto) 1.75 K/mm3 (0.9-3.2) [place] # (Auto) 0.8 H K/mm3 (0.1-0.6) Eos # (Auto) 0.3 K/mm3 (0-0.3) Baso # (Auto) 0.1 K/mm3 (0.0-0.1) Abs Immat Gran (auto) 0.13 H K/mm3 (0.00-0.031) Absolute Neuts (auto) 7.5 H K/mm3 (1.3-6.7) Absolute Nucleated RBC 0.000 K/mm3 (0.0-0.012) Nucleated RBC % 0.0 % (0.0-0.2) ESR 17 mm/hr (0-20) PT 13.1 Seconds (11.1-14.7) INR 1.0 APTT 37.6 H Seconds (22.3-36.8) Sodium 135 L mmol/L (137-145) Potassium 3.8 mmol/L (3.4-5.0) Chloride 104 mmol/L (98-107) Carbon Dioxide 26 mmol/L (22-30) Anion Gap 5 mmol/L (4-12) BUN 23 H D mg/dL (7-17) Creatinine 0.76 mg/dL (0.7-1.0) Estim Creat Clear Calc 73 ml/min Estimated GFR > 60 (59 - ) Glucose 87 mg/dL (65-110) Lactic Acid 0.8 mmol/L (0.7-2.0) Calcium 8.6 mg/dL (8.4-10.2) Phosphorus 3.9 mg/dL (2.5-4.5) Magnesium 1.9 mg/dL (1.6-2.3) Total Bilirubin 0.7 mg/dL (0.2-1.3) AST 191 H U/L (14-36) ALT 215 H U/L (6-35) Alkaline Phosphatase 134 H U/L (38-126) C-Reactive Protein 2.3 H mg/dL (<1.0) Total Protein 6.1 L g/dL (6.3-8.2) Albumin 3.4 L g/dL (3.5-5.1) Procalcitonin Pending Urine Color Urine Appearance Urine pH Ur Specific [place] Urine Protein Urine Glucose (UA) Urine Ketones Ur Blood (Man) Urine Nitrate Urine Bilirubin Urine Urobilinogen Leukocyte Esterase Rfl Urine RBC Urine WBC Ur Squamous Epith Cells Urine Bacteria Urine Casts Influenza A (RT-PCR) Negative (Negative) Influenza B (RT-PCR) Negative (Negative) RSV (RT-PCR) Negative (Negative) SARS-CoV-2 RNA (RT-PCR) Negative (Negative) Patient hx anesthesia problems: none Family hx anesthesia problems: none Results Review: All pre-operative results and documents have been reviewed as part of the pre-operative evaluation. [facility] Past Medical History Medical History History of UTI Cellulitis of left lower extremity H/O fall Lymphedema Cellulitis COVID-19 (08/2021) Anxiety Lymphedema Hypertriglyceridemia Venous insufficiency of lower extremity Osteoarthritis Cerebral palsy With mild left-sided weakness. Legionella pneumonia (04/2019) Kidney stones (03/2018) Hypertension Cellulitis Surgical History Surgical History Status post laser ablation of incompetent vein History of cystoscopy (03/2018) With ureteral stent and stone extraction. History of ankle surgery (1958) Achilles tendon lengthening. History of dilation and curettage With uterine polypectomy. Family History Family History Mother Breast cancer Sibling Breast cancer Other Hodgkin disease Father Parkinson disease Lymph node cancer Grandparent Leukemia Sibling Brain cancer Social History Social History Social History: The patient is and lives with her in [place]. They have no children. 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 She denies alcohol, tobacco, and illicit substance abuse. She designates her , Jae Arevalo, as her surrogate decision maker and she wishes to be a full code. Smoking status: Never smoker Second hand tobacco smoke exposure: No Alcohol intake: never Alcohol use details: social Substance use: never Substance use type: does not use Do You Feel Safe in your Home?: Yes Lack of Transportation: No Lack of Food: Never True Current Housing: I Have Housing Concerned About Future Housing: No Difficulty Paying Gas/Electric Bills: No Difficulty Paying for Meds: No Currently Unemployed: No Education: Associate Degree Difficulty w/ Childcare or Family Care: No Spiritual care concerns: No Anes - Eval Final PreProcedure Day of Procedure 06/05/25 09:51 Patient weight: morbidly obese Lungs: normal air movement Airway: Mallampati scale class II Neurological: alert and oriented Last oral intake: >/= 8 hours ASA classification: III Emergent: no Anesthetic plan: proceed Anesthesia type and monitoring: general LMA and standard monitoring Results Review: All pre-operative results and documents have been reviewed as part of the pre-operative evaluation. HTN, BMI 46, ECHO 2022 w nml LVEF, no . Pt active w 1-2 fos, no cp or sob, uses a cane for walking short distances. Informed Consent: The patient's anesthetic plan and its attendant risks and benefits were discussed with the patient/family/POA. Questions were solicited and answers provided to the satisfaction of the patient/family/POA.
[2025-06-05] MEDS: LACTATED RINGERS 1,000 ML 30 ML IV CONT (09:52)
[2025-06-05 09:59] LABS: Procalcitonin 0.1 ng/mL
[2025-06-05] MEDS: ceFAZolin 2 GM in SODIUM CHLORIDE 0.9% IV 50 ML 100 ML IVPB (10:10)
--- NOTE | 2025-06-05 10:37 | P.OP_ITS ---
Procedure Note - Detailed Date of Procedure 06/05/25 Pre-op Diagnosis Left proximal ureteral stone UTI Post-op Diagnosis Same Procedure Performed Cystoscopy, left retrograde pyelogram, left ureteral stent placement Surgeon Kayli Barahona MD Anesthesia General Description of Procedure The patient was correctly identified and informed consent was obtained. She was taken to the operating room and placed in the dorsal lithotomy position. She was prepped and draped in the standard fashion. IV antibiotics were given within one hour of the procedure start and bilateral SCDs were placed for DVT prophylaxis. Lidocaine jelly was inserted into the urethra. Rigid cystoscopy was performed. The bladder mucosa appeared normal. The urine was somewhat cloudy and was evacuated. The left ureteral orifice was identified and a Sensor guidewire was passed into the kidney followed by a 5 Thai open-ended catheter. Ap proximately 4 cc of urine was collected from the renal pelvis, this appeared clear plane trip. Retrograde pyelogram revealed mild hydronephrosis. Over the Sensor guidewire and under direct vision a 4.7 Thai ureteral stent was placed with the proximal end coiling within the kidney distal end within bladder. The bladder was then drained. The patient tolerated the procedure well. The patient will undergo definitive stone treatment after an adequate course culture specific antibiotics. Implants 4.7Fr ureteral stent Estimated Blood Loss 0 Urine Output 400 Complications None Condition Stable [facility] Billing Surgery - Charge Forward: Surgery Billing
--- NOTE | 2025-06-05 10:44 | SUR.OPER ---
Urine culture given to [facility] Salvatore at 1040. Salvatore handed urine culture to [facility] in lab at 1049
--- NOTE | 2025-06-05 11:39 | PC.NURSE ---
Returned from OR via stretcher.
[2025-06-05] MEDS: ENOXAPARIN 40 MG/0.4 ML SYRINGE SUB-Q (21:19)
[2025-06-05] MEDS: cefTRIAXone 2 GM in SODIUM CHLORIDE 0.9% IV 50 ML 100 ML IVPB (21:19)
[2025-06-06] VITALS (13 sets, daily range): BP systolic 111–150; BP diastolic 50–87; PULSE 54–71; RESP 16–20; TEMP 36.3–36.6; O2SAT 96–100
[2025-06-06 05:36] LABS: Hematocrit 39.1 % (37.0-47.0); Hemoglobin 12.6 g/dL (12.0-15.0); Immature Granulocyte Percent A 1.1 % (0-0.5); Lymphocytes Absolute Auto 1.78 K/mm3 (0.9-3.2); Mean Corpuscular HGB Conc 32.2 g/dl (32-36); Mean Corpuscular Hemoglobin 31.4 pg (26-34); Mean Corpuscular Volume 97.5 fl (80-100); Nucleated Red Blood Cells Absolute Auto 0.000 K/mm3 (0.0-0.012); Nucleated Red Blood Cells Perc 0.0 % (0.0-0.2); Platelet Count Result 186 k/mm3 (150-375); Red Blood Count 4.01 M/mm3 (4.2-5.4); White Blood Count 10.1 K/mm3 (4.5-10.0)
[2025-06-06 06:07] LABS: Alanine Aminotransferase 126 U/L (6-35); Albumin Level 3.4 g/dL (3.5-5.1); Alkaline Phosphatase 102 U/L (38-126); Anion Gap 4 mmol/L (4-12); Aspartate Amino Transferase 58 U/L (14-36); Bilirubin,Total 0.5 mg/dL (0.2-1.3); Blood Urea Nitrogen 19 mg/dL (7-17); Calcium 8.6 mg/dL (8.4-10.2); Carbon Dioxide 25 mmol/L (22-30); Chloride 106 mmol/L (98-107); Estimated CRCL calculation 65 ml/min; Estimated Glomerular Filt Rate > 60; Glucose 87 mg/dL (65-110); Magnesium 2.0 mg/dL (1.6-2.3); Potassium 4.0 mmol/L (3.4-5.0); Sodium 135 mmol/L (137-145); Total Protein 6.0 g/dL (6.3-8.2)
--- NOTE | 2025-06-06 09:06 | PM.IMPN ---
Progress Note: A&P Assessment and Plan (1) UTI (urinary tract infection): Qualifiers: Hematuria presence: without hematuria Urinary tract infection type: acute cystitis Qualified Code(s): N30.00 - Acute cystitis without hematuria Code(s): N39.0 - Urinary tract infection, site not specified Status: Acute Assessment and Plan: Prior cultures 02/2024 with e coli resistant to Zosyn, Bactrim, Augmentin, and Cefazolin. Was sensitive to Ceftriaxone/Cefepime, and quinolones Patient denies urinary symptoms. Has urinary incontinence at baseline --Culture pending --Continuing Ceftriaxone (2) Left ureteral calculus: Code(s): N20.1 - Calculus of ureter Status: Acute Assessment and Plan: Urology consulted in the ER, status post cystoscopy with left ureteral stent placement 06/05 --follow-up with Urology for definitive management of stone --treatment of UTI (3) Diarrhea: Code(s): R19.7 - Diarrhea, unspecified Status: Acute Assessment and Plan: May be related to zepbound vs other --Hold zepbound for now, currently resolved (4) Elevated LFTs: Code(s): R79.89 - Other specified abnormal findings of blood chemistry Status: Acute Assessment and Plan: Bilirubin normal, but elevated ALT 101<215, AST 168<191, Alk phos 118<134 No abdominal pain --LFT's improving, monitor (5) Wound drainage: Code(s): T14.8XXA - Other injury of unspecified body region, initial encounter Status: Acute Assessment and Plan: Left leg drainage, yellow --Send for culture --Start empiric doxycycline BID x5 days --Local wound care --Also has a left elbow wound (6) Rash and nonspecific skin eruption: Code(s): R21 - Rash and other nonspecific skin eruption Status: Acute Assessment and Plan: Rash/flaky skin to forehead, chronic --Trial of hydrocortisone 2.5% --Hair loss chronic, previously declined treatment for alopecia (7) Altered mental status: Code(s): R41.82 - Altered mental status, unspecified Status: Acute Assessment and Plan: Intially acutely altered at home, mental status now normal --CT head normal --Suspect vasovagal syncope with diarrhea/vomiting that has since resolved --DC tele Time Spent With Patient Time: 58 minutes Subjective Date/time seen: 06/06/25 09:06 Interval history: Urine Cultures pending Feeling ok today but has yellow drainage from left leg on Ceftriaxone, adding doxycycline Review of Systems Review of Systems: Review of systems negative except as noted in HPI Specifically denies fevers or chills, urinary symptoms except as noted. No dysuria Exam Narrative: General - Awake and alert. No acute distress Eyes - PERRLA, EOM intact ENT - No thrush, No erythema Neck - No noticeable or palpable swelling Lymph Nodes - No lymphadenopathy Cardiovascular - RRR no m/r/g, no JVD Lungs: Clear to auscultation, No wheezing, use of accessory muscles, no crackles or wheezes. Skin - Skin warm and dry, chronic appearing skin changes/erythema, drainage to left leg yellow/crusted Dry flaky skin to forehead Abdomen - Normal bowel sounds, abdomen soft and nontender Extremities - No edema, cyanosis or clubbing Musculoskeletal - 5/5 strength, normal range of motion, no swollen or erythematous joints. Neurological ? Alert and oriented x 3, CN 2-12 grossly intact, except minimal left sided weakness Psych: Normal mood and affect Objective Data Vital Signs Vital Signs: Vital Signs - 24 hr 06/05/25 09:15 06/05/25 10:38 06/05/25 10:50 Temperature 98.4 F 97 F L Pulse Rate 67 62 64 Respiratory Rate 14 17 Blood Pressure 131/51 L 133/72 135/73 Pulse Oximetry 99 100 100 Oxygen Delivery Room Air Simple Face Mask Simple Face Mask Oxygen Flow Rate 8 8 06/05/25 11:05 06/05/25 11:20 06/05/25 11:52 Temperature Pulse Rate 65 66 Respiratory Rate 13 16 16 Blood Pressure 155/79 H 148/80 H Pulse Oximetry 99 96 96 Oxygen Delivery Room Air Room Air Room Air Oxygen Flow Rate 06/05/25 11:53 06/05/25 12:08 06/05/25 12:12 Temperature 97.3 F L 97.3 F L Pulse Rate 63 60 68 Respiratory Rate 18 18 Blood Pressure 141/75 H 140/68 Pulse Oximetry 98 98 Oxygen Delivery Oxygen Flow Rate 06/05/25 14:17 06/05/25 16:00 06/05/25 17:30 Temperature 97.3 F L 97.6 F Pulse Rate 62 60 Respiratory Rate 18 Blood Pressure 136/64 Pulse Oximetry 99 Oxygen Delivery Oxygen Flow Rate 06/05/25 17:45 06/05/25 20:00 06/05/25 20:00 Temperature 97.4 F L Pulse Rate 64 52 L 53 L Respiratory Rate 20 Blood Pressure 139/85 119/60 Pulse Oximetry 92 96 Oxygen Delivery Oxygen Flow Rate 06/05/25 23:55 06/06/25 00:00 06/06/25 04:00 Temperature 97.6 F Pulse Rate 55 L 61 66 Respiratory Rate 20 Blood Pressure 119/64 Pulse Oximetry 96 Oxygen Delivery Oxygen Flow Rate 06/06/25 04:00 06/06/25 07:40 Temperature 97.4 F L 97.3 F L Pulse Rate 66 61 Respiratory Rate 20 16 Blood Pressure 111/68 123/55 L Pulse Oximetry 97 96 Oxygen Delivery Oxygen Flow Rate Intake/Output Intake/Output: Intake & Output 06/03/25 06/04/25 06/05/25 06/06/25 23:59 23:59 23:59 23:59 Intake Total 780 576 Output Total 150 2600 300 Balance -150 -1820 276 Meds/Results Medications: Active Medications Generic Name Dose Route Start Last Admin Trade Name Freq PRN Reason Stop Dose Admin Acetaminophen 1,000 mg 06/06/25 08:34 Acetaminophen 500 Mg Tablet PO Q6H PRN Mild Pain (1-3) or Fever Atenolol 25 mg 06/05/25 09:00 06/05/25 08:03 Atenolol 25 Mg Tablet PO 25 mg DAILY [facility] Administration Enoxaparin Sodium 40 mg 06/05/25 21:00 06/05/25 21:19 Enoxaparin 40 Mg/0.4 Ml Syringe SUB-Q 40 mg Q12HR [facility] Administration Fentanyl Citrate 25 mcg 06/05/25 08:43 Fentanyl Citrate Inj (*Crx) 100 Mcg/2 Ml Vial IV PUSH Q2M PRN Pain Ceftriaxone Sodium 2 gm/ 100 mls @ 200 mls/hr 06/06/25 22:00 Sodium Chloride IVPB 06/13/25 21:59 Q24H [facility] Lidocaine 1 patch 06/06/25 09:00 Lidocaine 5% Patch TRANSDERM DAILY [facility] Methocarbamol 500 mg 06/06/25 08:34 Methocarbamol 500 Mg Tablet PO QID PRN Muscle Spasm Nifedipine 30 mg 06/05/25 17:00 06/05/25 17:46 Nifedipine 30 Mg Tab.Er.24 PO 30 mg DAILY@1700 [facility] Administration Ondansetron HCl 4 mg 06/05/25 12:19 Ondansetron Inj 4 Mg/2 Ml Vial IV PUSH Q4H PRN Nausea Radiology Results: ITS Impressions Head CT 06/05/25 07:02 IMPRESSION: 1. No acute intracranial findings. Abdomen/Pelvis CT 06/05/25 07:07 IMPRESSION: 1. 6 mm stone in proximal left ureter. No hydronephrosis. 2. Nonobstructing bilateral kidney stones. Chest X-Ray 06/05/25 07:45 IMPRESSION: 1. No focal acute process. Retrograde Pyelogram 06/05/25 11:07 IMPRESSION: 1. Fluoroscopy utilized during left retrograde pyelogram and left internal ureteral stent placement. See procedure note for further detail. Labs Labs: Laboratory Results - last 24 hr 06/05/25 06/05/25 06/06/25 07:36 20:53 05:04 WBC 10.1 H RBC 4.01 L Hgb 12.6 Hct 39.1 MCV 97.5 D MCH 31.4 MCHC 32.2 RDW 13.2 Plt Count 186 MPV 9.2 Immature Gran % (Auto) 1.1 H Neut % (Auto) 69.6 Lymph % (Auto) 17.6 L [place] % (Auto) 7.6 Eos % (Auto) 3.5 Baso % (Auto) 0.6 Lymph # (Auto) 1.78 [place] # (Auto) 0.8 H Eos # (Auto) 0.4 H Baso # (Auto) 0.1 Abs Immat Gran (auto) 0.11 H Absolute Neuts (auto) 7.1 H Absolute Nucleated RBC 0.000 Nucleated RBC % 0.0 ESR 17 Sodium 135 L Potassium 4.0 Chloride 106 Carbon Dioxide 25 Anion Gap 4 BUN 19 H Creatinine 0.86 Estim Creat Clear Calc 65 Estimated GFR > 60 Glucose 87 POC Capillary Glucose 112 H Calcium 8.6 Phosphorus 4.5 Magnesium 2.0 Total Bilirubin 0.5 AST 58 H ALT 126 H Alkaline Phosphatase 102 Total Protein 6.0 L Albumin 3.4 L Procalcitonin 0.1 06/06/25 08:13 WBC RBC Hgb Hct MCV MCH MCHC RDW Plt Count MPV Immature Gran % (Auto) Neut % (Auto) Lymph % (Auto) [place] % (Auto) Eos % (Auto) Baso % (Auto) Lymph # (Auto) [place] # (Auto) Eos # (Auto) Baso # (Auto) Abs Immat Gran (auto) Absolute Neuts (auto) Absolute Nucleated RBC Nucleated RBC % ESR Sodium Potassium Chloride Carbon Dioxide Anion Gap BUN Creatinine Estim Creat Clear Calc Estimated GFR Glucose POC Capillary Glucose 99 Calcium Phosphorus Magnesium Total Bilirubin AST ALT Alkaline Phosphatase Total Protein Albumin Procalcitonin Quality VTE Prophylaxis VTE prophylaxis: pharmacologic ordered Hospitalist MIPS Advance Care Plan I have confirmed that the patient's Advanced Care Plan is present, code status is documented, or surrogate decision maker is listed in patient medical record.: Yes Medication Reconciliation I have utilized all available resources to obtain, update and review the patients current medications (includes all prescriptions, OTC, herbals, cannabis, and nutritional supplements).: Yes
[2025-06-06] MEDS: LIDOCAINE 5% PATCH 1 PATCH TRANSDERM ×2 (10:16→21:47)
[2025-06-06] MEDS: ENOXAPARIN 40 MG/0.4 ML SYRINGE SUB-Q ×2 (10:16→21:42)
[2025-06-06] MEDS: ACETAMINOPHEN 500 MG TABLET 1000 MG PO (10:25)
[2025-06-06] MEDS: BACITRACIN OINTMENT 15 GM TUBE 1 APPLIC TOPICAL (16:43)
[2025-06-06] MEDS: HYDROCORTISONE 2.5% CREAM 30 GM TUBE 1 APPLIC TOPICAL (21:37)
[2025-06-06] MEDS: DOXYCYCLINE HYCLATE 100 MG TABLET PO (21:37)
[2025-06-06] MEDS: cefTRIAXone 2 GM in SODIUM CHLORIDE 0.9% IV 100 ML 200 ML IVPB (22:00)
[2025-06-06 23:07] LABS: MRSA (PCR) NOT DETECTED (NOT DETECTE)
[2025-06-07] VITALS (8 sets, daily range): BP systolic 95–142; BP diastolic 50–70; PULSE 57–68; RESP 16–20; TEMP 36.3–36.5; O2SAT 97–100
[2025-06-07] MEDS: ACETAMINOPHEN 500 MG TABLET 1000 MG PO (04:58)
[2025-06-07 05:22] LABS: Hematocrit 37.9 % (37.0-47.0); Hemoglobin 12.5 g/dL (12.0-15.0); Immature Granulocyte Percent A 1.0 % (0-0.5); Lymphocytes Absolute Auto 2.03 K/mm3 (0.9-3.2); Mean Corpuscular HGB Conc 33.0 g/dl (32-36); Mean Corpuscular Hemoglobin 30.9 pg (26-34); Mean Corpuscular Volume 93.6 fl (80-100); Nucleated Red Blood Cells Absolute Auto 0.000 K/mm3 (0.0-0.012); Nucleated Red Blood Cells Perc 0.0 % (0.0-0.2); Platelet Count Result 188 k/mm3 (150-375); Red Blood Count 4.05 M/mm3 (4.2-5.4); White Blood Count 9.9 K/mm3 (4.5-10.0)
[2025-06-07 05:45] LABS: Alanine Aminotransferase 83 U/L (6-35); Albumin Level 3.3 g/dL (3.5-5.1); Alkaline Phosphatase 97 U/L (38-126); Anion Gap 5 mmol/L (4-12); Aspartate Amino Transferase 34 U/L (14-36); Bilirubin,Total 0.5 mg/dL (0.2-1.3); Blood Urea Nitrogen 19 mg/dL (7-17); Calcium 8.5 mg/dL (8.4-10.2); Carbon Dioxide 25 mmol/L (22-30); Chloride 105 mmol/L (98-107); Estimated CRCL calculation 71 ml/min; Estimated Glomerular Filt Rate > 60; Glucose 89 mg/dL (65-110); Magnesium 2.0 mg/dL (1.6-2.3); Potassium 3.9 mmol/L (3.4-5.0); Sodium 135 mmol/L (137-145); Total Protein 6.1 g/dL (6.3-8.2)
--- NOTE | 2025-06-07 08:53 | P.PNIM_ITS ---
Progress Note: A&P Assessment and Plan (1) UTI (urinary tract infection): Qualifiers: Hematuria presence: without hematuria Urinary tract infection type: acute cystitis Qualified Code(s): N30.00 - Acute cystitis without hematuria Code(s): N39.0 - Urinary tract infection, site not specified Status: Acute Assessment and Plan: Prior cultures 02/2024 with e coli resistant to Zosyn, Bactrim, Augmentin, and Cefazolin. Was sensitive to Ceftriaxone/Cefepime, and quinolones Patient denies urinary symptoms. Has urinary incontinence at baseline --Urine Culture growing E coli, 50-100,000. Sensitivities pending --Continuing Ceftriaxone (2) Left ureteral calculus: Code(s): N20.1 - Calculus of ureter Status: Acute Assessment and Plan: Urology consulted in the ER, status post cystoscopy with left ureteral stent placement 06/05 --follow-up with Urology for definitive management of stone --treatment of UTI (3) Diarrhea: Code(s): R19.7 - Diarrhea, unspecified Status: Acute Assessment and Plan: May be related to zepbound vs other --Hold zepbound for now, currently resolved (4) Elevated LFTs: Code(s): R79.89 - Other specified abnormal findings of blood chemistry Status: Acute Assessment and Plan: LFT's elevated on arrival, normalized. No abdominal pain. Elevation may be 2/2 transient hypotension Bilirubin normal, but elevated ALT 101<215>83, AST 168<191>34, Alk phos 118<134>97 No abdominal pain --Follow (5) Wound drainage: Code(s): T14.8XXA - Other injury of unspecified body region, initial encounter Status: Acute Assessment and Plan: Left leg drainage, yellow --Sent for culture, follow final results --Start empiric doxycycline BID x5 days --Local wound care --Also has a left elbow wound (6) Rash and nonspecific skin eruption: Code(s): R21 - Rash and other nonspecific skin eruption Status: Acute Assessment and Plan: Rash/flaky skin to forehead, chronic --Trial of hydrocortisone 2.5% --Hair loss chronic, previously declined treatment for alopecia with dermatology (7) Altered mental status: Code(s): R41.82 - Altered mental status, unspecified Status: Acute Assessment and Plan: Intially acutely altered at home, mental status now normal --CT head normal --Suspect vasovagal syncope with diarrhea/vomiting that has since resolved --No events on telemetry--discontinued Time Spent With Patient Time: 58 minutes Subjective Date/time seen: 06/07/25 13:45 Interval history: VSS. No dysuria. Right flank pain improved with a lidocaine patch. Urine Cultures pending, growing e coli. Culture from left leg small amount of drainage, about the same Discharge pending susceptibilities Review of Systems Review of Systems: Review of systems negative except as noted in HPI Specifically denies fevers or chills, urinary symptoms except as noted. No dysuria Exam Narrative: General - Awake and alert. No acute distress Eyes - PERRLA, EOM intact ENT - No thrush, No erythema Neck - No noticeable or palpable swelling Lymph Nodes - No lymphadenopathy Cardiovascular - RRR no m/r/g, no JVD Lungs: Clear to auscultation, No wheezing, use of accessory muscles, no crackles or wheezes. Skin - Skin warm and dry, chronic appearing skin changes/erythema, drainage to left leg yellow/crusted Dry flaky skin to forehead Abdomen - Normal bowel sounds, abdomen soft and nontender Extremities - No edema, cyanosis or clubbing Musculoskeletal - 5/5 strength, normal range of motion, no swollen or erythematous joints. Neurological ? Alert and oriented x 3, CN 2-12 grossly intact, except minimal left sided weakness Psych: Normal mood and affect Objective Data Vital Signs Vital Signs: Vital Signs - 24 hr 06/06/25 10:17 06/06/25 11:45 06/06/25 11:50 Temperature 97.9 F Pulse Rate 64 60 Respiratory Rate 18 Blood Pressure 112/87 Pulse Oximetry 99 99 Oxygen Delivery Room Air 06/06/25 12:00 06/06/25 15:52 06/06/25 16:00 Temperature 97.7 F Pulse Rate 56 L 54 L 54 L Respiratory Rate 18 Blood Pressure 128/50 L Pulse Oximetry 98 Oxygen Delivery 06/06/25 20:00 06/06/25 20:50 06/06/25 23:55 Temperature 97.4 F L 97.9 F Pulse Rate 60 61 Respiratory Rate 18 18 Blood Pressure 123/54 L 150/60 H Pulse Oximetry 100 100 98 Oxygen Delivery Room Air 06/07/25 04:00 06/07/25 08:00 Temperature 97.5 F L 97.7 F Pulse Rate 63 66 Respiratory Rate 20 16 Blood Pressure 130/50 L 95/66 L Pulse Oximetry 97 100 Oxygen Delivery Intake/Output Intake/Output: Intake & Output 06/04/25 06/05/25 06/06/25 06/07/25 23:59 23:59 23:59 23:59 Intake Total 780 1146 300 Output Total 150 2600 600 700 Balance -150 -1820 546 -400 Meds/Results Medications: Active Medications Generic Name Dose Route Start Last Admin Trade Name Freq PRN Reason Stop Dose Admin Acetaminophen 1,000 mg 06/06/25 08:34 06/07/25 04:58 Acetaminophen 500 Mg Tablet PO 1,000 mg Q6H PRN Administration Mild Pain (1-3) or Fever Atenolol 25 mg 06/05/25 09:00 06/06/25 10:17 Atenolol 25 Mg Tablet PO 25 mg DAILY [facility] Administration Doxycycline Hyclate 100 mg 06/06/25 21:00 06/06/25 21:37 Doxycycline Hyclate 100 Mg Tablet PO 100 mg Q12HR [facility] Administration Enoxaparin Sodium 40 mg 06/05/25 21:00 06/06/25 21:42 Enoxaparin 40 Mg/0.4 Ml Syringe SUB-Q 40 mg Q12HR [facility] Administration Fentanyl Citrate 25 mcg 06/05/25 08:43 Fentanyl Citrate Inj (*Crx) 100 Mcg/2 Ml Vial IV PUSH Q2M PRN Pain Hydrocortisone 1 applic 06/06/25 21:00 06/06/25 21:37 Hydrocortisone 2.5% Cream 30 Gm Tube TOPICAL 1 applic Q12HR [facility] Administration Ceftriaxone Sodium 2 gm/ 100 mls @ 200 mls/hr 06/06/25 22:00 06/06/25 23:30 Sodium Chloride IVPB 06/13/25 21:59 Infused Q24H [facility] Infusion Lidocaine 1 patch 06/06/25 09:00 06/06/25 21:47 Lidocaine 5% Patch TRANSDERM 1 patch DAILY [facility] Administration Methocarbamol 500 mg 06/06/25 08:34 06/07/25 04:58 Methocarbamol 500 Mg Tablet PO 500 mg QID PRN Administration Muscle Spasm Nifedipine 30 mg 06/05/25 17:00 06/06/25 16:43 Nifedipine 30 Mg Tab.Er.24 PO 30 mg DAILY@1700 [facility] Administration Ondansetron HCl 4 mg 06/05/25 12:19 Ondansetron Inj 4 Mg/2 Ml Vial IV PUSH Q4H PRN Nausea Radiology Results: ITS Impressions Head CT 06/05/25 07:02 IMPRESSION: 1. No acute intracranial findings. Abdomen/Pelvis CT 06/05/25 07:07 IMPRESSION: 1. 6 mm stone in proximal left ureter. No hydronephrosis. 2. Nonobstructing bilateral kidney stones. Chest X-Ray 06/05/25 07:45 IMPRESSION: 1. No focal acute process. Retrograde Pyelogram 06/05/25 11:07 IMPRESSION: 1. Fluoroscopy utilized during left retrograde pyelogram and left internal ureteral stent placement. See procedure note for further detail. Labs Labs: Laboratory Results - last 24 hr 06/06/25 06/06/25 06/06/25 12:10 15:18 17:06 WBC RBC Hgb Hct MCV MCH MCHC RDW Plt Count MPV Immature Gran % (Auto) Neut % (Auto) Lymph % (Auto) [place] % (Auto) Eos % (Auto) Baso % (Auto) Lymph # (Auto) [place] # (Auto) Eos # (Auto) Baso # (Auto) Abs Immat Gran (auto) Absolute Neuts (auto) Absolute Nucleated RBC Nucleated RBC % Sodium Potassium Chloride Carbon Dioxide Anion Gap BUN Creatinine Estim Creat Clear Calc Estimated GFR Glucose POC Capillary Glucose 93 76 Calcium Phosphorus Magnesium Total Bilirubin AST ALT Alkaline Phosphatase Total Protein Albumin Nasal MRSA (PCR) Not detected 06/06/25 06/07/25 06/07/25 20:54 04:51 08:04 WBC 9.9 RBC 4.05 L Hgb 12.5 Hct 37.9 MCV 93.6 MCH 30.9 MCHC 33.0 RDW 12.9 Plt Count 188 MPV 9.3 Immature Gran % (Auto) 1.0 H Neut % (Auto) 65.5 Lymph % (Auto) 20.5 [place] % (Auto) 8.8 H Eos % (Auto) 3.5 Baso % (Auto) 0.7 Lymph # (Auto) 2.03 [place] # (Auto) 0.9 H Eos # (Auto) 0.4 H Baso # (Auto) 0.1 Abs Immat Gran (auto) 0.10 H Absolute Neuts (auto) 6.5 Absolute Nucleated RBC 0.000 Nucleated RBC % 0.0 Sodium 135 L Potassium 3.9 Chloride 105 Carbon Dioxide 25 Anion Gap 5 BUN 19 H Creatinine 0.79 Estim Creat Clear Calc 71 Estimated GFR > 60 Glucose 89 POC Capillary Glucose 107 H 81 Calcium 8.5 Phosphorus 3.8 Magnesium 2.0 Total Bilirubin 0.5 AST 34 ALT 83 H Alkaline Phosphatase 97 Total Protein 6.1 L Albumin 3.3 L Nasal MRSA (PCR) Quality VTE Prophylaxis VTE prophylaxis: pharmacologic ordered Hospitalist MIPS Advance Care Plan I have confirmed that the patient's Advanced Care Plan is present, code status is documented, or surrogate decision maker is listed in patient medical record.: Yes Medication Reconciliation I have utilized all available resources to obtain, update and review the patients current medications (includes all prescriptions, OTC, herbals, cannabis, and nutritional supplements).: Yes
[2025-06-07] MEDS: ENOXAPARIN 40 MG/0.4 ML SYRINGE SUB-Q ×2 (09:01→21:30)
[2025-06-07] MEDS: DOXYCYCLINE HYCLATE 100 MG TABLET PO ×2 (09:01→21:29)
[2025-06-07] MEDS: HYDROCORTISONE 2.5% CREAM 30 GM TUBE 1 APPLIC TOPICAL ×2 (09:02→21:31)
[2025-06-07] MEDS: cefTRIAXone 2 GM in SODIUM CHLORIDE 0.9% IV 100 ML 200 ML IVPB (21:30)
[2025-06-08] VITALS: BP 130/50; PULSE 74; RESP 20; TEMP 36.1; O2SAT 96
[2025-06-08 04:00] VITALS: BP 135/55; PULSE 67; RESP 16; TEMP 36.1; O2SAT 99
[2025-06-08 05:40] LABS: Hematocrit 39.8 % (37.0-47.0); Hemoglobin 13.1 g/dL (12.0-15.0); Immature Granulocyte Percent A 0.9 % (0-0.5); Lymphocytes Absolute Auto 1.86 K/mm3 (0.9-3.2); Mean Corpuscular HGB Conc 32.9 g/dl (32-36); Mean Corpuscular Hemoglobin 31.0 pg (26-34); Mean Corpuscular Volume 94.3 fl (80-100); Nucleated Red Blood Cells Absolute Auto 0.000 K/mm3 (0.0-0.012); Nucleated Red Blood Cells Perc 0.0 % (0.0-0.2); Platelet Count Result 199 k/mm3 (150-375); Red Blood Count 4.22 M/mm3 (4.2-5.4); White Blood Count 9.7 K/mm3 (4.5-10.0)
[2025-06-08 06:05] LABS: Alanine Aminotransferase 63 U/L (6-35); Albumin Level 3.5 g/dL (3.5-5.1); Alkaline Phosphatase 99 U/L (38-126); Anion Gap 4 mmol/L (4-12); Aspartate Amino Transferase 27 U/L (14-36); Bilirubin,Total 0.4 mg/dL (0.2-1.3); Blood Urea Nitrogen 19 mg/dL (7-17); Calcium 8.7 mg/dL (8.4-10.2); Carbon Dioxide 27 mmol/L (22-30); Chloride 104 mmol/L (98-107); Estimated CRCL calculation 74 ml/min; Estimated Glomerular Filt Rate > 60; Glucose 89 mg/dL (65-110); Magnesium 1.9 mg/dL (1.6-2.3); Potassium 3.9 mmol/L (3.4-5.0); Sodium 135 mmol/L (137-145); Total Protein 6.4 g/dL (6.3-8.2)
[2025-06-08 08:00] VITALS: BP 138/60; PULSE 70; RESP 16; TEMP 36.6; O2SAT 98
[2025-06-08 09:29] VITALS: PULSE 70
[2025-06-08] MEDS: HYDROCORTISONE 2.5% CREAM 30 GM TUBE 1 APPLIC TOPICAL (09:30)
[2025-06-08] MEDS: DOCUSATE SODIUM 100 MG CAPSULE PO (09:30)
[2025-06-08] MEDS: DOXYCYCLINE HYCLATE 100 MG TABLET PO (09:30)
[2025-06-08] MEDS: ENOXAPARIN 40 MG/0.4 ML SYRINGE SUB-Q (09:30)
[2025-06-08] MEDS: LIDOCAINE 5% PATCH 1 PATCH TRANSDERM (09:30)
--- NOTE | 2025-06-08 10:30 | WPDUROPN2 ---
Progress Note: A&P Assessment and Plan (1) Calculus of proximal left ureter: Code(s): N20.1 - Calculus of ureter Status: Acute Assessment and Plan: Outpatient stone management. Stable for discharge from a urologic standpoint. We will call to arrange procedure (2) UTI (urinary tract infection): Qualifiers: Hematuria presence: without hematuria Urinary tract infection type: acute cystitis Qualified Code(s): N30.00 - Acute cystitis without hematuria Code(s): N39.0 - Urinary tract infection, site not specified Status: Acute Assessment and Plan: Treat with antibiotics for 14 days total. Transition to oral antibiotics when appropriate Subjective Subjective Date/Time Seen: 06/08/25 10:30 Interval history: Tolerating stent Urine culture positive for E coli Exam Narrative: No acute distress Flaky rash on face and scalp Objective Data Vital Signs Vital Signs: Vital Signs - 24 hr 06/07/25 12:00 06/07/25 15:54 06/07/25 19:58 Temperature 97.3 F L Pulse Rate 57 L 63 65 Respiratory Rate 18 Blood Pressure 134/70 142/55 H 124/50 L Pulse Oximetry 98 100 98 Oxygen Delivery 06/07/25 20:00 06/08/25 00:00 06/08/25 04:00 Temperature 97 F L 97 F L Pulse Rate 62 74 67 Respiratory Rate 20 16 Blood Pressure 130/50 L 135/55 L Pulse Oximetry 96 99 Oxygen Delivery Room Air 06/08/25 08:00 06/08/25 09:29 Temperature 97.9 F Pulse Rate 70 70 Respiratory Rate 16 Blood Pressure 138/60 Pulse Oximetry 98 Oxygen Delivery Intake/Output Intake/Output: Intake & Output 06/05/25 06/06/25 06/07/25 06/08/25 23:59 23:59 23:59 23:59 Intake Total 780 1146 2090 780 Output Total 2600 600 1200 Balance -1820 546 890 780 Meds/Results Medications: Active Medications Generic Name Dose Route Start Last Admin Trade Name Freq PRN Reason Stop Dose Admin Acetaminophen 1,000 mg 06/06/25 08:34 06/07/25 04:58 Acetaminophen 500 Mg Tablet PO 1,000 mg Q6H PRN Administration Mild Pain (1-3) or Fever Atenolol 25 mg 06/05/25 09:00 06/08/25 09:29 Atenolol 25 Mg Tablet PO 25 mg DAILY [facility] Administration Docusate Sodium 100 mg 06/08/25 09:06 06/08/25 09:30 Docusate Sodium 100 Mg Capsule PO 100 mg Q12H PRN Administration Constipation Doxycycline Hyclate 100 mg 06/06/25 21:00 06/08/25 09:30 Doxycycline Hyclate 100 Mg Tablet PO 06/11/25 09:01 100 mg Q12HR [facility] Administration Enoxaparin Sodium 40 mg 06/05/25 21:00 06/08/25 09:30 Enoxaparin 40 Mg/0.4 Ml Syringe SUB-Q 40 mg Q12HR [facility] Administration Hydrocortisone 1 applic 06/06/25 21:00 06/08/25 09:30 Hydrocortisone 2.5% Cream 30 Gm Tube TOPICAL 1 applic Q12HR [facility] Administration Ceftriaxone Sodium 2 gm/ 100 mls @ 200 mls/hr 06/06/25 22:00 06/07/25 22:00 Sodium Chloride IVPB 06/13/25 21:59 Infused Q24H [facility] Infusion Lidocaine 1 patch 06/06/25 09:00 06/08/25 09:30 Lidocaine 5% Patch TRANSDERM 1 patch DAILY [facility] Administration Methocarbamol 500 mg 06/06/25 08:34 06/07/25 04:58 Methocarbamol 500 Mg Tablet PO 500 mg QID PRN Administration Muscle Spasm Nifedipine 30 mg 06/05/25 17:00 06/07/25 17:54 Nifedipine 30 Mg Tab.Er.24 PO 30 mg DAILY@1700 [facility] Administration Ondansetron HCl 4 mg 06/05/25 12:19 Ondansetron Inj 4 Mg/2 Ml Vial IV PUSH Q4H PRN Nausea Polyethylene Glycol 17 gm 06/08/25 09:10 06/08/25 09:30 Polyethylene Glycol 3350 17 Gm Powd.Pack PO 17 gm QAM PRN Administration Constipation Radiology Results: ITS Impressions Head CT 06/05/25 07:02 IMPRESSION: 1. No acute intracranial findings. Abdomen/Pelvis CT 06/05/25 07:07 IMPRESSION: 1. 6 mm stone in proximal left ureter. No hydronephrosis. 2. Nonobstructing bilateral kidney stones. Chest X-Ray 06/05/25 07:45 IMPRESSION: 1. No focal acute process. Retrograde Pyelogram 06/05/25 11:07 IMPRESSION: 1. Fluoroscopy utilized during left retrograde pyelogram and left internal ureteral stent placement. See procedure note for further detail. Labs Labs: Laboratory Results - last 24 hr 06/07/25 06/07/25 06/07/25 11:52 16:57 19:50 WBC RBC Hgb Hct MCV MCH MCHC RDW Plt Count MPV Immature Gran % (Auto) Neut % (Auto) Lymph % (Auto) [place] % (Auto) Eos % (Auto) Baso % (Auto) Lymph # (Auto) [place] # (Auto) Eos # (Auto) Baso # (Auto) Abs Immat Gran (auto) Absolute Neuts (auto) Absolute Nucleated RBC Nucleated RBC % Sodium Potassium Chloride Carbon Dioxide Anion Gap BUN Creatinine Estim Creat Clear Calc Estimated GFR Glucose POC Capillary Glucose 90 82 125 H Calcium Phosphorus Magnesium Total Bilirubin AST ALT Alkaline Phosphatase Total Protein Albumin 06/08/25 06/08/25 05:26 07:47 WBC 9.7 RBC 4.22 Hgb 13.1 Hct 39.8 MCV 94.3 MCH 31.0 MCHC 32.9 RDW 12.7 Plt Count 199 MPV 9.3 Immature Gran % (Auto) 0.9 H Neut % (Auto) 66.2 Lymph % (Auto) 19.1 [place] % (Auto) 8.7 H Eos % (Auto) 4.1 Baso % (Auto) 1.0 Lymph # (Auto) 1.86 [place] # (Auto) 0.9 H Eos # (Auto) 0.4 H Baso # (Auto) 0.1 Abs Immat Gran (auto) 0.09 H Absolute Neuts (auto) 6.4 Absolute Nucleated RBC 0.000 Nucleated RBC % 0.0 Sodium 135 L Potassium 3.9 Chloride 104 Carbon Dioxide 27 Anion Gap 4 BUN 19 H Creatinine 0.75 Estim Creat Clear Calc 74 Estimated GFR > 60 Glucose 89 POC Capillary Glucose 78 Calcium 8.7 Phosphorus 3.5 Magnesium 1.9 Total Bilirubin 0.4 AST 27 ALT 63 H Alkaline Phosphatase 99 Total Protein 6.4 Albumin 3.5
[2025-06-08 12:00] VITALS: BP 136/66; PULSE 61; RESP 16; O2SAT 100
--- NOTE | 2025-06-08 15:20 | P.DS_ITS ---
DS: Admitting Diagnosis Discharge Date 06/08 Admitting Diagnosis kidney stone DS: Discharge Diagnosis Discharge Diagnosis (1) UTI (urinary tract infection): Qualifiers: Hematuria presence: without hematuria Urinary tract infection type: acute cystitis Qualified Code(s): N30.00 - Acute cystitis without hematuria Code(s): N39.0 - Urinary tract infection, site not specified Status: Acute (2) Left ureteral calculus: Code(s): N20.1 - Calculus of ureter Status: Acute (3) Diarrhea: Code(s): R19.7 - Diarrhea, unspecified Status: Acute (4) Elevated LFTs: Code(s): R79.89 - Other specified abnormal findings of blood chemistry Status: Acute (5) Wound drainage: Code(s): T14.8XXA - Other injury of unspecified body region, initial encounter Status: Acute (6) Rash and nonspecific skin eruption: Code(s): R21 - Rash and other nonspecific skin eruption Status: Acute (7) Altered mental status: Code(s): R41.82 - Altered mental status, unspecified Status: Acute DS: Summary Hospital Course Hospital Course: 70-year-old female hx urolithiasis,cerebral palsy with left sided weakness, who presented for altered mental status, admitted for treatment of a UTI and obstructing renal stone. Per discussion with patient and her , she had been feeling well the rest of the week. Denied any urinary symptoms, fevers, back pain or other complaints. She had diarrhea yesterday morning, several episodes, but she reports this is not uncommon side she has been taking zepbound. She ate a taco and after that had vomiting. 06/[address] no acute findings 06/05 CT Abd/pelvis 1. 6 mm stone in proximal left ureter. No hydronephrosis. 2. Nonobstructing bilateral kidney stones. Urology was consulted: pt had Cystoscopy, left retrograde pyelogram, left ureteral stent placement on 06/05. Ok from urology standpoint to be discharged today. f/u with outpt stone mngmnt. Will send total 6 doses of doxy and 22augmentin to complete the antibiotic course. # uti UTI (urinary tract infection): Prior cultures 02/2024 with e coli resistant to Zosyn, Bactrim, Augmentin, and Cefazolin. Was sensitive to Ceftriaxone/Cefepime, and quinolones Patient denies urinary symptoms. Has urinary incontinence at baseline --Urine Culture growing E coli, 50-100,000. Sensitivities pending --Continuing Ceftriaxone - downgraded to augmentin today- will send 22 total doses to complete the tx # Wound drainage: Left leg drainage, yellow --Sent for culture, follow final results --Start empiric doxycycline BID x5 days- rx sent for doxy to complete the course --Local wound care --Also has a left elbow wound Status at Discharge Functional status at discharge: uses cane/walker Overall status at discharge: patient is progressing back to baseline Time Spent with Patient Time attestation: Total time spent providing and/or coordinating discharge services: Time spent: Less than 30 minutes Exam Narrative: General - Awake and alert. No acute distress Eyes - PERRLA, EOM intact ENT - No thrush, No erythema Neck - No noticeable or palpable swelling Lymph Nodes - No lymphadenopathy Cardiovascular - RRR no m/r/g, no JVD Lungs: Clear to auscultation, No wheezing, use of accessory muscles, no crackles or wheezes. Skin - Skin warm and dry, chronic appearing skin changes/erythema, drainage to left leg yellow/crusted Dry flaky skin to forehead Abdomen - Normal bowel sounds, abdomen soft and nontender Extremities - No edema, cyanosis or clubbing Musculoskeletal - 5/5 strength, normal range of motion, no swollen or erythematous joints. Neurological ? Alert and oriented x 3, CN 2-12 grossly intact, except minimal left sided weakness Psych: Normal mood and affect Const: General: comfortable DS: Data Data Completed and Pending Labs on day of discharge: Labs from last 24 hours 06/08/25 06/08/25 06/08/25 11:54 07:47 05:26 WBC 9.7 RBC 4.22 Hgb 13.1 Hct 39.8 MCV 94.3 MCH 31.0 MCHC 32.9 RDW 12.7 Plt Count 199 MPV 9.3 Immature Gran % (Auto) 0.9 H Neut % (Auto) 66.2 Lymph % (Auto) 19.1 Brule % (Auto) 8.7 H Eos % (Auto) 4.1 Baso % (Auto) 1.0 Lymph # (Auto) 1.86 Brule # (Auto) 0.9 H Eos # (Auto) 0.4 H Baso # (Auto) 0.1 Abs Immat Gran (auto) 0.09 H Absolute Neuts (auto) 6.4 Absolute Nucleated RBC 0.000 Nucleated RBC % 0.0 Sodium 135 L Potassium 3.9 Chloride 104 Carbon Dioxide 27 Anion Gap 4 BUN 19 H Creatinine 0.75 Estim Creat Clear Calc 74 Estimated GFR > 60 Glucose 89 POC Capillary Glucose 100 78 Calcium 8.7 Phosphorus 3.5 Magnesium 1.9 Total Bilirubin 0.4 AST 27 ALT 63 H Alkaline Phosphatase 99 Total Protein 6.4 Albumin 3.5 06/07/25 06/07/25 19:50 16:57 WBC RBC Hgb Hct MCV MCH MCHC RDW Plt Count MPV Immature Gran % (Auto) Neut % (Auto) Lymph % (Auto) Brule % (Auto) Eos % (Auto) Baso % (Auto) Lymph # (Auto) Brule # (Auto) Eos # (Auto) Baso # (Auto) Abs Immat Gran (auto) Absolute Neuts (auto) Absolute Nucleated RBC Nucleated RBC % Sodium Potassium Chloride Carbon Dioxide Anion Gap BUN Creatinine Estim Creat Clear Calc Estimated GFR Glucose POC Capillary Glucose 125 H 82 Calcium Phosphorus Magnesium Total Bilirubin AST ALT Alkaline Phosphatase Total Protein Albumin Preliminary micro results at discharge 06/06/25 15:19 Aerobic Culture - Preliminary Leg Left 06/05/25 01:10 Blood Culture - Preliminary Blood 06/05/25 01:10 Blood Culture - Preliminary Blood Discharge Plan Discharge Attending physician on discharge: Álvaro Strong Consulting providers: Marika Monsivais; Zane Bucio Discharging Clinician: Tahmina Monsivais Patient Disposition: Home Activity: may shower Diet: heart healthy Discharge Instructions: Please f/u with urology for an oupt stone mngmnt. Their office will reach out with an kenny. Continue antibiotics as directed. You have total 6 doses of doxy and 22 total doses of augmentin left. Patient Instructions: Antibiotic Form, Heart Failure (GEN) Patient Language: [place] Stand Alone Forms: General Discharge Information Follow-up/Referrals: Kayli Barahona MD [Physician, Urology] - 2 Weeks Referral Note: ureteral stone s/p stent placement Discharge Medications: New doxycycline hyclate 100 mg Tablet 100 mg PO Q12HR Qty: 6 0RF amoxicillin-pot clavulanate 875-125 mg tablet 1 tablet PO Q12H Qty: 22 0RF Continued methocarbamol 500 mg tablet 500 mg PO QHS PRN (Reason: muscle spasm) Qty: 10 0RF aspirin 81 mg Tablet,Chewable 81 mg PO QAM ibuprofen 600 mg tablet 600 mg PO Q8H PRN (Reason: pain) alendronate 70 mg tablet 70 mg PO WEEKLY Rx Instructions: Sunday Zepbound 7.5 mg/0.5 mL solution 7.5 mg subcut WEEKLY Rx Instructions: sunday nifedipine 30 mg tablet extended release 24hr See Rx Instructions .ROUTE .COMPLEX Qty: 90 11RF Dose Instruction: TAKE ONE TABLET BY MOUTH EVERY DAY AT 5PM Rx Instructions: TAKE ONE TABLET BY MOUTH EVERY DAY AT 5PM atenolol 25 mg tablet 25 mg PO DAILY Qty: 90 1RF Gemtesa 75 mg tablet 75 mg PO DAILY Qty: 90 1RF Date of admission: 06/05/25 03:44 Primary Care Provider: Jordon Torres Admitting Provider: Álvaro Strong Attending physician on admission: Álvaro Strong Condition: Improved Quality VTE Prophylaxis VTE prophylaxis: pharmacologic ordered Hospitalist MIPS Heart Failure (Exclusion) Patient has history of Heart Transplant or Left Ventricular Assistive Device?: No IF YES, STOP HERE Heart Failure (Qualifier) Patient has current or prior documentation of LVEF less than or equal to 40%, or mod/servere depressed LVSF?: No IF NO, STOP HERE
== END 2025-06-08 16:50 | disposition home or self-care (01) | DRG 660 ==
LOC: ANHED 06-05 03:12 → ANH2MED 06-05 04:12
PROVIDERS: Nurse Practitioner; Nurse Practitioner Acute Care; Urology; Admitting Provider Family Medicine; Emergency Provider Emergency Medicine; PCP Family Medicine; Visit Provider Family Medicine
PROC: 0T778DZ Dilation of Left Ureter with Intraluminal Device, Via Natural or Artificial Opening Endoscopic (ICD-10-PCS; CPT 52352; principal; 2025-06-05 10:30)
DX: N39.0 Urinary tract infection, site not specified (principal); N20.1 Calculus of ureter; I10 Essential (primary) hypertension; I89.0 Lymphedema, not elsewhere classified; I87.2 Venous insufficiency (chronic) (peripheral); E78.1 Pure hyperglyceridemia; B96.20 Unspecified Escherichia coli [E. coli] as the cause of diseases classified elsewhere; M19.90 Unspecified osteoarthritis, unspecified site; G80.9 Cerebral palsy, unspecified; R19.7 Diarrhea, unspecified; R21 Rash and other nonspecific skin eruption; S80.922A Unspecified superficial injury of left lower leg, initial encounter; S50.902A Unspecified superficial injury of left elbow, initial encounter; Z20.822 Contact with and (suspected) exposure to COVID-19; Z79.82 Long term (current) use of aspirin; Z87.442 Personal history of urinary calculi
CPT/HCPCS: 36415; 70450; 71045; 74177; 74420; 80053; 80069; 81001; 82948; 83605; 83735; 84100; 84145; 85025; 85610; 85652; 85730; 86140; 87040; 87070; 87075; 87086; 87186; 87205; 87637; 87641; 93005; 96365; 99285; J0690; A9270; C1758; C1769; C2617; J0696; J1650; J2003; J2405; J2704; J3010; J7120; Q9966; Q9967

== ENCOUNTER 2025-06-17 01:05 | Day surgery (SDC) | payer OTHER, SELFPAY ==
[2025-06-11 14:39] VITALS: BMI 45.3
--- NOTE | 2025-06-11 14:55 | PC.NURSE ---
Addendum entered by Cheryle Osorio RN 06/11/25 15:05: Pt will also cont her Bactrim Antibiotics as ordered today BID, and will take it the am of surgery too with her Atenolol. Pt to HOLD Zepbound till post op also. LULU Original Note: [facility] has started construction of its new state of the art ER which will open Spring 2026. With this, we anticipate parking may be a challenge for some our surgical patients and families. Parking spaces are limited but are available for all Surgical, obstetrics, and ER patients sharing this lot. If you arrive and find you are having a hard time finding a parking space, please note that we understand the challenges, please drive around the hospital and park near Hospital Entrance 1. When you enter this entrance, you can ask a volunteer to direct or take you back to the surgical waiting area to check in. We appreciate everyone?s understanding of these expected challenges while we build for your future. Report to the Outpatient Waiting Room, entrance under the green pavilion located off [address], at time __11:00am____ on date _06/17/25 . Planned Procedure Time: __1:00pm .? Time changes happen often and if your time is changed the preop area will call you the afternoon before. - You and your visitor will be asked to self-screen and do not enter if you have any COVID symptoms. Please call surgeon if you need to reschedule. - A mask is optional within the hospital at this time. Patients may have clear liquids (water, carbonated beverages, clear teas, apple juice) until 3 hours prior to surgery with a maximum of 20 ounces. - No food from midnight until time of surgery and no smoking, or chewing tobacco (or any form of nicotine). No chewing gum, candy or mints. (1000am) Take only the following medications with a SIP of water on the morning of surgery: Atenolol DO NOT STOP ANY OF YOUR OTHER PRESCRIPTION MEDICATIONS PRIOR TO SURGERY EXCEPT THE FOLLOWING Hold all vitamins and supplements for 3 days per anesthesiologist. Medications to discontinue per physician ____Hold Aspirin or NSAIDS till post op per [place] Date to take last dose___06/10/25 Please no make-up, nail italian, hairspray, perfume, deodorant, or body powder the day of surgery.? No jewelry (including any body piercings) or valuables the day of surgery, leave them at home.? Please take a shower or bath the night before, or the morning of, surgery with an antibacterial soap.? Wear comfortable, loose fitting clothing.? - Jewelry must be removed prior to entering the operating room.? Rings and piercings that are not removed may be cut off. - The hospital will not accept responsibility for valuables.? - Please leave all valuables, including medications, at home the day of surgery. If you are going home after surgery, a licensed wedding transportation driver must drive you home.? - NO public transportation without another adult if you receive anesthesia. - We recommend that an adult stay with you for 24 hours following discharge. - We also recommend that you do not drive, make important decision, drink alcoholic beverages, or take any drugs that were not prescribed by your health care provider for at least 24 hours after your discharge time. Follow any additional instructions given to you from your surgeon. Telephone instructions given to __Patient and asked if any additional questions and then verbalized understanding. Patient advised to call surgeon office or pre surgery nurse liaison [phone] if any additional questions.
--- NOTE | ~2025-06-17 | XR_ITS ---
EXAM/PROCEDURE: XR retrograde pyelo w/stent LT HISTORY: LEFT RETRO/STENT, STONE EXTRACTION COMPARISON: June 05, 2025 Fluoroscopy time: 7.5 seconds Dose: 5.45 mg TECHNIQUE: Retrograde pathologically. IMPRESSION: A single image demonstrates a left ureteral stent extending to the area of the left renal pelvis. No other images are provided. No radiologist present for procedure. See operative/procedure notes for complete evaluation. Reviewed, dictated and finalized at location A. S MELT OPERATOR IMPRESSION: A single image demonstrates a left ureteral stent extending to the area of the left renal pelvis. No other images are provided. No radiologist present for pro cedure. See operative/procedure notes for complete evaluation.
[2025-06-17 12:30] VITALS: BMI 45.3
--- NOTE | 2025-06-17 12:55 | WPDHPUPDATE1 ---
History and Physical Update Update Date/Time: 06/17/25 12:55 History and Physical has been reviewed, including an updated exam of the patient. There are NO changes in the patient's condition. Risks, benefits, and alternatives have been discussed and questions answered. Patient agrees to proceed with procedure. Plan cystoscopy, left ureteroscopy, laser lithotripsy, stone extraction, stent placement. Risks of the procedure were discussed, including but not limited to bleeding infection, ureteral injury/stricture, need for additional procedures as well as stent symptoms. She understands and wishes to proceed. All questions were answered.
--- NOTE | 2025-06-17 13:43 | WPDANESEPPF ---
Anes - Initial Pre Proc Eval Procedure: Operation Date: 06/17/25 13:00 Proposed Procedures p Cystoscopy, Left Ureteroscopy, Left Retrograde Pyelogram, Left Stone Extraction, Left Stent Exchange, Possible Holmium Laser - Kayli Barahona MD Date/Time: 06/17/25 13:43 Surgeon: Kayli Barahona MD Pre Op Diagnosis: left kidney stone Patient Data Age: 70 Gender: F Height: 1.6 m Weight: 116 kg Allergies Allergy/AdvReac Type Severity Reaction Status Date / Time No Known Allergies Allergy Unknown Verified 06/11/25 14:36 Home Medications ?Medication ?Instructions ?Recorded ?Confirmed ?Type aspirin 81 mg chewable tablet 81 mg PO QAM 01/26/20 06/17/25 History Held on 06/11/25. Instructions: .Provider Order nifedipine 30 mg tablet,extended See Rx Instructions .Route 03/24/24 06/11/25 Rx release 24 hr .COMPLEX #90 tabs atenolol 25 mg tablet 25 mg PO DAILY #90 tabs 03/02/25 06/17/25 Rx alendronate 70 mg tablet 70 mg PO WEEKLY 06/05/25 06/17/25 History ibuprofen 600 mg tablet 600 mg PO Q8H PRN pain 06/05/25 06/17/25 History Held on 06/11/25. Instructions: .Provider Order tirzepatide (weight loss) 7.5 7.5 mg subcut WEEKLY 06/05/25 06/11/25 History mg/0.5 mL subcutaneous solution (Zepbound) Held on 06/11/25. Instructions: .Provider Order oxybutynin chloride 5 mg tablet 5 mg PO BID #180 tabs 06/10/25 06/11/25 Rx sulfamethoxazole 800 1 tablet PO Q12H 06/11/25 06/17/25 History mg-trimethoprim 160 mg tablet (Bactrim DS) Patient hx anesthesia problems: none Family hx anesthesia problems: none Results Review: All pre-operative results and documents have been reviewed as part of the pre-operative evaluation. [facility] Past Medical History Medical History History of UTI Cellulitis of left lower extremity H/O fall Lymphedema Cellulitis COVID-19 (08/2021) Anxiety Lymphedema Hypertriglyceridemia Venous insufficiency of lower extremity Osteoarthritis Cerebral palsy With mild left-sided weakness. Legionella pneumonia (04/2019) Kidney stones (03/2018) Hypertension Cellulitis Surgical History Surgical History Status post laser ablation of incompetent vein History of cystoscopy (03/2018) With ureteral stent and stone extraction. History of ankle surgery (1958) Achilles tendon lengthening. History of dilation and curettage With uterine polypectomy. Family History Family History Mother Breast cancer Sibling Breast cancer Other Hodgkin disease Father Parkinson disease Lymph node cancer Grandparent Leukemia Sibling Brain cancer Social History Social History Social History: The patient is and lives with her in [place]. They have no children. 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 She denies alcohol, tobacco, and illicit substance abuse. She designates her , Jae Arevalo, as her surrogate decision maker and she wishes to be a full code. Smoking status: Never smoker Second hand tobacco smoke exposure: No Alcohol intake: never Alcohol use details: social Substance use: never Substance use type: does not use Do You Feel Safe in your Home?: Yes Lack of Transportation: No Lack of Food: Never True Current Housing: I Have Housing Concerned About Future Housing: No Difficulty Paying Gas/Electric Bills: No Difficulty Paying for Meds: No Currently Unemployed: No Education: Associate Degree Difficulty w/ Childcare or Family Care: No Living arrangements: with family Additional living arrangements comments: Spiritual care concerns: No Anes - Eval Final PreProcedure Day of Procedure 06/17/25 13:43 Patient weight: morbidly obese Lungs: normal air movement Airway: Mallampati scale class II Neurological: alert and oriented Last oral intake: >/= 8 hours ASA classification: III Emergent: no Anesthetic plan: proceed Anesthesia type and monitoring: general LMA and standard monitoring Results Review: All pre-operative results and documents have been reviewed as part of the pre-operative evaluation. HTN, BMI 45, ECHO 2022 w nml LVEF, no . Prev GA earlier this month without complication. Informed Consent: The patient's anesthetic plan and its attendant risks and benefits were discussed with the patient/family/POA. Questions were solicited and answers provided to the satisfaction of the patient/family/POA.
--- NOTE | 2025-06-17 14:41 | SUR.PREOP ---
DELAY IN SURGERY CASE. Patient has been updated several times on delay in case. Patient understands and accepts that there will be a delay in case.
[2025-06-17] MEDS: ceFAZolin 2 GM in SODIUM CHLORIDE 0.9% IV 50 ML 100 ML IVPB (15:14)
--- NOTE | 2025-06-17 16:07 | S_PTH ---
PATIENT: Savanna Arevalo LOC: [facility] U#:[id number] AGE/SX: 70/F ROOM: RE06/17/[address]: Kayli Barahona MD : 1955 BED: DIS: 06/17/2025 SPEC #: [id number] RECD: 06/18/25 09:37 STATUS: LACEY REQ #: [id number] ADILENE: 06/17/25 16:[address]: Kayli Barahona DEPT: [facility] Surgical RECD BY: Marixa West ENTERED: 06/18/25 09:38 SP TYPE: Surgical OTHR DR: Jordon Torres MD Tissues: A - Stone Procedures: Gross Exam Level 1 Crystalline Analysis
[2025-06-17 16:22] VITALS: BP 135/72; PULSE 63; RESP 12; TEMP 36.6; O2SAT 100
[2025-06-17] MEDS: LACTATED RINGERS 1,000 ML 30 ML IV CONT (16:22)
[2025-06-17 16:30] VITALS: BP 133/82; PULSE 64; RESP 20; O2SAT 100
[2025-06-17 16:45] VITALS: BP 149/98; PULSE 68; RESP 17; O2SAT 95
[2025-06-17] MEDS: fentaNYL CITRATE INJ (*CRX) 100 MCG/2 ML VIAL 25 MCG IV PUSH ×3 (16:54→17:03)
[2025-06-17 17:00] VITALS: BP 136/93; PULSE 68; RESP 20; O2SAT 94
--- NOTE | 2025-06-17 17:01 | W.PM.PROC2 ---
Procedure Note - Detailed Date of Procedure 06/17/25 Pre-op Diagnosis Left ureteral stone nd lower calyceal renal stones Post-op Diagnosis Same (Left ureteral stone and lower calyceal renal stones) Procedure Performed Cystoscopy, left retrograde pyelogram, left ureteroscopy, laser lithotripsy, stone extraction, stent exchange Surgeon Kayli Barahona MD Anesthesia General Findings Proximal left ureteral stone, several left lower pole stones No hydronephrosis Description of Procedure The patient was correctly identified informed consent obtained. She was taken to the operating room placed in dorsal lithotomy position. Intravenous antibiotics were given within 1 hour of procedure start and bilateral SCDs were placed for DVT prophylaxis. She was prepped and draped in standard fashion. Rigid cystoscopy was performed. The bladder mucosa appeared normal. There were no lesions noted. The left ureter was identified grasped pulled pulled to the meatus. Through the stent a Sensor guidewire was passed into the kidney. Alongside the guidewire semi-rigid ureteroscopy was performed. There were no stones noted to the extent the ureteroscope could reach. Therefore flexible ureteroscopy was performed and the stone identified in the proximal ureter. This was grasped with an Escape basket and fragmented into small pieces for removal. A installation service representative stone fragment was removed with the basket and sent for analysis. The ureteroscope was then passed into the kidney and a retrograde pyelogram obtained. This showed no hydronephrosis. The collecting system was thoroughly and systematically inspected. There were small interstitial calcifications noted in the mid and upper calyces. There were several small stones noted in a lower calyx that were extracted using several passes of the ureteroscope. The remainder of the collecting system was clear of stone. Under direct vision a 4.8 Russian ureteral stent was passed with proximal coiling in the kidney and the distal end within the bladder. The bladder was then drained. The stent will be removed in the office 1-2 weeks time. Estimated Blood Loss 0 Complications None Disposition PACU [facility] Billing Surgery - Charge Forward: Surgery Billing
[2025-06-17 17:25] VITALS: BP 114/49; PULSE 89; RESP 18
[2025-06-17 17:45] VITALS: BP 128/90; PULSE 70; RESP 18
== END 2025-06-17 17:58 | disposition home or self-care (01) ==
PROVIDERS: PCP Family Medicine; Visit Provider Urology
PROC: (CPT 52352; principal; 2025-06-17 13:00)
DX: N20.1 Calculus of ureter (principal); I10 Essential (primary) hypertension; E78.1 Pure hyperglyceridemia; M19.90 Unspecified osteoarthritis, unspecified site; E66.01 Morbid (severe) obesity due to excess calories; Z68.42 Body mass index [BMI] 45.0-49.9, adult; Z79.82 Long term (current) use of aspirin; Z79.83 Long term (current) use of bisphosphonates; Z79.1 Long term (current) use of non-steroidal anti-inflammatories (NSAID); Z79.85 Long-term (current) use of injectable non-insulin antidiabetic drugs; Z98.890 Other specified postprocedural states; Z86.79 Personal history of other diseases of the circulatory system; Z80.6 Family history of leukemia; Z80.3 Family history of malignant neoplasm of breast; Z80.8 Family history of malignant neoplasm of other organs or systems; Z80.7 Family history of other malignant neoplasms of lymphoid, hematopoietic and related tissues
CPT/HCPCS: 52356; 74420; 82365; 88300; J0690; A9270; C1769; C2617; J1100; J1580; J2405; J2704; J3010; J7050; J7120; Q9966

== ENCOUNTER 2025-06-20 10:19 | Inpatient (IN) | payer OTHER, SELFPAY ==
--- NOTE | ~2025-06-20 | US_ITS ---
LEFT LOWER EXTREMITY VENOUS DUPLEX Clinical History: leg pain swelling eval for DVT COMPARISON: 07/16/2023 TECHNIQUE: Grayscale, color, duplex/spectral Doppler sonography left leg FINDINGS/IMPRESSION: 1. No left leg fem-pop DVT. 2. Calf veins poorly seen due to habitus and skin thickness and edema Reviewed, dictated and finalized at location [facility]
[2025-06-20 10:33] VITALS: BP 120/87; PULSE 63; RESP 20; TEMP 36.8; O2SAT 99
--- NOTE | 2025-06-20 11:04 | PC.NURSE ---
US at bedside
[2025-06-20 11:50] VITALS: BP 106/63; PULSE 60; RESP 20; O2SAT 97
[2025-06-20 11:52] LABS: Hematocrit 36.2 % (37.0-47.0); Hemoglobin 11.7 g/dL (12.0-15.0); Immature Granulocyte Percent A 2.4 % (0-0.5); Lymphocytes Absolute Auto 1.38 K/mm3 (0.9-3.2); Mean Corpuscular HGB Conc 32.3 g/dl (32-36); Mean Corpuscular Hemoglobin 30.8 pg (26-34); Mean Corpuscular Volume 95.3 fl (80-100); Nucleated Red Blood Cells Absolute Auto 0.000 K/mm3 (0.0-0.012); Nucleated Red Blood Cells Perc 0.0 % (0.0-0.2); Platelet Count Result 342 k/mm3 (150-375); Red Blood Count 3.80 M/mm3 (4.2-5.4); White Blood Count 9.9 K/mm3 (4.5-10.0)
--- NOTE | 2025-06-20 11:52 | ED.GENADULT ---
HPI - General Adult General Chief complaint: Extremity Problem,Nontraumatic Stated complaint: Left leg pain/ swelling Time Seen by Provider: 06/20/25 10:48 History of Present Illness HPI narrative: Patient 70-year-old female who presents emergency department chief complaint of redness and swelling left leg. Patient reports she was recently in the hospital for a kidney stone had the stone removed and has just finished up on a course of Bactrim the patient states she has history of lymphedema of her lower extremities reports that she noticed that her left leg was more swollen and was more red usually consistent whenever she has cellulitis the patient denies fever Related Data Home Medications ?Medication ?Instructions ?Recorded ?Confirmed ?Last Taken ?Type aspirin 81 mg chewable tablet 81 mg PO QAM 01/26/20 06/20/25 06/20/25 History alendronate 70 mg tablet 70 mg PO WEEKLY 06/05/25 06/20/25 06/17/25 History ibuprofen 600 mg tablet 600 mg PO Q8H PRN pain 06/05/25 06/20/25 06/20/25 History tirzepatide (weight loss) 7.5 7.5 mg subcut WEEKLY 06/05/25 06/20/25 06/17/25 History mg/0.5 mL subcutaneous solution (Zepbound) sulfamethoxazole 800 1 tablet PO Q12H 06/11/25 06/20/25 06/20/25 History mg-trimethoprim 160 mg tablet (Bactrim DS) Allergies Allergy/AdvReac Type Severity Reaction Status Date / Time No Known Allergies Allergy Unknown Verified 06/20/25 14:56 Review of Systems Review of Systems: A 10 system review of systems was completed on the patient and is negative except for what is stated in the HPI. Nursing and ancillary documentation was reviewed. [facility] Past Medical History Medical History History of bladder stone Osteoporosis History of UTI Cellulitis of left lower extremity Lymphedema COVID-19 (08/2021) Anxiety Hypertriglyceridemia Venous insufficiency of lower extremity Osteoarthritis Cerebral palsy With mild left-sided weakness. Legionella pneumonia (04/2019) Kidney stones (03/2018) Hypertension Cellulitis Surgical History Surgical History Status post laser ablation of incompetent vein History of cystoscopy (03/2018) With ureteral stent and stone extraction. History of ankle surgery (1959) Achilles tendon lengthening. History of dilation and curettage With uterine polypectomy. Family History Family History Mother Breast cancer Sibling Breast cancer Other Hodgkin disease Father Parkinson disease Lymph node cancer Grandparent Leukemia Sibling Brain cancer Social History Social History Social History: The patient is and lives with her in [place]. They have no children. 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 She denies alcohol, tobacco, and illicit substance abuse. She designates her , Jae Arevalo, as her surrogate decision maker and she wishes to be a full code. Smoking status: Never smoker Second hand tobacco smoke exposure: No Alcohol intake: never Alcohol use details: social Substance use: never Substance use type: does not use Do You Feel Safe in your Home?: Yes Lack of Transportation: No Lack of Food: Never True Current Housing: I Have Housing Concerned About Future Housing: No Difficulty Paying Gas/Electric Bills: No Difficulty Paying for Meds: No Currently Unemployed: No Education: Associate Degree Difficulty w/ Childcare or Family Care: No Living arrangements: with family Additional living arrangements comments: Spiritual care concerns: No Exam Narrative: GENERAL: Well-appearing, well-nourished, and in no acute distress. HEAD: Normocephalic, atraumatic. EYES: PERRLA and EOMI. ENT: Nares clear, no rhinorrhea or epistaxis. Mucous membranes moist. NECK: Supple. CHEST: Clear to auscultation. No respiratory distress. HEART: Regular rate and rhythm. No murmur heard. Normal peripheral pulses. ABDOMEN: Soft, nontender, nondistended, normal active bowel sounds. EXTREMITIES: Normal range of motion. 1+ edema to lower extremities left lower extremity is greater than the right and is erythematous SKIN: Warm, dry, no rash. Except for left leg that is red NEURO: No focal deficits. Alert and oriented x3. PSYCH: Normal mood and affect. Course Vital Signs Vital signs: Vital Signs Temperature 36.8 C 06/20/25 10:33 Pulse Rate 63 06/20/25 10:33 Respiratory Rate 20 06/20/25 10:33 Blood Pressure 120/87 06/20/25 10:33 Pulse Oximetry 99 06/20/25 10:33 Oxygen Delivery Room Air 06/20/25 10:33 Temperature 36.4 C L 06/20/25 15:10 Pulse Rate 59 L 06/20/25 15:10 Respiratory Rate 16 06/20/25 15:10 Blood Pressure 128/54 L 06/20/25 15:10 Pulse Oximetry 99 06/20/25 15:10 Oxygen Delivery Room Air 06/20/25 10:33 Medical Decision Making MDM Narrative Medical decision making narrative: Differential diagnosis includes DVT, cellulitis, Laboratory studies were obtained on the patient showed a white count 9.9 Venous duplex of left lower extremity showed no evidence of DVT The patient has been on p.o. Bactrim and has developed the symptoms while being on antibiotics. Plan will be to discuss the patient with the hospitalist for possible admission for IV antibiotics Also in discussion with the patient she has had prior outpatient failures of oral antibiotics for her cellulitis in the past Vital Signs Vital Signs: Vital Signs Temperature 36.8 C 06/20/25 10:33 Pulse Rate 63 06/20/25 10:33 Respiratory Rate 20 06/20/25 10:33 Blood Pressure 120/87 06/20/25 10:33 Pulse Oximetry 99 06/20/25 10:33 Oxygen Delivery Room Air 06/20/25 10:33 Temperature 36.4 C L 06/20/25 15:10 Pulse Rate 59 L 06/20/25 15:10 Respiratory Rate 16 06/20/25 15:10 Blood Pressure 128/54 L 06/20/25 15:10 Pulse Oximetry 99 06/20/25 15:10 Oxygen Delivery Room Air 06/20/25 10:33 Lab Data 06/20/25 11:46 06/20/25 11:46 Labs: Lab Results 06/20/25 Range/Units 11:46 WBC 9.9 (4.5-10.0) K/mm3 RBC 3.80 L (4.2-5.4) M/mm3 Hgb 11.7 L (12.0-15.0) g/dL Hct 36.2 L (37.0-47.0) % MCV 95.3 (80-100) fl MCH 30.8 (26-34) pg MCHC 32.3 (32-36) g/dl RDW 13.1 (11.5-14.5) % Plt Count 342 D (150-375) k/mm3 MPV 8.6 (7.4-10.4) fl Immature Gran % (Auto) 2.4 H (0-0.5) % Neut % (Auto) 69.5 (45.5-73.1) % Lymph % (Auto) 14.0 L (18.3-44.2) % Winn % (Auto) 9.0 H (2.6-8.5) % Eos % (Auto) 4.4 (0-4.4) % Baso % (Auto) 0.7 (0.2-1.2) % Lymph # (Auto) 1.38 (0.9-3.2) K/mm3 Winn # (Auto) 0.9 H (0.1-0.6) K/mm3 Eos # (Auto) 0.4 H (0-0.3) K/mm3 Baso # (Auto) 0.1 (0.0-0.1) K/mm3 Abs Immat Gran (auto) 0.24 H (0.00-0.031) K/mm3 Absolute Neuts (auto) 6.9 H (1.3-6.7) K/mm3 Absolute Nucleated RBC 0.000 (0.0-0.012) K/mm3 Nucleated RBC % 0.0 (0.0-0.2) % Sodium 138 (137-145) mmol/L Potassium 4.4 (3.4-5.0) mmol/L Chloride 108 H (98-107) mmol/L Carbon Dioxide 23 (22-30) mmol/L Anion Gap 7 (4-12) mmol/L BUN 25 H (7-17) mg/dL Creatinine 1.04 H (0.7-1.0) mg/dL Estim Creat Clear Calc 51 ml/min Estimated GFR 52 L (59 - ) Glucose 90 (65-110) mg/dL Lactic Acid 0.7 (0.7-2.0) mmol/L Calcium 8.8 (8.4-10.2) mg/dL Total Bilirubin 0.4 (0.2-1.3) mg/dL AST 20 (14-36) U/L ALT 22 (6-35) U/L Alkaline Phosphatase 96 (38-126) U/L Total Protein 6.9 (6.3-8.2) g/dL Albumin 3.7 (3.5-5.1) g/dL Discharge Plan Discharge Clinical Impression: Cellulitis of left leg Patient Disposition: Still a Patient Condition: Stable
[2025-06-20 12:24] LABS: Alanine Aminotransferase 22 U/L (6-35); Albumin Level 3.7 g/dL (3.5-5.1); Alkaline Phosphatase 96 U/L (38-126); Anion Gap 7 mmol/L (4-12); Aspartate Amino Transferase 20 U/L (14-36); Bilirubin,Total 0.4 mg/dL (0.2-1.3); Blood Urea Nitrogen 25 mg/dL (7-17); Calcium 8.8 mg/dL (8.4-10.2); Carbon Dioxide 23 mmol/L (22-30); Chloride 108 mmol/L (98-107); Estimated CRCL calculation 51 ml/min; Estimated Glomerular Filt Rate 52; Glucose 90 mg/dL (65-110); Potassium 4.4 mmol/L (3.4-5.0); Sodium 138 mmol/L (137-145); Total Protein 6.9 g/dL (6.3-8.2)
--- NOTE | 2025-06-20 13:50 | PM.IMHP ---
H&P: HPI History of Present Illness Date/Time: 06/20/25 13:50 Chief Complaint: LLE Swelling Narrative: 70 y/o F with PMH of lymphedema, anxiety, hypertriglyceridemia, venous insufficiency of the lower extremity, CP with mild left-sided weakness, kidney stones, hypertension, and recurrent cellulitis presents here with left lower extremity swelling. The patient presents here from home on 06/20 for further evaluation of left lower extremity swelling and redness. She has a history significant for lymphedema that is worse in the left lower extremity compared to the right and recurrent cellulitis. She reports she noted increased swelling or redness to her left lower leg approximately 3 days ago on Sunday (06/17). She currently denies systemic symptoms including fever, chills, body aches, nausea, vomiting, or diarrhea. She is currently on Bactrim b.i.d. times 10 days and scheduled to complete this course today for a UTI. Complicated by a kidney stone for which she underwent a cystoscopy, left retrograde pyelogram/laser lithotripsy/stone extraction/stent exchange on 06/17. Initial VS at presentation: 98.2? F, HR 63, R 20, 120/87, and 99% on RA. ED workup showed: No leukocytosis, hemoglobin 11.7 (13.1 on 06/08), creatinine 1.04 and GFR 52 (0.75 and GFR >60 on 06/08). Venous Doppler of the left lower extremity showed no left leg fem/pop DVT, calf veins poorly visualized. Review of Systems Review of Systems: All systems reviewed & are unremarkable except as noted in HPI and below PMFSH Past Medical History Medical History History of bladder stone Osteoporosis History of UTI Cellulitis of left lower extremity Lymphedema COVID-19 (08/2021) Anxiety Hypertriglyceridemia Venous insufficiency of lower extremity Osteoarthritis Cerebral palsy With mild left-sided weakness. Legionella pneumonia (04/2019) Kidney stones (03/2018) Hypertension Cellulitis Surgical History Surgical History Status post laser ablation of incompetent vein History of cystoscopy (03/2018) With ureteral stent and stone extraction. History of ankle surgery (1958) Achilles tendon lengthening. History of dilation and curettage With uterine polypectomy. Family History Family History Mother Breast cancer Sibling Breast cancer Other Hodgkin disease Father Parkinson disease Lymph node cancer Grandparent Leukemia Sibling Brain cancer Social History Social History Social History: The patient is and lives with her in [place]. They have no children. 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 She denies alcohol, tobacco, and illicit substance abuse. She designates her , Jae Arevalo, as her surrogate decision maker and she wishes to be a full code. Smoking status: Never smoker Second hand tobacco smoke exposure: No Alcohol intake: never Alcohol use details: social Substance use: never Substance use type: does not use Do You Feel Safe in your Home?: Yes Lack of Transportation: No Lack of Food: Never True Current Housing: I Have Housing Concerned About Future Housing: No Difficulty Paying Gas/Electric Bills: No Difficulty Paying for Meds: No Currently Unemployed: No Education: Associate Degree Difficulty w/ Childcare or Family Care: No Living arrangements: with family Additional living arrangements comments: Spiritual care concerns: No Meds Home Medications and Allergies Home Medications ?Medication ?Instructions ?Recorded ?Confirmed ?Type aspirin 81 mg chewable tablet 81 mg PO QAM 01/26/20 06/17/25 History nifedipine 30 mg tablet,extended See Rx Instructions .Route 03/24/24 06/11/25 Rx release 24 hr .COMPLEX #90 tabs atenolol 25 mg tablet 25 mg PO DAILY #90 tabs 03/02/25 06/17/25 Rx alendronate 70 mg tablet 70 mg PO WEEKLY 06/05/25 06/17/25 History ibuprofen 600 mg tablet 600 mg PO Q8H PRN pain 06/05/25 06/17/25 History tirzepatide (weight loss) 7.5 7.5 mg subcut WEEKLY 06/05/25 06/11/25 History mg/0.5 mL subcutaneous solution (Zepbound) oxybutynin chloride 5 mg tablet 5 mg PO BID #180 tabs 06/10/25 06/11/25 Rx sulfamethoxazole 800 1 tablet PO Q12H 06/11/25 06/17/25 History mg-trimethoprim 160 mg tablet (Bactrim DS) Allergies Allergy/AdvReac Type Severity Reaction Status Date / Time No Known Allergies Allergy Unknown Verified 06/20/25 10:36 Vital Signs Vital Signs - 24 hr 06/20/25 10:33 06/20/25 11:50 Temperature 98.2 F Pulse Rate 63 60 Respiratory Rate 20 20 Blood Pressure 120/87 106/63 Pulse Oximetry 99 97 Oxygen Delivery Room Air Exam Const: General: comfortable and no acute distress Other: , female, obese body habitus, chronically ill-appearing HENMT: Face/Nose/Sinus: Normal nares present Mouth: Yes moist mucous membranes Eyes: General: appearance normal, both eyes and all related structures Sclera: sclerae normal Pupils: Equal, round and reactive pupils present EOM: EOMs intact bilaterally Resp: Effort & Inspection: normal respiratory effort Auscultation: clear to auscultation bilaterally Cardio: Rate: regular rate Rhythm: regular rhythm Other: S1-S2 present without murmur, rub, ectopy GI: Other: Abdomen soft, nondistended, nontender. Normoactive bowel sounds in all quadrants. Skin: Other: Moderate erythema to the left lower extremity compared to the right lower extremity. Hypopigmentation to bilateral lower extremities. Erythema to the left lower extremity does not significantly improved with elevation. He unilateral he to the left lower extremity. Some small areas of crusting to the LLE, no drainage. Neuro: Speech: normal speech Motor exam (neuro): 5/5 motor strength present throughout Sensory Exam: normal sensation Other: A&O x4 Extrem: General: normal exam except as noted Other: Bilateral peripheral edema Psych: Mental Status: mental status grossly normal Affect: normal affect Other: Good insight and judgment, pleasant H&P: Results Labs Labs: Short CBC 06/20/25 Range/Units 11:46 WBC 9.9 (4.5-10.0) K/mm3 Hgb 11.7 L (12.0-15.0) g/dL Hct 36.2 L (37.0-47.0) % Plt Count 342 D (150-375) k/mm3 BMP 06/20/25 11:46 Sodium 138 Potassium 4.4 Chloride 108 H Carbon Dioxide 23 BUN 25 H Creatinine 1.04 H Glucose 90 Calcium 8.8 Liver Function 06/20/25 Range/Units 11:46 Total Bilirubin 0.4 (0.2-1.3) mg/dL AST 20 (14-36) U/L ALT 22 (6-35) U/L Alkaline Phosphatase 96 (38-126) U/L Albumin 3.7 (3.5-5.1) g/dL Assessment and Plan Assessment and plan (1) Cellulitis of left leg: Code(s): L03.116 - Cellulitis of left lower limb Status: Acute Assessment and Plan: Patient has chronic venous insufficiency and lymphedema to her lower extremities. Lymphedema worse to her left lower extremity compared to her right chronically. Noted to have increased redness and swelling to her left lower extremity starting on Sunday (06/17). On exam erythema at does not improve with elevation and patient has unilateral heat. Currently on Bactrim b.i.d. times 10 days with last dose scheduled for this afternoon. Given failure/development of cellulitis wall on Bactrim outpatient, admitted for IV antibiotics. - previous micro reviewed, patient grew Staph aureus in November of 2023 that was pansensitive. - transitioned to cefepime, Flagyl, vancomycin on 06/20. Continued patient. - no current open wounds available for culture - silver sulfadiazine topical b.i.d. - reviewed previous wound RN recommendation is, continue topical ointment and local wound dressings (2) Chronic venous insufficiency: Code(s): I87.2 - Venous insufficiency (chronic) (peripheral) Status: Chronic Assessment and Plan: - see above (3) Lymphedema: Code(s): I89.0 - Lymphedema, not elsewhere classified Status: Chronic Assessment and Plan: - see above - elevate BLE as tolerated (4) Hypertension: Qualifiers: Hypertension type: essential hypertension Qualified Code(s): I10 - Essential (primary) hypertension Code(s): I10 - Essential (primary) hypertension Status: Chronic Assessment and Plan: - chronic, currently 106/63, stable. - continue home medications: Atenolol, nifedipine - monitor Plan Diet: heart healthy GI Prophylaxis: n/a DVT Prophylaxis: Lovenox SQ IV fluids: LR 100 mL/hr Lines/Tubes: peripheral IV Code Status: full code Quality VTE Prophylaxis VTE prophylaxis: pharmacologic ordered Hospitalist MIPS Advance Care Plan I have confirmed that the patient's Advanced Care Plan is present, code status is documented, or surrogate decision maker is listed in patient medical record.: Yes Medication Reconciliation I have utilized all available resources to obtain, update and review the patients current medications (includes all prescriptions, OTC, herbals, cannabis, and nutritional supplements).: Yes
[2025-06-20 14:14] VITALS: BP 115/73; PULSE 67; RESP 18; O2SAT 97
[2025-06-20] MEDS: CEFEPIME 2 GM in SODIUM CHLORIDE 0.9% IV 50 ML 100 ML IVPB (14:14)
--- NOTE | 2025-06-20 14:16 | WPCEDHO ---
ED Hand Off Checklist All vitals saved:yes IV Site documented:yes All med administrations documented:yes Triage Note Triage Note Pt to ED c/o LLE swelling and 06/20/25 10:33 redness x 3 days. Reports already taking abx for UTI and had kidney stone surgery Sunday and that day she noticed the redness and swelling start. Pt has hx lymphedema & of cellulitis in same leg. Pt denies drainage, fevers. Pt had ibuprofen at 0500 . Allergies No Known Allergies Allergy (Unknown, Verified 06/20/25 10:36) Current Diagnoses Essential (primary) hypertension (06/20/25) Venous insufficiency (chronic) (peripheral) (06/20/25) Lymphedema, not elsewhere classified (06/20/25) Cellulitis of left lower limb (06/20/25) Family History (Last Reviewed 06/20/25 @ 13:59 by Tangela Montgomery, SARA) Mother Breast cancer Sibling Breast cancer Other Hodgkin disease Father Parkinson disease Lymph node cancer Grandparent Leukemia Sibling Brain cancer Administered/Completed Medications Discontinued Medications Cefepime HCl 2 gm/ Sodium (Chloride) 50 mls @ 100 mls/hr IVPB ONCE STA Stop: 06/20/25 13:51 Last Admin: 06/20/25 14:14 Dose: 100 mls/hr Documented By: JONO Notes 06/20/25 11:04 Nurse Note by Claudia Oglesby at bedside Initialized on 06/20/25 11:04 - END OF NOTE Interventions/Assessments IV / Saline Lock, Insert Start: 06/20/25 10:20 Freq: Status: Active Protocol: Document 06/20/25 11:49 JONO (Rec: 06/20/25 11:50 JONO [id number]) IV Assessment Peripheral Access Right Antecubital IV Catheter Access Initiated IV Insertion Date 06/20/25 IV Insertion Time 11:49 Catheter Gauge 20 IV Insertion 1 Attempts Ultrasound Used for No Placement IV Site Assessment WNL IV Care and WNL Maintenance Last Vital Signs Temperature 98.2 F 06/20/25 10:33 Pulse Rate 67 06/20/25 14:14 Respiratory Rate 18 06/20/25 14:14 Pulse Oximetry 97 06/20/25 14:14 Blood Pressure 115/73 06/20/25 14:14 Blood Pressure Mean 87 06/20/25 14:14 Oxygen Delivery Room Air 06/20/25 10:33 Weight 106.8 kg 06/20/25 10:33 Last Result - Abnormals Only RBC 3.80 M/mm3 (4.2-5.4) L 06/20/25 11:46 Hgb 11.7 g/dL (12.0-15.0) L 06/20/25 11:46 Hct 36.2 % (37.0-47.0) L 06/20/25 11:46 Immature Gran % (Auto) 2.4 % (0-0.5) H 06/20/25 11:46 Lymph % (Auto) 14.0 % (18.3-44.2) L 06/20/25 11:46 [place] % (Auto) 9.0 % (2.6-8.5) H 06/20/25 11:46 [place] # (Auto) 0.9 K/mm3 (0.1-0.6) H 06/20/25 11:46 Eos # (Auto) 0.4 K/mm3 (0-0.3) H 06/20/25 11:46 Abs Immat Gran (auto) 0.24 K/mm3 (0.00-0.031) H 06/20/25 11:46 Absolute Neuts (auto) 6.9 K/mm3 (1.3-6.7) H 06/20/25 11:46 Chloride 108 mmol/L (98-107) H 06/20/25 11:46 BUN 25 mg/dL (7-17) H 06/20/25 11:46 Creatinine 1.04 mg/dL (0.7-1.0) H 06/20/25 11:46 Estimated GFR 52 (59-) L 06/20/25 11:46 Most Recent Suicide Severity Rating Suicide Severity Rating NO RISK INDICATED 06/20/25 10:33
[2025-06-20 14:52] VITALS: BMI 41.7
[2025-06-20] MEDS: LACTATED RINGERS 1,000 ML 100 ML IV CONT (15:02)
[2025-06-20] MEDS: metroNIDAZOLE 500 MG/ISO 100ML 500 MG/100 ML BAG 100 MG IVPB (15:03)
[2025-06-20 15:10] VITALS: BP 128/54; PULSE 59; RESP 16; TEMP 36.4; O2SAT 99
--- NOTE | 2025-06-20 15:15 | ADMGEN ---
This patient, Savanna Arevalo, was admitted to Medical Room 348-01. Patient/family oriented to hospital policies and general routines including ID bracelet, bed and alarms, visiting hours, pain management, procedures, bathroom and other care routines, personal items, smoking policy, room service/diet, and visiting hours. Information on how to activate the Rapid Response Team has been discussed. Patient/Family are encouraged to report perceived risks to care and to ask questions if they do not understand what they are told or what they should do.
[2025-06-20] MEDS: VANCOMYCIN 1,500 MG/NS 500 ML 1,500 MG/500 ML BAG 250 MG IVPB (16:28)
[2025-06-20] MEDS: VANCOMYCIN HCL 1,000 MG in SODIUM CHLORIDE 0.9% IV 250 ML 250 MG IVPB (19:59)
[2025-06-20] MEDS: SILVER SULFADIAZINE 1% CR 400 GM JAR (*BKC) 1 APPLIC TOPICAL (20:00)
[2025-06-21] MEDS: metroNIDAZOLE 500 MG/ISO 100ML 500 MG/100 ML BAG 100 MG IVPB ×4 (00:14→20:32)
[2025-06-21] MEDS: CEFEPIME 1 GM in SODIUM CHLORIDE 0.9% IV 50 ML 100 ML IVPB (05:12)
[2025-06-21 05:19] LABS: Hematocrit 33.6 % (37.0-47.0); Hemoglobin 10.9 g/dL (12.0-15.0); Immature Granulocyte Percent A 3.2 % (0-0.5); Lymphocytes Absolute Auto 1.13 K/mm3 (0.9-3.2); Mean Corpuscular HGB Conc 32.4 g/dl (32-36); Mean Corpuscular Hemoglobin 31.1 pg (26-34); Mean Corpuscular Volume 95.7 fl (80-100); Nucleated Red Blood Cells Absolute Auto 0.000 K/mm3 (0.0-0.012); Nucleated Red Blood Cells Perc 0.0 % (0.0-0.2); Platelet Count Result 293 k/mm3 (150-375); Red Blood Count 3.51 M/mm3 (4.2-5.4); White Blood Count 8.2 K/mm3 (4.5-10.0)
[2025-06-21 06:00] VITALS: BP 133/78; PULSE 83; RESP 18; TEMP 36.8; O2SAT 94
[2025-06-21 06:03] LABS: Anion Gap 8 mmol/L (4-12); Blood Urea Nitrogen 16 mg/dL (7-17); Calcium 8.6 mg/dL (8.4-10.2); Carbon Dioxide 17 mmol/L (22-30); Chloride 109 mmol/L (98-107); Estimated CRCL calculation 64 ml/min; Estimated Glomerular Filt Rate > 60; Glucose 101 mg/dL (65-110); Potassium 4.1 mmol/L (3.4-5.0); Sodium 134 mmol/L (137-145)
--- NOTE | 2025-06-21 07:45 | PM.IMPN ---
Progress Note: A&P Assessment and Plan (1) Cellulitis of left leg: Code(s): L03.116 - Cellulitis of left lower limb Status: Acute Assessment and Plan: Patient has chronic venous insufficiency and lymphedema to her lower extremities. Lymphedema worse to her left lower extremity compared to her right chronically. Noted to have increased redness and swelling to her left lower extremity starting on Sunday (06/17). previous micro reviewed, patient grew Staph aureus in November of 2023 that was pansensitive. Continue cefepime, Flagyl, vancomycin no current open wounds available for culture silver sulfadiazine topical b.i.d. reviewed previous wound RN recommendation is, continue topical ointment and local wound dressings Blood cultures drawn on 06/20 - pending Continue IV abx Wound care consult (2) Chronic venous insufficiency: Code(s): I87.2 - Venous insufficiency (chronic) (peripheral) Status: Chronic Assessment and Plan: see above (3) Lymphedema: Code(s): I89.0 - Lymphedema, not elsewhere classified Status: Chronic Assessment and Plan: see above elevate BLE as tolerated (4) Hypertension: Qualifiers: Hypertension type: essential hypertension Qualified Code(s): I10 - Essential (primary) hypertension Code(s): I10 - Essential (primary) hypertension Status: Chronic Assessment and Plan: chronic, currently 106/63, stable. continue home medications: Atenolol, nifedipine monitor Plan Diet: heart healthy GI Prophylaxis: n/a DVT Prophylaxis: Lovenox SQ IV fluids: LR 100 mL/hr Lines/Tubes: peripheral IV Code Status: full code Subjective Date/time seen: 06/21/25 07:45 Interval history: 70 y/o F with PMH of lymphedema, anxiety, hypertriglyceridemia, venous insufficiency of the lower extremity, CP with mild left-sided weakness, kidney stones, hypertension, and recurrent cellulitis presents here with left lower extremity swelling. 06/21/2025 Patient sitting comfortably in bed at time of exam. Denies any CP, SOB, n/v or abd pain. Having some LLE pain with surrounding erythema, slightly better than yesterday. Erythema borders demarcated with sharpie - will continue to monitor. Remains afebrile w/o leukocytosis. Blood cultures pending. Review of Systems Review of Systems: All systems reviewed & are unremarkable except as noted in HPI and below Exam Const: General: comfortable and no acute distress Other: , female, obese body habitus, chronically ill-appearing HENMT: Face/Nose/Sinus: Normal nares present Mouth: Yes moist mucous membranes Eyes: General: appearance normal, both eyes and all related structures Sclera: sclerae normal Pupils: Equal, round and reactive pupils present EOM: EOMs intact bilaterally Resp: Effort & Inspection: normal respiratory effort Auscultation: clear to auscultation bilaterally Cardio: Rate: regular rate Rhythm: regular rhythm Other: S1-S2 present without murmur, rub, ectopy GI: Other: Abdomen soft, nondistended, nontender. Normoactive bowel sounds in all quadrants. Skin: Other: Moderate erythema to the left lower extremity compared to the right lower extremity. Hypopigmentation to bilateral lower extremities. Erythema to the left lower extremity does not significantly improved with elevation. Some small areas of crusting to the LLE, no drainage. Neuro: Cranial nerves: Yes Equal, round and reactive pupils present Speech: normal speech Motor exam (neuro): 5/5 motor strength present throughout Sensory Exam: normal sensation Other: A&O x4 Extrem: General: normal exam except as noted Other: Bilateral peripheral edema Psych: Mental Status: mental status grossly normal Affect: normal affect Other: Good insight and judgment, pleasant Objective Data Vital Signs Vital Signs: Vital Signs - 24 hr 06/20/25 10:33 06/20/25 11:50 06/20/25 14:14 Temperature 98.2 F Pulse Rate 63 60 67 Respiratory Rate 20 20 18 Blood Pressure 120/87 106/63 115/73 Pulse Oximetry 99 97 97 Oxygen Delivery Room Air 06/20/25 15:10 06/20/25 20:00 06/21/25 06:00 Temperature 97.5 F L 98.2 F Pulse Rate 59 L 83 Respiratory Rate 16 18 Blood Pressure 128/54 L 133/78 Pulse Oximetry 99 94 Oxygen Delivery Room Air Intake/Output Intake/Output: Intake & Output 06/18/25 06/19/25 06/20/25 06/21/25 23:59 23:59 23:59 23:59 Intake Total 670 100 Output Total 0 Balance 670 100 Meds/Results Medications: Active Medications Generic Name Dose Route Start Last Admin Trade Name Freq PRN Reason Stop Dose Admin Acetaminophen 650 mg 06/20/25 13:26 Acetaminophen 325 Mg Tablet PO Q4H PRN Mild Pain (1-3) or Fever Alendronate Sodium 70 mg 06/24/25 06:30 Alendronate Sodium 70 Mg Tablet PO We@0630 [facility] Aspirin 81 mg 06/21/25 09:00 Aspirin 81 Mg Chewable Tablet PO QAM [facility] Atenolol 25 mg 06/21/25 09:00 Atenolol 25 Mg Tablet PO DAILY [facility] Enoxaparin Sodium 40 mg 06/21/25 09:00 Enoxaparin 40 Mg/0.4 Ml Syringe SUB-Q DAILY [facility] Cefepime HCl 1 gm/ Sodium 50 mls @ 100 mls/hr 06/21/25 05:00 06/21/25 05:12 Chloride IVPB 100 mls/hr Q12H [facility] Administration Metronidazole 500 mg in 100 mls @ 100 mls/hr 06/20/25 22:00 06/21/25 06:26 Flagyl 500 Mg/Iso Soln 100 Ml IVPB 100 mls/hr Q8H [facility] Administration Vancomycin HCl 1,500 mg in 500 mls @ 250 mls/hr 06/21/25 10:00 Vancomycin 1,500 Mg/Ns 500 Ml IVPB Q18H [facility] Ibuprofen 600 mg 06/20/25 16:27 Ibuprofen 600 Mg Tablet PO Q8H PRN Pain Miscellaneous Information 0 each 06/20/25 00:01 Ibuprofen And Acetaminophen Duplicate Pain Scale XX 07/20/25 00:00 CLARIFY [facility] Nifedipine 30 mg 06/20/25 17:00 06/20/25 17:17 Nifedipine 30 Mg Tab.Er.24 PO 30 mg DAILY@1700 [facility] Administration Ondansetron HCl 4 mg 06/20/25 13:26 Ondansetron Inj 4 Mg/2 Ml Vial IV PUSH Q4H PRN Nausea Oxybutynin Chloride 5 mg 06/20/25 17:00 06/20/25 17:17 Oxybutynin Chloride 5 Mg Tablet PO 5 mg BID [facility] Administration Silver Sulfadiazine 1 applic 06/20/25 21:00 06/20/25 20:00 Silver Sulfadiazine 1% Cr 400 Gm Jar (*Bkc) TOPICAL 1 applic Q12HR [facility] Administration Labs Labs: Laboratory Results - last 24 hr 06/20/25 06/21/25 06/21/25 11:46 05:01 05:47 WBC 9.9 8.2 RBC 3.80 L 3.51 L Hgb 11.7 L 10.9 L Hct 36.2 L 33.6 L MCV 95.3 95.7 MCH 30.8 31.1 MCHC 32.3 32.4 RDW 13.1 13.1 Plt Count 342 D 293 MPV 8.6 8.7 Immature Gran % (Auto) 2.4 H 3.2 H Neut % (Auto) 69.5 67.3 Lymph % (Auto) 14.0 L 13.8 L [place] % (Auto) 9.0 H 10.4 H Eos % (Auto) 4.4 4.6 H Baso % (Auto) 0.7 0.7 Lymph # (Auto) 1.38 1.13 [place] # (Auto) 0.9 H 0.9 H Eos # (Auto) 0.4 H 0.4 H Baso # (Auto) 0.1 0.1 Abs Immat Gran (auto) 0.24 H 0.26 H Absolute Neuts (auto) 6.9 H 5.5 Absolute Nucleated RBC 0.000 0.000 Nucleated RBC % 0.0 0.0 Sodium 138 134 L Potassium 4.4 4.1 Chloride 108 H 109 H Carbon Dioxide 23 17 L Anion Gap 7 8 BUN 25 H 16 Creatinine 1.04 H 0.83 Estim Creat Clear Calc 51 64 Estimated GFR 52 L > 60 Glucose 90 101 Lactic Acid 0.7 Calcium 8.8 8.6 Total Bilirubin 0.4 AST 20 ALT 22 Alkaline Phosphatase 96 Total Protein 6.9 Albumin 3.7 Quality VTE Prophylaxis VTE prophylaxis: pharmacologic ordered
[2025-06-21 08:43] VITALS: PULSE 81
[2025-06-21] MEDS: ASPIRIN 81 MG CHEWABLE TABLET PO (08:43)
[2025-06-21] MEDS: ENOXAPARIN 40 MG/0.4 ML SYRINGE SUB-Q (08:46)
[2025-06-21] MEDS: ACETAMINOPHEN 325 MG TABLET 650 MG PO ×2 (08:47→17:00)
[2025-06-21] MEDS: SILVER SULFADIAZINE 1% CR 400 GM JAR (*BKC) 1 APPLIC TOPICAL ×2 (08:48→20:33)
[2025-06-21] MEDS: IBUPROFEN 600 MG TABLET PO (10:47)
[2025-06-21] MEDS: VANCOMYCIN 1,500 MG/NS 500 ML 1,500 MG/500 ML BAG 250 MG IVPB (10:47)
[2025-06-21 14:00] VITALS: BP 110/52; PULSE 60; RESP 18; TEMP 36.9; O2SAT 99
[2025-06-21] MEDS: CEFEPIME 2 GM in SODIUM CHLORIDE 0.9% IV 50 ML 100 ML IVPB (17:01)
[2025-06-21 22:00] VITALS: BP 126/58; PULSE 58; RESP 18; TEMP 36.8; O2SAT 98
[2025-06-22 03:10] LABS: Estimated CRCL calculation 58 ml/min; Estimated Glomerular Filt Rate > 60
[2025-06-22] MEDS: CEFEPIME 2 GM in SODIUM CHLORIDE 0.9% IV 50 ML 100 ML IVPB ×2 (03:24→16:07)
[2025-06-22] MEDS: VANCOMYCIN 2,000 MG/NS 500 ML 2,000 MG/500 ML BAG 250 MG IVPB ×2 (04:20→21:56)
[2025-06-22 06:00] VITALS: BP 118/65; PULSE 62; RESP 18; TEMP 36.8; O2SAT 97
[2025-06-22] MEDS: metroNIDAZOLE 500 MG/ISO 100ML 500 MG/100 ML BAG 100 MG IVPB ×3 (06:51→20:49)
--- NOTE | 2025-06-22 08:12 | P.PNIM_ITS ---
Progress Note: A&P Assessment and Plan (1) Cellulitis of left leg: Code(s): L03.116 - Cellulitis of left lower limb Status: Acute Assessment and Plan: Patient has chronic venous insufficiency and lymphedema to her lower extremities. Lymphedema worse to her left lower extremity compared to her right chronically. Noted to have increased redness and swelling to her left lower extremity starting on Sunday (06/17). * previous micro reviewed, patient grew Staph aureus in November of 2023 that was pansensitive. * Continue cefepime, Flagyl, vancomycin * no current open wounds available for culture * silver sulfadiazine topical b.i.d. * reviewed previous wound RN recommendation is, continue topical ointment and local wound dressings * Blood cultures drawn on 06/20 - pending * Continue IV abx * Wound care consult * Erythema and swelling improving (2) Chronic venous insufficiency: Code(s): I87.2 - Venous insufficiency (chronic) (peripheral) Status: Chronic Assessment and Plan: * see above (3) Lymphedema: Code(s): I89.0 - Lymphedema, not elsewhere classified Status: Chronic Assessment and Plan: * see above * elevate BLE as tolerated (4) Hypertension: Qualifiers: Hypertension type: essential hypertension Qualified Code(s): I10 - Essential (primary) hypertension Code(s): I10 - Essential (primary) hypertension Status: Chronic Assessment and Plan: * chronic, currently 106/63, stable. * continue home medications: Atenolol, nifedipine * monitor Plan Diet: heart healthy GI Prophylaxis: n/a DVT Prophylaxis: Lovenox SQ IV fluids: LR 100 mL/hr Lines/Tubes: peripheral IV Code Status: full code Subjective Date/time seen: 06/22/25 08:12 Interval history: 70 y/o F with PMH of lymphedema, anxiety, hypertriglyceridemia, venous insufficiency of the lower extremity, CP with mild left-sided weakness, kidney stones, hypertension, and recurrent cellulitis presents here with left lower extremity swelling. 06/22/2025 Patient sitting comfortably in bed at time of exam. She endorses improvement in overall pain of LLE. Erythema appears improved since yesterday as well, swelling also slightly improved. Continue to monitor blood cultures. Remains afebrile without leukocytosis. Review of Systems Review of Systems: All systems reviewed & are unremarkable except as noted in HPI and below Exam Const: General: comfortable and no acute distress Other: , female, obese body habitus, chronically ill-appearing HENMT: Face/Nose/Sinus: Normal nares present Mouth: Yes moist mucous membranes Eyes: General: appearance normal, both eyes and all related structures Sclera: sclerae normal Pupils: Equal, round and reactive pupils present EOM: EOMs intact bilaterally Resp: Effort & Inspection: normal respiratory effort Auscultation: clear to auscultation bilaterally Cardio: Rate: regular rate Rhythm: regular rhythm Other: S1-S2 present without murmur, rub, ectopy GI: Other: Abdomen soft, nondistended, nontender. Normoactive bowel sounds in all quadrants. Skin: Other: Moderate erythema to the left lower extremity compared to the right lower extremity. Hypopigmentation to bilateral lower extremities. Erythema to the left lower extremity does not significantly improved with elevation. Some small areas of crusting to the LLE, no drainage. Neuro: Cranial nerves: Yes Equal, round and reactive pupils present Speech: normal speech Motor exam (neuro): 5/5 motor strength present throughout Sensory Exam: normal sensation Other: A&O x4 Extrem: General: normal exam except as noted Other: Bilateral peripheral edema Psych: Mental Status: mental status grossly normal Affect: normal affect Other: Good insight and judgment, pleasant Objective Data Vital Signs Vital Signs: Vital Signs - 24 hr 06/21/25 08:43 06/21/25 14:00 06/21/25 22:00 Temperature 98.4 F 98.2 F Pulse Rate 81 60 58 L Respiratory Rate 18 18 Blood Pressure 110/52 L 126/58 L Pulse Oximetry 99 98 Oxygen Delivery 06/22/25 06:00 06/22/25 08:00 Temperature 98.2 F Pulse Rate 62 Respiratory Rate 18 Blood Pressure 118/65 Pulse Oximetry 97 Oxygen Delivery Room Air Intake/Output Intake/Output: Intake & Output 06/19/25 06/20/25 06/21/25 06/22/25 23:59 23:59 23:59 23:59 Intake Total 670 4250 100 Output Total 0 1600 Balance 670 4250 -1500 Meds/Results Medications: Active Medications Generic Name Dose Route Start Last Admin Trade Name Freq PRN Reason Stop Dose Admin Acetaminophen 650 mg 06/20/25 13:26 06/21/25 17:00 Acetaminophen 325 Mg Tablet PO 650 mg Q4H PRN Administration Mild Pain (1-3) or Fever Alendronate Sodium 70 mg 06/24/25 06:30 Alendronate Sodium 70 Mg Tablet PO We@0630 [facility] Aspirin 81 mg 06/21/25 09:00 06/21/25 08:43 Aspirin 81 Mg Chewable Tablet PO 81 mg QAM [facility] Administration Atenolol 25 mg 06/21/25 09:00 06/21/25 08:43 Atenolol 25 Mg Tablet PO 25 mg DAILY [facility] Administration Enoxaparin Sodium 40 mg 06/21/25 09:00 06/21/25 08:46 Enoxaparin 40 Mg/0.4 Ml Syringe SUB-Q 40 mg DAILY [facility] Administration Metronidazole 500 mg in 100 mls @ 100 mls/hr 06/20/25 22:00 06/22/25 07:51 Flagyl 500 Mg/Iso Soln 100 Ml IVPB Infused Q8H [facility] Infusion Cefepime HCl 2 gm/ Sodium 50 mls @ 100 mls/hr 06/21/25 15:00 06/22/25 03:24 Chloride IVPB 100 mls/hr Q12H [facility] Administration Vancomycin HCl 2,000 mg in 500 mls @ 250 mls/hr 06/22/25 04:00 06/22/25 04:20 Vancomycin 2,000 Mg/Ns 500 Ml IVPB 250 mls/hr Q18H [facility] Administration Ibuprofen 600 mg 06/20/25 16:27 06/21/25 10:47 Ibuprofen 600 Mg Tablet PO 600 mg Q8H PRN Administration Pain 4-6 Nifedipine 30 mg 06/20/25 17:00 06/21/25 17:01 Nifedipine 30 Mg Tab.Er.24 PO 30 mg DAILY@1700 [facility] Administration Ondansetron HCl 4 mg 06/20/25 13:26 Ondansetron Inj 4 Mg/2 Ml Vial IV PUSH Q4H PRN Nausea Oxybutynin Chloride 5 mg 06/20/25 17:00 06/21/25 17:01 Oxybutynin Chloride 5 Mg Tablet PO 5 mg BID [facility] Administration Silver Sulfadiazine 1 applic 06/20/25 21:00 06/21/25 20:33 Silver Sulfadiazine 1% Cr 400 Gm Jar (*Bkc) TOPICAL 1 applic Q12HR [facility] Administration Labs Labs: Laboratory Results - last 24 hr 06/22/25 02:30 Creatinine 0.91 Estim Creat Clear Calc 58 Estimated GFR > 60 Vancomycin Trough 12.5 Quality VTE Prophylaxis VTE prophylaxis: pharmacologic ordered
[2025-06-22 08:26] LABS: Hematocrit 35.3 % (37.0-47.0); Hemoglobin 11.5 g/dL (12.0-15.0); Immature Granulocyte Percent A 4.3 % (0-0.5); Lymphocytes Absolute Auto 1.38 K/mm3 (0.9-3.2); Mean Corpuscular HGB Conc 32.6 g/dl (32-36); Mean Corpuscular Hemoglobin 31.3 pg (26-34); Mean Corpuscular Volume 96.2 fl (80-100); Nucleated Red Blood Cells Absolute Auto 0.000 K/mm3 (0.0-0.012); Nucleated Red Blood Cells Perc 0.0 % (0.0-0.2); Platelet Count Result 343 k/mm3 (150-375); Red Blood Count 3.67 M/mm3 (4.2-5.4); White Blood Count 7.5 K/mm3 (4.5-10.0)
[2025-06-22 08:27] LABS: Alanine Aminotransferase 16 U/L (6-35); Albumin Level 3.3 g/dL (3.5-5.1); Alkaline Phosphatase 77 U/L (38-126); Anion Gap 7 mmol/L (4-12); Aspartate Amino Transferase 24 U/L (14-36); Bilirubin,Total 0.3 mg/dL (0.2-1.3); Blood Urea Nitrogen 16 mg/dL (7-17); Calcium 8.8 mg/dL (8.4-10.2); Carbon Dioxide 18 mmol/L (22-30); Chloride 109 mmol/L (98-107); Glucose 93 mg/dL (65-110); Potassium 4.3 mmol/L (3.4-5.0); Sodium 134 mmol/L (137-145); Total Protein 6.4 g/dL (6.3-8.2)
[2025-06-22] MEDS: ASPIRIN 81 MG CHEWABLE TABLET PO (08:59)
[2025-06-22 09:00] VITALS: PULSE 62
[2025-06-22] MEDS: IBUPROFEN 600 MG TABLET PO (09:00)
[2025-06-22] MEDS: ENOXAPARIN 40 MG/0.4 ML SYRINGE SUB-Q (09:00)
[2025-06-22] MEDS: SILVER SULFADIAZINE 1% CR 400 GM JAR (*BKC) 1 APPLIC TOPICAL ×2 (10:42→20:49)
[2025-06-22 14:00] VITALS: BP 124/86; PULSE 64; RESP 20; TEMP 36.2; O2SAT 96
[2025-06-22 22:00] VITALS: BP 110/83; PULSE 58; RESP 18; TEMP 36.3; O2SAT 98
[2025-06-23] MEDS: CEFEPIME 2 GM in SODIUM CHLORIDE 0.9% IV 50 ML 100 ML IVPB (02:49)
[2025-06-23 06:00] VITALS: BP 129/59; PULSE 62; RESP 18; TEMP 36.2; O2SAT 96
[2025-06-23 06:22] LABS: Hematocrit 35.4 % (37.0-47.0); Hemoglobin 11.5 g/dL (12.0-15.0); Immature Granulocyte Percent A 4.8 % (0-0.5); Lymphocytes Absolute Auto 1.33 K/mm3 (0.9-3.2); Mean Corpuscular HGB Conc 32.5 g/dl (32-36); Mean Corpuscular Hemoglobin 30.8 pg (26-34); Mean Corpuscular Volume 94.9 fl (80-100); Nucleated Red Blood Cells Absolute Auto 0.000 K/mm3 (0.0-0.012); Nucleated Red Blood Cells Perc 0.0 % (0.0-0.2); Platelet Count Result 353 k/mm3 (150-375); Red Blood Count 3.73 M/mm3 (4.2-5.4); White Blood Count 7.4 K/mm3 (4.5-10.0)
[2025-06-23 06:45] LABS: Alanine Aminotransferase 15 U/L (6-35); Albumin Level 3.2 g/dL (3.5-5.1); Alkaline Phosphatase 70 U/L (38-126); Anion Gap 6 mmol/L (4-12); Aspartate Amino Transferase 17 U/L (14-36); Bilirubin,Total 0.3 mg/dL (0.2-1.3); Blood Urea Nitrogen 13 mg/dL (7-17); Calcium 8.9 mg/dL (8.4-10.2); Carbon Dioxide 22 mmol/L (22-30); Chloride 107 mmol/L (98-107); Estimated CRCL calculation 67 ml/min; Estimated Glomerular Filt Rate > 60; Glucose 92 mg/dL (65-110); Potassium 3.8 mmol/L (3.4-5.0); Sodium 135 mmol/L (137-145); Total Protein 6.4 g/dL (6.3-8.2)
[2025-06-23] MEDS: metroNIDAZOLE 500 MG/ISO 100ML 500 MG/100 ML BAG 100 MG IVPB (06:45)
[2025-06-23] MEDS: ASPIRIN 81 MG CHEWABLE TABLET PO (09:17)
[2025-06-23] MEDS: SILVER SULFADIAZINE 1% CR 400 GM JAR (*BKC) 1 APPLIC TOPICAL (09:17)
[2025-06-23 09:18] VITALS: PULSE 77
[2025-06-23] MEDS: ENOXAPARIN 40 MG/0.4 ML SYRINGE SUB-Q (09:18)
--- NOTE | 2025-06-23 11:14 | P.DS_ITS ---
DS: Admitting Diagnosis Discharge Date 06/23/2025 Admitting Diagnosis cellulitis DS: Discharge Diagnosis Discharge Diagnosis (1) Cellulitis of left leg: Code(s): L03.116 - Cellulitis of left lower limb Status: Acute Assessment and Plan: Patient has chronic venous insufficiency and lymphedema to her lower extremities. Lymphedema worse to her left lower extremity compared to her right chronically. Noted to have increased redness and swelling to her left lower extremity starting on Sunday (06/17). * previous micro reviewed, patient grew Staph aureus in November of 2023 that was pansensitive. * Continue cefepime, Flagyl, vancomycin * no current open wounds available for culture * silver sulfadiazine topical b.i.d. * reviewed previous wound RN recommendation is, continue topical ointment and local wound dressings * Blood cultures drawn on 06/20 - pending * Continue IV abx * Wound care consult * Erythema and swelling improving (2) Chronic venous insufficiency: Code(s): I87.2 - Venous insufficiency (chronic) (peripheral) Status: Chronic Assessment and Plan: * see above (3) Lymphedema: Code(s): I89.0 - Lymphedema, not elsewhere classified Status: Chronic Assessment and Plan: * see above * elevate BLE as tolerated (4) Hypertension: Qualifiers: Hypertension type: essential hypertension Qualified Code(s): I10 - Essential (primary) hypertension Code(s): I10 - Essential (primary) hypertension Status: Chronic Assessment and Plan: * chronic, currently 106/63, stable. * continue home medications: Atenolol, nifedipine * monitor Plan Diet: heart healthy GI Prophylaxis: n/a DVT Prophylaxis: Lovenox SQ IV fluids: LR 100 mL/hr Lines/Tubes: peripheral IV Code Status: full code DS: Summary Hospital Course Reason for hospitalization: Cellulitis Hospital Course: The patient is a 70-year-old female with a complex medical history including chronic lymphedema (worse on the left), chronic venous insufficiency, recurrent left lower extremity (LLE) cellulitis, hypertension, cerebral palsy with mild left-sided weakness, and recent urologic intervention for nephrolithiasis. She presented on 06/20/25 with several days of increased swelling and erythema of the LLE, unresponsive to a 10-day outpatient course of Bactrim for a concurrent UTI. She denied systemic symptoms such as fever or chills. On admission, she was afebrile and hemodynamically stable. Exam revealed moderate erythema and swelling of the LLE, with warmth and some crusting but no drainage or open wounds. Laboratory evaluation showed no leukocytosis, mild anemia, and stable renal function. Venous Doppler was negative for DVT. Given her history of recurrent cellulitis and failure of oral antibiotics, she was admitted for IV antibiotics. Empiric therapy with cefepime, vancomycin, and metronidazole was initiated, guided by prior cultures (pansensitive Staph aureus in November 2023). Topical silver sulfadiazine and local wound care were continued per prior recommendations. DVT prophylaxis with enoxaparin was started, and IV fluids were administered. Throughout her stay, the patient remained afebrile and hemodynamically stable, with no evidence of systemic infection. She reported improvement in pain, erythema, and swelling of the LLE by 06/22/25. Blood cultures showed no growth to date, and wound care consultation was obtained. Her chronic conditions, including hypertension, were managed with home medications. She tolerated the hospital course well, with gradual clinical improvement in her cellulitis and no new complications. By 06/23, blood culture showed no growth, blood work has remained stable without any electrolyte abnormalities. Vital signs remained stable. Patient states that her left lower extremity appears to be at her baseline: There is a large amount of erythema surrounding the entirety of the left lower extremity, patient reports that it is improved since admission and is now at her baseline redness/swelling. Patient endorsing desire to be discharged at this time and she is otherwise hemodynamically stable discharge. Plan for discharge home on clindamycin for the next 7 days. Recommend following up with her primary care physician. Status at Discharge Functional status at discharge: independent ambulation Overall status at discharge: patient is back to baseline Time Spent with Patient Time attestation: Total time spent providing and/or coordinating discharge services: 30 Exam Const: General: comfortable and no acute distress Other: , female, obese body habitus, chronically ill-appearing HENMT: Face/Nose/Sinus: Normal nares present Mouth: Yes moist mucous membranes Eyes: General: appearance normal, both eyes and all related structures Sclera: sclerae normal Pupils: Equal, round and reactive pupils present EOM: EOMs intact bilaterally Resp: Effort & Inspection: normal respiratory effort Auscultation: clear to auscultation bilaterally Cardio: Rate: regular rate Rhythm: regular rhythm Other: S1-S2 present without murmur, rub, ectopy GI: Other: Abdomen soft, nondistended, nontender. Normoactive bowel sounds in all quadrants. Skin: Other: Improved erythema to the left lower extremity compared to the right lower extremity. Hypopigmentation to bilateral lower extremities, chronic. Some small areas of crusting to the LLE, no drainage. Neuro: Cranial nerves: Yes Equal, round and reactive pupils present Speech: normal speech Motor exam (neuro): 5/5 motor strength present throughout Sensory Exam: normal sensation Other: A&O x4 Extrem: General: normal exam except as noted Other: Bilateral peripheral edema Psych: Mental Status: mental status grossly normal Affect: normal affect Other: Good insight and judgment, pleasant DS: Data Data Completed and Pending Labs on day of discharge: Labs from last 24 hours 06/23/25 05:23 WBC 7.4 RBC 3.73 L Hgb 11.5 L Hct 35.4 L MCV 94.9 MCH 30.8 MCHC 32.5 RDW 12.8 Plt Count 353 MPV 8.8 Immature Gran % (Auto) 4.8 H Neut % (Auto) 59.1 Lymph % (Auto) 18.1 L [place] % (Auto) 10.5 H Eos % (Auto) 6.5 H Baso % (Auto) 1.0 Lymph # (Auto) 1.33 [place] # (Auto) 0.8 H Eos # (Auto) 0.5 H Baso # (Auto) 0.1 Abs Immat Gran (auto) 0.35 H Absolute Neuts (auto) 4.4 Absolute Nucleated RBC 0.000 Nucleated RBC % 0.0 Sodium 135 L Potassium 3.8 Chloride 107 Carbon Dioxide 22 Anion Gap 6 BUN 13 Creatinine 0.79 Estim Creat Clear Calc 67 Estimated GFR > 60 Glucose 92 Calcium 8.9 Total Bilirubin 0.3 AST 17 ALT 15 Alkaline Phosphatase 70 Total Protein 6.4 Albumin 3.2 L Preliminary micro results at discharge 06/20/25 11:46 Blood Culture - Preliminary Blood 06/20/25 12:04 Blood Culture - Preliminary Blood Discharge Plan Discharge Attending physician on discharge: Hermann Landeros Consulting providers: Anuj Mckeon Discharging Clinician: Anuj Mckeon Anticipated Discharge Date/Time: 06/23/25 11:09 Patient Disposition: Home Activity: as tolerated Diet: regular Discharge Instructions: Discharge disposition: Home Take medications as prescribed. You will be prescribed Clindamycin 300mg to be taken every 8 hours for 7 total days. Monitor blood pressures Take caution while standing, rising, or moving Change positions slowly taking a break between each position change If you standing feel dizzy sit back down and take a break Encouraged to continue with yearly vaccinations Return to the emergency department if you develop sudden shortness of breath, chest pain, nausea, vomiting, upset stomach or intractable diarrhea Return to the emergency department if you develop fever greater than 101.5 Follow-up with the primary care physician within 1-2 weeks Thank you for choosing [facility] for your healthcare needs Patient Instructions: Antibiotic Form Patient Language: Frisian Stand Alone Forms: General Discharge Information Follow-up/Referrals: Jordon Torres MD [Primary Care Provider, Family Practice] Discharge Medications: New clindamycin HCl [Cleocin HCl] 300 mg capsule 300 mg PO Q8H Qty: 24 0RF Continued oxybutynin chloride 5 mg tablet 5 mg PO BID Qty: 180 1RF sulfamethoxazole-trimethoprim [Bactrim DS] 800-160 mg tablet 1 tablet PO Q12H aspirin 81 mg Tablet,Chewable 81 mg PO QAM ibuprofen 600 mg tablet 600 mg PO Q8H PRN (Reason: pain) Patient Comments: HOLD TILL POST OP per [facility] alendronate 70 mg tablet 70 mg PO WEEKLY Rx Instructions: Sunday Zepbound 7.5 mg/0.5 mL solution 7.5 mg subcut WEEKLY Patient Comments: HOLD TILL POST OP per Anesth Rx Instructions: sunday nifedipine 30 mg tablet extended release 24hr See Rx Instructions .ROUTE .COMPLEX Qty: 90 11RF Dose Instruction: TAKE ONE TABLET BY MOUTH EVERY DAY AT 5PM Rx Instructions: TAKE ONE TABLET BY MOUTH EVERY DAY AT 5PM atenolol 25 mg tablet 25 mg PO DAILY Qty: 90 1RF Date of admission: 06/21/25 13:00 Primary Care Provider: Jordon Torres Admitting Provider: Vipin Zafar Attending physician on admission: Vipin Zafar Condition: Stable Quality VTE Prophylaxis VTE prophylaxis: pharmacologic ordered
== END 2025-06-23 11:38 | disposition home or self-care (01) | DRG 603 ==
LOC: ANHED 10:58 → ANH3MED 14:03
PROVIDERS: Student in an Organized Health Care Education/Training Program; Admitting Provider Internal Medicine; Emergency Provider Emergency Medicine; PCP Family Medicine; Visit Provider Physician Assistant
DX: L03.116 Cellulitis of left lower limb (principal); Z68.41 Body mass index [BMI] 40.0-44.9, adult; I87.2 Venous insufficiency (chronic) (peripheral); I89.0 Lymphedema, not elsewhere classified; G80.8 Other cerebral palsy; I10 Essential (primary) hypertension; E78.1 Pure hyperglyceridemia; E66.9 Obesity, unspecified; F41.9 Anxiety disorder, unspecified; M81.0 Age-related osteoporosis without current pathological fracture; Z79.82 Long term (current) use of aspirin; Z86.16 Personal history of COVID-19; Z87.442 Personal history of urinary calculi; Z87.440 Personal history of urinary (tract) infections
CPT/HCPCS: 36415; 80048; 80053; 80202; 82565; 83605; 85025; 87040; 93971; 99285; A9270; G0378; J0692; J1650; J1836; J3373; J7050; J7120